=== PATIENT | female | born 1945 | race Caucasian/White ===

== ENCOUNTER 2017-12-10 16:48 | Observation (INO) | payer OTHER, MEDICARE, SELFPAY ==
[2017-12-10] VITALS (11 sets, daily range): BP systolic 155–178; BP diastolic 70–90; PULSE 79–105; RESP 14–20; TEMP 36.6–37; O2SAT 97–99; BMI 25.4; BMI 25.5
[2017-12-10 17:11] LABS: Bedside Glucose 173 mg/dL (70-110)
--- NOTE | 2017-12-10 17:31 | CT_ITS ---
STUDY: CT BRAIN WITHOUT CONTRAST REASON FOR EXAM: Female, 72 years old. Confusion RADIATION DOSAGE (If Supplied By Facility): CTDIvol = ( 44.99 ) mGy, DLP = ( 762.36 ) mGycm TECHNIQUE: Transaxial CT imaging of the brain was performed without administration of intravenous contrast material. Individualized dose optimization techniques were used for this CT. COMPARISON: None. FINDINGS: Normal soft tissue structures. Normal calvarium. Normal size ventricles and extra-axial spaces for the patient's age. There are areas of decreased attenuation within the white matter tracts of the supratentorial brain, consistent with microvascular disease changes. Normal basal ganglia and thalami. Normal brainstem. Normal cerebellum. There is no intracranial hemorrhage. There are no findings of an acute ischemic infarction. There is mild mucosal thickening of the right maxillary sinus. CT/Brain/Head without Contrast IMPRESSION: 1. Chronic involutional changes of the brain. 2. Mild mucosal thickening of the right maxillary sinus. 3. There is no intracranial hemorrhage or evidence of acute infarct. Electronically Signed: Barrera Zamarripa MD at 18:31 EDT , Service support ,
--- NOTE | 2017-12-10 17:31 | EKG12_ITS ---
Test Reason : Blood Pressure : / mmHG Vent. Rate : 097 BPM Atrial Rate : 097 BPM P-R Int : 142 ms QRS Dur : 074 ms QT Int : 334 ms P-R-T Axes : 025 008 012 degrees QTc Int : 424 ms Normal sinus rhythm Normal ECG Confirmed by BRITTA PÉREZ, DEBORA ([id number]), newspaper copy editor KINA JETER ([id number]) on 12/13/2017 9:58:08 AM Referred By: PIO Confirmed By:DEBORA CALLEJAS MD
--- NOTE | 2017-12-10 17:36 | ED.VISSUMM ---
- ER Visit Summary Date of Service: 12/10/17 Chief Complaint: Difficulty speaking History of Present Illness: The patient is a 72 F presenting with difficulty speaking and slurred speech. She states around noon today she started to feel disoriented. She states she was trying to speak and was unable to get the words out. She states she knew what she wanted to say but was unable to say the correct words. She also had slurring of her speech and felt off balance. These symptoms lasted approximately 4 hours. She states she ran out of her diabetes medication yesterday and was unsure if this was related to that. She also had a typhoid shot on in preparation for a trip to [place] in January. She states she was told the side effects to expect included nausea and vomiting. She has had nausea. She denies chest pain or shortness of breath. Denies vision changes. Denies numbness or weakness. Physical Examination: Vitals are stable. Patient is afebrile. Alert no acute distress. HEENT exam is unremarkable. Neck is supple. Lungs are clear and equal bilaterally. Heart is regular rate and rhythm. Abdomen is soft nontender nondistended. Extremities are unremarkable. Skin is warm and dry. No focal neurologic deficit. NIH 0 Remainder of exam is unremarkable. Emergency Department Course and Treatment: EKG is sinus rate of 97 with no acute ischemic changes. CT head shows chronic changes. CBC, chemistries unremarkable other than glucose 177. Troponin is negative. Chest x-ray shows no acute process. Patient's symptoms are now resolved. Due to her expressive aphasia and dysarthria will admit for further evaluation. Will discuss with the hospitalist. Disposition: Admission Impression: TIA This note was generated with [employer] dictation software. It may contain incorrect words, spelling, and punctuation that were not noted in review of the chart prior to signing ED Disposition - Plan for ED Patient: Chief Complaint: Confusion Referrals: Gerardo Michel DO [Primary Care Provider] -
--- NOTE | 2017-12-10 18:07 | RAD_ITS ---
STUDY: X-RAY CHEST REASON FOR EXAM: Female, 72 years old. Confusion TECHNIQUE: Single AP portable view of the chest. COMPARISON: None. FINDINGS: telemetry monitor leads are present. There is a limited inspiration. There is no demonstrated pleural abnormality. Normal size heart. Normal mediastinum and laura. Normal visualized pulmonary arteries. There are calcified plaques of the aortic arch. Normal visualized thoracic spine. Normal visualized ribs, clavicles, and shoulders. There is no demonstrated abnormality of the visualized soft tissue structures of the upper abdomen. RAD/Chest 1 View IMPRESSION: Calcified plaques of the aortic arch. No acute cardiopulmonary disease process is seen. Electronically Signed: Barrera Zamarripa MD at 19:00 EDT , Service support ,
[2017-12-10 18:16] LABS: Absolute Lymphocyte Count 1.23 X10^3/ul (0.83-4.51); Absolute Neutrophil Count 2.9 X10^3/uL (2.0-7.7); Basophil# 0.02 X10^3/uL; Basophil% 0.4 % (0-1); Eosinophil# 0.06 X10^3/uL; Eosinophils% 1.1 % (0-5); Hematocrit 38.5 % (37-47); Hemoglobin 12.7 g/dl (12.0-15.0); Lymphocyte # 1.23 X10^3/ul (4.0); Lymphocyte % 23.5 % (19-41); Mean Corpuscular Hgb 28.9 pg (27.0-32.0); Mean Corpuscular Volume 87.7 fL (81-99); Mean Platelet Vol. 10.6 fl (6.2-12.0); Monocyte# 1.01 X10^3/uL; Monocyte% 19.3 % (0-10); Neutrophil # 2.89 X10^3/uL (2.7-7.7); Neutrophil % 55.3 % (47-70); Platelet Count 230 K/mm3 (150-450); RBC Distribution Width CV 13.3 % (11.6-14.6); RBC Distribution Width SD 42.7 fl (35.1-43.9); Red Blood Count 4.39 M/mm3 (4.2-5.4); White Blood Count 5.2 K/mm3 (4.4-11.0)
[2017-12-10 18:24] LABS: Anion Gap 6 (5-15); BUN 16 mg/dL (7-18); BUN/Creat Ratio 16.5 RATIO (10-20); Calcium,Total 9.8 mg/dL (8.5-10.1); Chloride 104 mmol/L (98-107); Creatinine, Serum 0.97 mg/dL (0.55-1.02); EST Glomerular Filtration Rate 60 mL/min (>60); Est Glom Filt Rate - Afr Amer 73 mL/min (>60); Estimated Creatinine Clearance 45.94 ml/min; Glucose 177 mg/dL (74-106); Potassium 4.1 mmol/L (3.5-5.1); Sodium Level 138 mmol/L (136-145)
[2017-12-10 18:26] LABS: POSITIVE COUNT NO; POSITIVE DIFFERENTIAL NO; POSITIVE MORPHOLOGY NO
[2017-12-10 18:43] LABS: International Normalized Ratio 0.9; Prothrombin Time (Protime)PT. 12.2 SECONDS (11.7-14.9)
[2017-12-10 18:44] LABS: Partial Thromboplast Time 28.3 Seconds (24.1-36.2)
--- NOTE | 2017-12-10 19:56 | HP.PCM_ITS ---
Problem List (1) TIA (transient ischemic attack) Status: Acute (2) HTN (hypertension) Status: Chronic (3) Hypothyroid Status: Chronic (4) Diabetes mellitus Status: Chronic History of Present Illness Date of Admission: 12/10/17 Chief Complaint: unable to speak for four hours The patient is a 72 year old female patient who admits to being non compliant with her diabetic medications presents to the ER after having a four hour period of time being unable to speak coherently. She states she had a vaccine for typhoid two days earlier and had subsequent URI like symptoms and diarrhea which subsided this morning. She ate an early breakfast but noticed that around 2:00 pm this afternoon when a man came to the house to give an estimate on siding she became unable to get the words out of her mouth. She was confused. She denied any headache or any other neurological deficits. CT scan was negative for bleeding and symptoms have completely resolved. She admits to eating a sandwich prior to recovery of her speech and thinking and wonders if she had become hypoglycemic. Nevertheless she will be admitted for observation of TIA with MRI in the am. Past Medical History Past Medical History (Chronic Problems): Chronic Problems HTN (hypertension) (Chronic) Breast cancer (Chronic) Hypothyroid (Chronic) Diabetes mellitus (Chronic) Allergies Gadolinium-MRI Contrast Medium [DYE] Allergy (Verified 12/10/17 16:52) Unknown lisinopril Allergy (Verified 12/10/17 16:52) Unknown phenazopyridine HCl [From Pyridium] Allergy (Verified 12/10/17 16:52) Unknown Sulfa (Sulfonamide Antibiotics) Allergy (Verified 12/10/17 16:52) Unknown Home Medications: Ambulatory Orders Medication Instructions Recorded Aspirin [Aspirin, Baby] 81 mg PO DAILY@0800 08/30/13 Glimepiride [Amaryl] 2 mg PO BID 08/30/13 Hydrochlorothiazide 25 mg PO DAILY 08/30/13 Levothyroxine [Synthroid] 175 mcg PO DAILY 08/30/13 Metformin HCl [Glucophage] 1,000 mg PO BID 08/30/13 Gabapentin [Neurontin] 300 mg PO DAILY 11/20/16 Magnesium 250 mg PO DAILY 11/20/16 Tamoxifen Citrate 20 mg PO DAILY 02/21/17 Surgical History: appendectomy, hysterectomy, tonsillectomy, - - Bilateral mastectomy with bilateral TRAM flap reconstruction. 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 Denies: Focal weakness, Numbness, Tingling Psychiatric: Denies: Anxiety, Depression, Homicidal Ideations, Suicidal Ideations Hematologic/ Lymphatic: Denies: Easy Bruising, Easy Bleeding VTE Information - Inpt Only VTE Present on Admission: No VTE Mechan Device Prophylaxis: None VTE Pharm Prophylaxis ordered?: Yes Patient Problems: Active and Suspected Problems TIA (transient ischemic attack) (Acute) - Physical Exam General: Alert, Oriented x3, Cooperative HEENT: Atraumatic, PERRLA, EOMI, Normocephalic Neck: Supple, No JVD, Negative Carotid Bruits Lungs: Clear to auscultation, Normal air movement Cardiovascular: Regular rate, Normal S1, Normal S2, No murmurs Abdomen: Bowel Sounds Present, Soft, Non Tender Extremities: No edema, Capillary Refill Less than 3 Seconds Skin: No rashes, No breakdown Musculoskeletal: No Tenderness to Palpation of Joints or Extremities Neurological: Cranial nerves II-XII grossly intact Psych/Mental Status: Normal Affect, Appropriate Vital Signs Temp Pulse Resp BP Pulse Ox 98.6 F 92 14 155/75 H 99 12/10/17 16:50 12/10/17 19:16 12/10/17 19:16 12/10/17 19:16 12/10/17 19:16 Oxygen Delivery Method Room Air Weight: 148 lb 9.465 oz Body Mass Index (BMI) 25.4 Finger Stick Blood Glucose 173 Laboratory Tests Past 24 Hrs 12/10/17 12/10/17 12/10/17 17:50 17:50 17:50 WBC 5.2 RBC 4.39 Hgb 12.7 Hct 38.5 MCV 87.7 MCH 28.9 MCHC 33.0 RDW 13.3 RDW Differential 42.7 Plt Count 230 MPV 10.6 Immature Gran % (Auto) 0.400 Neut % (Auto) 55.3 Lymph % (Auto) 23.5 Eddy % (Auto) 19.3 H Eos % (Auto) 1.1 Baso % (Auto) 0.4 Absolute Neuts (auto) 2.9 Absolute Lymphs (auto) 1.23 Total Counted Not Reportable PT 12.2 INR 0.9 APTT 28.3 Sodium 138 Potassium 4.1 Chloride 104 Carbon Dioxide 28.0 Anion Gap 6 BUN 16 Creatinine 0.97 Estim Creat Clear Calc 45.94 Est GFR (MDRD) Af Amer 73 Est GFR (MDRD) Non-Af 60 BUN/Creatinine Ratio 16.5 Glucose 177 H Calcium 9.8 Troponin I < 0.015 POC Glucose 12/10/17 17:04 POC Glucose 173 H Assessment/Plan All Active Problems TIA (transient ischemic attack) (Acute) Postoperative wound abscess (Acute) Non-healing surgical wound (Acute) Chronic Problems HTN (hypertension) (Chronic) Breast cancer (Chronic) Hypothyroid (Chronic) Diabetes mellitus (Chronic) Plan - admit to PCU for observation - neurochecks q 4hrs - aspirin per routine - MRI/MRA head and neck in am - continue routine home medications - LMWH for DVT prophylaxis - suspect underlying cause was actually hypoglycemia and not TIA, compliance with medications was stressed as important to this patient and eating regularly as well. Code Visit OBSV E&M: 76140 Initial observation care L2
--- NOTE | 2017-12-10 20:12 | NURSING ---
Called and spoke with Chintan Mccarty RN in ER - informed that PCU was ready for patient to be transferred
[2017-12-10 22:17] LABS: Thyroid Stim Hormone (TSH) 0.11 uIU/mL (0.358-3.74)
[2017-12-10] MEDS: Metoprolol Tartrate 5 MG/5 ML Vial IV (22:27)
[2017-12-10] MEDS: 0.9% NaCl Peripheral Flush Adult/Peds IV (22:33)
[2017-12-10] MEDS: Oxymetazoline 0.05% 1 SPRAY SPRAY.BTL 2 SPRAY NASAL (23:18)
[2017-12-11] VITALS (10 sets, daily range): BP systolic 125–156; BP diastolic 62–95; PULSE 82–98; RESP 16–18; TEMP 36.3–36.7; O2SAT 93–97; BMI 25.4
[2017-12-11] MEDS: Acetaminophen 325 MG Tablet 650 MG PO (02:27)
[2017-12-11] MEDS: Levothyroxine 175 MCG Tablet PO (05:00)
[2017-12-11 06:45] LABS: Cholesterol 147 mg/dL (200); High Density Lipoprotein 29 mg/dL; Triglycerides 226 mg/dL; Very Low Density Lipoprotein 45 mg/dL (5-40)
[2017-12-11 06:55] LABS: Bedside Glucose 210 mg/dL (70-110)
[2017-12-11] MEDS: Glimepiride 2 MG Tablet PO ×2 (08:01→17:37)
[2017-12-11] MEDS: Aspirin 81 MG TAB.CHEW PO (08:01)
[2017-12-11] MEDS: metFORMIN HCl 1,000 MG Tablet 1000 MG PO ×2 (08:01→17:37)
[2017-12-11] MEDS: hydroCHLOROthiazide 25 MG Tablet PO (09:15)
[2017-12-11] MEDS: Magnesium Oxide 400 MG Tablet PO (09:15)
[2017-12-11] MEDS: Enoxaparin 40 MG/0.4 ML Syringe SC (09:15)
[2017-12-11 09:36] LABS: T4 Free Direct 2.01 ng/dL (0.76-1.46)
--- NOTE | 2017-12-11 10:35 | ECHOCS_ITS ---
Reason For Study: EMBOLI Procedure This was a 2D Doppler, Color Flow transthoracic echocardiogram. The exam was of fair technical quality due to diminished acoustic windows. Exam performed portable in patient room. Left Ventricle Normal LV size. Left ventricular systolic function is hyperdynamic. The estimated ejection fraction is 75 %. There is evidence of diastolic dysfunction. No regional wall motion abnormalities noted. Right Ventricle Normal RV size. Normal systolic function. Atria Normal left atrium. Normal right atrium. No doppler evidence for ASD. Bubble contrast study negative for right to left interatrial shunt. Mitral Valve There is mild mitral annular calcification. The mitral valve chordae are thickened and/or calcified. Trivial mitral valve insufficiency. Tricuspid Valve Normal tricuspid valve. Trivial tricuspid valve insufficiency. Right ventricular systolic pressure estimated to be 34 mmHg. Aortic Valve Trisinus/trileaflet aortic valve. Mild focal aortic valve calcification. Pulmonic Valve The pulmonic valve is not well visualized. Trivial pulmonic valve insufficiency. Great Vessels Normal sized aortic root. Pericardium/Pleural No pericardial effusion. Medication Performed a rapid injection of agitated mix of 9 cc saline and 1cc air to assess for atrial septal defect. MMode/2D Measurements & Calculations LVIDd: 3.9 cm IVSd: 0.96 cm LA dimension: 3.2 cm LVIDs: 2.1 cm LVPWd: 1.00 cm FS: 47.4 % LAV(MOD-bp): 39.4 ml LVAd ap4: 22.7 cm2 SV(MOD-sp4): 34.1 ml LAV(MOD-bp) Indexed: 22.9 ml/m2 EDV(MOD-sp4): 56.5 ml LAV(MOD-sp2): 39.5 ml EDV(sp4-el): 58.8 ml LAV(MOD-sp4): 39.3 ml LVAs ap4: 12.7 cm2 ESV(MOD-sp4): 22.4 ml ESV(sp4-el): 22.8 ml EF(MOD-sp4): 60.3 % EF(sp4-el): 61.3 % SV(sp4-el): 36.1 ml LA A4 area: 15.7 cm2 RA A4 area: 11.5 cm2 Doppler Measurements & Calculations MV E max otis: 76.1 cm/sec Lat Peak E' Otis: 8.3 cm/sec Med Peak E' Otis: 6.3 cm/sec MV A max otis: 139.8 cm/sec E/E' lat: 9.1 E/E' med: 12.1 MV E/A: 0.54 Ao V2 max: 157.8 cm/sec LV V1 max: 135.2 cm/sec PA V2 max: 111.3 cm/sec Ao max P.0 mmHg LV V1 max P.3 mmHg TR max otis: 278.4 cm/sec TR max P.0 mmHg Interpretation Summary Left ventricular systolic function is hyperdynamic. The estimated ejection fraction is 75 %. There is mild mitral annular calcification. The mitral valve chordae are thickened and/or calcified. Trivial mitral valve insufficiency. Trivial tricuspid valve insufficiency. Mild focal aortic valve calcification. Trivial pulmonic valve insufficiency. Right ventricular systolic pressure estimated to be 34 mmHg. There is evidence of diastolic dysfunction. Ordering Physician: Shahab Alejandre Referring Physician: DELMY HARLEY Performed By: Rosa Maria Aguirre RDCS
[2017-12-11 10:38] LABS: Free T3 3.4 pg/mL (2.18-3.98); T4 Total, Thyroxin 17.9 ug/dL (4.8-13.9)
[2017-12-11] MEDS: DiphenhydrAMINE 50 MG/ML Syringe IV (11:01)
[2017-12-11] MEDS: 0.9% NaCl Peripheral Flush Adult/Peds IV (11:02)
--- NOTE | 2017-12-11 11:09 | MRI_ITS ---
STUDY: MRI BRAIN WITHOUT CONTRAST REASON FOR EXAM: Female, 72 years old. Episode yesterday of aphasia and dizziness. History of breast CA, HTN and diabetes TECHNIQUE: Standardized multiplanar fat and water weighted pulse sequences were obtained. COMPARISON: November 20, 2016 MRI, December 10, 2017 CT FINDINGS: Normal size of the ventricles and extra-axial spaces for the patient's age. There are a limited number of small white matter hyperintensities, distributed throughout the deep white matter tracts of the cerebral hemispheres, consistent with mild chronic white matter ischemic changes. Normal bilateral basal ganglia. Normal thalami. There is no extra-axial fluid accumulation. Normal flow voids within the major intracranial circulation suggesting patency by spin echo criteria. There is enlargement of the sella turcica with increased CSF within the sella and flattening of the pituitary gland consistent with an empty sellar syndrome. Normal infundibular stalk, hypothalamus, and optic chiasm. Normal tectal plate and pineal gland. Normal midbrain, eulogio and medulla. Normal cerebellum. Normal basal cisterns. Normal bilateral temporal bones. Normal bilateral internal auditory canals. No demonstrated orbital abnormality, within the constraints of a routine brain study. There is minimal mucosal thickening of the bilateral maxillary sinuses.. Normal calvarium and skull base. Normal visualized soft tissue structures. Normal visualized upper cervical spine. MRI/Brain without Contrast IMPRESSION: Involutional changes of the brain, as described above. There is mild small vessel ischemic white matter disease. Electronically Signed: Lorelei Saldana MD at 13:18 EDT , Service support ,
--- NOTE | 2017-12-11 11:09 | MRI_ITS ---
STUDY: MRA OF THE HEAD WITHOUT CONTRAST REASON FOR EXAM: Female, 72 years old. Episode yesterday of aphasia and dizziness. History of breast carcinoma, hypertension and diabetes. TECHNIQUE: 3-D oxmx-wn-pfbrha (TOF) imaging was performed with MIPs. The study was performed unenhanced. COMPARISON: None. FINDINGS: Normal bilateral petrous carotid arteries. Normal right cavernous carotid artery with a normal supraclinoid bifurcation. Normal left cavernous carotid artery with a normal supraclinoid bifurcation. Normal right A1 segment of the anterior cerebral artery. Normal left A1 segment of the anterior cerebral artery. Normal intact anterior communicating artery (ACOM). Normal bilateral A2 segments of the anterior cerebral arteries. Normal right M1 and M2 segments of the middle cerebral arteries, with a normal M1 bifurcation. Normal left M1 and M2 segments of the middle cerebral arteries, with a normal M1 bifurcation. Normal right posterior communicating artery (PCOM). origin of the left posterior cerebral artery off the left internal carotid artery accounts for the absent left P1 segment. Normal bilateral vertebral arteries. Normal basilar artery with a normal basilar bifurcation. The visualized bilateral superior cerebellar (SCA) arteries are normal. Absent left P1 segment is a developmental variation of normal. Normal right P1, bilateral P2 and visualized P3 segments of the posterior cerebral arteries. There is no demonstrated aneurysm of the [place]. There is no major vessel occlusion or hemodynamically significant stenosis. There is no demonstrated abnormality of the visualized brain. MRI/MRA Head ONLY without Contrast IMPRESSION: Normal MRA of the head Electronically Signed: Jimmy Loyola MD at 13:23 EDT , Service support ,
--- NOTE | 2017-12-11 11:10 | MRI_ITS ---
STUDY: MRA NECK WITH AND WITHOUT CONTRAST REASON FOR EXAM: Female, 72 years old. Aphasia and dizziness TECHNIQUE: 3-D rpfb-pe-nyqjcv (TOF) imaging was performed in an 1.5 T MRI scanner. 7 ml of Gadavist was administered for the contrast enhanced images. COMPARISON: None. FINDINGS: RIGHT CAROTID ARTERIES: Normal right common carotid artery (CCA). Normal right common carotid bulb. Normal origin of the right internal carotid (ICA) artery without a hemodynamically significant stenosis. Normal visualized cervical portion of the right internal carotid artery. Normal origin of the right external carotid artery (ECA). LEFT CAROTID ARTERIES: Normal left common carotid artery (CCA). Normal left common carotid bulb. Normal origin of the left internal carotid (ICA) artery without a hemodynamically significant stenosis. Normal visualized cervical portion of the left internal carotid artery. Normal origin of the left external carotid artery (ECA). VERTEBRAL ARTERIES: Normal antegrade flow within the bilateral vertebral artery without a hemodynamically significant stenosis. MRI/MRA Neck WITH and W/O Contrast IMPRESSION: Normal bilateral cervical carotid and vertebral arteries. Electronically Signed: Sandro Pena MD at 16:28 EDT , Service support ,
--- NOTE | 2017-12-11 13:29 | PCM.CONS.GEN ---
Problem List (1) TIA (transient ischemic attack) Status: Acute Reason for Consult Date of Consultation: 12/11/17 Reason for Consultation: TIA History of Present Illness: The patient is a 72 year old CF with PMH HTN, DM, H/O Breast Cancer s/p B/L mastectomy, hypothyroidism admitted with speech disturbances. Per patient yesterday (12/10/2017) patient was at home, and had sudden onset of speech disturbances, could not get the words out and whatever she was speaking did not make any sense, felt confused, per patient her symptoms lasted for about 4 hrs before improving, did not have any facial droop, focal motor weakness, visual disturbances or sensory loss. She complaints of mild frontal headache but denies any vision loss, jaw claudication or temporal tenderness. Per patient she had typhoid vaccine last week and had subsequent reaction to the same in form of URI symptoms. Per patient she did not take ASA regularly prior to the admission, lives with her , denies any falls, does not use cane or walker to ambulate, does not need any assistance for her ADLs, ABCD2 score on admission was 6. MRI brain reported to be normal, MRA head/neck did not show any hemodynamically significant stenosis or occlusion. .] Past Medical History Past Medical History (Chronic Problems): Chronic Problems HTN (hypertension) (Chronic) Breast cancer (Chronic) Hypothyroid (Chronic) Diabetes mellitus (Chronic) Allergies Gadolinium-MRI Contrast Medium [DYE] Allergy (Verified 12/10/17 16:52) Unknown lisinopril Allergy (Verified 12/10/17 16:52) Unknown phenazopyridine HCl [From Pyridium] Allergy (Verified 12/10/17 16:52) Unknown Sulfa (Sulfonamide Antibiotics) Allergy (Verified 12/10/17 16:52) Unknown Home Medications: Ambulatory Orders Medication Instructions Recorded Aspirin [Aspirin, Baby] 81 mg PO DAILY@0800 08/30/13 Glimepiride [Amaryl] 2 mg PO BID 08/30/13 Levothyroxine [Synthroid] 175 mcg PO DAILY 08/30/13 Metformin HCl [Glucophage] 1,000 mg PO BID 08/30/13 Magnesium 250 mg PO DAILY 11/20/16 Hydrochlorothiazide [Hctz] 25 mg PO DAILY 12/10/17 Surgical History: appendectomy, hysterectomy, tonsillectomy, - - Bilateral mastectomy with bilateral TRAM flap reconstruction. 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 Lives: Spouse/ Significant Other Smoking Status: Never smoker Alcohol: None Drugs: None - *Family History Maternal History Items: No pertinent history Review of Systems Constitutional: Reports: - - complete ROS negative except as documented in HPI Patient Problems: Active and Suspected Problems TIA (transient ischemic attack) (Acute) - Physical Exam General: Alert HEENT: Normocephalic Neck: Supple Lungs: Clear to auscultation Cardiovascular: Normal S1, Normal S2 Abdomen: Bowel Sounds Present Extremities: No cyanosis Skin: No rashes Musculoskeletal: No Tenderness to Palpation of Joints or Extremities Neurological: - - consious, alert, AoAx3, Cn 2-12 grossly intact, power 5/5 all 4 extremities, speech normal at present, no sensory loss, no cerebellar signs, gait deferred, Reflexes + B/L B/S/T/K/A, NIHSS 0 at present, mRS 0 at baseline Psych/Mental Status: Normal Affect Vital Signs Temp Pulse Resp BP Pulse Ox 98.1 F 97 18 150/95 H 97 12/11/17 11:20 12/11/17 11:20 12/11/17 11:20 12/11/17 11:20 12/11/17 11:20 Oxygen Delivery Method Room Air Weight: 67.4 kg Body Mass Index (BMI) 25.4 Laboratory Tests Past 24 Hrs 12/10/17 12/11/17 12/11/17 21:26 06:00 06:00 Troponin I < 0.015 Triglycerides 226 H Cholesterol 147 LDL Cholesterol 73 VLDL Cholesterol 45 H HDL Cholesterol 29 L TSH 0.11 L Free T4 2.01 H Thyroxine (T4) Free T3 pg/dL 12/11/17 06:00 Troponin I Triglycerides Cholesterol LDL Cholesterol VLDL Cholesterol HDL Cholesterol TSH Free T4 Thyroxine (T4) 17.9 H Free T3 pg/dL 3.4 POC Glucose 12/11/17 06:53 POC Glucose 210 H Assessment/Plan All Active Problems TIA (transient ischemic attack) (Acute) Postoperative wound abscess (Acute) Non-healing surgical wound (Acute) The patient is a 72 year old CF with PMH HTN, DM, H/O Breast Cancer s/p B/L mastectomy, hypothyroidism admitted with speech disturbances. Per patient yesterday (12/10/2017) patient was at home, and had sudden onset of speech disturbances, could not get the words out and whatever she was speaking did not make any sense, felt confused, per patient her symptoms lasted for about 4 hrs before improving, did not have any facial droop, focal motor weakness, visual disturbances or sensory loss. She complaints of mild frontal headache but denies any vision loss, jaw claudication or temporal tenderness. Per patient she had typhoid vaccine last week and had subsequent reaction to the same in form of URI symptoms. Denies any witnessed seizures. Per patient she did not take ASA regularly prior to the admission, lives with her , denies any falls, does not use cane or walker to ambulate, does not need any assistance for her ADLs, ABCD2 score on admission was 6. MRI brain reported to be normal, MRA head/neck did not show any hemodynamically significant stenosis or occlusion. Impression Probable TIA Plan -ASA 81 mg PO once daily, start Plavix 75 mg PO once daily, dual AP for 3 weeks, then switch to single AP, bleeding risks discussed in detail -Lipitor 80 mg PO q hs -MRI brain and MRA head/neck reviewed -LDL-73, Await Hba1c -Await TTE -Goal BP < 130/80 mmHg and goal Hba1c < 7% -Stroke risk factors discussed and stroke education provided -PT/OT/ST -GI/DVT prophylaxis -Fall precautions -Further medical management per primary team. -Follow up with Neurology as outpatient in 2-3 weeks -Please call with questions if any -Thank you for allowing us to participate in patient management and care I spent 60 minutes taking history, doing physical examination, reviewing medical records, coordinating care and counseling the patient. Code Visit Inpatient E&M: 61576 Init Hosp L3
--- NOTE | 2017-12-11 13:37 | CASEMGMT ---
Face to Face with patient for initial transition planning/care coordination assessment. BEN WELCH introduced self and role at [facility], pt voices understanding and consents to assessment at this time. Pt is sitting up on side of bed in no distress at this time. Pt is A/O x4 at this time and answers all questions appropriately at this time. Care providers, pharmacy, and demographics verified. See attached link. Pt voices no further concerns/needs at this time. Advised pt to ask for CM if any further questions/concerns/needs arise, voices understanding. PLAN: [place] BEN WELCH
[2017-12-11 14:43] LABS: Hemoglobin A1c 8.3 % (4.2-6.3)
--- NOTE | 2017-12-11 16:26 | DCINST_ITS ---
- Discharge Diagnoses Current Active Problems: Current Active and Chronic Problems TIA (transient ischemic attack) (Acute) You will use the following diet at home:: Calorie/Carbohydrate Controlled ( specify 1200, 1400, etc) - 1800 peyton / day, Cardiac Your food should be the consistency of: Regular Your liquids should be the consistency of: Regular/Thin Discharge Activity: Return to Normal Activity Allergies/Adverse Reactions: Allergies Gadolinium-MRI Contrast Medium [DYE] Allergy (Verified 12/10/17 16:52) Unknown lisinopril Allergy (Verified 12/10/17 16:52) Unknown phenazopyridine HCl [From Pyridium] Allergy (Verified 12/10/17 16:52) Unknown Sulfa (Sulfonamide Antibiotics) Allergy (Verified 12/10/17 16:52) Unknown Medications to take at Discharge Aspirin [Aspirin, Baby] 81 mg PO DAILY@0800 08/30/13 Glimepiride [Amaryl] 2 mg PO BID 08/30/13 Metformin HCl [Glucophage] 1,000 mg PO BID 08/30/13 Magnesium 250 mg PO DAILY 11/20/16 Hydrochlorothiazide [Hctz] 25 mg PO DAILY 12/10/17 Atorvastatin Calcium [Lipitor] 80 mg PO QHS #30 tab 12/11/17 Clopidogrel Bisulfate [Plavix] 75 mg PO DAILY #30 tab 12/11/17 Levothyroxine [Synthroid] 150 mcg PO DAILY@0600 #30 tab 12/11/17 The following prescriptions were given: Atorvastatin Calcium [Lipitor] 80 mg PO QHS #30 tab Clopidogrel Bisulfate [Plavix] 75 mg PO DAILY #30 tab Levothyroxine [Synthroid] 150 mcg PO DAILY@0600 #30 tab Primary Care Physician: Gerardo Michel DO [Primary Care Provider] - Please follow up with your Primary Care Physician in: 1-2 weeks Test Results: Test results from this visit will be discussed in further detail at your follow- up appointment, if applicable. Please Follow Up With: Martina Guillaume MD When: 2-3 weeks Proposed Discharge Date: 12/11/17
--- NOTE | 2017-12-11 16:39 | PCM.DC.SUM ---
<Shahab Alejandre - Last Filed: 12/11/17 16:39> Discharge Date and Diagnosis Date of Admission: 12/10/17 Date of Discharge: 12/11/17 - Primary Discharge Diagnosis Active and Suspected Problems TIA (transient ischemic attack) (Acute) DMt2 uncontrolled HTN hypothyroidism HLD - Secondary Discharge Diagnosis Chronic Problems HTN (hypertension) (Chronic) Breast cancer (Chronic) Hypothyroid (Chronic) Diabetes mellitus (Chronic) Hospital Course and Treatment Imaging Results: Echo: Interpretation Summary Left ventricular systolic function is hyperdynamic. The estimated ejection fraction is 75 %. There is mild mitral annular calcification. The mitral valve chordae are thickened and/or calcified. Trivial mitral valve insufficiency. Trivial tricuspid valve insufficiency. Mild focal aortic valve calcification. Trivial pulmonic valve insufficiency. Right ventricular systolic pressure estimated to be 34 mmHg. There is evidence of diastolic dysfunction. CT/Brain/Head without Contrast IMPRESSION: 1. Chronic involutional changes of the brain. 2. Mild mucosal thickening of the right maxillary sinus. 3. There is no intracranial hemorrhage or evidence of acute infarct. RAD/Chest 1 View IMPRESSION: Calcified plaques of the aortic arch. No acute cardiopulmonary disease process is seen. MRI/Brain without Contrast IMPRESSION: Involutional changes of the brain, as described above. There is mild small vessel ischemic white matter disease. MRI/MRA Head ONLY without Contrast IMPRESSION: Normal MRA of the head MRI/MRA Neck WITH and W/O Contrast IMPRESSION: Normal bilateral cervical carotid and vertebral arteries. Consults: Neuro - Aundrea Operations: None Procedures: 2-D Echocardiogram Summary of Care Provided: Physical exam on day of discharge: General: Resting comfortably NAD Psych: A/Ox3 normal affect HEENT: PEARRLA AT NC Neck: Supple NT CV: RRR no m/t/r/g/h Resp: CTA Abd: [id number] Soft NT no guarding or rigidity Ext: DP2+= no edema Skin: W/D normal turgor Lymph/Heme: No active bleeding or adenopathy Neuro: CN2-12 intact Hospital course: The patient is a 72 year old F with a hx of DMt2, HTN, breast cancer in remission, hypothyroidism who presented to the ER after experiencing an episode of aphasia that lasted for about 4 hours at home that came on and resolved suddenly. She also described some difficulty ambulating with new unsteadiness. She presented to the ER and had a negative CT of the brain. She was admitted to the PCU on tele with concern for TIA, neurology was consulted. She was already taking aspirin, this was continued. She underwent MRI brain, MRA head and neck. No acute process was revealed. Neuro felt that this was a TIA and she was placed on plavix and high dose statin. She was seen by [facility] and had no further symptoms and no home-going needs. She had an echo with no acute findings as above. She had an A1C showing poor control at 8.3. She indicated that she had just increased her amaryl dose and would discuss with her PCP about following it up again and seeing if she needs to start an additional agent. We also assessed her thyroid function. TSH was suppressed, T4 was elevated, so we slightly decreased her synthroid dose, this will also need rechecked for further adjustement. Lipid panel showed elevated trigs, LDL 73 (goal <70), HDL low at 29, tchol 147. She was discharged home in stable condition. Follow up with PCP 1-2 weeks, Neuro 2-3 weeks. This patient was seen by Shahab Alejandre PA-C under the supervision of Doctor Campuzano. [] Discharge Diet: Low fat/ Low Cholesterol, 1800 Calorie Control Diet, 2000 mg Sodium Diet Discharge Activity: Return to Normal Activity Home Medications: Medications to take at Discharge Aspirin [Aspirin, Baby] 81 mg PO DAILY@0800 08/30/13 Glimepiride [Amaryl] 2 mg PO BID 08/30/13 Metformin HCl [Glucophage] 1,000 mg PO BID 08/30/13 Magnesium 250 mg PO DAILY 11/20/16 Hydrochlorothiazide [Hctz] 25 mg PO DAILY 12/10/17 Atorvastatin Calcium [Lipitor] 80 mg PO QHS #30 tab 12/11/17 Clopidogrel Bisulfate [Plavix] 75 mg PO DAILY #30 tab 12/11/17 Levothyroxine [Synthroid] 150 mcg PO DAILY@0600 #30 tab 12/11/17 Following Prescrptions Were Given to Patient: Atorvastatin Calcium [Lipitor] 80 mg PO QHS #30 tab Clopidogrel Bisulfate [Plavix] 75 mg PO DAILY #30 tab Levothyroxine [Synthroid] 150 mcg PO DAILY@0600 #30 tab Primary Care Physician: Gerardo Michel DO [Primary Care Provider] - Please follow up with your Primary Care Physician in: 1-2 weeks Please Follow Up With: Martina Guillaume MD When: 2-3 weeks Disposition: Home Minutes spent on discharge:: 40 Patient Condition:: Stable Medical Necessity - Tobacco Use Smoking Status: Never smoker Meaningful Use Info Meaningful Use Diagnoses (Choose all that apply): None applicable <Zay Campuzano E - Last Filed: 12/12/17 11:58> Discharge Date and Diagnosis - Primary Discharge Diagnosis Active and Suspected Problems TIA (transient ischemic attack) (Acute) - Secondary Discharge Diagnosis Chronic Problems HTN (hypertension) (Chronic) Breast cancer (Chronic) Hypothyroid (Chronic) Diabetes mellitus (Chronic) Hospital Course and Treatment Imaging Results: 12/11/17 10:35 Echo Complete [ECHO] Routine 12/11/17 11:09 Brain without Contrast [MRI] Stat MRA Head ONLY without Contrast [MRI] Stat 12/11/17 11:10 MRA Neck WITH and W/O Contrast [MRI] Stat Summary of Care Provided: Hospitalist note: The patient is a 72 year old F because of an episode of slurred speech/aphasia that lasted for about 4 hours and resolved spontaneously. She was admitted for probable TIA workup. CT scan brain showed no acute infarction or hemorrhage. MRI brain showed no acute infarction. MRA of the head and neck showed no hemodynamically significant vascular disease or stenosis. 2D echocardiogram revealed ejection fraction 75%, trivial MR, trivial TR, RVSP of 34. Her routine blood work was unremarkable. Acute stroke ruled out. She was already on aspirin, Plavix and statins. She does have history of hypothyroidism and her TSH was very low at 0.11. Her free T4 and total T4 were elevated and free T3 was normal. This indicates hyperthyroidism and probably patient is receiving more than what she needs of levothyroxine. There was no obvious symptoms or signs of hyperthyroidism. We decreased her levothyroxine down to 150 mcg daily. Her hemoglobin A1c was 8.3 indicating uncontrolled type 2 diabetes mellitus. She was continued on glimepiride and metformin. Her vital signs remained stable throughout admission. She has no focal deficit on physical examination. Patient discharged home in stable medical condition, discharged on aspirin, Plavix and statin, dose of levothyroxine decreased down to 150 mcg daily, recommended TSH in 2 weeks, follow-up with PCP in 1-2 weeks and follow-up with neurology in 2-3 weeks. - Physical Exam General: Alert, Oriented x3, Cooperative, No apparent distress. HEENT: Atraumatic, PERRLA, EOMI. Neck: Supple, No JVD, Negative Carotid Bruits, Trachea Midline, Thyroid Normal. Lungs: Clear to auscultation, Normal air movement, No rhonchi, No wheeze, No rales. Cardiovascular: Regular rate, Regular Rhythm, Normal S1, Normal S2, PMI Normal. Abdomen: Bowel Sounds Present, Soft, Non Tender, Non-Distended, No Hepato-splenomegaly. Extremities: No clubbing, No cyanosis, No edema Skin: No rashes, No breakdown Neurological: Neuro grossly intact Vital Signs are stable. This note was generated with [employer] dictation software. It may contain incorrect words, spelling, and punctuation that were not noted in checking the note before signing. Disposition: Home Minutes spent on discharge:: 26 Patient Condition:: Stable Meaningful Use Info Meaningful Use Diagnoses (Choose all that apply): None applicable Code Visit OBSV E&M: 72533 Observation care discharge
--- NOTE | 2017-12-11 16:46 | DS.PCM_ITS ---
<Shahab Alejandre - Last Filed: 12/11/17 16:39> Discharge Date and Diagnosis Date of Admission: 12/10/17 Date of Discharge: 12/11/17 - Primary Discharge Diagnosis Active and Suspected Problems TIA (transient ischemic attack) (Acute) DMt2 uncontrolled HTN hypothyroidism HLD - Secondary Discharge Diagnosis Chronic Problems HTN (hypertension) (Chronic) Breast cancer (Chronic) Hypothyroid (Chronic) Diabetes mellitus (Chronic) Hospital Course and Treatment Imaging Results: Echo: Interpretation Summary Left ventricular systolic function is hyperdynamic. The estimated ejection fraction is 75 %. There is mild mitral annular calcification. The mitral valve chordae are thickened and/or calcified. Trivial mitral valve insufficiency. Trivial tricuspid valve insufficiency. Mild focal aortic valve calcification. Trivial pulmonic valve insufficiency. Right ventricular systolic pressure estimated to be 34 mmHg. There is evidence of diastolic dysfunction. CT/Brain/Head without Contrast IMPRESSION: 1. Chronic involutional changes of the brain. 2. Mild mucosal thickening of the right maxillary sinus. 3. There is no intracranial hemorrhage or evidence of acute infarct. RAD/Chest 1 View IMPRESSION: Calcified plaques of the aortic arch. No acute cardiopulmonary disease process is seen. MRI/Brain without Contrast IMPRESSION: Involutional changes of the brain, as described above. There is mild small vessel ischemic white matter disease. MRI/MRA Head ONLY without Contrast IMPRESSION: Normal MRA of the head MRI/MRA Neck WITH and W/O Contrast IMPRESSION: Normal bilateral cervical carotid and vertebral arteries. Consults: Neuro - A[place]rea Operations: None Procedures: 2-D Echocardiogram Summary of Care Provided: Physical exam on day of discharge: General: Resting comfortably NAD Psych: A/Ox3 normal affect HEENT: PEARRLA AT NC Neck: Supple NT CV: RRR no m/t/r/g/h Resp: CTA Abd: [id number] Soft NT no guarding or rigidity Ext: DP2+= no edema Skin: W/D normal turgor Lymph/Heme: No active bleeding or adenopathy Neuro: CN2-12 intact Hospital course: The patient is a 72 year old F with a hx of DMt2, HTN, breast cancer in remission, hypothyroidism who presented to the ER after experiencing an episode of aphasia that lasted for about 4 hours at home that came on and resolved suddenly. She also described some difficulty ambulating with new unsteadiness. She presented to the ER and had a negative CT of the brain. She was admitted to the PCU on tele with concern for TIA, neurology was consulted. She was already taking aspirin, this was continued. She underwent MRI brain, MRA head and neck. No acute process was revealed. Neuro felt that this was a TIA and she was placed on plavix and high dose statin. She was seen by [facility] and had no further symptoms and no home-going needs. She had an echo with no acute findings as above. She had an A1C showing poor control at 8.3. She indicated that she had just increased her amaryl dose and would discuss with her PCP about following it up again and seeing if she needs to start an additional agent. We also assessed her thyroid function. TSH was suppressed, T4 was elevated, so we slightly decreased her synthroid dose, this will also need rechecked for further adjustement. Lipid panel showed elevated trigs, LDL 73 ( goal <70), HDL low at 29, tchol 147. She was discharged home in stable condition. Follow up with PCP 1-2 weeks, Neuro 2-3 weeks. This patient was seen by Shahab Alejandre PA-C under the supervision of Doctor Campuzano. [] Discharge Diet: Low fat/ Low Cholesterol, 1800 Calorie Control Diet, 2000 mg Sodium Diet Discharge Activity: Return to Normal Activity Home Medications: Medications to take at Discharge Aspirin [Aspirin, Baby] 81 mg PO DAILY@0800 08/30/13 Glimepiride [Amaryl] 2 mg PO BID 08/30/13 Metformin HCl [Glucophage] 1,000 mg PO BID 08/30/13 Magnesium 250 mg PO DAILY 11/20/16 Hydrochlorothiazide [Hctz] 25 mg PO DAILY 12/10/17 Atorvastatin Calcium [Lipitor] 80 mg PO QHS #30 tab 12/11/17 Clopidogrel Bisulfate [Plavix] 75 mg PO DAILY #30 tab 12/11/17 Levothyroxine [Synthroid] 150 mcg PO DAILY@0600 #30 tab 12/11/17 Following Prescrptions Were Given to Patient: Atorvastatin Calcium [Lipitor] 80 mg PO QHS #30 tab Clopidogrel Bisulfate [Plavix] 75 mg PO DAILY #30 tab Levothyroxine [Synthroid] 150 mcg PO DAILY@0600 #30 tab Primary Care Physician: Gerardo Michel DO [Primary Care Provider] - Please follow up with your Primary Care Physician in: 1-2 weeks Please Follow Up With: Martina Guillaume MD When: 2-3 weeks Disposition: Home Minutes spent on discharge:: 40 Patient Condition:: Stable Medical Necessity - Tobacco Use Smoking Status: Never smoker Meaningful Use Info Meaningful Use Diagnoses (Choose all that apply): None applicable <Zay Campuzano E - Last Filed: 12/12/17 11:58> Discharge Date and Diagnosis - Primary Discharge Diagnosis Active and Suspected Problems TIA (transient ischemic attack) (Acute) - Secondary Discharge Diagnosis Chronic Problems HTN (hypertension) (Chronic) Breast cancer (Chronic) Hypothyroid (Chronic) Diabetes mellitus (Chronic) Hospital Course and Treatment Imaging Results: 12/11/17 10:35 Echo Complete [ECHO] Routine 12/11/17 11:09 Brain without Contrast [MRI] Stat MRA Head ONLY without Contrast [MRI] Stat 12/11/17 11:10 MRA Neck WITH and W/O Contrast [MRI] Stat Summary of Care Provided: Hospitalist note: The patient is a 72 year old F because of an episode of slurred speech/aphasia that lasted for about 4 hours and resolved spontaneously. She was admitted for probable TIA workup. CT scan brain showed no acute infarction or hemorrhage. MRI brain showed no acute infarction. MRA of the head and neck showed no hemodynamically significant vascular disease or stenosis. 2D echocardiogram revealed ejection fraction 75%, trivial MR, trivial TR, RVSP of 34. Her routine blood work was unremarkable. Acute stroke ruled out. She was already on aspirin, Plavix and statins. She does have history of hypothyroidism and her TSH was very low at 0.11. Her free T4 and total T4 were elevated and free T3 was normal. This indicates hyperthyroidism and probably patient is receiving more than what she needs of levothyroxine. There was no obvious symptoms or signs of hyperthyroidism. We decreased her levothyroxine down to 150 mcg daily. Her hemoglobin A1c was 8.3 indicating uncontrolled type 2 diabetes mellitus. She was continued on glimepiride and metformin. Her vital signs remained stable throughout admission. She has no focal deficit on physical examination. Patient discharged home in stable medical condition, discharged on aspirin, Plavix and statin, dose of levothyroxine decreased down to 150 mcg daily, recommended TSH in 2 weeks, follow-up with PCP in 1-2 weeks and follow-up with neurology in 2-3 weeks. - Physical Exam General: Alert, Oriented x3, Cooperative, No apparent distress. HEENT: Atraumatic, PERRLA, EOMI. Neck: Supple, No JVD, Negative Carotid Bruits, Trachea Midline, Thyroid Normal. Lungs: Clear to auscultation, Normal air movement, No rhonchi, No wheeze, No rales. Cardiovascular: Regular rate, Regular Rhythm, Normal S1, Normal S2, PMI Normal. Abdomen: Bowel Sounds Present, Soft, Non Tender, Non-Distended, No Hepato- splenomegaly. Extremities: No clubbing, No cyanosis, No edema Skin: No rashes, No breakdown Neurological: Neuro grossly intact Vital Signs are stable. This note was generated with [employer] dictation software. It may contain incorrect words, spelling, and punctuation that were not noted in checking the note before signing. Disposition: Home Minutes spent on discharge:: 26 Patient Condition:: Stable Meaningful Use Info Meaningful Use Diagnoses (Choose all that apply): None applicable Code Visit OBSV E&M: 66962 Observation care discharge
== END 2017-12-11 17:57 | disposition home or self-care (01) ==
LOC: ED 18:30 → PCU 20:10
PROVIDERS: Physician Assistant; Psychiatry & Neurology Neurology; Admitting Provider Family Medicine; Emergency Provider Emergency Medicine; Family Provider Student in an Organized Health Care Education/Training Program; PCP Student in an Organized Health Care Education/Training Program; Visit Provider Hospitalist
DX: G45.9 Transient cerebral ischemic attack, unspecified (principal); R47.81 Slurred speech; R47.01 Aphasia; E11.65 Type 2 diabetes mellitus with hyperglycemia; E03.9 Hypothyroidism, unspecified; Z91.14 Patient's other noncompliance with medication regimen; I10 Essential (primary) hypertension; Z79.899 Other long term (current) drug therapy; Z79.82 Long term (current) use of aspirin; Z79.84 Long term (current) use of oral hypoglycemic drugs; E78.5 Hyperlipidemia, unspecified; I08.3 Combined rheumatic disorders of mitral, aortic and tricuspid valves; Z85.3 Personal history of malignant neoplasm of breast
CPT/HCPCS: 36415; 70450; 70544; 70549; 70551; 71045; 80048; 80061; 82962; 83036; 84436; 84439; 84443; 84481; 84484; 85025; 85610; 85730; 93005; 93306; 96372; 96374; 96375; 97161; 97165; 99218; 99283; A9585; A4216; G0378

== ENCOUNTER 2018-10-16 08:53 | Observation (INO) | payer OTHER, MEDICARE, SELFPAY ==
[2018-10-16] VITALS (11 sets, daily range): BP systolic 139–169; BP diastolic 54–84; PULSE 67–85; RESP 15–18; TEMP 36.4–36.8; O2SAT 95–97; BMI 25.5; BMI 24.1; BMI 24.2
--- NOTE | 2018-10-16 09:05 | CT_ITS ---
STUDY: CT BRAIN WITHOUT CONTRAST REASON FOR EXAM: Female, 73 years old. Dizziness. History of breast cancer. RADIATION DOSAGE (If Supplied By Facility): CTDIvol = ( 44.99 ) mGy, DLP = ( 779.24 ) mGycm TECHNIQUE: Transaxial CT imaging of the brain was performed without administration of intravenous contrast material. Individualized dose optimization techniques were used for this CT. COMPARISON: Comparison is made with prior examination dated December 10, 2017. FINDINGS: Normal soft tissue structures. Normal calvarium. Normal size ventricles and extra-axial spaces for the patient's age. Normal white matter tracts of the cerebral hemispheres. Normal basal ganglia and thalami. Normal brainstem. Normal cerebellum. There is no intracranial hemorrhage. There are no findings of an acute ischemic infarction. Normal visualized paranasal sinuses. CT/Brain/Head without Contrast IMPRESSION: Normal unenhanced CT scan of the brain. Electronically Signed: Jim Meneses, at 10:02 EDT , Service support ,
--- NOTE | 2018-10-16 09:05 | EKG12_ITS ---
Test Reason : DIZZINESS Blood Pressure : / mmHG Vent. Rate : 069 BPM Atrial Rate : 069 BPM P-R Int : 158 ms QRS Dur : 080 ms QT Int : 394 ms P-R-T Axes : 017 017 029 degrees QTc Int : 422 ms Normal sinus rhythm Normal ECG Confirmed by BRITTA PÉREZ, DEBORA ([id number]), online content editor KINA JETER ([id number]) on 10/18/2018 6:36:04 AM Referred By: Kevin Daley Confirmed By:DEBORA CALLEJAS MD
[2018-10-16] MEDS: 0.9% Normal Saline 1,000 ML 150 ML IV ×2 (09:12→18:09)
[2018-10-16 09:26] LABS: Absolute Lymphocyte Count 0.91 X10^3/ul (0.83-4.51); Absolute Neutrophil Count 0.9 X10^3/uL (2.0-7.7); Basophil# 0.04 X10^3/uL; Basophil% 1.4 % (0-1); Eosinophils% 3.5 % (0-5); Hematocrit 31.3 % (37-47); Hemoglobin 10.2 g/dl (12.0-15.0); Lymphocyte # 0.91 X10^3/ul (4.0); Mean Corp Hgb Conc 32.6 g/gl (32-36); Mean Corpuscular Hgb 28.8 pg (27.0-32.0); Mean Corpuscular Volume 88.4 fL (81-99); Mean Platelet Vol. 10.1 fl (6.2-12.0); Monocyte# 0.81 X10^3/uL; Monocyte% 28.5 % (0-10); Neutrophil # 0.94 X10^3/uL (2.7-7.7); Neutrophil % 33.2 % (47-70); Platelet Count 194 K/mm3 (150-450); RBC Distribution Width CV 15.8 % (11.6-14.6); RBC Distribution Width SD 48.5 fl (35.1-43.9); Red Blood Count 3.54 M/mm3 (4.2-5.4); White Blood Count 2.8 K/mm3 (4.4-11.0)
[2018-10-16 09:27] LABS: Differential Indicated SCAN CRITERIA MET; POSITIVE COUNT NO; POSITIVE DIFFERENTIAL YES; POSITIVE MORPHOLOGY NO
[2018-10-16] MEDS: diazePAM 2 MG Tablet PO (09:27)
[2018-10-16 09:40] LABS: Anion Gap 8 (5-15); BUN 13 mg/dL (7-18); BUN/Creat Ratio 21.5 RATIO (10-20); Calcium,Total 9.2 mg/dL (8.5-10.1); Chloride 108 mmol/L (98-107); Creatinine, Serum 0.61 mg/dL (0.55-1.02); EST Glomerular Filtration Rate 103 mL/min (>60); Est Glom Filt Rate - Afr Amer 125 mL/min (>60); Estimated Creatinine Clearance 43.91 ml/min; Glucose 150 mg/dL (74-106); Potassium 3.9 mmol/L (3.5-5.1); Sodium Level 143 mmol/L (136-145)
--- NOTE | 2018-10-16 10:29 | ED.VISSUMM ---
- ER Visit Summary Date of Service: 10/16/18 Chief Complaint: [Dizziness] History of Present Illness: The patient is a 73 F [presents the emergency department complaint of dizziness that started suddenly this morning upon awakening. Patient woke up and felt like everything was spinning around and run when she got up to use the restroom. Patient felt very off balance. She denied any nausea or vomiting. Patient does have a history of vertigo and states it did feel like that. Patient also concerned because she is had a history of recent TIA within the last 8 months. Patient currently being treated for Hodgkin's lymphoma. Patient was to have her last chemo treatment today. Patient denies any fever or recent illness. She denies any falls or head injuries. She denies any headache. She denies any chest pain or palpitations.] Physical Examination: [HEENT-PERRLA, EOMI. Cranial nerves II through XII grossly intact. TMs clear. Mucous membranes moist. No adenopathy. Cardiovascular-regular rate and rhythm without murmur or ectopy Lungs-clear to auscultation, chest wall stable without crepitus or subcu emphysema Abdomen-normoactive bowel sounds, soft, nontender, no rebound or rigidity, no peritoneal signs. Neuro kaol-[id number] and heel pabon testing within normal limits, negative Romberg, negative pronator drift, fundi benign. Hallpike maneuver performed did not elicit any nystagmus or reproduction of her symptoms. Extremities-intact ?4, normal range of motion, normal pulses, atraumatic] Test Results: [CT scan of the brain without contrast was normal. EKG obtained showed sinus rhythm with a ventricular rate of 69 bpm. Orthostatic vital signs were negative. CBC with differential showing a 2.8, hemoglobin 10, hematocrit 31, placed 194. Chemistries unremarkable. Troponin is less than 0.015.] Emergency Department Course and Treatment: [Patient was given Valium 2 mg p.o. Patient does not complain of any more vertiginous symptoms. She will be ambulated in the emergency department.] Treatment Plan: [Patient able to ambulate and stable will discharge to home with a prescription for Valium.] Disposition: Discharged home in stable condition. Patient advised to follow-up with primary care physician in 3 to 5 days. Patient to return if persistent dizziness, difficulty with balance or speech, focal weakness, or condition should worsen anyway. [] Impression: [Vertigo-resolved] This note was generated with [employer] dictation software. It may contain incorrect words, spelling, and punctuation that were not noted in review of the chart prior to signing ED Disposition - Plan for ED Patient: Referrals: Gerardo Michel DO [Primary Care Provider] -
--- NOTE | 2018-10-16 10:35 | ED.VISSUMM ---
- ER Visit Summary Date of Service: 10/16/18 Chief Complaint: [Addendum to initial dictation] History of Present Illness: The patient is a 73 F [] Physical Examination: [] Test Results: [] Emergency Department Course and Treatment: [] Treatment Plan: [Patient did not do well with attempted ambulation and she still felt quite unsteady. Patient does not feel safe going home.] Disposition: [Admit] Impression: [Vertigo Disequilibrium with inability to ambulate safely] This note was generated with [employer] dictation software. It may contain incorrect words, spelling, and punctuation that were not noted in review of the chart prior to signing ED Disposition - Plan for ED Patient: Prescriptions: Diazepam [Valium] 2 mg PO TID PRN PRN #10 tab PRN Reason: Vertigo Referrals: Gerardo Michel DO [Primary Care Provider] -
--- NOTE | 2018-10-16 10:46 | NURSING ---
med surg [place] obs vertigo, dissequilibrium wiht difficulty walking
--- NOTE | 2018-10-16 10:49 | PCM.HP.STD ---
Problem List (1) Vertigo Status: Acute (2) Hodgkin lymphoma Status: Chronic (3) Breast cancer Status: Chronic (4) Diabetes mellitus Status: Chronic (5) HTN (hypertension) Status: Chronic (6) Hypothyroid Status: Chronic History of Present Illness Date of Admission: 10/16/18 Chief Complaint: Dizziness The patient is a 73 year old F past medical history cigar for hypertension dyslipidemia, diabetes mellitus type 2 Hodgkin's lymphoma for which she was scheduled to receive her last chemo on the day of admission who woke up with significant dizziness. Patient described her dizziness as both a combination of spinning sensation as well as feeling lightheaded. Patient however denied any nausea. She denied any falls. In view of the persistent nature of her symptoms she presented to the emergency department. CT of the head obtained as part of initial work-up came back unremarkable decision was made to subsequently admit patient for further management since she remains significantly symptomatic was in the ED. Past Medical History Past Medical History (Chronic Problems): Chronic Problems Hodgkin lymphoma (Chronic) HTN (hypertension) (Chronic) Breast cancer (Chronic) Hypothyroid (Chronic) Diabetes mellitus (Chronic) Allergies Gadolinium-MRI Contrast Medium [DYE] Allergy (Verified 10/16/18 08:59) Unknown lisinopril Allergy (Verified 10/16/18 08:59) Unknown phenazopyridine HCl [From Pyridium] Allergy (Verified 10/16/18 08:59) Unknown Sulfa (Sulfonamide Antibiotics) Allergy (Verified 10/16/18 08:59) Unknown Home Medications: Ambulatory Orders Medication Instructions Recorded Aspirin [Aspirin, Baby] 81 mg PO DAILY@0800 08/30/13 Glimepiride [Amaryl] 2 mg PO BID 08/30/13 Metformin HCl [Glucophage] 1,000 mg PO BID 08/30/13 Magnesium 250 mg PO DAILY 11/20/16 Hydrochlorothiazide [Hctz] 25 mg PO DAILY 12/10/17 Atorvastatin Calcium [Lipitor] 80 mg PO QHS #30 tab 12/11/17 Clopidogrel Bisulfate [Plavix] 75 mg PO DAILY #30 tab 12/11/17 Levothyroxine [Synthroid] 150 mcg PO DAILY@0600 #30 tab 12/11/17 Diazepam [Valium] 2 mg PO TID PRN PRN #10 tab 10/16/18 Surgical History: appendectomy, hysterectomy, tonsillectomy, - - Bilateral mastectomy with bilateral TRAM flap reconstruction. 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 Denies: Chest Pain, Orthopnea, Palpitations, Paroxysmal Noc. Dyspnea Respiratory: Denies: Cough, Shortness of breath at rest, Shortness of breath upon exertion, Sputum production Gastrointestinal: Denies: Abdominal Pain, Hematemesis, Hematochezia, Nausea, Melena, Vomiting Genitourinary: Denies: Dysuria, Frequency, Hematuria, Urgency Musculoskeletal: Denies: Joint Pain, Joint Tenderness Skin: Denies: Rash Neurological: Reports: Balance problems. Denies: Focal weakness, Numbness, Tingling Psychiatric: Denies: Homicidal Ideations, Suicidal Ideations Hematologic/ Lymphatic: Denies: Easy Bruising, Easy Bleeding VTE Information - Inpt Only VTE Present on Admission: No VTE Mechan Device Prophylaxis: SCD's VTE Pharm Prophylaxis ordered?: Yes Patient Problems: Active and Suspected Problems Vertigo (Acute) Objective: GENERAL: cooperative HEENT: Atraumatic; moist oral mucosa EYES; Anicteric, Normal Conjunctiva NECK; supple, normal thyroid, no distended JVD. RESPIRATORY: Diminished to auscultation bilaterally, CARDIOVASCULAR: Regular S1 S2, no audible murmurs GI: soft, non-tender, normoactive bowel sounds, : No Renal angle tenderness; EXTREMITIES: No edema, no clubbing, no cyanosis. MUSCULOSKELETAL: No Joint Tenderness; no muscle waisting NEURO: Awake; no lateralizing signs. SKIN: No Rash PSYCH; Normal affect - Physical Exam Vital Signs Temp Pulse Resp BP Pulse Ox 97.5 F L 67 17 146/74 H 95 10/16/18 08:53 10/16/18 09:54 10/16/18 08:53 10/16/18 09:54 10/16/18 08:53 Oxygen Delivery Method Room Air Weight: 67.6 kg Body Mass Index (BMI) 25.5 Finger Stick Blood Glucose 173 Laboratory Tests Past 24 Hrs 06/05/19 06/05/19 09:11 09:11 WBC 2.8 L RBC 3.54 L Hgb 10.2 L Hct 31.3 L MCV 88.4 MCH 28.8 MCHC 32.6 RDW 15.8 H RDW Differential 48.5 H Plt Count 194 MPV 10.1 Immature Gran % (Auto) 1.400 H Neut % (Auto) 33.2 L Lymph % (Auto) 32.0 [place] % (Auto) 28.5 H Eos % (Auto) 3.5 Baso % (Auto) 1.4 H Absolute Neuts (auto) 0.9 L Absolute Lymphs (auto) 0.91 Total Counted Not Reportable Sodium 143 Potassium 3.9 Chloride 108 H Carbon Dioxide 27.0 Anion Gap 8 BUN 13 Creatinine 0.61 Estim Creat Clear Calc 43.91 Est GFR (MDRD) Af Amer 125 Est GFR (MDRD) Non-Af 103 BUN/Creatinine Ratio 21.5 H Glucose 150 H Calcium 9.2 Troponin I < 0.015 Assessment/Plan All Active Problems TIA (transient ischemic attack) (Resolved) Vertigo (Acute) Postoperative wound abscess (Acute) Non-healing surgical wound (Acute) Patient is a 73-year-old lady with significant past medical history including diabetes mellitus type 2 hypertension, Hodgkin's lymphoma currently undergoing chemo who presented with acute onset of vertigo 1. Acute vertigo: Patient has been admitted to a monitored bed for subsequent evaluation. As part of her work-up patient was placed on neurochecks every 4 hours ordered MRI of the brain to rule out posterior circulation CVA. Also ordered CT Angio of the head and neck as well as 2D echo. Requested for PT OT eval 2. Hodgkin's lymphoma currently undergoing chemo at [facility]. Patient was scheduled to receive the last chemo on the day of her admission which had to be postponed in view of above 3. History of breast cancer currently in remission 4. Diabetes mellitus type 2 held oral agents placed on Accu-Cheks AC and at bedtime with sliding scale coverage 5. Hypothyroidism-patient is on levothyroxine home dose continued 6. Dyslipidemia-patient is on statin therapy, continued at home dose 7. DVT prophylaxis SC Lovenox Code Visit OBSV E&M: 53404 Initial observation care L3
--- NOTE | 2018-10-16 11:10 | CASEMGMT ---
RN CM Assessment Introduced role of RN CM to patient.? Patient is alert, oriented and able?to participate in RN CM Assessment. ?Care providers, pharmacy, and demographics verified. Presentation: Dizziness started this morning. H/o Vertigo and recent TIA in last 8 months. Currently Tx for Hodgkins Lymphoma, last Chemo today. 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 [facility] has a good support system with friends. PCP: Gerardo Michel Specialists: Onc- Dr Emir Fan in [place], [place]. Cardio- Dr Oquendo with [facility] Pharmacy: [facility]. Per Google Search this angelita pulls up in ([place]). Insurance: MMO, MCR A&B Rx Benefit:?Yes LNOK: Dtr Bridgett Premer and Sandro Chino LW/HPOA: Patient states has completed both, thought both on file at [facility] as she completed here, aware this CM does not see in system but agrees to have SW follow up as she has recently got and will need to complete another one, States thinks her designated HPOA is her Dtr Bridgett Premer. Living Arrangements:? Lives with her in a 2 story home, resides on upper level of home, no steps to enter home. ADL?s: Independent with ambulation and ADL's Transportation: Patient drives, EMS brought her to hospital this episode. States either a friend or her will transport on DC, unsure if will have off work. Denies any transportation issues or concerns. DME: CPAP HHC: Past with [facility] SNF: None Goal: Home and does not think will have any needs, denies questions or concerns at this time, aware CM/SW remain available for any emerging needs. DC PLAN: Home with no anticipated needs identified at this time. HILARIA Ryan
--- NOTE | 2018-10-16 11:34 | MRI_ITS ---
STUDY: MRI BRAIN WITHOUT CONTRAST REASON FOR EXAM: Female, 73 years old. Vertigo, Hodgkin's disease TECHNIQUE: Standardized multiplanar fat and water weighted pulse sequences were obtained. COMPARISON: 12/11/2017 FINDINGS: There is mild cerebral atrophy with widening of the extra-axial spaces and ventricular dilatation. There are a limited number of small white matter hyperintensities, distributed throughout the deep white matter tracts of the cerebral hemispheres, consistent with mild chronic white matter ischemic changes. There is no evidence for recent intracranial ischemia or other cause of cytotoxic edema on diffusion weighted imaging (DWI). Normal T2* images of the brain without demonstrated susceptibility artifact. There is no demonstrated hemosiderin stain. Normal bilateral basal ganglia. Normal thalami. There is no extra-axial fluid accumulation. Normal flow voids within the major intracranial circulation suggesting patency by spin echo criteria. Normal sella turcica, pituitary gland, infundibular stalk, optic chiasm and hypothalamus. Normal tectal plate and pineal gland. Normal midbrain, eulogio and medulla. Normal cerebellum. Normal basal cisterns. Normal bilateral temporal bones. Normal bilateral internal auditory canals. No demonstrated orbital abnormality, within the constraints of a routine brain study. Normal visualized paranasal sinuses. Normal calvarium and skull base. Normal visualized soft tissue structures. Normal visualized upper cervical spine. MRI/Brain without Contrast IMPRESSION: Involutional changes of the brain, as described above. Electronically Signed: Tony Guzman MD at 14:48 EDT Tel , Service support ,
--- NOTE | 2018-10-16 11:34 | CT_ITS ---
STUDY: CTA OF THE BRAIN REASON FOR EXAM: Female, 73 years old. TIA/stroke. RADIATION DOSAGE (If Supplied By Facility): CTDIvol = ( 19.19 ) mGy, DLP = ( 666.36 ) mGycm TECHNIQUE: CT angiography was performed with a multi-detector CT scanner. Data acquisition was obtained from the skull base through the vertex following intravenous administration of 100 IV Isovue 300. MIP images were reconstructed from the axial data set. Post-processing of the angiographic images was performed, with multiplanar reformation and 3D reconstruction. Individualized dose optimization techniques were used for this CT. COMPARISON: None. FINDINGS: Normal bilateral petrous carotid arteries. There is calcified plaque formation of the right cavernous carotid artery, without a cross-sectional luminal stenosis. There is calcified plaque formation of the left cavernous carotid artery, without a cross-sectional luminal stenosis. Normal right A1 segments of the anterior cerebral artery. Normal left A1 segments of the anterior cerebral artery. Normal intact anterior communicating artery (ACOM). Normal bilateral A2 segments of the anterior cerebral arteries. Normal right M1 and M2 segments of the middle cerebral arteries, with a normal M1 bifurcation. Normal left M1 and M2 segments of the middle cerebral arteries, with a normal M1 bifurcation. Normal right posterior communicating artery (PCOM). There is a persistent origin of the left posterior cerebral artery with absence of the posterior communicating artery (PCOM). Normal bilateral vertebral arteries. Normal basilar artery with a normal basilar bifurcation. The visualized bilateral superior cerebellar (SCA) arteries are normal. Normal bilateral P1, P2 and visualized P3 segments of the posterior cerebral arteries. There is no demonstrated aneurysm of the [place]. There is no demonstrated abnormality of the visualized brain. IMPRESSION: Normal [place] without a demonstrated aneurysm or hemodynamically significant stenosis. Electronically Signed: Jim Meneses, at 14:00 EDT , Service support , STUDY: CTA NECK WITH CONTRAST REASON FOR EXAM: Female, 73 years old. TIA/stroke. RADIATION DOSAGE (If Supplied By Facility): CTDIvol = ( 19.19 ) mGy, DLP = ( 666.36 ) mGycm TECHNIQUE: CT angiography with multi-detector data acquisition was performed from the aortic arch to the skull base following intravenous administration of 100 IV Isovue 300. MIP images were reconstructed from the axial data set. Post-processing of the angiographic images was performed, with multiplanar reformation and 3D reconstruction. Individualized dose optimization techniques were used for this CT. COMPARISON: None. FINDINGS: Inhomogeneous appearance of the thyroid gland. AORTIC ARCH: There is atherosclerotic calcific plaque formation of the aortic arch and great vessels arising from the aortic arch, without a hemodynamically significant stenosis. There is a normal origin of the brachiocephalic, left common carotid, and left subclavian arteries. RIGHT CAROTID ARTERIES: Normal right common carotid artery (CCA). Normal right common carotid bulb. There is moderate atherosclerotic plaque formation of the origin of the right internal carotid artery with an estimated stenosis of 50-69% stenosis. Normal visualized cervical portion of the right internal carotid artery. Normal origin of the right external carotid artery (ECA). LEFT CAROTID ARTERIES: Normal left common carotid artery (CCA). Normal left common carotid bulb. Normal origin of the left internal carotid (ICA) artery without a hemodynamically significant stenosis. Normal visualized cervical portion of the left internal carotid artery. Normal origin of the left external carotid artery (ECA). VERTEBRAL ARTERIES: Normal bilateral vertebral arteries. CT/CTA Head W/WO Contrast IMPRESSION: Atherosclerotic plaque at the origin of the right internal carotid artery causing between 50 and 69% stenosis. Electronically Signed: Jim Meneses, at 14:06 EDT , Service support ,
--- NOTE | 2018-10-16 11:34 | CT_ITS ---
STUDY: CTA OF THE BRAIN REASON FOR EXAM: Female, 73 years old. TIA/stroke. RADIATION DOSAGE (If Supplied By Facility): CTDIvol = ( 19.19 ) mGy, DLP = ( 666.36 ) mGycm TECHNIQUE: CT angiography was performed with a multi-detector CT scanner. Data acquisition was obtained from the skull base through the vertex following intravenous administration of 100 IV Isovue 300. MIP images were reconstructed from the axial data set. Post-processing of the angiographic images was performed, with multiplanar reformation and 3D reconstruction. Individualized dose optimization techniques were used for this CT. COMPARISON: None. FINDINGS: Normal bilateral petrous carotid arteries. There is calcified plaque formation of the right cavernous carotid artery, without a cross-sectional luminal stenosis. There is calcified plaque formation of the left cavernous carotid artery, without a cross-sectional luminal stenosis. Normal right A1 segments of the anterior cerebral artery. Normal left A1 segments of the anterior cerebral artery. Normal intact anterior communicating artery (ACOM). Normal bilateral A2 segments of the anterior cerebral arteries. Normal right M1 and M2 segments of the middle cerebral arteries, with a normal M1 bifurcation. Normal left M1 and M2 segments of the middle cerebral arteries, with a normal M1 bifurcation. Normal right posterior communicating artery (PCOM). There is a persistent origin of the left posterior cerebral artery with absence of the posterior communicating artery (PCOM). Normal bilateral vertebral arteries. Normal basilar artery with a normal basilar bifurcation. The visualized bilateral superior cerebellar (SCA) arteries are normal. Normal bilateral P1, P2 and visualized P3 segments of the posterior cerebral arteries. There is no demonstrated aneurysm of the [place]. There is no demonstrated abnormality of the visualized brain. IMPRESSION: Normal [place] without a demonstrated aneurysm or hemodynamically significant stenosis. Electronically Signed: Jim Meneses, at 14:00 EDT , Service support , STUDY: CTA NECK WITH CONTRAST REASON FOR EXAM: Female, 73 years old. TIA/stroke. RADIATION DOSAGE (If Supplied By Facility): CTDIvol = ( 19.19 ) mGy, DLP = ( 666.36 ) mGycm TECHNIQUE: CT angiography with multi-detector data acquisition was performed from the aortic arch to the skull base following intravenous administration of 100 IV Isovue 300. MIP images were reconstructed from the axial data set. Post-processing of the angiographic images was performed, with multiplanar reformation and 3D reconstruction. Individualized dose optimization techniques were used for this CT. COMPARISON: None. FINDINGS: Inhomogeneous appearance of the thyroid gland. AORTIC ARCH: There is atherosclerotic calcific plaque formation of the aortic arch and great vessels arising from the aortic arch, without a hemodynamically significant stenosis. There is a normal origin of the brachiocephalic, left common carotid, and left subclavian arteries. RIGHT CAROTID ARTERIES: Normal right common carotid artery (CCA). Normal right common carotid bulb. There is moderate atherosclerotic plaque formation of the origin of the right internal carotid artery with an estimated stenosis of 50-69% stenosis. Normal visualized cervical portion of the right internal carotid artery. Normal origin of the right external carotid artery (ECA). LEFT CAROTID ARTERIES: Normal left common carotid artery (CCA). Normal left common carotid bulb. Normal origin of the left internal carotid (ICA) artery without a hemodynamically significant stenosis. Normal visualized cervical portion of the left internal carotid artery. Normal origin of the left external carotid artery (ECA). VERTEBRAL ARTERIES: Normal bilateral vertebral arteries. CT/CTA Neck W/WO Contrast IMPRESSION: Atherosclerotic plaque at the origin of the right internal carotid artery causing between 50 and 69% stenosis. Electronically Signed: Jim Meneses, at 14:06 EDT , Service support ,
[2018-10-16 12:11] LABS: Bedside Glucose 72 mg/dL (70-110)
--- NOTE | 2018-10-16 12:47 | CON.PCM_ITS ---
Problem List (1) Dizziness Status: Acute Reason for Consult Date of Consultation: 10/16/18 Reason for Consultation: Dizziness History of Present Illness: The patient is a 73 year old F with PMH HTN, HLD, DM, H/O TIA Hodgkin's lymphoma on chemotherapy admitted with dizziness. Per patient she woke up this morning 10/16/2018 with acute onset dizziness, felt that the room was spinning, but denied any nausea or vomiting, had difficulty in walking because of the dizziness per patient. She denies any visual disturbances headaches, speech disturbances or sensory loss. Patient she is on aspirin at baseline. Patient she has a history of vertigo but has never seen ENT in the past. She lives with her , denies any falls, does not use any cane or walker to ambulate and does drive. CT head done on admission was unremarkable. Past Medical History Past Medical History (Chronic Problems): Chronic Problems Hodgkin lymphoma (Chronic) HTN (hypertension) (Chronic) Breast cancer (Chronic) Hypothyroid (Chronic) Diabetes mellitus (Chronic) Allergies lisinopril Allergy (Verified 10/16/18 08:59) Unknown phenazopyridine HCl [From Pyridium] Allergy (Verified 10/16/18 08:59) Unknown Sulfa (Sulfonamide Antibiotics) Allergy (Verified 10/16/18 08:59) Unknown Home Medications: Ambulatory Orders Medication Instructions Recorded Aspirin [Aspirin, Baby] 81 mg PO DAILY@0800 08/30/13 Glimepiride [Amaryl] 2 mg PO BID 08/30/13 Metformin HCl [Glucophage] 1,000 mg PO BID 08/30/13 Magnesium 250 mg PO DAILY 11/20/16 Atorvastatin Calcium [Lipitor] 80 mg PO QHS #30 tab 12/11/17 Levothyroxine [Synthroid] 150 mcg PO DAILY@0600 #30 tab 12/11/17 Diazepam [Valium] 2 mg PO TID PRN PRN #10 tab 10/16/18 Empagliflozin [Jardiance] 25 mg PO DAILY 10/16/18 Metoprolol Succinate 25 mg PO BID 10/16/18 Surgical History: appendectomy, hysterectomy, tonsillectomy, - - Bilateral maste ctomy with bilateral TRAM flap reconstruction. 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 Lives: Spouse/ Significant Other Smoking Status: Never smoker Alcohol: Occasional Drugs: None - *Family History Maternal History Items: No pertinent history Paternal History Items: Heart Disease Sibling History Items: Heart Disease Review of Systems Constitutional: Reports: - - Complete ROS negative except as documented in HPI Patient Problems: Active and Suspected Problems Vertigo (Acute) Dizziness (Acute) - Physical Exam General: Alert HEENT: Normocephalic Neck: Supple Lungs: Normal air movement Cardiovascular: Normal S1, Normal S2 Abdomen: Bowel Sounds Present Extremities: No cyanosis Psych/Mental Status: Normal Affect Vital Signs Temp Pulse Resp BP Pulse Ox 97.6 F L 67 16 166/84 H 97 10/16/18 12:00 10/16/18 12:00 10/16/18 12:00 10/16/18 12:00 10/16/18 12:00 Oxygen Delivery Method Room Air Weight: 63.9 kg Body Mass Index (BMI) 24.1 Finger Stick Blood Glucose 173 Laboratory Tests Past 24 Hrs 10/16/18 10/16/18 10/16/18 09:11 09:11 11:55 WBC 2.8 L RBC 3.54 L Hgb 10.2 L Hct 31.3 L MCV 88.4 MCH 28.8 MCHC 32.6 RDW 15.8 H RDW Differential 48.5 H Plt Count 194 MPV 10.1 Immature Gran % (Auto) 1.400 H Neut % (Auto) 33.2 L Lymph % (Auto) 32.0 [place] % (Auto) 28.5 H Eos % (Auto) 3.5 Baso % (Auto) 1.4 H Absolute Neuts (auto) 0.9 L Absolute Lymphs (auto) 0.91 Total Counted Not Reportable Sodium 143 Potassium 3.9 Chloride 108 H Carbon Dioxide 27.0 Anion Gap 8 BUN 13 Creatinine 0.61 Estim Creat Clear Calc 43.91 Est GFR (MDRD) Af Amer 125 Est GFR (MDRD) Non-Af 103 BUN/Creatinine Ratio 21.5 H Glucose 150 H Calcium 9.2 Troponin I < 0.015 < 0.015 POC Glucose 10/16/18 11:56 POC Glucose 72 Assessment/Plan All Active Problems TIA (transient ischemic attack) (Resolved) Vertigo (Acute) Dizziness (Acute) Postoperative wound abscess (Acute) Non-healing surgical wound (Acute) The patient is a 73 year old F with PMH HTN, HLD, DM, H/O TIA Hodgkin's lymphoma on chemotherapy admitted with dizziness. Per patient she woke up this morning 10/16/2018 with acute onset dizziness, felt that the room was spinning, but denied any nausea or vomiting, had difficulty in walking because of the dizziness per patient. She denies any visual disturbances headaches, speech disturbances or sensory loss. Patient she is on aspirin at baseline. Patient she has a history of vertigo but has never seen ENT in the past. She lives with her , denies any falls, does not use any cane or walker to ambulate and does drive. CT head done on admission was unremarkable Impression Dizziness?likely peripheral etiology but rule out stroke Plan ?MRI brain and CT angiogram head/neck awaited ?On aspirin and Lipitor ?Vestibular therapy ?ENT consult ?Further management of Hodgkin's lymphoma per oncology ?Further medical management per hospitalist team ?Fall precaution ?GI/DVT prophylaxis ?PT/OT ?Please call with questions if any ?Follow-up with neurology as outpatient in 6 weeks ?Thank you for allowing us to participate in patient's care and management Code Visit Inpatient E&M: [id number] Init Hosp L3
--- NOTE | 2018-10-16 13:02 | NURSING ---
patient took BP meds approximately one hour ago per her report
[2018-10-16] MEDS: 0.9% NaCl VAD Flush 10 ML IV ×2 (15:17→22:41)
[2018-10-16] MEDS: 0.9% NaCl Peripheral Flush Adult/Peds IV ×2 (15:17→17:59)
[2018-10-16 15:25] LABS: Bedside Glucose 89 mg/dL (70-110)
--- NOTE | 2018-10-16 16:04 | NURSING ---
Dr. Daley aware of elevated BP
[2018-10-16] MEDS: Metoprolol(XL)Succ 25 MG Tablet PO (21:18)
[2018-10-16] MEDS: Atorvastatin Calcium 80 MG Tablet PO (21:18)
[2018-10-16 21:40] LABS: Bedside Glucose 123 mg/dL (70-110)
--- NOTE | 2018-10-16 22:00 | DCINST_ITS ---
- Discharge Diagnoses Current Active Problems: Current Active and Chronic Problems 1. Acute vertigo, Resolved with unremarkable MRI brain 2. Hodgkin's lymphoma with current ongoing chemotherapy 3. History of breast cancer, Remission 4. Diabetes mellitus type II 5. Hypothyroidism 6. Hypertension 7. Hyperlipidemia You will use the following diet at home:: Calorie/Carbohydrate Controlled (specify 1200, 1400, etc) - 1800 calorie, Cardiac Your food should be the consistency of: Regular Your liquids should be the consistency of: Regular/Thin Discharge Activity: - - Encourage moderate activity, avoidance of aggravating activities until complete resolution of vertigo and no need for Valium regimen. May resume sexual activity in: No Restrictions Weight Bearing Status: Weight bearing as tolerated Call your doctor if you observe: Fever of 101 or Higher, Inability to urinate, Inability to have a bowel movement, Shortness of breath, Dizziness, Fainting spells, Chest pain, Uncontrolled pain, - - Recurrent or worsened vertiginous symptoms. Instructions: ED BPV Vertigo, ED Vertigo Unspecified, Managing Dizziness (Vertigo) with Medications Allergies/Adverse Reactions: Allergies lisinopril Allergy (Verified 10/16/18 08:59) Unknown phenazopyridine HCl [From Pyridium] Allergy (Verified 10/16/18 08:59) Unknown Sulfa (Sulfonamide Antibiotics) Allergy (Verified 10/16/18 08:59) Unknown Medications to take at Discharge Aspirin [Aspirin, Baby] 81 mg PO DAILY@0800 08/30/13 Glimepiride [Amaryl] 2 mg PO BID 08/30/13 Metformin HCl [Glucophage] 1,000 mg PO BID 08/30/13 Magnesium 250 mg PO DAILY 11/20/16 Atorvastatin Calcium [Lipitor] 80 mg PO QHS #30 tab 12/11/17 Levothyroxine [Synthroid] 150 mcg PO DAILY@0600 #30 tab 12/11/17 Diazepam [Valium] 2 mg PO TID PRN PRN #10 tab 10/16/18 Empagliflozin [Jardiance] 25 mg PO DAILY 10/16/18 Metoprolol Succinate 25 mg PO BID 10/16/18 The following prescriptions were given: Diazepam [Valium] 2 mg PO TID PRN PRN #10 tab PRN Reason: Vertigo Primary Care Physician: Gerardo Michel DO [Primary Care Provider] - Please follow up with your Primary Care Physician in: Follow-up with your PCP within 3-5 days. Test Results: Test results from this visit will be discussed in further detail at your follow- up appointment, if applicable. Proposed Discharge Date: 10/16/18
--- NOTE | 2018-11-01 09:20 | PCM.DC.SUM ---
Discharge Date and Diagnosis Date of Admission: 10/16/18 Date of Discharge: 10/16/18 - Primary Discharge Diagnosis Dizziness - Secondary Discharge Diagnosis Chronic Problems Hodgkin lymphoma (Chronic) HTN (hypertension) (Chronic) Breast cancer (Chronic) Hypothyroid (Chronic) Diabetes mellitus (Chronic) Hospital Course and Treatment Imaging Results: Clinical Impression(s) from Imaging Studies Brain CT 10/16/18 09:05 IMPRESSION: Normal unenhanced CT scan of the brain. Electronically Signed: Jim Meneses, at 10:02 EDT , Service support , Brain MRI 10/16/18 11:34 IMPRESSION: Involutional changes of the brain, as described above. Electronically Signed: Tony Guzman MD at 14:48 EDT Tel , Service support , Head CTA 10/16/18 11:34 IMPRESSION: Atherosclerotic plaque at the origin of the right internal carotid artery causing between 50 and 69% stenosis. Electronically Signed: Jim Meneses, at 14:06 EDT , Service support , Neck CTA 10/16/18 11:34 IMPRESSION: Atherosclerotic plaque at the origin of the right internal carotid artery causing between 50 and 69% stenosis. Electronically Signed: Jim Meneses, at 14:06 EDT , Service support , Operations: None Summary of Care Provided: Patient is a 73-year-old lady with significant past medical history including diabetes mellitus type 2 hypertension, Hodgkin's lymphoma currently undergoing chemo who presented with acute onset of vertigo 1. Acute vertigo: Patient has been admitted to a monitored bed for subsequent evaluation. As part of her work-up patient was placed on neurochecks every 4 hours ordered MRI of the brain to rule out posterior circulation CVA. Also ordered CT Angio of the head and neck as well as 2D echo. Requested for PT OT eval. MRI failed to demonstrate acute cva. Patient requested to be discharged on the same day of her adamission 2. Hodgkin's lymphoma currently undergoing chemo at [facility]. Patient was scheduled to receive the last chemo on the day of her admission which had to be postponed in view of above 3. History of breast cancer currently in remission 4. Diabetes mellitus type 2 held oral agents placed on Accu-Cheks AC and at bedtime with sliding scale coverage 5. Hypothyroidism-patient is on levothyroxine home dose continued 6. Dyslipidemia-patient is on statin therapy, continued at home dose 7. DVT prophylaxis SC Lovenox - Physical Exam General: Alert HEENT: Atraumatic Neurological: Cranial nerves II-XII grossly intact Vital Signs Temp Pulse Resp BP Pulse Ox 98.1 F 81 16 144/54 H 96 10/16/18 21:15 10/16/18 21:18 10/16/18 21:15 10/16/18 21:18 10/16/18 21:15 Oxygen Delivery Method Room Air Weight: 63.9 kg Body Mass Index (BMI) 24.1 Finger Stick Blood Glucose 173 Discharge Diet: No Restrictions Discharge Activity: - - Encourage moderate activity, avoidance of aggravating activities until complete resolution of vertigo and no need for Valium regimen. May resume sexual activity in: No Restrictions Weight Bearing Status: Weight bearing as tolerated Call your doctor if you observe: Fever of 101 or Higher, Inability to urinate, Inability to have a bowel movement, Shortness of breath, Dizziness, Fainting spells, Chest pain, Uncontrolled pain, - - Recurrent or worsened vertiginous symptoms. Home Medications: Medications to take at Discharge Aspirin [Aspirin, Baby] 81 mg PO DAILY@0800 08/30/13 Glimepiride [Amaryl] 2 mg PO BID 08/30/13 Metformin HCl [Glucophage] 1,000 mg PO BID 08/30/13 Magnesium 250 mg PO DAILY 11/20/16 Atorvastatin Calcium [Lipitor] 80 mg PO QHS #30 tab 12/11/17 Levothyroxine [Synthroid] 150 mcg PO DAILY@0600 #30 tab 12/11/17 Diazepam [Valium] 2 mg PO TID PRN PRN #10 tab 10/16/18 Empagliflozin [Jardiance] 25 mg PO DAILY 10/16/18 Metoprolol Succinate 25 mg PO BID 10/16/18 Following Prescrptions Were Given to Patient: Diazepam [Valium] 2 mg PO TID PRN PRN #10 tab PRN Reason: Vertigo Prescription Printed Primary Care Physician: Gerardo Michel DO [Primary Care Provider] - Please follow up with your Primary Care Physician in: Follow-up with your PCP within 3-5 days. Patient Instructions: Managing Dizziness (Vertigo) with Medications, Benign Positional Vertigo, VERTIGO, Unspecified Minutes spent on discharge:: 50 Patient Condition:: Stable Medical Necessity - Tobacco Use Smoking Status: Never smoker Meaningful Use Info Meaningful Use Diagnoses (Choose all that apply): None applicable Code Visit OBSV E&M: 61740 Observ/hosp same date L3
== END 2018-10-16 22:48 | disposition home or self-care (01) ==
LOC: ED 09:17 → PCU 11:18
PROVIDERS: Admitting Provider Internal Medicine; Emergency Provider Emergency Medicine; Family Provider Student in an Organized Health Care Education/Training Program; PCP Student in an Organized Health Care Education/Training Program; Referring Provider Internal Medicine; Visit Provider Internal Medicine
DX: R42 Dizziness and giddiness (principal); C81.90 Hodgkin lymphoma, unspecified, unspecified site; I10 Essential (primary) hypertension; E11.9 Type 2 diabetes mellitus without complications; E03.9 Hypothyroidism, unspecified; E78.5 Hyperlipidemia, unspecified; Z79.899 Other long term (current) drug therapy; Z79.84 Long term (current) use of oral hypoglycemic drugs; Z79.82 Long term (current) use of aspirin; Z86.73 Personal history of transient ischemic attack (TIA), and cerebral infarction without residual deficits; Z85.3 Personal history of malignant neoplasm of breast
CPT/HCPCS: 70450; 70496; 70498; 70551; 80048; 82962; 84484; 85025; 93005; 96361; 96374; 97162; 99218; 99251; 99285; J7030; A4216; G0378; G0463

== ENCOUNTER → 2019-11-17 15:51 | Outpatient (CLI) | payer OTHER, MEDICARE, SELFPAY ==
[2018-10-16 19:50] VITALS: BMI 24.1
[2019-11-18 07:21] LABS: SARS-COV-2 TOTAL ABS Nonreactive (Nonreactive)
== END ==
PROVIDERS: PCP Student in an Organized Health Care Education/Training Program; Referring Provider Nurse Practitioner Adult Health; Visit Provider Nurse Practitioner Adult Health
DX: Z11.59 Encounter for screening for other viral diseases (principal)
CPT/HCPCS: 86769; G2023

== ENCOUNTER 2019-11-26 11:04 | Emergency (ER) | payer OTHER, MEDICARE, SELFPAY ==
[2018-10-16 19:50] VITALS: BMI 24.1
[2019-11-26 11:05] VITALS: BP 162/75; PULSE 81; RESP 16; TEMP 36.9; O2SAT 97; BMI 25.2
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
[2019-11-26 13:21] VITALS: BP 151/109; PULSE 78; RESP 16; O2SAT 98
== END 2019-11-26 13:22 | disposition home or self-care (01) ==
LOC: ED 12:39
PROVIDERS: Emergency Provider Emergency Medicine; PCP Student in an Organized Health Care Education/Training Program
DX: S06.0X9A Concussion with loss of consciousness of unspecified duration, initial encounter (principal); V43.52XA Car driver injured in collision with other type car in traffic accident, initial encounter; Y93.9 Activity, unspecified; Y92.9 Unspecified place or not applicable; Y99.9 Unspecified external cause status; E11.9 Type 2 diabetes mellitus without complications; I10 Essential (primary) hypertension; Z85.3 Personal history of malignant neoplasm of breast; Z79.82 Long term (current) use of aspirin; Z79.899 Other long term (current) drug therapy
CPT/HCPCS: 70450; 99284

== ENCOUNTER 2020-11-29 23:26 | Emergency (ER) | payer OTHER, MEDICARE, SELFPAY ==
[2020-11-29 23:26] VITALS: PULSE 85; RESP 18; TEMP 36.6; O2SAT 96; BMI 25.7
--- NOTE | 2020-11-29 23:38 | EKG12_ITS ---
Test Reason : CP Blood Pressure : / mmHG Vent. Rate : 078 BPM Atrial Rate : 078 BPM P-R Int : 164 ms QRS Dur : 082 ms QT Int : 358 ms P-R-T Axes : 045 030 029 degrees QTc Int : 408 ms Normal sinus rhythm Nonspecific ST abnormality Abnormal ECG Confirmed by BRITTA PÉREZ, DEBORA ([id number]), digital editor OSWALDO STONE ([id number]) on 12/01/2020 12:40:22 PM Referred By: CHRISTINE Confirmed By:DEBORA CALLEJAS MD
--- NOTE | 2020-11-29 23:40 | RAD_ITS ---
STUDY: X-RAY CHEST REASON FOR EXAM: Female, 75 years old. Chest pain TECHNIQUE: Single AP portable view of the chest. COMPARISON: None. FINDINGS: The lungs are clear and expanded. There is no demonstrated pleural abnormality. Normal size heart. Normal mediastinum and laura. Normal visualized pulmonary arteries. There is atherosclerotic calcification of the aortic arch with tortuosity. Normal visualized thoracic spine. Normal visualized ribs, clavicles, and shoulders. Postoperative changes projected over the bilateral lower chest. RAD/Chest 1 View (Portable) IMPRESSION: Underexpansion of the lungs. No visualized focal infiltrate. Electronically Signed: Lisseth Wilson MD at 0:37 EDT Tel , Service support ,
[2020-11-29 23:44] LABS: Absolute Lymphocyte Count 1.22 X10^3/uL (0.83-4.51); Basophil# 0.06 X10^3/uL; Basophil% 1.1 % (0-1); Eosinophil# 0.22 X10^3/uL; Eosinophils% 4.2 % (0-5); Hematocrit 36.2 % (37-47); Hemoglobin 12.2 g/dL (12.0-15.0); Lymphocyte # 1.22 X10^3/ul (0.83-4.51); Lymphocyte % 23.2 % (19-41); Mean Corp Hgb Conc 33.7 g/dL (32-36); Mean Corpuscular Hgb 30.3 pg (27.0-32.0); Mean Platelet Vol. 10.7 fl (6.2-12.0); Monocyte# 0.73 X10^3/uL; Monocyte% 13.9 % (0-10); NRBC Flagged by Analyzer 0 % (0-5); Neutrophil # 2.98 X10^3/uL (2.7-7.7); Neutrophil % 56.8 % (47-70); Platelet Count 188 K/mm3 (150-450); RBC Distribution Width CV 12.8 % (11.6-14.6); RBC Distribution Width SD 42.1 fl (35.1-43.9); Red Blood Count 4.02 M/mm3 (4.2-5.4); White Blood Count 5.3 K/mm3 (4.4-11.0)
[2020-11-29 23:57] LABS: Anion Gap 5 (5-15); BUN 15 mg/dL (7-18); BUN/Creat Ratio 24.5 RATIO (10-20); Calcium,Total 9.4 mg/dL (8.5-10.1); Chloride 106 mmol/L (98-107); Creatinine, Serum 0.61 mg/dL (0.55-1.02); EST Glomerular Filtration Rate 101 mL/min (>60); Est Glom Filt Rate - Afr Amer 123 mL/min (>60); Estimated Creatinine Clearance 42.62 ml/min; Glucose 130 mg/dL (74-106); Potassium 4.2 mmol/L (3.5-5.1); Sodium Level 138 mmol/L (136-145)
[2020-11-30 00:03] LABS: D-Dimer Quantitative (DVT/PE) 0.61 FEU/ug/m (0.27-0.49)
--- NOTE | 2020-11-30 00:16 | EDS_ITS ---
HPI History of Present Illness Chief Complaint: Chest Pain Informant: patient Onset/Context/Timing Onset: Today Timing: Intermittent and Lasts (Seconds at a time) Quality: Positive for Sharp Location: Left Parasternal Current Severity: Gone Maximum Severity: Moderate Worsened By: Nothing Relieved By: Nothing Narrative Narrative: Patient presents secondary to chest pain. Patient states throughout the day she has had at least 4 separate episodes where she will get a sudden sharp pain in the left parasternal area. She states it stabs quickly and then resolves within seconds. Occasionally she will have back to back episodes, and then nothing for hours. She denies shortness of breath. She does not become diaphoretic. It is not related to palpation, arm movement, or deep breathing. She denies any recent injury. [facility] Medical History Heart murmur Hyperlipemia Insomnia Home Medications aspirin 81 mg PO DAILY@0800 08/30/13 [History Last Taken Unknown] glimepiride 4 mg PO BID 08/30/13 [History Last Taken 10/16/18] metformin [Glucophage] 1,000 mg PO BID 08/30/13 [History Last Taken 10/16/18] metoprolol succinate 25 mg PO BID 10/16/18 [History Last Taken Unknown] atorvastatin 40 mg PO QHS 11/29/20 [History Last Taken Unknown] empagliflozin [Jardiance] 25 mg PO DAILY 11/29/20 [History Last Taken Unknown] levothyroxine 175 mcg PO DAILY@0600 11/29/20 [History Last Taken Unknown] Allergy/AdvReac Type Severity Reaction Status Date / Time lisinopril Allergy Unknown Verified 11/29/20 23:31 phenazopyridine HCl Allergy Unknown Verified 11/29/20 23:31 [From Pyridium] Sulfa (Sulfonamide Allergy Unknown Verified 11/29/20 23:31 Antibiotics) Surgical History History of lumpectomy of left breast Social History Smoking Status: Never smoker ROS ROS ED Constitutional Constitutional ED: Denies chills or fever(s) Eyes Eyes: Denies change in vision ENT ENT ED: Denies sore throat Cardiovascular Cardiovascular: Reports chest pain Respiratory/Chest Respiratory/Chest: Denies cough or dyspnea Gastrointestinal Gastrointestinal: Denies abdominal pain, diarrhea, nausea or vomiting Genitourinary Genitourinary ED: Denies dysuria Musculoskeletal Musculoskeletal: Denies back pain Integumentary Denies rash Neurologic Neurologic: Denies headache(s) or weakness Psychiatric Psychiatric: Denies anxiety or depression Endocrine Endocrinology: Denies polydipsia or polyuria Allergic/Immunologic Allergic/Immunologic ED: Denies urticaria EXAM Physical Exam Const Vital Signs: 11/29/20 23:26 11/29/20 23:29 11/29/20 23:38 Temperature 97.8 F Temperature Source Oral Pulse Rate 85 Respiratory Rate 18 Respiratory Effort Normal Respiratory Pattern Normal Blood Pressure Blood Pressure Mean Pulse Ox 96 Oxygen Delivery Method Room Air Room Air 11/30/20 01:44 11/30/20 02:25 Temperature Temperature Source Pulse Rate 76 74 Respiratory Rate 16 20 H Respiratory Effort Respiratory Pattern Blood Pressure 184/86 H 174/96 H Blood Pressure Mean 118 122 Pulse Ox 98 Oxygen Delivery Method Room Air Positive well nourished and well developed General Appearance ED: well developed HEENT Reports normocephalic and head/scalp atraumatic Eyes PERRL and EOMs intact bilaterally Neck supple Chest Wall inspection of chest normal and palpation of chest normal Chest Narrative: No reproducible chest wall tenderness. Resp normal respiratory effort and clear to auscultation bilaterally Cardio regular rate and regular rhythm GI normal to inspection, nondistended, normoactive bowel sounds Palpation: soft Extremity normal to inspection Neuro oriented x3 and no sensory deficits noted Sensorium / Orientation: alert Motor Exam: strength 5/5 throughout Psych mental status grossly normal Skin no rashes or lesions noted Heart Score History: Slightly/Non-Suspicious ECG: Normal Age: >/= 65 years Risk Factors: 1 or 2 Risk Factors Troponin: </= Normal Limit Score: 3 MDM MDM MDM Narrative Medical decision making narrative: Patient had been given aspirin as well as Brilinta with EMS. Of note the initial EMS EKG read by the machine reports ST elevation AL. In light of this EMS staff went ahead and gave her Brilinta before contacting us. On our review of the EKG there is no evidence of ST elevation or reciprocal changes. A repeat EKG that they sent shows no evidence of ST elevation. On arrival to the emergency room EKG is obtained. Chest x-ray and labs are obtained. Lab Data Attestation: I reviewed the patient's lab results. Labs: Laboratory Results - last 24 hr 11/29/20 11/29/20 11/29/20 23:35 23:35 23:40 WBC 5.3 RBC 4.02 L Hgb 12.2 Hct 36.2 L MCV 90.0 MCH 30.3 MCHC 33.7 RDW Std Deviation 42.1 RDW Coeff of Hitesh 12.8 Plt Count 188 MPV 10.7 Immature Gran % (Auto) 0.800 Neut % (Auto) 56.8 Lymph % (Auto) 23.2 Hudspeth % (Auto) 13.9 H Eos % (Auto) 4.2 Baso % (Auto) 1.1 H Absolute Neuts (auto) 3.0 Absolute Lymphs (auto) 1.22 Nucleated RBC % 0 D-Dimer Quant (PE/DVT) 0.61 H* Sodium 138 Potassium 4.2 Chloride 106 Carbon Dioxide 27.0 Anion Gap 5 BUN 15 Creatinine 0.61 Estim Creat Clear Calc 42.62 Est GFR (MDRD) Af Amer 123 Est GFR (MDRD) Non-Af 101 BUN/Creatinine Ratio 24.5 H Glucose 130 H Calcium 9.4 Troponin I High Sens 8.0 11/30/20 01:35 WBC RBC Hgb Hct MCV MCH MCHC RDW Std Deviation RDW Coeff of Hitesh Plt Count MPV Immature Gran % (Auto) Neut % (Auto) Lymph % (Auto) Hudspeth % (Auto) Eos % (Auto) Baso % (Auto) Absolute Neuts (auto) Absolute Lymphs (auto) Nucleated RBC % D-Dimer Quant (PE/DVT) Sodium Potassium Chloride Carbon Dioxide Anion Gap BUN Creatinine Estim Creat Clear Calc Est GFR (MDRD) Af Amer Est GFR (MDRD) Non-Af BUN/Creatinine Ratio Glucose Calcium Troponin I High Sens 10.6 Radiography Chest X-Ray - ED: 1 View, Read by ED Physician and Chronic Changes Diagnostic Testing: Radiology Impression Chest X-Ray 11/29/20 23:40 IMPRESSION: Underexpansion of the lungs. No visualized focal infiltrate. Electronically Signed: Lisseth Wilson MD at 0:37 EDT Tel , Service support , EKG Initial EKG: Attestation: I personally reviewed and interpreted this EKG as follows: Interpretation: Sinus Rhythm (Sinus at [address] change.) Follow-up EKG: Attestation: I personally reviewed and interpreted this EKG as follows: Interpretation: Sinus Rhythm (Normal sinus rhythm at 75 bpm with no acute ST change.) Treatment and Re-Evaluation Comments:: On repeat evaluation patient is resting comfortably. She reports having 1 or 2 episodes of sharp brief chest pain while here. I reviewed the project builder with no obvious evidence of arrhythmias. Initial labs are reviewed and unremarkable. Her D-dimer is normal when age-adjusted. 2-hour troponin and EKG obtained with a delta of 2. Test results are discussed with the patient she still feels quite uncomfortable going home not having a definite answer for why she is continuing to have intermittent sharp chest pain. 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 I will speak with the transfer line. Discharge Plan Triage Chief Complaint: Chest Pain ED Provider: Leonila Dickens Dx/Rx/DC Orders Clinical Impression: Atypical chest pain Prescriptions: No Action glimepiride 2 MG tablet 4 mg PO BID RF: 0 metformin [Glucophage] 1,000 MG tablet 1,000 mg PO BID RF: 0 aspirin 81 MG tablet,chewable 81 mg PO DAILY@0800 RF: 0 metoprolol succinate 25 MG tablet extended release 24 hr 25 mg PO BID RF: 0 Jardiance 25 mg tablet 25 mg PO DAILY RF: 0 atorvastatin 80 MG tablet 40 mg PO QHS RF: 0 levothyroxine 150 MCG tablet 175 mcg PO DAILY@0600 RF: 0 Primary Care Provider: Gerardo Michel Referrals: Gerardo Michel DO [Primary Care Provider] - Disposition Disposition: Acute Care Hospital Discharge Location: [facility]
[2020-11-30] MEDS: 0.9% Normal Saline 1,000 ML 150 ML IV (00:40)
--- NOTE | 2020-11-30 01:35 | EKG12_ITS ---
Test Reason : REPEAT Blood Pressure : / mmHG Vent. Rate : 075 BPM Atrial Rate : 075 BPM P-R Int : 160 ms QRS Dur : 084 ms QT Int : 374 ms P-R-T Axes : 045 017 025 degrees QTc Int : 417 ms Normal sinus rhythm Normal ECG Confirmed by BRITTA PÉREZ, DEBORA ([id number]), metropolitan editor OSWALDO STONE ([id number]) on 12/01/2020 12:40:04 PM Referred By: CHRISTINE Confirmed By:DEBORA CALLEJAS MD
[2020-11-30 01:44] VITALS: BP 184/86; PULSE 76; RESP 16; O2SAT 98
[2020-11-30 02:25] VITALS: BP 174/96; PULSE 74; RESP 20
[2020-11-30 02:45] LABS: Troponin-I HS 10.6 pg/mL (3.0-53.7)
[2020-11-30] MEDS: Metoprolol(XL)Succ 25 MG Tablet PO (03:09)
[2020-11-30] MEDS: metFORMIN HCl 1,000 MG Tablet 1000 MG PO (03:09)
[2020-11-30] MEDS: Glimepiride 4 MG Tablet PO (03:09)
[2020-11-30] MEDS: Atorvastatin Calcium 40 MG Tablet PO (03:09)
[2020-11-30 04:49] VITALS: BP 157/78; PULSE 67; RESP 18; O2SAT 98
== END 2020-11-30 04:50 | disposition short-term general hospital (02) ==
PROVIDERS: Emergency Provider Emergency Medicine; PCP Student in an Organized Health Care Education/Training Program
DX: R07.89 Other chest pain (principal); Z20.822 Contact with and (suspected) exposure to COVID-19; E78.5 Hyperlipidemia, unspecified; G47.00 Insomnia, unspecified; Z79.82 Long term (current) use of aspirin; Z79.84 Long term (current) use of oral hypoglycemic drugs; Z79.899 Other long term (current) drug therapy
CPT/HCPCS: 36415; 71045; 80048; 84484; 85025; 85379; 87426; 93005; 96360; 96361; 99285; A4216

== ENCOUNTER 2022-11-05 11:07 | Emergency (ER) | payer BC, MEDICARE, SELFPAY ==
[2022-11-05 11:08] VITALS: BP 73/64; PULSE 78; RESP 15; TEMP 36.7; O2SAT 96; BMI 23.6
[2022-11-05 11:26] VITALS: BP 131/61; PULSE 80; RESP 14; O2SAT 97
--- NOTE | 2022-11-05 11:31 | EKG12_ITS ---
Test Reason : CHEST-OTHER Blood Pressure : / mmHG Vent. Rate : 071 BPM Atrial Rate : 071 BPM P-R Int : 154 ms QRS Dur : 066 ms QT Int : 382 ms P-R-T Axes : 025 008 015 degrees QTc Int : 415 ms Normal sinus rhythm Normal ECG Confirmed by ALLISON PÉREZ, ROSALINA ([id number]), tape editor OSWALDO STONE ([id number]) on 11/07/2022 9:08:18 AM Referred By: Confirmed By:ROSALINA COOPER MD
--- NOTE | 2022-11-05 11:31 | CT_ITS ---
HISTORY: altered mental status. TECHNIQUE: Multiple axial images were obtained of the head without intravenous contrast. A radiation dose optimization technique was used for this scan. 237 images. COMPARISON: 11/26/2019. FINDINGS: BRAIN PARENCHYMA: Multiple foci and zones of low attenuation in the bilateral cerebral white matter compatible with chronic small vessel ischemic gliosis. No acute intra-axial hemorrhage identified. CSF SPACES: Generalized volume loss. No midline shift or other significant mass effect. No acute extra-axial hemorrhage seen. OTHER: Intact calvarium. No significant air fluid levels in the paranasal sinuses or mastoid air cells. Unremarkable orbits. CT/Brain/Head without Contrast IMPRESSION: No acute intracranial process identified. Chronic involutional and white matter changes. Electronically Signed: Salima Castillo MD at 12:53 EDT ,
[2022-11-05 11:34] VITALS: BP 132/64; PULSE 75; RESP 21; O2SAT 95
--- NOTE | 2022-11-05 11:34 | RAD_ITS ---
HISTORY: confusion. TECHNIQUE: XR Chest 2 Views. COMPARISON: 11/29/2020. FINDINGS: CARDIOMEDIASTINAL BORDERS: Cardiac silhouette within normal limits in size. Mediastinal contour unchanged with calcification of the aortic knob, mild right hilar enlargement, and right hilar surgical clips. LUNGS: Radiographically clear. Surgical clips in the anterior chest. PLEURA: No pleural effusion or pneumothorax seen. OSSEOUS STRUCTURES: Degenerative change. RAD/Chest PA and Lateral IMPRESSION: No acute cardiopulmonary process identified. Right hilar postoperative change with chronic lymphadenopathy or scarring. Electronically Signed: Salima Castillo MD at 12:52 EDT ,
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
[2022-11-05 11:39] LABS: Bedside Glucose 333 mg/dL (74-106)
[2022-11-05] MEDS: 0.9% Normal Saline 1,000 ML 999 ML IV (11:41)
[2022-11-05 11:48] LABS: Bacteria 0 SEEN /hpf (None Seen); Mucous, Urine 0 SEEN /hpf (<or=2+); Red Blood Cells-Urine 0 SEEN /hpf (0-5); Squamous Epithelial Cells - UA 0 SEEN /hpf (5-10)
[2022-11-05 11:50] LABS: Absolute Lymphocyte Count 0.88 X10^3/uL (0.83-4.51); Absolute Neutrophil Count 4.8 X10^3/uL (2.0-7.7); Basophil# 0.06 X10^3/uL; Basophil% 0.9 % (0-1); Eosinophil# 0.18 X10^3/uL; Eosinophils% 2.7 % (0-5); Hematocrit 37.5 % (37-47); Hemoglobin 12.9 g/dL (12.0-15.0); Lymphocyte # 0.88 X10^3/ul (0.83-4.51); Lymphocyte % 13.4 % (19-41); Mean Corp Hgb Conc 34.4 g/dL (32-36); Mean Corpuscular Hgb 31.1 pg (27.0-32.0); Mean Corpuscular Volume 90.4 fL (81-99); Mean Platelet Vol. 11.5 fl (6.2-12.0); Monocyte# 0.61 X10^3/uL; Monocyte% 9.3 % (0-10); NRBC Flagged by Analyzer 0 % (0-5); Neutrophil % 72.8 % (47-70); Platelet Count 185 K/mm3 (150-450); RBC Distribution Width CV 13.1 % (11.6-14.6); RBC Distribution Width SD 42.5 fl (35.1-43.9); Red Blood Count 4.15 M/mm3 (4.2-5.4); White Blood Count 6.6 K/mm3 (4.4-11.0)
[2022-11-05 12:01] LABS: Color, Urine Yellow (Yellow); Glucose, Dipstick 1000 mg/dl (Normal); Ketone-Dipstick Negative (Negative); Leukocyte Esterase-Dipstick 100 /ul (Negative); Nitrite-Dipstick Negative (Negative); Occult Blood-Urine Negative /ul (Negative); Protein-Dipstick 15 mg/dl (Negative); Urine Bilirubin Dipstick Negative (Negative); Urine Clarity Clear (Clear); Urine Urobilinogen Normal (Normal)
[2022-11-05 12:08] LABS: ALB/GLOB Ratio 0.9 RATIO (0.9-2.4); AST(SGOT) 15 U/L (15-37); Alanine Aminotransfer ALT/SGPT 24 U/L (13-56); Albumin, Serum 3.4 g/dL (3.2-5.0); Alkaline Phosphatase 98 U/L (45-117); Anion Gap 9 (5-15); BUN 15 mg/dL (7-18); BUN/Creat Ratio 16.9 RATIO (10-20); Calcium,Total 9.6 mg/dL (8.5-10.1); Chloride 99 mmol/L (98-107); Creatinine, Serum 0.89 mg/dL (0.55-1.02); EST Glomerular Filtration Rate 66 mL/min (>60); Est Glom Filt Rate - Afr Amer 79 mL/min (>60); Estimated Creatinine Clearance 48.39 ml/min; Globulin 3.6 g/dL (2.2-4.2); Glucose 341 mg/dL (74-106); Potassium 4.4 mmol/L (3.5-5.1); Sodium Level 134 mmol/L (136-145); Troponin-I HS 5 pg/mL (3.0-54.0)
[2022-11-05 12:22] LABS: White Blood Cells 5-10 SEEN /hpf (0-5)
[2022-11-05 13:08] VITALS: BP 158/75; PULSE 68; RESP 15; RESP 17; O2SAT 94
== END 2022-11-05 13:16 | disposition home or self-care (01) ==
PROVIDERS: Physician Assistant; Emergency Provider Emergency Medicine; PCP Student in an Organized Health Care Education/Training Program; Visit Provider Emergency Medicine
DX: R41.3 Other amnesia (principal); E11.9 Type 2 diabetes mellitus without complications; I10 Essential (primary) hypertension; E78.5 Hyperlipidemia, unspecified; G47.33 Obstructive sleep apnea (adult) (pediatric); Z79.82 Long term (current) use of aspirin; Z79.84 Long term (current) use of oral hypoglycemic drugs; Z79.899 Other long term (current) drug therapy; Z85.72 Personal history of non-Hodgkin lymphomas
CPT/HCPCS: 70450; 71046; 80053; 81001; 82962; 84484; 85025; 87086; 87088; 93005; 96360; 99285; J7030; A4216

== ENCOUNTER 2023-05-10 15:22 | Emergency (ER) | payer BC, MEDICARE, SELFPAY ==
[2023-05-10 15:23] VITALS: BP 162/92; PULSE 92; RESP 18; TEMP 36.4; O2SAT 99; BMI 23.8
[2023-05-10 15:46] LABS: Bedside Glucose 475 mg/dL (74-106)
[2023-05-10 16:55] VITALS: BP 162/86; PULSE 84; RESP 21
[2023-05-10 17:02] VITALS: O2SAT 95
[2023-05-10 17:07] VITALS: BP 152/76; PULSE 81; RESP 17; O2SAT 93
--- OUTSIDE RECORDS SUMMARY | 2023-05-10 17:08 | XMS RPT_ITS | CCD ---
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 07-18-22 Reason Comments Medication Problem Reason Comments Medication Question Reason Comments Med Management Reason Comments Radiology CT Specialty Diagnoses / Procedures Referred By Avani feliz Referred To Contact CT IMAGING Diagnoses 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 Reason Comments Future Appointment Reason Comments Dental Problem Patient having all o f her teeth pulled and wanting medical OK Reason Comments Medication question Reason Comments diabetes Type II Reason Comments Patient Update Reason Comments F/U 3 Month Follow Up Reason Comments Opened In Error Reason Comments Dental Clearance Reason Comments Type 2 Diabetes hypothyroidism Reason Comments diabetes type 2 Using One Touch, wou ld like to discuss CGM Thyroid Problem Reason Comments Medication Problem Prescription Info re quest for insulin glargine Care Teams (unrecognized sec tion and content) Community Engagement Specialist Relationship Specialty Start Date End Date Gerardo Michel, [address] [place], [place] [id number] PCP - General Family Practice 06/15/15 Janes Larson (Rn) (Hist), [place] [id number] [place] [address] Specialty Online Marketing Analyst Hematology/Oncology 05/20/18 [facility]anoBarn[facility] [address] [facility] [place] [address] Pharmacist Pharmacy 09/19/19 [place] [id number] [place] [address] Physician Hematology/Oncology 08/04/20 Community Engagement Specialist Relationship Specialty Start Date End Date Gerardo Michel DO [address] [facility] [place] [address] PCP - General Family Practice 06/15/15 Janes LarsonRn) ([place]), [place] [address] [place] [address] Specialty Online Marketing Analyst Hematology/Oncology 05/20/18 [facility] [address] [facility] [place] [address] Pharmacist Pharmacy 09/19/19 [place] [address] [place] [address] Physician Hematology/Oncology 08/04/20 Community Engagement Specialist Relationship Specialty Start Date End Date Gerardo Michel DO [address] [facility] [place] [address] PCP - General Family Practice 06/15/15 Janes Larson) (Hist), [place] [address] [place] [address] Specialty Online Marketing Analyst Hematology/Oncology 05/20/18 [facility] [address] [facility] [place] [address] Pharmacist Pharmacy 09/19/19 [place] [address] [place] [address] Physician Hematology/Oncology 08/04/20 Community Engagement Specialist Relationship Specialty Start Date End Date Gerardo Michel DO [address] [place] [address] PCP - General Family Practice 06/15/15 Janes Larson (Rn) ([place]), [place] [address] [place] [address] Specialty Online Marketing Analyst Hematology/Oncology 05/20/18 [facility], [facility] [address] [facility] [address] Pharmacist Pharmacy 09/19/19 [place] [address] [place] [address] Physician Hematology/Oncology 08/04/20 Community Engagement Specialist Relationship Specialty Start Date End Date Gerardo Michel DO [address] [place] [address] PCP - General Family Practice 06/15/15 Janes Larson) ([place] [address] [place] [address] Specialty Online Marketing Analyst Hematology/Oncology 05/20/18 [facility]avillaBarn[facility] [address] [place] [address] Pharmacist Pharmacy 09/19/19 [place] [address] [place] [address] Physician Hematology/Oncology 08/04/20 Community Engagement Specialist Relationship Specialty Start Date End Date Gerardo Michel, DO [address] [place] [address] PCP - General Family Practice 06/15/15 Janes Larson (Radha) ([place]), [place] [address] [place] [address] Specialty Online Marketing Analyst Hematology/Oncology 05/20/18 Herman Maravilla, [facility] [address] [facility] [address] Pharmacist Pharmacy 09/19/19 Karl[place]Alexys [place] [id number] [place] [address] Physician Hematology/Oncology 08/04/20 Community Engagement Specialist Relationship Specialty Start Date End Date Gerardo Michel, DO [address] [place] [address] PCP - General Family Practice 06/15/15 Janes Larson) (Hist), RN [id number] [place] [address] Specialty Online Marketing Analyst Hematology/Oncology 05/20/18 Herman [facility] [address] [place] [address] Pharmacist Pharmacy 09/19/19 [facility] [address] [place] [address] Physician Hematology/Oncology 08/04/20 Community Engagement Specialist Relationship Specialty Start Date End Date Gerardo Michel, DO [address] [facility] [place] [address] PCP - General Family Practice 06/15/15 Janes Larson) (Hist), RN [address] [place] [address]40 Specialty Online Marketing Analyst Hematology/Oncology 05/20/18 [facility] [address] [place] [address] Pharmacist Pharmacy 09/19/19 KarlosAlexys MD [id number] [place] [address] Physician Hematology/Oncology 08/04/20 Community Engagement Specialist Relationship Specialty Start Date End Date Gerardo Michel, DO [address] [facility] [place] [address] PCP - General Family Practice 06/15/15 Janes Larson) (Hist), [place] [address] [place] [address] Specialty Online Marketing Analyst Hematology/Oncology 05/20/18 [facility] [address] [facility] [place] [address] Pharmacist Pharmacy 09/19/19 [place] [address] [place] [address] Physician Hematology/Oncology 08/04/20 Community Engagement Specialist Relationship Specialty Start Date End Date Gerardo Michel, DO [address] [facility] [place] [address] PCP - General Family Practice 06/15/15 Janes Larson (Rn) (Hist), RN [address] [place] [address] Specialty Online Marketing Analyst Hematology/Oncology 05/20/18 [facility] [address] [place] [address] Pharmacist Pharmacy 09/19/19 [place] [address] [place] [address] Physician Hematology/Oncology 08/04/20 Community Engagement Specialist Relationship Specialty Start Date End Date Gerardo Michel DO [address] [place] [address] PCP - General Family Practice 06/15/15 Janes Larson (Rn) (Hist), RN [id number] [place] [address] Specialty Online Marketing Analyst Hematology/Oncology 05/20/18 [facility] [address] [place] [address] Pharmacist Pharmacy 09/19/19 [place] [address] [place] [address] Physician Hematology/Oncology 08/04/20 Community Engagement Specialist Relationship Specialty Start Date End Date Michel, Gerardo L, DO [address] [facility] [place] [address] PCP - General Family Practice 06/15/15 Janes Larson (Rn) (Hist), [place] [address] [place] [address] Specialty Online Marketing Analyst Hematology/Oncology 05/20/18 [facility] [address] [facility] [place] [address] Pharmacist Pharmacy 09/19/19 [place] [address] [place] [address] Physician Hematology/Oncology 08/04/20 Community Engagement Specialist Relationship Specialty Start Date End Date Gerardo Michel DO [address] [facility] [place] [address] PCP - General Family Practice 06/15/15 Janes LarsonRn) (Hist), [place] [address] [place] [address] Specialty Online Marketing Analyst Hematology/Oncology 05/20/18 Herman [facility] [address] [facility] [place] [address] Pharmacist Pharmacy 09/19/19 [place] [address] [place] [address] Physician Hematology/Oncology 08/04/20 Community Engagement Specialist Relationship Specialty Start Date End Date Gerardo Michel DO [address] [facility] [place] [address] PCP - General Family Medicine 06/15/15 Janes Larson (Rn) (Hist), [place] [address] [place] [address] Specialty Online Marketing Analyst Hematology/Oncology 05/20/18 [facility] [address] [facility] [place] [address] Pharmacist Pharmacy 09/19/19 [place] [address] [place] [address] Physician Hematology/Oncology 08/04/20 Community Engagement Specialist Relationship Specialty Start Date End Date Gerardo Michel, DO [address] [facility] [place] [address] PCP - General Family Medicine 06/15/15 Janes Larson (Rn) (Hist), RN [id number] [place] [address] Specialty Online Marketing Analyst Hematology/Oncology 05/20/18 [facility] [address] [place] [address] Pharmacist Pharmacy 09/19/19 [place] [address] [place] [address] Physician Hematology/Oncology 08/04/20 Community Engagement Specialist Relationship Specialty Start Date End Date Gerardo Michel, DO [address] [place] [address] PCP - General Family Medicine 06/15/15 Janes Larson) (Hist), RN [id number] [place] [address] Specialty Online Marketing Analyst Hematology/Oncology 05/20/18 [facility] [address] [facility] [place] [address] Pharmacist Pharmacy 09/19/19 [place] [address] [place] [address] Physician Hematology/Oncology 08/04/20 Community Engagement Specialist Relationship Specialty Start Date End Date Gerardo Michel DO [address] [facility] [place] [address] PCP - General Family Medicine 06/15/15 Janes Larson (Rn) (Hist), [place] [address] [place] [address] Specialty Online Marketing Analyst Hematology/Oncology 05/20/18 [facility] [address] [facility] [place] [address] Pharmacist Pharmacy 09/19/19 [place] [address] [place] [address] Physician Hematology/Oncology 08/04/20 Community Engagement Specialist Relationship Specialty Start Date End Date Gerardo Michel, DO [address] [facility] [place] [address] PCP - General Family Medicine 06/15/15 Janes LarsonRn) (Hist), [place] [address] [place] [address] Specialty Online Marketing Analyst Hematology/Oncology 05/20/18 [facility] [address] [facility] [place] [address] Pharmacist Pharmacy 09/19/19 [place] [address] [place] [address] Physician Hematology/Oncology 08/04/20 Community Engagement Specialist Relationship Specialty Start Date End Date Gerardo Michel, DO [address] [facility] [place] [address] PCP - General Family Medicine 06/15/15 Janes Larson (Rn) (Hist), [place] [address] [place] [address] Specialty Online Marketing Analyst Hematology/Oncology 05/20/18 [facility] [address] [facility] [place] [address] Pharmacist Pharmacy 09/19/19 [place] [address] [place] [address] Physician Hematology/Oncology 08/04/20 Community Engagement Specialist Relationship Specialty Start Date End Date Gerardo Michel, DO [address] [facility] [place] [address] PCP - General Family Medicine 06/15/15 Janes Larson (Rn) (Hist), [place] [address] [place] [address] Specialty Online Marketing Analyst Hematology/Oncology 05/20/18 [facility] [address] [facility] [place] [address] Pharmacist Pharmacy 09/19/19 [place] [address] [place] [address] Physician Hematology/Oncology 08/04/20 Community Engagement Specialist Relationship Specialty Start Date End Date Gerardo Michel DO [address] [place] [address] PCP - General Family Medicine 06/15/15 Janes Larson (Rn) (Hist), [place] [address] [place] [address] Specialty Online Marketing Analyst Hematology/Oncology 05/20/18 [facility] [address] [place] [address] Pharmacist Pharmacy 09/19/19 [place] [address] [place] [address] Physician Hematology/Oncology 08/04/20 Community Engagement Specialist Relationship Specialty Start Date End Date Gerardo Michel DO [address] [facility] [place] [address] PCP - General Family Medicine 06/15/15 Janes Larson (Rn) (Hist), [place] [address] [place] [address] Specialty Online Marketing Analyst Hematology/Oncology 05/20/18 [facility] [address] [facility] [place] [address] Pharmacist Pharmacy 09/19/19 [place] [address] [place] [address] Physician Hematology/Oncology 08/04/20 Community Engagement Specialist Relationship Specialty Start Date End Date Gerardo Michel, DO [address] [facility] [place] [address] PCP - General Family Medicine 06/15/15 Janes Larson (Rn) (Hist), [place] [address] [place] [address] Specialty Online Marketing Analyst Hematology/Oncology 05/20/18 [facility] [address] [facility] [place] [address] Pharmacist Pharmacy 09/19/19 [place] [address] [place] [address] Physician Hematology/Oncology 08/04/20 Community Engagement Specialist Relationship Specialty Start Date End Date Gerardo Michel DO [address] [facility] [place] [address] PCP - General Family Medicine 06/15/15 Janes Larosn (Rn) (Hist), [place] [address] [place] [address] Specialty Online Marketing Analyst Hematology/Oncology 05/20/18 [facility] [address] [facility] [place] [address] Pharmacist Pharmacy 09/19/19 [place] [address] [place] [address] Physician Hematology/Oncology 08/04/20 Community Engagement Specialist Relationship Specialty Start Date End Date Gerardo Michel DO [address] [facility] [place] [address] PCP - General Family Medicine 06/15/15 Janes Larson (Rn) (Hist), [place] [address] [place] [address] Specialty Online Marketing Analyst Hematology/Oncology 05/20/18 [facility] [address] [facility] [place] [address] Pharmacist Pharmacy 09/19/19 [place] [address] [place] [address] Physician Hematology/Oncology 08/04/20 Community Engagement Specialist Relationship Specialty Start Date End Date Gerardo Michel DO [address] [place] [address] PCP - General Family Medicine 06/15/15 Janes Larson (Rn) (Hist), [place] [address] [place] [address] Specialty Online Marketing Analyst Hematology/Oncology 05/20/18 [facility] [address] [facility] [place] [address] Pharmacist Pharmacy 09/19/19 [place] [address] [place] [address] Physician Hematology/Oncology 08/04/20 Community Engagement Specialist Relationship Specialty Start Date End Date Gerardo Michel DO [address] [place] [address] PCP - General Family Medicine 06/15/15 Janes Larson (Rn) (Hist), [place] [address] [place] [address] Specialty Online Marketing Analyst Hematology/Oncology 05/20/18 [facility] [address] [facility] [place] [address] Pharmacist Pharmacy 09/19/19 [place] [address] [place] [address] Physician Hematology/Oncology 08/04/20 Community Engagement Specialist Relationship Specialty Start Date End Date Gerardo Michel DO [address] [facility] [place] [address] PCP - General Family Medicine 06/15/15 Janes Larson (Rn) (Hist), [place] [address] [place] [address] Specialty Online Marketing Analyst Hematology/Oncology 05/20/18 [facility] [address] [facility] [place] [address] Pharmacist Pharmacy 09/19/19 [place] [address] [place] [address] Physician Hematology/Oncology 08/04/20 Community Engagement Specialist Relationship Specialty Start Date End Date Gerardo Michel DO [address] [place] [address] PCP - General Family Medicine 06/15/15 Janes Larson (Rn) (Hist), [place] [address] [place] [address] Specialty Online Marketing Analyst Hematology/Oncology 05/20/18 [facility] [address] [place] [address] Pharmacist Pharmacy 09/19/19 [place] [address] [place] [address] Physician Hematology/Oncology 08/04/20 Community Engagement Specialist Relationship Specialty Start Date End Date Gerardo Michel DO [address] [place] [address] PCP - General Family Medicine 06/15/15 Janes Larson (Rn) (Hist), [place] [address] [place] [address] Specialty Online Marketing Analyst Hematology/Oncology 05/20/18 [facility] [address] [facility] [place] [address] Pharmacist Pharmacy 09/19/19 [place] [address] [place] [address] Physician Hematology/Oncology 08/04/20 Community Engagement Specialist Relationship Specialty Start Date End Date Gerardo Michel DO [address] [facility] [place] [address] PCP - General Family Medicine 06/15/15 Janes Larson (Rn) (Hist), RN [id number] [place] [address] Specialty Online Marketing Analyst Hematology/Oncology 05/20/18 Herman [facility] [address] [facility] [place] [address] Pharmacist Pharmacy 09/19/19 [place] [address] [place] [address] Physician Hematology/Oncology 08/04/20 Community Engagement Specialist Relationship Specialty Start Date End Date Gerardo Michel DO [address] [facility] [place] [address] PCP - General Family Medicine 06/15/15 Janes Larson (Rn) (Hist), RN [id number] [place] [address] Specialty Online Marketing Analyst Hematology/Oncology 05/20/18 [facility] [address] [facility] [place] [address] Pharmacist Pharmacy 09/19/19 [place] [address] [place] [address] Physician Hematology/Oncology 08/04/20 Community Engagement Specialist Relationship Specialty Start Date End Date Gerardo Michel DO [address] [facility] [place] [address] PCP - General Family Medicine 06/15/15 Janes LarsonRn) (Hist), RN [id number] [place] [address]706 Specialty Online Marketing Analyst Hematology/Oncology 05/20/18 [facility] [address] [facility] [place] [address] Pharmacist Pharmacy 09/19/19 [facility] [address] [place] [address] Physician Hematology/Oncology 08/04/20 Community Engagement Specialist Relationship Specialty Start Date End Date Gerardo Michel DO [address] [place] [address] PCP - General Family Medicine 06/15/15 Janes Larson) (Hist), RN [address] [place] [address] Specialty Online Marketing Analyst Hematology/Oncology 05/20/18 [facility] [address] [place] [address] Pharmacist Pharmacy 09/19/19 [facility] [address] [place] [address] Physician Hematology/Oncology 08/04/20 Community Engagement Specialist Relationship Specialty Start Date End Date Gerardo Michel DO [address] [place] [address] PCP - General Family Medicine 06/15/15 Janes LarsonRn) (Hist), RN [id number] [place] [address] Specialty Online Marketing Analyst Hematology/Oncology 05/20/18 [facility], [facility] [address] [place] [address] Pharmacist Pharmacy 09/19/19 [place] [address] [place] [address] Physician Hematology/Oncology 08/04/20 Community Engagement Specialist Relationship Specialty Start Date End Date Gerardo Michel DO [address] [facility] [place] [address] PCP - General Family Medicine 06/15/15 Janes Larson (Rn) (Hist), [place] [address] [place] [address] Specialty Online Marketing Analyst Hematology/Oncology 05/20/18 [facility] [address] [facility] [place] [address] Pharmacist Pharmacy 09/19/19 [place] [address] [place] [address] Physician Hematology/Oncology 08/04/20 Community Engagement Specialist Relationship Specialty Start Date End Date Gerardo Michel DO [address] [place] [address] PCP - General Family Medicine 06/15/15 Janes LarsonRn) (Hist), [place] [address] [place] [address] Specialty Online Marketing Analyst Hematology/Oncology 05/20/18 [facility] [address] [facility] [place] [address] Pharmacist Pharmacy 09/19/19 [place] [address] [place] [address] Physician Hematology/Oncology 08/04/20 Community Engagement Specialist Relationship Specialty Start Date End Date Gerardo Michel DO [address] [facility] [address] PCP - General Family Medicine 06/15/15 Janes LarsonRn) (Hist), [place] [address] [place] [address] Specialty Online Marketing Analyst Hematology/Oncology 05/20/18 Herman Maravilla, [facility] [address] [facility] [address] Pharmacist Pharmacy 09/19/19 Alexys Fan MD [address] [place] [address] Physician Hematology/Oncology 08/04/20 Community Engagement Specialist Relationship Specialty Start Date End Date Gerardo Michel DO [address] [place] [address] PCP - General Family Medicine 06/15/15 Janes Larson) (Hist), [place] [address] [place] [address] Specialty Online Marketing Analyst Hematology/Oncology 05/20/18 [facility] [address] [place] [address] Pharmacist Pharmacy 09/19/19 Alexys Fan MD [address] [place] [address] Physician Hematology/Oncology 08/04/20 Community Engagement Specialist Relationship Specialty Start Date End Date Gerardo Michel DO [address] [place] [address] PCP - General Family Medicine 06/15/15 Janes LarsonRn) (Hist), [place] [address] [place] [address] Specialty Online Marketing Analyst Hematology/Oncology 05/20/18 Herman Maravilla, [facility] [address] [facility] [place] [address] Pharmacist Pharmacy 09/19/19 [place] [address] [place] [address] Physician Hematology/Oncology 08/04/20 Community Engagement Specialist Relationship Specialty Start Date End Date Gerardo Michel DO [address] [place] [address] PCP - General Family Medicine 06/15/15 Janes Larson (Rn) (Hist), [place] [address] [place] [address] Specialty Online Marketing Analyst Hematology/Oncology 05/20/18 [facility] [address] [place] [address] Pharmacist Pharmacy 09/19/19 [place] [address] [place] [address] Physician Hematology/Oncology 08/04/20 Community Engagement Specialist Relationship Specialty Start Date End Date Gerardo Michel DO [address] [place] [address] PCP - General Family Medicine 06/15/15 Janes LarsonRn) (Hist), [place] [address] [place] [address] Specialty Online Marketing Analyst Hematology/Oncology 05/20/18 Herman Maravilla, [facility] [address] [place] [address] Pharmacist Pharmacy 09/19/19 [place] [address] [place] [address] Physician Hematology/Oncology 08/04/20 Community Engagement Specialist Relationship Specialty Start Date End Date Gerardo Michel DO [address] [place] [address] PCP - General Family Medicine 06/15/15 Janes Larson (Rn) (Hist), [place] [address] [place] [address] Specialty Online Marketing Analyst Hematology/Oncology 05/20/18 [facility] [address] [place] [address] Pharmacist Pharmacy 09/19/19 [place] [address] [place] [address] Physician Hematology/Oncology 08/04/20 Community Engagement Specialist Relationship Specialty Start Date End Date Gerardo Michel DO [address] [place] [address] PCP - General Family Medicine 06/15/15 Janes LarsonRn) (Hist), [place] [address] [place] [address] Specialty Online Marketing Analyst Hematology/Oncology 05/20/18 [facility] [address] [place] [address] Pharmacist Pharmacy 09/19/19 [place] [address] [place] [address] Physician Hematology/Oncology 08/04/20 Community Engagement Specialist Relationship Specialty Start Date End Date Gerardo Michel DO [address] [place] [address] PCP - General Family Medicine 06/15/15 Janes LarsonRn) (Hist), [place] [address] [place] [address] Specialty Online Marketing Analyst Hematology/Oncology 05/20/18 [facility] [address] [place] [address] Pharmacist Pharmacy 09/19/19 Alexys Fan MD [address] [place] [address] Physician Hematology/Oncology 08/04/20 Community Engagement Specialist Relationship Specialty Start Date End Date Gerardo Michel DO [address] [place] [address] PCP - General Family Medicine 06/15/15 Janes LarsonRn) (Hist), RN [address] [place] [address] Specialty Online Marketing Analyst Hematology/Oncology 05/20/18 [facility]ano[facility] [address] [place] [address] Pharmacist Pharmacy 09/19/19 Alexys Fan MD [address] [place] [address] Physician Hematology/Oncology 08/04/20 Community Engagement Specialist Relationship Specialty Start Date End Date Gerardo Michel DO [address] [place] [address] PCP - General Family Medicine 06/15/15 Janes LarsonRn) (Hist), RN [address] [place] [address] Specialty Online Marketing Analyst Hematology/Oncology 05/20/18 [facility]Barn[facility] [address] [place] [address] Pharmacist Pharmacy 09/19/19 Alexys Fan MD [address] [place] [address]79 Physician Hematology/Oncology 08/04/20 FOR RECORDS PERTAINING TO PATIENTS WHO ARE OR HAVE BEEN ENROLLED IN A CHEMICAL DEPENDENCY/SUBSTANCEABUSE PROGRAM, SOME INFORMATION MAY BE OMITTED. This clinical summary was aggregated from multiple sources. Caution should be exercised in using it in the provision of clinical care. This summary normalizes information from multiple sources, and as a consequence, information in this document may materially change the coding, format and clinical context of patient data. In addition, data may be omitted in some cases. CLINICAL DECISIONS SHOULD BE BASED ON THE PRIMARY CLINICAL RECORDS. [facility] [employer] [facility]. provides no warranty or guarantee of the accuracy or completeness of information in this document.
--- NOTE | 2023-05-10 17:29 | CT_ITS ---
STUDY: CT BRAIN WITHOUT CONTRAST REASON FOR EXAM: Female, 77 years old. confusion RADIATION DOSAGE (If Supplied By Facility): CTDIvol = ( ) mGy, DLP = ( ) mGycm TECHNIQUE: Transaxial CT imaging of the brain was performed without administration of intravenous contrast material. Individualized dose optimization techniques were used for this CT. COMPARISON: 11/05/2022. FINDINGS: Normal soft tissue structures. Normal calvarium. There is mild cerebral atrophy with widening of the extra-axial spaces and ventricular dilatation. There are areas of decreased attenuation within the white matter tracts of the supratentorial brain, consistent with microvascular disease changes. There is no intracranial hemorrhage. There are no findings of an acute ischemic infarction. Normal visualized paranasal sinuses. CT/Brain/Head without Contrast IMPRESSION: No acute findings. Microvascular ischemic changes. Atrophy. Electronically Signed: Rachelle Fowler MD at 18:59 EST Reading Location ID and State: [id number] / Tel , Service support ,
--- NOTE | 2023-05-10 17:31 | EX.ED.DYSGE1 ---
HPI History of Present Illness Chief Complaint: Hyperglycemia Informant: patient and spouse/S.O. Narrative Narrative: Patient and states 2-3 months of difficult to control blood sugars frequently in the 400s. Today more confused, but she has been confused for weeks to some degree. Throughout this time for at least the last months she has had polydipsia and polyuria, oftentimes incontinent of urine because of having so much volume and frequency. Just noticed some dysuria last couple days. No fevers or chills. No cough or shortness of breath. No abdominal pain, nausea, vomiting, diarrhea, blood in her stool. She states she has been going through medication changes. Has been tries to clarify a lot of with the patient states because she is talking in tangents about her thyroid medication being altered the past couple months. They called endocrine as an outpatient and were deferred here to the ER given all of this. [facility] Medical History (Updated 05/10/23 @ 19:[address] Austin Flynn MD) Breast cancer Diabetes mellitus Heart murmur Hodgkin lymphoma HTN (hypertension) Hyperlipemia Hypothyroid Insomnia TIA (transient ischemic attack) Vertigo Home Medications aspirin 81 mg chewable tablet 81 mg PO DAILY@0800 heart health 08/30/13 [History Last Taken 05/09/23] metformin 1,000 mg tablet (Glucophage) 1,000 mg PO BID blood sugar 08/30/13 [History Last Taken 10/16/18] metoprolol succinate 25 mg tablet,extended release 24 hr 25 mg PO DAILY blood pressure 10/16/18 [History Last Taken Unknown] atorvastatin 80 mg tablet 40 mg PO QHS 11/29/20 [History Last Taken 05/09/23] empagliflozin 25 mg tablet (Jardiance) 25 mg PO DAILY 11/29/20 [History Last Taken Unknown] levothyroxine 150 mcg tablet 150 mcg PO DAILY@0600 11/29/20 [History Last Taken 05/10/23] Allergy/AdvReac Type Severity Reaction Status Date / Time lisinopril Allergy Unknown Verified 05/10/23 15:22 phenazopyridine HCl Allergy Unknown Verified 05/10/23 15:22 [From Pyridium] Sulfa (Sulfonamide Allergy Unknown Verified 05/10/23 15:22 Antibiotics) Surgical History History of lumpectomy of left breast Social History Smoking Status: Never smoker ROS ROS ED Constitutional Constitutional ED: Denies chills or fever(s) Eyes Eyes: Denies change in vision or diplopia ENT ENT ED: Denies rhinorrhea or sore throat Cardiovascular Cardiovascular: Denies chest pain or palpitations Respiratory/Chest Respiratory/Chest: Denies cough or dyspnea Gastrointestinal Gastrointestinal: Denies abdominal pain, diarrhea, nausea or vomiting Genitourinary Genitourinary ED: Reports dysuria and urinary frequency; Denies hematuria Musculoskeletal Musculoskeletal: Reports back pain and other Details: Low back pain is chronic and not new, chronic back problems ; Denies neck pain Integumentary Denies abscess or rash Neurologic Neurologic: Reports as per HPI and confusion; Denies headache(s), paresthesias or weakness Psychiatric Psychiatric: Denies anxiety or suicidal thoughts Endocrine Endocrinology: Reports polydipsia and polyuria EXAM Physical Exam Const Vital Signs: 05/10/23 15:23 05/10/23 16:49 05/10/23 16:55 Temperature 97.5 F L Temperature Source Temporal Pulse Rate 92 84 Respiratory Rate 18 21 H Respiratory Pattern Normal Blood Pressure 162/92 H 162/86 H Blood Pressure Mean 115 111 Pulse Ox 99 Oxygen Delivery Method Room Air 05/10/23 17:02 05/10/23 17:07 05/10/23 19:10 Temperature Temperature Source Pulse Rate 81 80 Respiratory Rate 17 14 Respiratory Pattern Blood Pressure 152/76 H 189/87 H Blood Pressure Mean 101 121 Pulse Ox 95 93 95 Oxygen Delivery Method Room Air Room Air Room Air Positive well nourished and well developed General Appearance ED: well developed and NAD HEENT Reports moist mucous membranes normocephalic and atraumatic Eyes PERRL and EOMs intact bilaterally Neck full ROM and supple Resp normal respiratory effort and clear to auscultation bilaterally Cardio regular rate, regular rhythm and no murmurs GI non-tender and non-distended Auscultation: normoactive bowel sounds Palpation: soft Back/Spine no CVA tenderness General Back: other FROM Extremity normal to inspection General Extremety ED: Negative for edema, pulses abnormal or tenderness General Extremity: Negative for edema or pulses abnormal Neuro CN's II-XII intact bilaterally and no sensory deficits noted Neuro Narrative: Oriented, but conversation is somewhat confused. No dysarthria or aphasia. Sensorium / Orientation: awake and alert Motor Exam: strength 5/5 throughout Psych Psych Narrative: Tangential. Follows commands. Skin no rashes or lesions noted and no wounds MDM MDM MDM Narrative Medical decision making narrative: CT of the head was obtained given her confusion, to ensure that there is no cerebral edema or intracranial hemorrhage, I reviewed images and report which I agree with, negative for any acute. Chest x-ray also negative for any acute, 2 views of my interpretation and radiologist's as well which I agree with. Labs unremarkable except for hyperglycemia at 402 on the chemistry panel, it was 475 and we checked her initially. She was given insulin, and monitored for several hours while it came down as well as IV fluids. On the last check it was 222 she is feeling better. Urinalysis shows no signs of infection just glycosuria. She was a little prerenal but we took care of that with IV fluids. At this time I see no reason for her to be admitted I think she can safely be discharged home she is to follow-up with endocrine/PCP for medication management. Lab Data Attestation: I reviewed the patient's lab results. Labs: Laboratory Results - last 24 hr 05/10/23 05/10/23 05/10/23 15:28 17:44 17:49 WBC 5.4 RBC 3.85 L Hgb 11.7 L Hct 34.8 L MCV 90.4 MCH 30.4 MCHC 33.6 RDW Std Deviation 41.8 RDW Coeff of Hitesh 12.6 Plt Count 172 MPV 11.4 Immature Gran % (Auto) 0.700 Neut % (Auto) 67.3 Lymph % (Auto) 16.8 L Dickenson % (Auto) 12.7 H Eos % (Auto) 1.8 Baso % (Auto) 0.7 Absolute Neuts (auto) 3.6 Absolute Lymphs (auto) 0.91 Nucleated RBC % 0 Sodium 133 L Potassium 4.1 Chloride 99 Carbon Dioxide 27.0 Anion Gap 7 BUN 15 Creatinine 0.78 Estim Creat Clear Calc 43.07 Est GFR (MDRD) Af Amer 93 Est GFR (MDRD) Non-Af 77 BUN/Creatinine Ratio 19.3 Glucose 402 H Calcium 9.7 Urine Color Urine Clarity Urine pH Ur Specific [place] Urine Protein Urine Glucose (UA) Urine Ketones Urine Occult Blood Urine Nitrite Urine Bilirubin Urine Urobilinogen Ur Leukocyte Esterase Urine RBC Urine WBC Ur Squamous Epith Cells Urine Bacteria Urine Mucus POC Glucose 475 H* 394 H 05/10/23 05/10/23 05/10/23 18:20 18:37 19:26 WBC RBC Hgb Hct MCV MCH MCHC RDW Std Deviation RDW Coeff of Hitesh Plt Count MPV Immature Gran % (Auto) Neut % (Auto) Lymph % (Auto) Dickenson % (Auto) Eos % (Auto) Baso % (Auto) Absolute Neuts (auto) Absolute Lymphs (auto) Nucleated RBC % Sodium Potassium Chloride Carbon Dioxide Anion Gap BUN Creatinine Estim Creat Clear Calc Est GFR (MDRD) Af Amer Est GFR (MDRD) Non-Af BUN/Creatinine Ratio Glucose Calcium Urine Color Yellow Urine Clarity Clear Urine pH 6.0 Ur Specific [place] 1.015 Urine Protein Negative Urine Glucose (UA) 1000 H Urine Ketones 15 H Urine Occult Blood Negative Urine Nitrite Negative Urine Bilirubin Negative Urine Urobilinogen Normal Ur Leukocyte Esterase Negative Urine RBC 0 SEEN Urine WBC 0-5 SEEN Ur Squamous Epith Cells 0-5 SEEN Urine Bacteria 0 SEEN Urine Mucus 0 SEEN POC Glucose 344 H 222 H Radiography Diagnostic Testing: Clinical Impression(s) from Imaging Studies Brain CT 05/10/23 17:29 IMPRESSION: No acute findings. Microvascular ischemic changes. Atrophy. Electronically Signed: Rachelle Fowler MD at 18:59 EST Reading Location ID and State: Mukul Smith MD Tel , Service support , Chest X-Ray 05/10/23 18:05 IMPRESSION: No radiographic evidence of acute cardiopulmonary disease. Electronically Signed: Rachelle Fowler MD at 18:46 EST Reading Location ID and State: Mukul Smith MD Tel , Service support , Discharge Plan Triage Chief Complaint: Hyperglycemia ED Provider: Austin Flynn Dx/Rx/DC Orders Clinical Impression: Uncontrolled type 2 diabetes mellitus with hyperglycemia, Disorientation Instructions: ED Diabetic Hyperglycemia Prescriptions: No Action metformin [Glucophage] 1,000 MG tablet 1,000 mg PO BID Patient Comments: Diabetes aspirin 81 MG tablet,chewable 81 mg PO DAILY@0800 Patient Comments: Heart Health metoprolol succinate 25 MG tablet extended release 24 hr 25 mg PO DAILY Jardiance 25 mg tablet 25 mg PO DAILY Patient Comments: TAKE 1 TABLET BY MOUTH EVERY DAY WITH LUNCH atorvastatin 80 MG tablet 40 mg PO QHS levothyroxine 150 MCG tablet 150 mcg PO DAILY@0600 Primary Care Provider: Gerardo Michel Referrals: Gerardo Michel, [Primary Care Provider] - As soon as possible (and/or Dr. Clarke) Disposition Disposition: Home, Self Care
[2023-05-10] MEDS: 0.9% Normal Saline (1000mL) 1,000 ML 1000 ML IV (17:49)
--- NOTE | 2023-05-10 17:53 | ED.RN ---
PER DR. CERDA CHANGE THE HUMALOG KWIKPEN DOSE TO 20 UNITS D/T NEW BGL.
[2023-05-10 17:55] LABS: Absolute Lymphocyte Count 0.91 X10^3/uL (0.83-4.51); Absolute Neutrophil Count 3.6 X10^3/uL (2.0-7.7); Basophil# 0.04 X10^3/uL; Basophil% 0.7 % (0-1); Eosinophils% 1.8 % (0-5); Hematocrit 34.8 % (37-47); Hemoglobin 11.7 g/dL (12.0-15.0); Lymphocyte # 0.91 X10^3/ul (0.83-4.51); Lymphocyte % 16.8 % (19-41); Mean Corp Hgb Conc 33.6 g/dL (32-36); Mean Corpuscular Hgb 30.4 pg (27.0-32.0); Mean Corpuscular Volume 90.4 fL (81-99); Mean Platelet Vol. 11.4 fl (6.2-12.0); Monocyte# 0.69 X10^3/uL; Monocyte% 12.7 % (0-10); NRBC Flagged by Analyzer 0 % (0-5); Neutrophil # 3.64 X10^3/uL (2.7-7.7); Neutrophil % 67.3 % (47-70); Platelet Count 172 K/mm3 (150-450); RBC Distribution Width CV 12.6 % (11.6-14.6); RBC Distribution Width SD 41.8 fl (35.1-43.9); Red Blood Count 3.85 M/mm3 (4.2-5.4); White Blood Count 5.4 K/mm3 (4.4-11.0)
[2023-05-10] MEDS: Insulin Lispro 100 UNIT/ML INSULN.PEN 20 UNIT SC (17:57)
[2023-05-10 18:02] LABS: Bedside Glucose 394 mg/dL (74-106)
--- NOTE | 2023-05-10 18:05 | RAD_ITS ---
INDICATION: altered mental status EXAMINATION/TECHNIQUE: X-RAY - XR Chest 2 Views COMPARISON: 11/05/2022. FINDINGS: LINES/DEVICES: None. LUNGS: No consolidation, edema or effusion. No pneumothorax. MEDIASTINUM AND CARDIOVASCULAR STRUCTURES: Cardiac silhouette not enlarged. Central airways and mediastinal contour are unremarkable. BONES AND SOFT TISSUES: Unremarkable. RAD/Chest PA and Lateral IMPRESSION: No radiographic evidence of acute cardiopulmonary disease. Electronically Signed: Rachelle Fowler MD at 18:46 EST Reading Location ID and State: [id number] / Tel , Service support ,
[2023-05-10 18:08] LABS: Anion Gap 7 (5-15); BUN 15 mg/dL (7-18); BUN/Creat Ratio 19.3 RATIO (10-20); Calcium,Total 9.7 mg/dL (8.5-10.1); Chloride 99 mmol/L (98-107); Creatinine, Serum 0.78 mg/dL (0.55-1.02); EST Glomerular Filtration Rate 77 mL/min (>60); Est Glom Filt Rate - Afr Amer 93 mL/min (>60); Estimated Creatinine Clearance 43.07 ml/min; Glucose 402 mg/dL (74-106); Potassium 4.1 mmol/L (3.5-5.1); Sodium Level 133 mmol/L (136-145)
[2023-05-10 18:27] LABS: Bacteria 0 SEEN /hpf (None Seen); Mucous, Urine 0 SEEN /hpf (<or=2+); Red Blood Cells-Urine 0 SEEN /hpf (0-5)
[2023-05-10 18:30] LABS: Color, Urine Yellow (Yellow); Glucose, Dipstick 1000 mg/dl (Normal); Ketone-Dipstick 15 mg/dl (Negative); Leukocyte Esterase-Dipstick Negative /ul (Negative); Nitrite-Dipstick Negative (Negative); Occult Blood-Urine Negative /ul (Negative); Protein-Dipstick Negative (Negative); Specific Gravity, Urine 1.015 (1.002-1.030); Urine Bilirubin Dipstick Negative (Negative); Urine Clarity Clear (Clear); Urine Urobilinogen Normal (Normal)
[2023-05-10 18:36] LABS: Squamous Epithelial Cells - UA 0-5 SEEN /hpf (5-10); White Blood Cells 0-5 SEEN /hpf (0-5)
[2023-05-10 18:55] LABS: Bedside Glucose 344 mg/dL (74-106)
[2023-05-10 19:10] VITALS: BP 189/87; PULSE 80; RESP 14; O2SAT 95
[2023-05-10 19:45] LABS: Bedside Glucose 222 mg/dL (74-106)
== END 2023-05-10 20:24 | disposition home or self-care (01) ==
PROVIDERS: Emergency Provider Emergency Medicine; PCP Student in an Organized Health Care Education/Training Program; Visit Provider Emergency Medicine
DX: E11.65 Type 2 diabetes mellitus with hyperglycemia (principal); R41.0 Disorientation, unspecified; I10 Essential (primary) hypertension; E03.9 Hypothyroidism, unspecified; E78.5 Hyperlipidemia, unspecified; Z79.82 Long term (current) use of aspirin; Z79.84 Long term (current) use of oral hypoglycemic drugs; Z79.899 Other long term (current) drug therapy; Z86.73 Personal history of transient ischemic attack (TIA), and cerebral infarction without residual deficits
CPT/HCPCS: 70450; 71046; 80048; 81001; 82962; 85025; 96360; 96361; 99282; J7030

== ENCOUNTER 2023-05-19 11:57 | Emergency (ER) | payer BC, MEDICARE, SELFPAY ==
[2023-05-19 11:58] VITALS: BP 123/73; PULSE 91; RESP 16; TEMP 35.9; O2SAT 98; BMI 23.3
[2023-05-19 12:09] VITALS: BP 138/64; PULSE 78; RESP 18; O2SAT 96
--- OUTSIDE RECORDS SUMMARY | 2023-05-19 12:25 | XMS RPT_ITS | CCD ---
Author Name Unknown Address [id number] [place] [address] Organization [facility] Care Team Providers Care Associate Professor Of Economics Name Role Phone ZACHARIAH MURRAY Attending Unavailable ZACHARIAH MURRAY Primary Care Unavailable ZACHARIAH MURRAY Admitting Unavailable GERARDO MICHEL Primary Care Unavailable GERARDO MICHEL Referring Unavailable ZACHARIAH DURAN Attending Unavailable Gerardo Michel DO Primary Care Provider Janes Larson RN (Rn) (Hist) Unavailable [facility], [place] Unavailable Karlos , Baker N Unavailable Gerardo Michel DO Primary Care Provider Janes Larson RN (Rn) (Hist) Unavailable [facility], [place] Unavailable Mita PÉREZ, Baker N Unavailable Gerardo Michel DO Primary Care Provider [facility], [place] Unavailable Gerardo Michel DO Primary Care Provider Janes Larson RN (Rn) (Hist) Unavailable [facility], [place] Unavailable Mita PÉREZ, Alexys N Unavailable Janes Larson RN (Rn) (Hist) Unavailable GERARDO MICHEL Primary Care Unavailable GELY COSBY Attending Unayvonne villalta Renita [facility], [place] Unavailable MICHEL, GERARDO L Primary Care [...] Drug Allergy 03-23-20 21 Other: See Comments [facility] (20 sources) Lisinopril; Translations: [LISINOPRIL] Drug Allergy 01-21-20 09 Itching [facility] (20 sources) Phenazopyridine; Translations: [PHENAZOPYRIDINE HCL] Drug Allergy 02-25-20 05 GI Upset [facility] (20 sources) rosuvastatin; Translations: [ROSUVASTATIN CALCIUM] Drug Allergy 07-25-19 18 Anaphylaxis, Other: See Comments [facility] (20 sources) SITagliptin; Translations: [SITAGLIPTIN] Drug Allergy 05-01-20 16 GI Upset [facility] (20 sources) Sulfamethoxazole / Trimethoprim; Translations: [SULFAMETHOXAZOLE-T RIMETHOPRIM] Drug Allergy 02-25-20 05 Hives [facility] (20 sources) zolpidem; Translations: [ZOLPIDEM TARTRATE] Drug Allergy 07-29-19 17 Intolerance [facility] (1 source) Phenazopyridine; Translations: [PHENAZOPYRIDINE] Drug Allergy 11-06-19 [facility] (1 source) Sulfonamides (Antibiotic); Translations: [SULFA (SULFONAMIDE ANTIBIOTICS)] Propensity to adverse reactions to drug (disorder) 11-06-19 [facility] Medications Current Medications Medication Drug Class(es) [...] (1 source) Patient encounter status; Translations: [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] Episodic Other gastrointestinal disorders [...] 162.6 cm Tatyana Mills MD Work Phone: [facility] 04-16-2023 08:44-0500 Body temperature 98.49 [degF] Tatyana Mills MD Work Phone: [facility] 04-16-2023 08:44-0500 Body weight 66.22 kg Tatyana Mills MD Work Phone: [facility] 04-16-2023 08:44-0500 Diastolic blood pressure 76 mm[Hg] Tatyana Mills MD Work Phone: [facility] 04-16-2023 08:44-0500 Heart rate 83 /min Tatyana Mills MD Work Phone: [facility] 04-16-2023 08:44-0500 SaO2% (BldA) [Mass fraction] 97 % Tatyana Mills MD Work Phone: [facility] 04-16-2023 08:44-0500 Systolic blood pressure 124 mm[Hg] Tatyana Mills MD Work Phone: [facility] 03-21-2023 11:47-0500 Body weight 66.77 kg Shelby Cioce DATA LIBRARIAN.FORM GRADER OPERATOR Work Phone: [facility] 03-21-2023 11:47-0500 Diastolic blood pressure 98 mm[Hg] Shelby Cioce DATA LIBRARIAN.FORM GRADER OPERATOR Work Phone: [facility] 03-21-2023 11:47-0500 Heart rate 78 /min Shelby Cioce DATA LIBRARIAN.FORM GRADER OPERATOR Work Phone: [facility] 03-21-2023 11:47-0500 Respiratory rate 17 /min Shelby Cioce DATA LIBRARIAN.FORM GRADER OPERATOR Work Phone: [facility] 03-21-2023 11:47-0500 SaO2% (BldA) [Mass fraction] 99 % Shelby Cioce DATA LIBRARIAN.FORM GRADER OPERATOR Work Phone: [facility] 03-21-2023 11:47-0500 Systolic blood pressure 164 mm[Hg] Shelby Womack FORM GRADER OPERATOR Work Phone: [facility] 02-21-2023 10:52-0400 Body temperature 97.7 [degF] Alexys Fan MD Work Phone: [facility] 02-21-2023 10:52-0400 Body weight 64.46 kg Alexys Fan MD Work Phone: [facility] 02-21-2023 10:52-0400 Diastolic blood pressure 60 mm[Hg] Alexys Fan MD Work Phone: [facility] 02-21-2023 10:52-0400 Heart rate 95 /min Alexys Fan MD Work Phone: [facility] 02-21-2023 10:52-0400 Respiratory rate 18 /min Alexys Fan MD Work Phone: [facility] 02-21-2023 10:52-0400 SaO2% (BldA) [Mass fraction] 96 % Alexys Fan MD Work Phone: [facility] 02-21-2023 10:52-0400 Systolic blood pressure 143 mm[Hg] Alexys Fan MD Work Phone: [facility] 01-10-2023 09:48-0400 Body temperature 97.59 [degF] Gerardo Michel DO Work Phone: [facility] 01-10-2023 09:48-0400 Body weight 64.41 kg Gerardo Michel DO Work Phone: [facility] 01-10-2023 09:48-0400 Diastolic blood pressure 60 mm[Hg] Gerardo Michel DO Work Phone: [facility] 01-10-2023 09:48-0400 Heart rate 64 /min Gerardo Michel DO Work Phone: [facility] 01-10-2023 09:48-0400 Respiratory rate 16 /min Gerardo Michel DO Work Phone: [facility] 01-10-2023 09:48-0400 Systolic blood pressure 120 mm[Hg] Gerardo Michel DO Work Phone: [facility] 12-13-2022 07:19-0400 Body height 162.6 cm Shelby Cioce DATA LIBRARIAN.FORM GRADER OPERATOR Work Phone: [facility] 12-13-2022 07:19-0400 Body weight 65.77 kg Shelby Cioce DATA LIBRARIAN.FORM GRADER OPERATOR Work Phone: [facility] 12-13-2022 07:19-0400 Diastolic blood pressure 84 mm[Hg] Shelby Cioce DATA LIBRARIAN.FORM GRADER OPERATOR Work Phone: [facility] 12-13-2022 07:19-0400 Heart rate 68 /min Shelby Cioce DATA LIBRARIAN.FORM GRADER OPERATOR Work Phone: [facility] 12-13-2022 07:19-0400 Respiratory rate 14 /min Shelby Cioce DATA LIBRARIAN.FORM GRADER OPERATOR Work Phone: [facility] 12-13-2022 07:19-0400 Systolic blood pressure 122 mm[Hg] Shelby Cioce DATA LIBRARIAN.FORM GRADER OPERATOR Work Phone: [facility] 11-16-2022 09:39-0400 Diastolic blood pressure 76 mm[Hg] Ravi Salcido MD Work Phone: [facility] 11-16-2022 09:39-0400 Heart rate 85 /min Ravi Salcido MD Work Phone: [facility] 11-16-2022 09:39-0400 Respiratory rate 16 /min Ravi Salcido MD Work Phone: [facility] 11-16-2022 09:39-0400 SaO2% (BldA) [Mass fraction] 96 % Ravi Salcido MD Work Phone: [facility] 11-16-2022 09:39-0400 Systolic blood pressure 134 mm[Hg] Ravi Salcido MD Work Phone: [facility] 11-09-2022 10:13-0400 Body weight 65.95 kg Ravi Salcido MD Work Phone: [facility] 11-09-2022 10:13-0400 Diastolic blood pressure 70 mm[Hg] Ravi Salcido MD Work Phone: [facility] 11-09-2022 10:13-0400 Heart rate 99 /min Ravi Salcido MD Work Phone: [facility] 11-09-2022 10:13-0400 Respiratory rate 16 /min Ravi Salcido MD Work Phone: [facility] 11-09-2022 10:130400 SaO2% (BldA) [Mass fraction] 98 % Ravi Salcido MD Work Phone: [facility] 11-09-2022 10:130400 Systolic blood pressure 126 mm[Hg] Ravi Salcido MD Work Phone: [facility] 10-10-2022 14:44-0400 Body temperature 97.81 [degF] Gerardo Michel DO Work Phone: [facility] 10-10-2022 14:44-0400 Body weight 63.5 kg Gerardo Michel DO Work Phone: [facility] 10-10-2022 14:44-0400 Diastolic blood pressure 70 mm[Hg] Gerardo Michel DO Work Phone: [facility] 10-10-2022 14:44-0400 Heart rate 84 /min Gerardo Michel DO Work Phone: [facility] 10-10-2022 14:44-0400 Respiratory rate 16 /min Gerardo Michel DO Work Phone: [facility] 10-10-2022 14:44-0400 Systolic blood pressure 130 mm[Hg] Gerardo Michel DO Work Phone: [facility] 08-16-2022 11:19-0400 Body temperature 97.81 [degF] Alexys Fan MD Work Phone: [facility] 08-16-2022 11:19-0400 Body weight 64.05 kg Alexys Fan MD Work Phone: [facility] 08-16-2022 11:19-0400 Diastolic blood pressure 82 mm[Hg] Alexys Fan MD Work Phone: [facility] 08-16-2022 11:19-0400 Heart rate 86 /min Alexys Fan MD Work Phone: [facility] 08-16-2022 11:19-0400 Respiratory rate 18 /min Alexys Fan MD Work Phone: [facility] 08-16-2022 11:19-0400 SaO2% (BldA) [Mass fraction] 99 % Alexys Fan MD Work Phone: [facility] 08-16-2022 11:19-0400 Systolic blood pressure 161 mm[Hg] Alexys Fan MD Work Phone: [facility] 06-29-2022 11:41-0500 Body weight 67.13 kg Zohreh Stahl DATA LIBRARIAN.FORM GRADER OPERATOR Work Phone: [facility] 06-29-2022 11:41-0500 Diastolic blood pressure 60 mm[Hg] Zohreh Stahl DATA LIBRARIAN.FORM GRADER OPERATOR Work Phone: [facility] 06-29-2022 11:41-0500 Heart rate 80 /min Zohreh Stahl DATA LIBRARIAN.FORM GRADER OPERATOR Work Phone: [facility] 06-29-2022 11:41-0500 Respiratory rate 14 /min Zohreh Stahl DATA LIBRARIAN.FORM GRADER OPERATOR Work Phone: [facility] 06-29-2022 11:41-0500 Systolic blood pressure 130 mm[Hg] Zohreh Stahl DATA LIBRARIAN.FORM GRADER OPERATOR Work Phone: [facility] 06-15-2022 10:03-0500 Body weight 67.13 kg Zohreh Stahl DATA LIBRARIAN.FORM GRADER OPERATOR Work Phone: [facility] 06-15-2022 10:03-0500 Diastolic blood pressure 62 mm[Hg] Zohreh Stahl DATA LIBRARIAN.FORM GRADER OPERATOR Work Phone: [facility] 06-15-2022 10:03-0500 Heart rate 88 /min Zohreh Stahl DATA LIBRARIAN.FORM GRADER OPERATOR Work Phone: [facility] 06-15-2022 10:03-0500 Respiratory rate 14 /min Zohreh Stahl DATA LIBRARIAN.FORM GRADER OPERATOR Work Phone: [facility] 06-15-2022 10:03-0500 Systolic blood pressure 120 mm[Hg] Zohreh Stahl DATA LIBRARIAN.FORM GRADER OPERATOR Work Phone: [facility] 04-25-2022 10:03-0500 Body temperature 97.81 [degF] [facility] LIBRARIAN.FORM GRADER OPERATOR Work Phone: [facility] 04-25-2022 10:03-0500 Body weight 69.13 kg Sandro Faria DATA LIBRARIAN.FORM GRADER OPERATOR Work Phone: [facility] 04-25-2022 10:03-0500 Diastolic blood pressure 76 mm[Hg] Sandro Pendniabury DATA LIBRARIAN.FORM GRADER OPERATOR Work Phone: [facility] 04-25-2022 10:03-0500 Heart rate 85 /min Sandro Faria DATA LIBRARIAN.FORM GRADER OPERATOR Work Phone: [facility] 04-25-2022 10:03-0500 Respiratory rate 18 /min Sandro Faria DATA LIBRARIAN.FORM GRADER OPERATOR Work Phone: [facility] 04-25-2022 10:03-0500 SaO2% (BldA) [Mass fraction] 96 % aSndro Faria DATA LIBRARIAN.FORM GRADER OPERATOR Work Phone: [facility] 04-25-2022 10:03-0500 Systolic blood pressure 148 mm[Hg] Sandro Pendchidi DATA LIBRARIAN.FORM GRADER OPERATOR Work Phone: [facility] 04-19-2022 14:17-0500 Body height 165.3 cm Alexys Fan MD Work Phone: [facility] 04-19-2022 14:17-0500 Body temperature 97.5 [degF] Alexys Fan MD Work Phone: [facility] 04-19-2022 14:17-0500 Body weight 68.36 kg Alexys Fan MD Work Phone: [facility] 04-19-2022 14:17-0500 Diastolic blood pressure 65 mm[Hg] Alexys Fan MD Work Phone: [facility] 04-19-2022 14:17-0500 Heart rate 85 /min Alexys Fan MD Work Phone: [facility] 04-19-2022 14:17-0500 Respiratory rate 20 /min Alexys Fan MD Work Phone: [facility] 04-19-2022 14:17-0500 SaO2% (BldA) [Mass fraction] 95 % Alexys Fan MD Work Phone: [facility] 04-19-2022 14:17-0500 Systolic blood pressure 142 mm[Hg] Alexys Fan MD Work Phone: [facility] 03-06-2022 12:03-0400 Body weight 68.13 kg Gerardo Michel DO Work Phone: [facility] 03-06-2022 12:03-0400 Diastolic blood pressure 80 mm[Hg] Gerardo Michel DO Work Phone: [facility] 03-06-2022 12:03-0400 Heart rate 80 /min Gerardo Michel DO Work Phone: [facility] 03-06-2022 12:03-0400 Respiratory rate 16 /min Gerardo Michel DO Work Phone: [facility] 03-06-2022 12:03-0400 Systolic blood pressure 174 mm[Hg] Gerardo Michel DO Work Phone: [facility] 12-14-2021 15:16-0400 Body weight 65.14 kg Zohreh Ruby APRN.CNP Work Phone: [facility] 12-14-2021 15:16-0400 Diastolic blood pressure 62 mm[Hg] Zohreh Zurawick DATA LIBRARIAN.FORM GRADER OPERATOR Work Phone: [facility] 12-14-2021 15:16-0400 Heart rate 64 /min Zohreh Zurawick DATA LIBRARIAN.FORM GRADER OPERATOR Work Phone: [facility] 12-14-2021 15:16-0400 Respiratory rate 14 /min Zohreh Zurawick DATA LIBRARIAN.FORM GRADER OPERATOR Work Phone: [facility] 12-14-2021 15:16-0400 Systolic blood pressure 110 mm[Hg] Zohreh Zurawick DATA LIBRARIAN.FORM GRADER OPERATOR Work Phone: [facility] 12-02-2021 10:56-0400 Body weight 65.41 kg Zohreh Zurawick DATA LIBRARIAN.FORM GRADER OPERATOR Work Phone: [facility] 12-02-2021 10:56-0400 Diastolic blood pressure 60 mm[Hg] Zohreh Zurawick DATA LIBRARIAN.FORM GRADER OPERATOR Work Phone: [facility] 12-02-2021 10:56-0400 Heart rate 64 /min Zohreh Zurawick DATA LIBRARIAN.FORM GRADER OPERATOR Work Phone: [facility] 12-02-2021 10:56-0400 Respiratory rate 14 /min Ozhreh Zurawick DATA LIBRARIAN.FORM GRADER OPERATOR Work Phone: [facility] 12-02-2021 10:56-0400 Systolic blood pressure 100 mm[Hg] Zohreh Zurawick DATA LIBRARIAN.FORM GRADER OPERATOR Work Phone: [facility] 09-28-2021 11:51-0400 Body height 165.1 cm Diana Rosen MD Work Phone: [facility] 09-28-2021 11:51-0400 Body weight 64.41 kg Diana Rosen MD Work Phone: [facility] 09-28-2021 11:51-0400 Diastolic blood pressure 73 mm[Hg] Diana Rosen MD Work Phone: [facility] 09-28-2021 11:51-0400 Heart rate 87 /min Diana Rosen MD Work Phone: [facility] 09-28-2021 11:51-0400 Systolic blood pressure 154 mm[Hg] Diana Rosen MD Work Phone: [facility] 09-22-2021 13:22-0400 Body weight 64.77 kg Tonia Jarek DATA LIBRARIAN.FORM GRADER OPERATOR Work Phone: [facility] 09-22-2021 13:22-0400 Diastolic blood pressure 80 mm[Hg] Tonia Jarek DATA LIBRARIAN.FORM GRADER OPERATOR Work Phone: [facility] 09-22-2021 13:22-0400 Heart rate 84 /min Tonia Jarek DATA LIBRARIAN.FORM GRADER OPERATOR Work Phone: [facility] 09-22-2021 13:22-0400 Respiratory rate 16 /min Tonia Jarek DATA LIBRARIAN.FORM GRADER OPERATOR Work Phone: [facility] 09-22-2021 13:22-0400 Systolic blood pressure 138 mm[Hg] Tonia Jarek DATA LIBRARIAN.FORM GRADER OPERATOR Work Phone: [facility] 09-21-2021 10:58-0400 Body temperature 98.4 [degF] Alexys Fan MD Work Phone: [facility] 09-21-2021 10:58-0400 Body weight 65.77 kg Alexys Fan MD Work Phone: [facility] 09-21-2021 10:58-0400 Diastolic blood pressure 61 mm[Hg] Alexys Fan MD Work Phone: [facility] 09-21-2021 10:58-0400 Heart rate 85 /min Alexys Fan MD Work Phone: [facility] 09-21-2021 10:58-0400 Respiratory rate 18 /min Alexys Fan MD Work Phone: [facility] 09-21-2021 10:58-0400 SaO2% (BldA) [Mass fraction] 98 % Alexys Fan MD Work Phone: [facility] 09-21-2021 10:58-0400 Systolic blood pressure 136 mm[Hg] Alexys Fan MD Work Phone: [facility] Encounters Encounter Date Encounter Type Care Provider Facility Start: 05-02-2023 End: 05-02-2023 ambulatory GERARDO EDUARDOON Facility:[facility] Start: 04-20-2023 Telephone encounter Tatyana Mills MD Work Phone: Endocrinology Procedures Date Procedure Procedure Detail Performing Clinician Start: 10-10-2022 Hemoglobin A1c/Hemoglobin.total in Blood Gerardo Michel DO Work Phone: Start: 08-16-2022 Ct soft tissue neck w/contrast material Alexys Fan MD Work Phone: Start: 08-16-2022 Ct thorax w/contrast material Alexys Fan MD Work Phone: Start: 12-02-2021 Hemoglobin A1c/Hemoglobin.total in Blood Zohreh Tung DATA LIBRARIAN.FORM GRADER OPERATOR Work Phone: Start: 11-24-2021 Adult depression scr eening assessment Zohreh Zurawick DATA LIBRARIAN.FORM GRADER OPERATOR Work Phone: Start: 11-14-2020 Adult depression scr eening assessment Gerardo Michel DO Work Phone: Start: 12-08-2019 Colonoscopy Gerardo Benedict rison DO Work Phone: Plan of Treatment Date Care Activity Detail Author Start: 12-07-2024 Colonoscopy COLONOSCOPY [facility] Start: 12-07-2024 COLORECTAL CANCER SCREENING COLORECTAL CANCER SCREENING [facility] Start: 04-16-2024 BP Controlled (<130/80) BP Controlle d (<130/80) [facility] Start: 02-22-2024 Hepatitis B screening Urine Albumin:Creatinine Ratio [facility] Start: 02-22-2024 Hepatitis B surface antibody level LDL Cholesterol [facility] Start: 01-11-2024 3 comp foot exam completed DIABETIC FOOT EXAM [facility] Start: 01-11-2024 ANNUAL PCP TEAM BUNG DROPPER SHAWN DISEASE VISIT ANNUAL PCP TEAM CHRONIC DISEASE VISIT [facility] Start: 01-11-2024 BP CONTROLLED (<130/80) BP CONTROLLE D (<130/80) [facility] Start: 11-17-2023 ANNUAL PCP TEAM BUNG DROPPER SHAWN DISEASE VISIT ANNUAL PCP TEAM CHRONIC DISEASE VISIT [facility] Start: 11-10-2023 ANNUAL PCP TEAM BUNG DROPPER SHAWN DISEASE VISIT ANNUAL PCP TEAM CHRONIC DISEASE VISIT [facility] Start: 11-10-2023 BP CONTROLLED (<130/80) BP CONTROLLE D (<130/80) [facility] Start: 10-11-2023 ANNUAL PCP TEAM BUNG DROPPER SHAWN DISEASE VISIT ANNUAL PCP TEAM CHRONIC DISEASE VISIT [facility] Start: 09-12-2023 End: 12-12-2023 25-hydroxyvitamin D3 [Mass/volume] in Serum or Plasma VITAMIN D 25 HYDROXY Lab Routine Vitamin D deficiency Expected: 09/12/2023, Expires: 12/12/2023 [facility] Work Phone: Immunizations Immunization Date Immunization Notes Care Provider Chel fermin 03-17-2023 influenza, high dose seasonal, preservative-free Shelby Cioce DATA LIBRARIAN.FORM GRADER OPERATOR Work Phone: [facility] 02-21-2023 COVID-19 vaccine, ag e 12+ yr, bivalent (PFIZER-BIONTECH) Shelby Cioce DATA LIBRARIAN.FORM GRADER OPERATOR Work Phone: [facility] 01-10-2023 pneumococcal (PCV20) vaccine, 20 valent (PREVNAR 20) Gerardo Michel DO Work Phone: [facility] Work Phone: 01-10-2023 pneumococcal Conjuga te, unspecified formulation Gerardo Michel DO Work Phone: [facility] Work Phone: 02-10-2022 COVID-19 booster vaccine, age 12+ yr, bivalent ([employer] Gerardo Michel DO Work Phone: [facility] 01-23-2022 influenza virus vacc ine, unspecified formulation Gerardo Michel DO Work Phone: [facility] 12-02-2021 zoster vaccine, unspecified formulation Zohreh Ruby DATA LIBRARIAN.FORM GRADER OPERATOR Work Phone: [facility] 08-26-2021 zoster vaccine recombinant Mi Nurse Work Phone: [facility] Work Phone: 08-23-2021 COVID-19 vaccine, booster dose (MODERNA) Mi Nurse Work Phone: [facility] 03-11-2021 influenza, high dose seasonal, preservative-free Gerardo Michel DO Work Phone: [facility] Work Phone: 01-10-2021 COVID-19 vaccine, ag e 12+ yr (PFIZER-BIONTECH - PURPLE TOP) Gerardo Michel DO Work Phone: [facility] Work Phone: 07-08-2020 COVID-19 vaccine, ag e 12+ yr (PFIZER-BIONTECH - PURPLE TOP) Gerardo Michel DO Work Phone: [facility] Work Phone: 06-11-2020 COVID-19 vaccine, ag e 12+ yr (PFIZER-BIONTECH - PURPLE TOP) Gerardo Michel DO Work Phone: [facility] Work Phone: 02-14-2020 influenza, high-dose , quadrivalent vaccine (FLUZONE HIGH DOSE QUADRIVALENT) Gerardo Michel DO Work Phone: [facility] 01-28-2019 influenza, high dose seasonal, preservative-free Gerardo Michel DO Work Phone: [facility] Work Phone: 06-24-2018 hepatitis A vaccine, adult dosage Gerardo Michel DO Work Phone: [facility] Work Phone: 01-25-2018 influenza, high dose seasonal, preservative-free Gerardo Michel DO Work Phone: [facility] Work Phone: 01-12-2018 influenza, seasonal, injectable, preservative free Gerardo Michel DO Work Phone: [facility] Work Phone: 12-06-2017 typhoid vaccine, unspecified formulation Gerardo Michel DO Work Phone: [facility] 12-06-2017 typhoid capsular polysaccharide vaccine Gerardo Michel DO Work Phone: [facility] Work Phone: 11-26-2017 hepatitis A vaccine, adult dosage Gerardo Michel DO Work Phone: [facility] Work Phone: 03-09-2017 influenza, high dose seasonal, preservative-free Gerardo Michel DO Work Phone: [facility] Work Phone: 05-01-2016 pneumococcal polysaccharide vaccine, 23 valent Gerardo Michel DO Work Phone: [facility] 03-29-2016 influenza, high dose seasonal, preservative-free Gerardo Michel DO Work Phone: [facility] Work Phone: 11-27-2014 pneumococcal conjuga te vaccine, 13 valent Gerardo Michel DO Work Phone: [facility] 03-16-2014 influenza, high dose seasonal, preservative-free Gerardo Michel DO Work Phone: [facility] 05-17-2012 influenza virus vacc ine, whole virus Gerardo Michel DO Work Phone: [facility] Work Phone: 12-15-2009 pneumococcal polysaccharide vaccine, 23 valent Gerardo Michel DO Work Phone: [facility] Work Phone: 05-25-2009 tetanus toxoid, redu caroline diphtheria toxoid, and acellular pertussis vaccine, adsorbed Gerardo Michel DO Work Phone: [facility] 08-30-2007 hepatitis B immune globulin Gerardo Michel DO Work Phone: [facility] Work Phone: 03-02-2007 hepatitis B immune globulin Gerardo Michel DO Work Phone: [facility] Work Phone: 01-26-2007 hepatitis B immune globulin Gerardo Michel DO Work Phone: [facility] Work Phone: Payers Date Payer Category Payer Unknown MMO MMO [employer] PLUS [id number] 2021-Present [phone] [address] [place] [address] PPO [id number] 2021 Unknown [employer]UE CARD PPO OOS [id number] 2021-Present [phone] [address] [place] [address] PPO [id number] 2021 Unknown [id number] 2013 Unknown [id number] 2011 Unknown 2011 Medicare [id number] 2011 Medicare MEDICARE MEDICAR E A AND B [id number] 2011-Present [phone] [place] [address] Medicare [id number] 2011 Medicare MEDICARE MEDICAR E A AND B [id number] 2011-Present [phone] [place] [address] Medicare [id number] 1946 Unknown [id number] 1945 Unknown [id number] 1946 Unknown [id number] Social History Date Type Detail Facility Start: 11-07-2010 End: 04-25-2022 Tobacco smoking status NHIS Never smoked tobacco [facility] Start: 03-23-2021 End: 04-16-2023 Alcohol intake Current drinker of alcohol (finding) [facility] Start: 07-01-2020 End: 11-24-2021 History SDOH Alcohol Frequency 2 [facility] Start: 07-01-2020 End: 11-24-2021 History SDOH Alcohol Std Drinks 1 [facility] Start: 03-23-2021 History SDOH Alcohol Comment Very little [facility] Start: 07-01-2020 End: 11-24-2021 History SDOH Social Connections Phone 3 [facility] Start: 07-01-2020 Education 21 [facility] Start: 1945 Sex Assigned At Female C [facility] Start: 08-14-2021 End: 03-06-2022 Exposure to SARS-CoV-2 (event) Not sure [facility] Start: 11-24-2021 History SDOH Social Connections Phone 5 [facility] Start: 11-24-2021 History SDOH Physica l Activity DPW 4 [facility] Start: 11-07-2010 End: 04-25-2022 Tobacco use and exposure Smokeless tobacco non-user [facility] Start: 11-24-2021 End: 09-13-2022 History of Social function [place] [facility] Start: 11-24-2021 End: 09-13-2022 Social connection and isolation panel [facility] Do you belong to any clubs or organizations such as orthodox groups, unions, fraternal or athletic groups, or school groups? Yes [facility] Are you now , , , , never or living with a partner? [facility] How often to you hav e a drink containing alcohol? Monthly or less [facility] How many standard dr inks containing alcohol do you have on a typical day? 1 or 2 [facility] How often do you hav e 6 or more drinks on 1 occasion? Never [facility] How hard is it for y ou to pay for the very basics like food, housing, medical care, and heating Not hard at all [facility] Do you feel stress - tense, restless, nervous, or anxious, or unable to sleep at night because your mind is troubled all the time - these days [OSQ] To some extent [facility] (I/We) worried wheth er (my/our) food would run out before (I/we) got money to buy more. Never true [facility] In the past 12 month s, was there a time when you were not able to pay the mortgage or rent on time? No [facility] Start: 07-20-2018 Gender identity Identifies as female gender (finding) [facility] Medical Equipment Procedure Code Equipment Code Equipment Origin al Text Equipment Identifier Dates Start: 06-22-2021 Clinical Notes 07-24-2017 to 05-11-2023 Telephone Encounter - Leonila Izquierdo - 04/20/2023 2:26 PM ESTPatient InstructionsTatyana Mills MD - 04/16/2023 9:04 AM Shelby Boone APRN.CNP - 03/21/2023 11:45 AM EST Note Date & Type Note Facility 05-11-2023 Note [facility] 05-11-2023 Note [facility] 05-02-2023 Note [facility] 04-20-2023 Miscellaneous Notes Received and returned fax request for Insulin glargine prescription verification. Fax confirmation received Leonila Izquierdo MA documented in this encounter [facility] 04-16-2023 Note [facility] 04-16-2023 Instructions Tatyana Mills MD - 04/16/2023 9:26 AM EST Once seen by staff development educator- Start insulin lantus 10 units at bedtime Start using Dexcom G7 Stop glimepiride Follow up virtual visit in 1 month Regular in-person appointment in 3 months documented in this encounter [facility] 04-16-2023 History of Present illness Narrative Endocrinology and Metabolism Thida New Clinic Visit This is a 77 [...] 10% She has been following by Shelby Womack APRN, FORM GRADER OPERATOR, [place] 03/21/2023 -Initially diagnosed- at the age [...] 09/23/2007 Essential hypertension, benign Dr. Willian Davila Hand Compositor [facility]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 11/23/2008 08/07/2018 Nausea 09/23/2007 08/07/2018 Urticaria, unspecified 03/10/2005 9 documented as of this encounter (statuses as of 12/14/2021) [facility] History of Past illness Narrative* Problem Noted Date Resolved Date Dyslipidemia 07/24/2017 12/28/2017 Hypertriglyceridemia 09/30/2015 01/31/2018 Hyperlipidemia 01/13/2014 08/05/2018 Type II or unspecified type diabetes mellitus without mention of complication, not stated as uncontrolled 01/13/2014 Cough 11/23/2008 08/07/2018 Nausea 09/23/2007 08/07/2018 Urticaria, unspecified 03/10/2005 9 documented as of this encounter (statuses as of 12/21/2021) [facility] History of Past illness Narrative* Problem Noted Date Resolved Date Dyslipidemia 07/24/2017 12/28/2017 Hypertriglyceridemia 09/30/2015 01/31/2018 Hyperlipidemia 01/13/2014 08/05/2018 Type II or unspecified type diabetes mellitus without mention of complication, not stated as uncontrolled 01/13/2014 Cough 11/23/2008 08/07/2018 Nausea 09/23/2007 08/07/2018 Urticaria, unspecified 03/10/2005 9 documented as of this encounter (statuses as of 12/31/2021) [facility] History of Past illness Narrative* Problem Noted Date Resolved Date Dyslipidemia 07/24/2017 12/28/2017 Hypertriglyceridemia 09/30/2015 01/31/2018 Hyperlipidemia 01/13/2014 08/05/2018 Type II or unspecified type diabetes mellitus without mention of complication, not stated as uncontrolled 01/13/2014 Cough 11/23/2008 08/07/2018 Nausea 09/23/2007 08/07/2018 Urticaria, unspecified 03/10/2005 9 documented as of this encounter (statuses as of 01/04/2022) [facility] History of Past illness Narrative* Problem Noted Date Resolved Date Dyslipidemia 07/24/2017 12/28/2017 Hypertriglyceridemia 09/30/2015 01/31/2018 Hyperlipidemia 01/13/2014 08/05/2018 Type II or unspecified type diabetes mellitus without mention of complication, not stated as uncontrolled 01/13/2014 Cough 11/23/2008 08/07/2018 Nausea 09/23/2007 08/07/2018 Urticaria, unspecified 03/10/2005 9 documented as of this encounter (statuses as of 01/11/2022) [facility] History of Past illness Narrative* Problem Noted Date Resolved Date Dyslipidemia 07/24/2017 12/28/2017 Hypertriglyceridemia 09/30/2015 01/31/2018 Hyperlipidemia 01/13/2014 08/05/2018 Type II or unspecified type diabetes mellitus without mention of complication, not stated as uncontrolled 01/13/2014 Cough 11/23/2008 08/07/2018 Nausea 09/23/2007 08/07/2018 Urticaria, unspecified 03/10/2005 9 documented as of this encounter (statuses as of 01/26/2022) [facility] History of Past illness Narrative* Problem Noted Date Resolved Date Dyslipidemia 07/24/2017 12/28/2017 Hypertriglyceridemia 09/30/2015 01/31/2018 Hyperlipidemia 01/13/2014 08/05/2018 Type II or unspecified type diabetes mellitus without mention of complication, not stated as uncontrolled 01/13/2014 Cough 11/23/2008 08/07/2018 Nausea 09/23/2007 08/07/2018 Urticaria, unspecified 03/10/2005 9 documented as of this encounter (statuses as of 03/09/2022) [facility] History of Past illness Narrative* Problem Noted Date Resolved Date Dyslipidemia 07/24/2017 12/28/2017 Hypertriglyceridemia 09/30/2015 01/31/2018 Hyperlipidemia 01/13/2014 08/05/2018 Type II or unspecified type diabetes mellitus without mention of complication, not stated as uncontrolled 01/13/2014 Cough 11/23/2008 08/07/2018 Nausea 09/23/2007 08/07/2018 Urticaria, unspecified 03/10/2005 9 documented as of this encounter (statuses as of 04/12/2022) [facility] History of Past illness Narrative* Problem Noted Date Resolved Date Dyslipidemia 07/24/2017 12/28/2017 Hypertriglyceridemia 09/30/2015 01/31/2018 Hyperlipidemia 01/13/2014 08/05/2018 Type II or unspecified type diabetes mellitus without mention of complication, not stated as uncontrolled 01/13/2014 Cough 11/23/2008 08/07/2018 Nausea 09/23/2007 08/07/2018 Urticaria, unspecified 03/10/2005 9 documented as of this encounter (statuses as of 04/19/2022) [facility] History of Past illness Narrative* Problem Noted Date Resolved Date Dyslipidemia 07/24/2017 12/28/2017 Hypertriglyceridemia 09/30/2015 01/31/2018 Hyperlipidemia 01/13/2014 08/05/2018 Type II or unspecified type diabetes mellitus without mention of complication, not stated as uncontrolled 01/13/2014 Cough 11/23/2008 08/07/2018 Nausea 09/23/2007 08/07/2018 Urticaria, unspecified 03/10/2005 9 documented as of this encounter (statuses as of 04/25/2022) [facility] History of Past illness Narrative* Problem Noted Date Resolved Date Dyslipidemia 07/24/2017 12/28/2017 Hypertriglyceridemia 09/30/2015 01/31/2018 Hyperlipidemia 01/13/2014 08/05/2018 Type II or unspecified type diabetes mellitus without mention of complication, not stated as uncontrolled 01/13/2014 Cough 11/23/2008 08/07/2018 Nausea 09/23/2007 08/07/2018 Urticaria, unspecified 03/10/2005 9 documented as of this encounter (statuses as of 05/17/2022) [facility]2018 History of Past illness Narrative* Problem Noted Date Resolved Date Dyslipidemia 07/24/2017 12/28/2017 Hypertriglyceridemia 09/30/2015 01/31/2018 Hyperlipidemia 01/13/2014 08/05/2018 Type II or unspecified type diabetes mellitus without mention of complication, not stated as uncontrolled 01/13/2014 Cough 11/23/2008 08/07/2018 Nausea 09/23/2007 08/07/2018 Urticaria, unspecified 03/10/2005 9 documented as of this encounter (statuses as of 05/19/2022) [facility] History of Past illness Narrative* Problem Noted Date Resolved Date Dyslipidemia 07/24/2017 12/28/2017 Hypertriglyceridemia 09/30/2015 01/31/2018 Hyperlipidemia 01/13/2014 08/05/2018 Type II or unspecified type diabetes mellitus without mention of complication, not stated as uncontrolled 01/13/2014 Cough 11/23/2008 08/07/2018 Nausea 09/23/2007 08/07/2018 Urticaria, unspecified 03/10/2005 9 documented as of this encounter (statuses as of 06/15/2022) [facility]2018 History of Past illness Narrative* Problem Noted Date Resolved Date Dyslipidemia 07/24/2017 12/28/2017 Hypertriglyceridemia 09/30/2015 01/31/2018 Hyperlipidemia 01/13/2014 08/05/2018 Type II or unspecified type diabetes mellitus without mention of complication, not stated as uncontrolled 01/13/2014 Cough 11/23/2008 08/07/2018 Nausea 09/23/2007 08/07/2018 Urticaria, unspecified 03/10/2005 9 documented as of this encounter (statuses as of 06/27/2022) [facility]2018 History of Past illness Narrative* Problem Noted Date Resolved Date Dyslipidemia 07/24/2017 12/28/2017 Hypertriglyceridemia 09/30/2015 01/31/2018 Hyperlipidemia 01/13/2014 08/05/2018 Type II or unspecified type diabetes mellitus without mention of complication, not stated as uncontrolled 01/13/2014 Cough 11/23/2008 08/07/2018 Nausea 09/23/2007 08/07/2018 Urticaria, unspecified 03/10/2005 9 documented as of this encounter (statuses as of 06/29/2022) [facility] History of Past illness Narrative* Problem Noted Date Resolved Date Dyslipidemia 07/24/2017 12/28/2017 Hypertriglyceridemia 09/30/2015 01/31/2018 Hyperlipidemia 01/13/2014 08/05/2018 Type II or unspecified type diabetes mellitus without mention of complication, not stated as uncontrolled 01/13/2014 Cough 11/23/2008 08/07/2018 Nausea 09/23/2007 08/07/2018 Urticaria, unspecified 03/10/2005 9 documented as of this encounter (statuses as of 06/30/2022) [facility] History of Past illness Narrative* Problem Noted Date Resolved Date Dyslipidemia 07/24/2017 12/28/2017 Hypertriglyceridemia 09/30/2015 01/31/2018 Hyperlipidemia 01/13/2014 08/05/2018 Type II or unspecified type diabetes mellitus without mention of complication, not stated as uncontrolled 01/13/2014 Cough 11/23/2008 08/07/2018 Nausea 09/23/2007 08/07/2018 Urticaria, unspecified 03/10/2005 9 documented as of this encounter (statuses as of 07/04/2022) [facility] History of Past illness Narrative* Problem Noted Date Resolved Date Dyslipidemia 07/24/2017 12/28/2017 Hypertriglyceridemia 09/30/2015 01/31/2018 Hyperlipidemia 01/13/2014 08/05/2018 Type II or unspecified type diabetes mellitus without mention of complication, not stated as uncontrolled 01/13/2014 Cough 11/23/2008 08/07/2018 Nausea 09/23/2007 08/07/2018 Urticaria, unspecified 03/10/2005 9 documented as of this encounter (statuses as of 07/07/2022) [facility] History of Past illness Narrative* Problem Noted Date Resolved Date Dyslipidemia 07/24/2017 12/28/2017 Hypertriglyceridemia 09/30/2015 01/31/2018 Hyperlipidemia 01/13/2014 08/05/2018 Type II or unspecified type diabetes mellitus without mention of complication, not stated as uncontrolled 01/13/2014 Cough 11/23/2008 08/07/2018 Nausea 09/23/2007 08/07/2018 Urticaria, unspecified 03/10/2005 9 documented as of this encounter (statuses as of 07/07/2022) [facility] History of Past illness Narrative* Problem Noted Date Resolved Date Dyslipidemia 07/24/2017 12/28/2017 Hypertriglyceridemia 09/30/2015 01/31/2018 Hyperlipidemia 01/13/2014 08/05/2018 Type II or unspecified type diabetes mellitus without mention of complication, not stated as uncontrolled 01/13/2014 Cough 11/23/2008 08/07/2018 Nausea 09/23/2007 08/07/2018 Urticaria, unspecified 03/10/2005 9 documented as of this encounter (statuses as of 07/19/2022) [facility] History of Past illness Narrative* Problem Noted Date Resolved Date Dyslipidemia 07/24/2017 12/28/2017 Hypertriglyceridemia 09/30/2015 01/31/2018 Hyperlipidemia 01/13/2014 08/05/2018 Type II or unspecified type diabetes mellitus without mention of complication, not stated as uncontrolled 01/13/2014 Cough 11/23/2008 08/07/2018 Nausea 09/23/2007 08/07/2018 Urticaria, unspecified 03/10/2005 9 documented as of this encounter (statuses as of 07/21/2022) [facility] History of Past illness Narrative* Problem Noted Date Resolved Date Dyslipidemia 07/24/2017 12/28/2017 Hypertriglyceridemia 09/30/2015 01/31/2018 Hyperlipidemia 01/13/2014 08/05/2018 Type II or unspecified type diabetes mellitus without mention of complication, not stated as uncontrolled 01/13/2014 Cough 11/23/2008 08/07/2018 Nausea 09/23/2007 08/07/2018 Urticaria, unspecified 03/10/2005 9 documented as of this encounter (statuses as of 07/22/2022) [facility] History of Past illness Narrative* Problem Noted Date Resolved Date Dyslipidemia 07/24/2017 12/28/2017 Hypertriglyceridemia 09/30/2015 01/31/2018 Hyperlipidemia 01/13/2014 08/05/2018 Type II or unspecified type diabetes mellitus without mention of complication, not stated as uncontrolled 01/13/2014 Cough 11/23/2008 08/07/2018 Nausea 09/23/2007 08/07/2018 Urticaria, unspecified 03/10/2005 9 documented as of this encounter (statuses as of 08/01/2022) [facility] History of Past illness Narrative* Problem Noted Date Resolved Date Dyslipidemia 07/24/2017 12/28/2017 Hypertriglyceridemia 09/30/2015 01/31/2018 Hyperlipidemia 01/13/2014 08/05/2018 Type II or unspecified type diabetes mellitus without mention of complication, not stated as uncontrolled 01/13/2014 Cough 11/23/2008 08/07/2018 Nausea 09/23/2007 08/07/2018 Urticaria, unspecified 03/10/2005 9 documented as of this encounter (statuses as of 08/10/2022) [facility] History of Past illness Narrative* Problem Noted Date Resolved Date Dyslipidemia 07/24/2017 12/28/2017 Hypertriglyceridemia 09/30/2015 01/31/2018 Hyperlipidemia 01/13/2014 08/05/2018 Type II or unspecified type diabetes mellitus without mention of complication, not stated as uncontrolled 01/13/2014 Cough 11/23/2008 08/07/2018 Nausea 09/23/2007 08/07/2018 Urticaria, unspecified 03/10/2005 9 documented as of this encounter (statuses as of 08/16/2022) [facility] History of Past illness Narrative* Problem Noted Date Resolved Date Dyslipidemia 07/24/2017 12/28/2017 Hypertriglyceridemia 09/30/2015 01/31/2018 Hyperlipidemia 01/13/2014 08/05/2018 Type II or unspecified type diabetes mellitus without mention of complication, not stated as uncontrolled 01/13/2014 Cough 11/23/2008 08/07/2018 Nausea 09/23/2007 08/07/2018 Urticaria, unspecified 03/10/2005 9 documented as of this encounter (statuses as of 08/17/2022) [facility] History of Past illness Narrative* Problem Noted Date Resolved Date Dyslipidemia 07/24/2017 12/28/2017 Hypertriglyceridemia 09/30/2015 01/31/2018 Hyperlipidemia 01/13/2014 08/05/2018 Type II or unspecified type diabetes mellitus without mention of complication, not stated as uncontrolled 01/13/2014 Cough 11/23/2008 08/07/2018 Nausea 09/23/2007 08/07/2018 Urticaria, unspecified 03/10/2005 9 documented as of this encounter (statuses as of 08/25/2022) [facility] History of Past illness Narrative* Problem Noted Date Resolved Date Dyslipidemia 07/24/2017 12/28/2017 Hypertriglyceridemia 09/30/2015 01/31/2018 Hyperlipidemia 01/13/2014 08/05/2018 Type II or unspecified type diabetes mellitus without mention of complication, not stated as uncontrolled 01/13/2014 Cough 11/23/2008 08/07/2018 Nausea 09/23/2007 08/07/2018 Urticaria, unspecified 03/10/2005 9 documented as of this encounter (statuses as of 09/18/2022) [facility] History of Past illness Narrative* Problem Noted Date Resolved Date Dyslipidemia 07/24/2017 12/28/2017 Hypertriglyceridemia 09/30/2015 01/31/2018 Hyperlipidemia 01/13/2014 08/05/2018 Type II or unspecified type diabetes mellitus without mention of complication, not stated as uncontrolled 01/13/2014 Cough 11/23/2008 08/07/2018 Nausea 09/23/2007 08/07/2018 Urticaria, unspecified 03/10/2005 9 documented as of this encounter (statuses as of 10/11/2022) [facility] History of Past illness Narrative* Problem Noted Date Resolved Date Dyslipidemia 07/24/2017 12/28/2017 Hypertriglyceridemia 09/30/2015 01/31/2018 Hyperlipidemia 01/13/2014 08/05/2018 Type II or unspecified type diabetes mellitus without mention of complication, not stated as uncontrolled 01/13/2014 Cough 11/23/2008 08/07/2018 Nausea 09/23/2007 08/07/2018 Urticaria, unspecified 03/10/2005 9 documented as of this encounter (statuses as of 10/12/2022) [facility] History of Past illness Narrative* Problem Noted Date Resolved Date Dyslipidemia 07/24/2017 12/28/2017 Hypertriglyceridemia 09/30/2015 01/31/2018 Hyperlipidemia 01/13/2014 08/05/2018 Type II or unspecified type diabetes mellitus without mention of complication, not stated as uncontrolled 01/13/2014 Cough 11/23/2008 08/07/2018 Nausea 09/23/2007 08/07/2018 Urticaria, unspecified 03/10/2005 9 documented as of this encounter (statuses as of 10/14/2022) [facility] History of Past illness Narrative* Problem Noted Date Resolved Date Dyslipidemia 07/24/2017 12/28/2017 Hypertriglyceridemia 09/30/2015 01/31/2018 Hyperlipidemia 01/13/2014 08/05/2018 Type II or unspecified type diabetes mellitus without mention of complication, not stated as uncontrolled 01/13/2014 Cough 11/23/2008 08/07/2018 Nausea 09/23/2007 08/07/2018 Urticaria, unspecified 03/10/2005 9 documented as of this encounter (statuses as of 10/17/2022) [facility] History of Past illness Narrative* Problem Noted Date Resolved Date Dyslipidemia 07/24/2017 12/28/2017 Hypertriglyceridemia 09/30/2015 01/31/2018 Hyperlipidemia 01/13/2014 08/05/2018 Type II or unspecified type diabetes mellitus without mention of complication, not stated as uncontrolled 01/13/2014 Cough 11/23/2008 08/07/2018 Nausea 09/23/2007 08/07/2018 Urticaria, unspecified 03/10/2005 9 documented as of this encounter (statuses as of 11/09/2022) [facility] History of Past illness Narrative* Problem Noted Date Resolved Date Dyslipidemia 07/24/2017 12/28/2017 Hypertriglyceridemia 09/30/2015 01/31/2018 Hyperlipidemia 01/13/2014 08/05/2018 Type II or unspecified type diabetes mellitus without mention of complication, not stated as uncontrolled 01/13/2014 Cough 11/23/2008 08/07/2018 Nausea 09/23/2007 08/07/2018 Urticaria, unspecified 03/10/2005 9 documented as of this encounter (statuses as of 11/15/2022) [facility]03-13-2018 History of Past illness Narrative* Problem Noted Date Resolved Date Dyslipidemia 07/24/2017 12/28/2017 Hypertriglyceridemia 09/30/2015 01/31/2018 Hyperlipidemia 01/13/2014 08/05/2018 Type II or unspecified type diabetes mellitus without mention of complication, not stated as uncontrolled 01/13/2014 Cough 11/23/2008 08/07/2018 Nausea 09/23/2007 08/07/2018 Urticaria, unspecified 03/10/2005 9 documented as of this encounter (statuses as of 11/16/2022) [facility]03[facility]13-2018 History of Past illness Narrative* Problem Noted Date Diagnosed Date Resolved Date Dyslipidemia 07/24/2017 12/28/2017 Hypertriglyceridemia 09/30/2015 018 Hyperlipidemia 01/13/2014 08/05/2018 Type II or unspecified type diabetes mellitus without mention of complication, not stated as uncontrolled 01/13/2014 11/09/2014 Cough 11/23/2008 08/07/2018 Nausea 09/23/2007 08/07/2018 Urticaria, unspecified 03/10/200508/07 documented as of this encounter (statuses as of 11/30/2022) [facility]2018 History of Past illness Narrative* Problem Noted Date Diagnosed Date Resolved Date Dyslipidemia 07/24/2017 12/28/2017 Hypertriglyceridemia 09/30/2015 018 Hyperlipidemia 01/13/2014 08/05/2018 Type II or unspecified type diabetes mellitus without mention of complication, not stated as uncontrolled 01/13/2014 11/09/2014 Cough 11/23/2008 08/07/2018 Nausea 09/23/2007 08/07/2018 Urticaria, unspecified 03/10/200508/07 documented as of this encounter (statuses as of 12/13/2022) [facility]2018 History of Past illness Narrative* Problem Noted Date Diagnosed Date Resolved Date Dyslipidemia 07/24/2017 12/28/2017 Hypertriglyceridemia 09/30/2015 018 Hyperlipidemia 01/13/2014 08/05/2018 Type II or unspecified type diabetes mellitus without mention of complication, not stated as uncontrolled 01/13/2014 11/09/2014 Cough 11/23/2008 08/07/2018 Nausea 09/23/2007 08/07/2018 Urticaria, unspecified 03/10/200508/07 documented as of this encounter (statuses as of 12/20/2022) [facility]2018 History of Past illness Narrative* Problem Noted Date Diagnosed Date Resolved Date Dyslipidemia 07/24/2017 12/28/2017 Hypertriglyceridemia 09/30/2015 018 Hyperlipidemia 01/13/2014 08/05/2018 Type II or unspecified type diabetes mellitus without mention of complication, not stated as uncontrolled 01/13/2014 11/09/2014 Cough 11/23/2008 08/07/2018 Nausea 09/23/2007 08/07/2018 Urticaria, unspecified 03/10/200508/07 documented as of this encounter (statuses as of 12/20/2022) [facility]2018 History of Past illness Narrative* Problem Noted Date Diagnosed Date Resolved Date Dyslipidemia 07/24/2017 12/28/2017 Hypertriglyceridemia 09/30/2015 018 Hyperlipidemia 01/13/2014 08/05/2018 Type II or unspecified type diabetes mellitus without mention of complication, not stated as uncontrolled 01/13/2014 11/09/2014 Cough 11/23/2008 08/07/2018 Nausea 09/23/2007 08/07/2018 Urticaria, unspecified 03/10/200508/07 documented as of this encounter (statuses as of 12/25/2022) [facility]2018 History of Past illness Narrative* Problem Noted Date Diagnosed Date Resolved Date Dyslipidemia 07/24/2017 12/28/2017 Hypertriglyceridemia 09/30/2015 018 Hyperlipidemia 01/13/2014 08/05/2018 Type II or unspecified type diabetes mellitus without mention of complication, not stated as uncontrolled 01/13/2014 11/09/2014 Cough 11/23/2008 08/07/2018 Nausea 09/23/2007 08/07/2018 Urticaria, unspecified 03/10/200508/07 documented as of this encounter (statuses as of 01/10/2023) [facility]2018 History of Past illness Narrative* Problem Noted Date Diagnosed Date Resolved Date Dyslipidemia 07/24/2017 12/28/2017 Hypertriglyceridemia 09/30/2015 018 Hyperlipidemia 01/13/2014 08/05/2018 Type II or unspecified type diabetes mellitus without mention of complication, not stated as uncontrolled 01/13/2014 11/09/2014 Cough 11/23/2008 08/07/2018 Nausea 09/23/2007 08/07/2018 Urticaria, unspecified 03/10/200508/07 documented as of this encounter (statuses as of 01/13/2023) [facility]2018 History of Past illness Narrative* Problem Noted Date Diagnosed Date Resolved Date Dyslipidemia 07/24/2017 12/28/2017 Hypertriglyceridemia 09/30/2015 018 Hyperlipidemia 01/13/2014 08/05/2018 Type II or unspecified type diabetes mellitus without mention of complication, not stated as uncontrolled 01/13/2014 11/09/2014 Cough 11/23/2008 08/07/2018 Nausea 09/23/2007 08/07/2018 Urticaria, unspecified 03/10/200508/07 documented as of this encounter (statuses as of 01/31/2023) [facility]2018 History of Past illness Narrative* Problem Noted Date Diagnosed Date Resolved Date Dyslipidemia 07/24/2017 12/28/2017 Hypertriglyceridemia 09/30/2015 018 Hyperlipidemia 01/13/2014 08/05/2018 Type II or unspecified type diabetes mellitus without mention of complication, not stated as uncontrolled 01/13/2014 11/09/2014 Cough 11/23/2008 08/07/2018 Nausea 09/23/2007 08/07/2018 Urticaria, unspecified 03/10/200508/07 documented as of this encounter (statuses as of 02/20/2023) [place] [address]-13-2018 History of Past illness Narrative* Problem Noted Date Diagnosed Date Resolved Date Dyslipidemia 07/24/2017 12/28/2017 Hypertriglyceridemia 09/30/2015 018 Hyperlipidemia 01/13/2014 08/05/2018 Type II or unspecified type diabetes mellitus without mention of complication, not stated as uncontrolled 01/13/2014 11/09/2014 Cough 11/23/2008 08/07/2018 Nausea 09/23/2007 08/07/2018 Urticaria, unspecified 03/10/200508/07 documented as of this encounter (statuses as of 02/22/2023) [address]13-2018 History of Past illness Narrative* Problem Noted Date Diagnosed Date Resolved Date Dyslipidemia 07/24/2017 12/28/2017 Hypertriglyceridemia 09/30/2015 018 Hyperlipidemia 01/13/2014 08/05/2018 Type II or unspecified type diabetes mellitus without mention of complication, not stated as uncontrolled 01/13/2014 11/09/2014 Cough 11/23/2008 08/07/2018 Nausea 09/23/2007 08/07/2018 Urticaria, unspecified 03/10/200508/07 documented as of this encounter (statuses as of 02/26/2023) [address]13-2018 History of Past illness Narrative* Problem Noted Date Diagnosed Date Resolved Date Dyslipidemia 07/24/2017 12/28/2017 Hypertriglyceridemia 09/30/2015 018 Hyperlipidemia 01/13/2014 08/05/2018 Type II or unspecified type diabetes mellitus without mention of complication, not stated as uncontrolled 01/13/2014 11/09/2014 Cough 11/23/2008 08/07/2018 Nausea 09/23/2007 08/07/2018 Urticaria, unspecified 03/10/200508/07 documented as of this encounter (statuses as of 03/22/2023) [facility]2018 History of Past illness Narrative* Problem Noted Date Diagnosed Date Resolved Date Dyslipidemia 07/24/2017 12/28/2017 Hypertriglyceridemia 09/30/2015 018 Hyperlipidemia 01/13/2014 08/05/2018 Type II or unspecified type diabetes mellitus without mention of complication, not stated as uncontrolled 01/13/2014 11/09/2014 Cough 11/23/2008 08/07/2018 Nausea 09/23/2007 08/07/2018 Urticaria, unspecified 03/10/200508/07 documented as of this encounter (statuses as of 04/16/2023) [facility]2018 History of Past illness Narrative* Problem Noted Date Diagnosed Date Resolved Date Dyslipidemia 07/24/2017 12/28/2017 Hypertriglyceridemia 09/30/2015 018 Hyperlipidemia 01/13/2014 08/05/2018 Type II or unspecified type diabetes mellitus without mention of complication, not stated as uncontrolled 01/13/2014 11/09/2014 Cough 11/23/2008 08/07/2018 Nausea 09/23/2007 08/07/2018 Urticaria, unspecified 03/10/200508/07 documented as of this encounter (statuses as of 04/19/2023) [facility]2018 History of Past illness Narrative* Problem Noted Date Diagnosed Date Resolved Date Dyslipidemia 07/24/2017 12/28/2017 Hypertriglyceridemia 09/30/2015 018 Hyperlipidemia 01/13/2014 08/05/2018 Type II or unspecified type diabetes mellitus without mention of complication, not stated as uncontrolled 01/13/2014 11/09/2014 Cough 11/23/2008 08/07/2018 Nausea 09/23/2007 08/07/2018 Urticaria, unspecified 03/10/200508/07 documented as of this encounter (statuses as of 04/20/2023) [facility] note* Diagnosis Need for vaccination- Primary Need for prophylactic vaccination and inoculation against unspecified single disease [facility] Diagnosis 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 of the information to criminally investigate or prosecute any alcohol or drug abuse patient.[facility] CenterIn the event this information is protected by the Federal Confidentiality of Alcohol and Drug Abuse Patient Records regulations: The Federal rules restrict any use of the information to criminally investigate or prosecute any alcohol or drug abuse patient.[facility] CenterIn the event this information is protected by the Federal Confidentiality of Alcohol and Drug Abuse Patient Records regulations: The Federal rules restrict any use of the information to criminally investigate or prosecute any alcohol or drug abuse patient.[facility] CenterIn the event this information is protected by the Federal Confidentiality of Alcohol and Drug Abuse Patient Records regulations: The Federal rules restrict any use of the information to criminally investigate or prosecute any alcohol or drug abuse patient.[facility] CenterIn the event this information is protected by the Federal Confidentiality of Alcohol and Drug Abuse Patient Records regulations: The Federal rules restrict any use of the information to criminally investigate or prosecute any alcohol or drug abuse patient.[facility] CenterIn the event this information is protected by the Federal Confidentiality of Alcohol and Drug Abuse Patient Records regulations: The Federal rules restrict any use of the information to criminally investigate or prosecute any alcohol or drug abuse patient.[facility] CenterIn the event this information is protected by the Federal Confidentiality of Alcohol and Drug Abuse Patient Records regulations: The Federal rules restrict any use of the information to criminally investigate or prosecute any alcohol or drug abuse patient.[facility] CenterIn the event this information is protected by the Federal Confidentiality of Alcohol and Drug Abuse Patient Records regulations: The Federal rules restrict any use of the information to criminally investigate or prosecute any alcohol or drug abuse patient.[facility] CenterIn the event this information is protected by the Federal Confidentiality of Alcohol and Drug Abuse Patient Records regulations: The Federal rules restrict any use of the information to criminally investigate or prosecute any alcohol or drug abuse patient.[facility] CenterIn the event this information is protected by the Federal Confidentiality of Alcohol and Drug Abuse Patient Records regulations: The Federal rules restrict any use of the information to criminally investigate or prosecute any alcohol or drug abuse patient.[facility] CenterIn the event this information is protected by the Federal Confidentiality of Alcohol and Drug Abuse Patient Records regulations: The Federal rules restrict any use of the information to criminally investigate or prosecute any alcohol or drug abuse patient.[facility] CenterIn the event this information is protected by the Federal Confidentiality of Alcohol and Drug Abuse Patient Records regulations: The Federal rules restrict any use of the information to criminally investigate or prosecute any alcohol or drug abuse patient.[facility] CenterIn the event this information is protected by the Federal Confidentiality of Alcohol and Drug Abuse Patient Records regulations: The Federal rules restrict any use of the information to criminally investigate or prosecute any alcohol or drug abuse patient.[facility] CenterIn the event this information is protected by the Federal Confidentiality of Alcohol and Drug Abuse Patient Records regulations: The Federal rules restrict any use of the information to criminally investigate or prosecute any alcohol or drug abuse patient.[facility] CenterIn the event this information is protected by the Federal Confidentiality of Alcohol and Drug Abuse Patient Records regulations: The Federal rules restrict any use of the information to criminally investigate or prosecute any alcohol or drug abuse patient.[facility] CenterIn the event this information is protected by the Federal Confidentiality of Alcohol and Drug Abuse Patient Records regulations: The Federal rules restrict any use of the information to criminally investigate or prosecute any alcohol or drug abuse patient.[facility] CenterIn the event this information is protected by the Federal Confidentiality of Alcohol and Drug Abuse Patient Records regulations: The Federal rules restrict any use of the information to criminally investigate or prosecute any alcohol or drug abuse patient.[facility] CenterIn the event this information is protected by the Federal Confidentiality of Alcohol and Drug Abuse Patient Records regulations: The Federal rules restrict any use of the information to criminally investigate or prosecute any alcohol or drug abuse patient.[facility] CenterIn the event this information is protected by the Federal Confidentiality of Alcohol and Drug Abuse Patient Records regulations: The Federal rules restrict any use of the information to criminally investigate or prosecute any alcohol or drug abuse patient.[facility] CenterIn the event this information is protected by the Federal Confidentiality of Alcohol and Drug Abuse Patient Records regulations: The Federal rules restrict any use of the information to criminally investigate or prosecute any alcohol or drug abuse patient.[facility] CenterIn the event this information is protected by the Federal Confidentiality of Alcohol and Drug Abuse Patient Records regulations: The Federal rules restrict any use of the information to criminally investigate or prosecute any alcohol or drug abuse patient.[facility] CenterIn the event this information is protected by the Federal Confidentiality of Alcohol and Drug Abuse Patient Records regulations: The Federal rules restrict any use of the information to criminally investigate or prosecute any alcohol or drug abuse patient.[facility] CenterIn the event this information is protected by the Federal Confidentiality of Alcohol and Drug Abuse Patient Records regulations: The Federal rules restrict any use of the information to criminally investigate or prosecute any alcohol or drug abuse patient.[facility] CenterIn the event this information is protected by the Federal Confidentiality of Alcohol and Drug Abuse Patient Records regulations: The Federal rules restrict any use of the information to criminally investigate or prosecute any alcohol or drug abuse patient.[facility] CenterIn the event this information is protected by the Federal Confidentiality of Alcohol and Drug Abuse Patient Records regulations: The Federal rules restrict any use of the information to criminally investigate or prosecute any alcohol or drug abuse patient.[facility] CenterIn the event this information is protected by the Federal Confidentiality of Alcohol and Drug Abuse Patient Records regulations: The Federal rules restrict any use of the information to criminally investigate or prosecute any alcohol or drug abuse patient.[facility] CenterIn the event this information is protected by the Federal Confidentiality of Alcohol and Drug Abuse Patient Records regulations: The Federal rules restrict any use of the information to criminally investigate or prosecute any alcohol or drug abuse patient.[facility] CenterIn the event this information is protected by the Federal Confidentiality of Alcohol and Drug Abuse Patient Records regulations: The Federal rules restrict any use of the information to criminally investigate or prosecute any alcohol or drug abuse patient.[facility] CenterIn the event this information is protected by the Federal Confidentiality of Alcohol and Drug Abuse Patient Records regulations: The Federal rules restrict any use of the information to criminally investigate or prosecute any alcohol or drug abuse patient.[facility] CenterIn the event this information is protected by the Federal Confidentiality of Alcohol and Drug Abuse Patient Records regulations: The Federal rules restrict any use of the information to criminally investigate or prosecute any alcohol or drug abuse patient.[facility] CenterIn the event this information is protected by the Federal Confidentiality of Alcohol and Drug Abuse Patient Records regulations: The Federal rules restrict any use of the information to criminally investigate or prosecute any alcohol or drug abuse patient.[facility] CenterIn the event this information is protected by the Federal Confidentiality of Alcohol and Drug Abuse Patient Records regulations: The Federal rules restrict any use of the information to criminally investigate or prosecute any alcohol or drug abuse patient.[facility] CenterIn the event this information is protected by the Federal Confidentiality of Alcohol and Drug Abuse Patient Records regulations: The Federal rules restrict any use of the information to criminally investigate or prosecute any alcohol or drug abuse patient.[facility] CenterIn the event this information is protected by the Federal Confidentiality of Alcohol and Drug Abuse Patient Records regulations: The Federal rules restrict any use of the information to criminally investigate or prosecute any alcohol or drug abuse patient.[facility] CenterIn the event this information is protected by the Federal Confidentiality of Alcohol and Drug Abuse Patient Records regulations: The Federal rules restrict any use of the information to criminally investigate or prosecute any alcohol or drug abuse patient.[facility] Reason for Visit (unrecogniz ed [...] Cough Nausea, coughing x2 days. Reason Comments Die Attacher - Other Reason Comments Follow Up Reason [...] TISSUE NECK W/[place] [address] [facility] [place] [address] Ct Imaging Referral ID Status Reason Start Date Expiration Date V isits Requested Visits Authorized [id number] Closed Auto-Generate d Referral 07/26/2022 08/16/2022 1 [...] Care Teams (unrecognized sec tion and content) Associate Professor Of Economics Relationship Specialty Start Date End Date Gerardo Michel, DO [address] [place], [place] [id number] PCP - General Family Practice 06/15/15 Janes Larson (Rn) (Hist), [place] [address] [place] [address] Specialty Die Attacher Hematology/Oncology 05/20/18 [facility] [address] [place] [address] Pharmacist Pharmacy 09/19/19 [place] [address] [place] [address] Physician Hematology/Oncology 08/04/20 Associate Professor Of Economics Relationship Specialty Start Date End Date Gerardo Michel, DO [address] [place] [address] PCP - General Family Practice 06/15/15 Janes LarsonRn) (Hist), [place] [address] [place] [address] Specialty Die Attacher Hematology/Oncology 05/20/18 [facility] [address] [place] [address] Pharmacist Pharmacy 09/19/19 [place] [address] [place] [address] Physician Hematology/Oncology 08/04/20 Associate Professor Of Economics Relationship Specialty Start Date End Date Gerardo Michel DO [address] [place] [address] PCP - General Family Practice 06/15/15 Janes Larson (Rn) (Hist), [place] [address] [place] [address] Specialty Die Attacher Hematology/Oncology 05/20/18 [facility] [address] [place] [address] Pharmacist Pharmacy 09/19/19 [place] [address] [place] [address] Physician Hematology/Oncology 08/04/20 Associate Professor Of Economics Relationship Specialty Start Date End Date Gerardo Michel, DO [address] [place] [address] PCP - General Family Practice 06/15/15 Janes Larson (Rn) (Hist), [place] [address] [place] [address] Specialty Die Attacher Hematology/Oncology 05/20/18 [facility] [address] [place] [address] Pharmacist Pharmacy 09/19/19 [place] [address] [place] [address] Physician Hematology/Oncology 08/04/20 Associate Professor Of Economics Relationship Specialty Start Date End Date Gerardo Michel DO [address] [place] [address] PCP - General Family Practice 06/15/15 Janes Larson (Rn) (Hist), [place] [address] [place] [address] Specialty Die Attacher Hematology/Oncology 05/20/18 [facility] [address] [place] [address] Pharmacist Pharmacy 09/19/19 [place] [address] [place] [address] Physician Hematology/Oncology 08/04/20 Associate Professor Of Economics Relationship Specialty Start Date End Date Gerardo Michel DO [address] [place] [address] PCP - General Family Practice 06/15/15 Janes Larson (Rn) (Hist), [place] [address] [place] [address] Specialty Die Attacher Hematology/Oncology 05/20/18 [facility] [address] [place] [address] Pharmacist Pharmacy 09/19/19 [place] [address] [place] [address] Physician Hematology/Oncology 08/04/20 Associate Professor Of Economics Relationship Specialty Start Date End Date Gerardo Michel, DO [address] [place] [address] PCP - General Family Practice 06/15/15 Janes Larson (Rn) (Hist), [place] [address] [place] [address] Specialty Die Attacher Hematology/Oncology 05/20/18 [facility] [address] [place] [address] Pharmacist Pharmacy 09/19/19 [place] [address] [place] [address] Physician Hematology/Oncology 08/04/20 Associate Professor Of Economics Relationship Specialty Start Date End Date Gerardo Michel DO [address] [place] [address] PCP - General Family Practice 06/15/15 Janes Larson (Rn) (Hist), [place] [address] [place] [address] Specialty Die Attacher Hematology/Oncology 05/20/18 [facility] [address] [place] [address] Pharmacist Pharmacy 09/19/19 [place] [address] [place] [address] Physician Hematology/Oncology 08/04/20 Associate Professor Of Economics Relationship Specialty Start Date End Date Gerardo Michel DO [address] [place] [address] PCP - General Family Practice 06/15/15 Janes Larson (Rn) (Hist), [place] [address] [place] [address] Specialty Die Attacher Hematology/Oncology 05/20/18 [facility] [address] [place] [address] Pharmacist Pharmacy 09/19/19 [place] [address] [place] [address] Physician Hematology/Oncology 08/04/20 Associate Professor Of Economics Relationship Specialty Start Date End Date Gerardo Michel DO [address] [place] [address] PCP - General Family Practice 06/15/15 Janes Larson (Rn) (Hist), [place] [address] [place] [address] Specialty Die Attacher Hematology/Oncology 05/20/18 [facility] [address] [place] [address] Pharmacist Pharmacy 09/19/19 [place] [address] [place] [address] Physician Hematology/Oncology 08/04/20 Associate Professor Of Economics Relationship Specialty Start Date End Date Gerardo Michel DO [address] [place] [address] PCP - General Family Practice 06/15/15 Janes Larson (Rn) (Hist), [place] [address] [place] [address] Specialty Die Attacher Hematology/Oncology 05/20/18 [facility] [address] [place] [address] Pharmacist Pharmacy 09/19/19 [place] [address] [place] [address] Physician Hematology/Oncology 08/04/20 Associate Professor Of Economics Relationship Specialty Start Date End Date Gerardo Michel DO [address] [place] [address] PCP - General Family Practice 06/15/15 Janes Larson (Rn) (Hist), [place] [address] [place] [address] Specialty Die Attacher Hematology/Oncology 05/20/18 [facility] [address] [place] [address] Pharmacist Pharmacy 09/19/19 [place] [address] [place] [address] Physician Hematology/Oncology 08/04/20 Associate Professor Of Economics Relationship Specialty Start Date End Date Gerardo Michel DO [address] [place] [address] PCP - General Family Practice 06/15/15 Janes Larson (Rn) (Hist), [place] [address] [place] [address] Specialty Die Attacher Hematology/Oncology 05/20/18 [facility] [address] [place] [address] Pharmacist Pharmacy 09/19/19 [place] [address] [place] [address] Physician Hematology/Oncology 08/04/20 Associate Professor Of Economics Relationship Specialty Start Date End Date Gerardo Michel DO [address] [place] [address] PCP - General Family Medicine 06/15/15 Janes Larson (Rn) (Hist), [place] [address] [place] [address] Specialty Die Attacher Hematology/Oncology 05/20/18 [facility] [address] [place] [address] Pharmacist Pharmacy 09/19/19 [place] [address] [place] [address] Physician Hematology/Oncology 08/04/20 Associate Professor Of Economics Relationship Specialty Start Date End Date Gerardo Michel DO [address] [place] [address] PCP - General Family Medicine 06/15/15 Janes Larson (Rn) (Hist), RN [id number] [place] [address] Specialty Die Attacher Hematology/Oncology 05/20/18 [facility] [address] [place] [address] Pharmacist Pharmacy 09/19/19 [place] [address] [place] [address] Physician Hematology/Oncology 08/04/20 Associate Professor Of Economics Relationship Specialty Start Date End Date Gerardo Michel DO [address] [place] [address] PCP - General Family Medicine 06/15/15 Janes Larson (Rn) (Hist), RN [id number] [place] [address] Specialty Die Attacher Hematology/Oncology 05/20/18 [facility] [address] [place] [address] Pharmacist Pharmacy 09/19/19 [place] [address] [place] [address] Physician Hematology/Oncology 08/04/20 Associate Professor Of Economics Relationship Specialty Start Date End Date Gerardo Michel DO [address] [place] [address] PCP - General Family Medicine 06/15/15 Janes Larson (Rn) (Hist), RN [address] [place] [address] Specialty Die Attacher Hematology/Oncology 05/20/18 [facility] [address] [place] [address] Pharmacist Pharmacy 09/19/19 Alexys Fan MD [address] [place] [address] Physician Hematology/Oncology 08/04/20 Associate Professor Of Economics Relationship Specialty Start Date End Date Gerardo Michel DO [address] [place] [address] PCP - General Family Medicine 06/15/15 Janes LarsonRn) (Hist), RN [address] [place] [address] Specialty Die Attacher Hematology/Oncology 05/20/18 [facility] [address] [place] [address] Pharmacist Pharmacy 09/19/19 Alexys Fan MD [address] [place] [address] Physician Hematology/Oncology 08/04/20 Associate Professor Of Economics Relationship Specialty Start Date End Date Gerardo Michel DO [address] [place] [address] PCP - General Family Medicine 06/15/15 Janes Larson (Rn) (Hist), RN [address] [place] [address] Specialty Die Attacher Hematology/Oncology 05/20/18 [facility] [address] [place] [address] Pharmacist Pharmacy 09/19/19 Alexys Fan MD [address] [place] [address] Physician Hematology/Oncology 08/04/20 Associate Professor Of Economics Relationship Specialty Start Date End Date Gerardo Michel DO [address] [place] [address] PCP - General Family Medicine 06/15/15 Janes LarsonRn) (Hist), RN [address] [place] [address] Specialty Die Attacher Hematology/Oncology 05/20/18 [facility] [address] [place] [address] Pharmacist Pharmacy 09/19/19 Alexys Fan MD [address] [place] [address] Physician Hematology/Oncology 08/04/20 Associate Professor Of Economics Relationship Specialty Start Date End Date Gerardo Michel DO [address] [place] [address] PCP - General Family Medicine 06/15/15 Janes Larson) (Hist), RN [address] [place] [address] Specialty Die Attacher Hematology/Oncology 05/20/18 [facility] [address] [place] [address] Pharmacist Pharmacy 09/19/19 Alexys Fan MD [address] [place] [address] Physician Hematology/Oncology 08/04/20 Associate Professor Of Economics Relationship Specialty Start Date End Date Gerardo Michel DO [address] [place] [address] PCP - General Family Medicine 06/15/15 Janes Larson) (Hist), RN [address] [place] [address] Specialty Die Attacher Hematology/Oncology 05/20/18 [facility] [address] [place] [address] Pharmacist Pharmacy 09/19/19 [place] [address] [place] [address] Physician Hematology/Oncology 08/04/20 Associate Professor Of Economics Relationship Specialty Start Date End Date Gerardo Michel DO [address] [place] [address] PCP - General Family Medicine 06/15/15 Janes Larson (Rn) (Hist), RN [id number] [place] [address] Specialty Die Attacher Hematology/Oncology 05/20/18 [facility] [address] [place] [address] Pharmacist Pharmacy 09/19/19 [place] [address] [place] [address] Physician Hematology/Oncology 08/04/20 Associate Professor Of Economics Relationship Specialty Start Date End Date Gerardo Michel DO [address] [place] [address] PCP - General Family Medicine 06/15/15 Janes LarsonRn) (Hist), RN [id number] [place] [address] Specialty Die Attacher Hematology/Oncology 05/20/18 [facility] [address] [place] [address] Pharmacist Pharmacy 09/19/19 [place] [address] [place] [address] Physician Hematology/Oncology 08/04/20 Associate Professor Of Economics Relationship Specialty Start Date End Date Gerardo Michel DO [address] [place] [address] PCP - General Family Medicine 06/15/15 Janes Larson (Rn) (Hist), [place] [address] [place] [address] Specialty Die Attacher Hematology/Oncology 05/20/18 [facility], [facility] [address] [place] [address] Pharmacist Pharmacy 09/19/19 [place] [address] [place] [address] Physician Hematology/Oncology 08/04/20 Associate Professor Of Economics Relationship Specialty Start Date End Date Gerardo Michel DO [address] [place] [address] PCP - General Family Medicine 06/15/15 Janes LarsonRn) (Hist), [place] [address] [place] [address] Specialty Die Attacher Hematology/Oncology 05/20/18 [facility] [address] [place] [address] Pharmacist Pharmacy 09/19/19 [place] [address] [place] [address] Physician Hematology/Oncology 08/04/20 Associate Professor Of Economics Relationship Specialty Start Date End Date Gerardo Michel DO [address] [place] [address] PCP - General Family Medicine 06/15/15 Janes Larson (Rn) (Hist), [place] [address] [place] [address] Specialty Die Attacher Hematology/Oncology 05/20/18 [facility], [facility] [address] [place] [address] Pharmacist Pharmacy 09/19/19 [place] [address] [place] [address] Physician Hematology/Oncology 08/04/20 Associate Professor Of Economics Relationship Specialty Start Date End Date Gerardo Michel DO [address] [place] [address] PCP - General Family Medicine 06/15/15 Janes LarsonRn) (Hist), RN [id number] [place] [address] Specialty Die Attacher Hematology/Oncology 05/20/18 [facility] [address] [place] [address] Pharmacist Pharmacy 09/19/19 [facility] MD [address] [place] [address] Physician Hematology/Oncology 08/04/20 Associate Professor Of Economics Relationship Specialty Start Date End Date Gerardo Michel DO [address] [place] [address] PCP - General Family Medicine 06/15/15 Janes Larson) (Hist), RN [address] [place] [address] Specialty Die Attacher Hematology/Oncology 05/20/18 Herman Maravilla, [facility] [address] [place] [address] Pharmacist Pharmacy 09/19/19 [facility] [id number] [place] [address] Physician Hematology/Oncology 08/04/20 Associate Professor Of Economics Relationship Specialty Start Date End Date Gerardo Michel DO [address] [place] [address] PCP - General Family Medicine 06/15/15 Janes LarsonRn) (Hist), RN [address] [place] [address] Specialty Die Attacher Hematology/Oncology 05/20/18 [facility] [address] [place] [address] Pharmacist Pharmacy 09/19/19 [place] [address] [place] [address] Physician Hematology/Oncology 08/04/20 Associate Professor Of Economics Relationship Specialty Start Date End Date Gerardo Michel DO [address] [place] PCP - General Family Medicine 06/15/15 Janes Larson (Rn) (Hist), RN [address] [place] [address] Specialty Die Attacher Hematology/Oncology 05/20/18 [facility] [address] [place] [address] Pharmacist Pharmacy 09/19/19 [place] [address] [place] [address] Physician Hematology/Oncology 08/04/20 Associate Professor Of Economics Relationship Specialty Start Date End Date Gerardo Michel DO [address] [place] [address] PCP - General Family Medicine 06/15/15 Janes LarsonRn) (Hist), RN [id number] [place] [address] Specialty Die Attacher Hematology/Oncology 05/20/18 [facility]ostuartP[facility] [address] [place] [address] Pharmacist Pharmacy 09/19/19 [place] [address] [place] [address] Physician Hematology/Oncology 08/04/20 Associate Professor Of Economics Relationship Specialty Start Date End Date Gerardo Michel DO [address] [place] [address] PCP - General Family Medicine 06/15/15 Janes Larson (Rn) (Hist), [place] [address] [place] [address] Specialty Die Attacher Hematology/Oncology 05/20/18 [facility] [address] [place] [address] Pharmacist Pharmacy 09/19/19 [place] [address] [place] [address] Physician Hematology/Oncology 08/04/20 Associate Professor Of Economics Relationship Specialty Start Date End Date Gerardo Michel DO [address] [place] [address] PCP - General Family Medicine 06/15/15 Janes LarsonRn) (Hist), [place] [address] [place] [address] Specialty Die Attacher Hematology/Oncology 05/20/18 [facility] [address] [place] [address] Pharmacist Pharmacy 09/19/19 [place] [address] [place] [address] Physician Hematology/Oncology 08/04/20 Associate Professor Of Economics Relationship Specialty Start Date End Date Gerardo Michel DO [address] [place] [address] PCP - General Family Medicine 06/15/15 Janes LarsonRn) (Hist), [place] [address] [place] [address] Specialty Die Attacher Hematology/Oncology 05/20/18 [facility] [address] [place] [address] Pharmacist Pharmacy 09/19/19 Alex[place] [id number] [place] [address] Physician Hematology/Oncology 08/04/20 Associate Professor Of Economics Relationship Specialty Start Date End Date Gerardo Michel DO [address] [place] [address] PCP - General Family Medicine 06/15/15 Janes LarsonRn) (Hist), [place] [address] [place] [address] Specialty Die Attacher Hematology/Oncology 05/20/18 [facility] [address] [place] [address] Pharmacist Pharmacy 09/19/19 Alexys Fan MD [address] [place] [address] Physician Hematology/Oncology 08/04/20 Associate Professor Of Economics Relationship Specialty Start Date End Date Gerardo Michel DO [address] [place] [address] PCP - General Family Medicine 06/15/15 Janes LarsonRn) (Hist), [place] [address] [place] [address] Specialty Die Attacher Hematology/Oncology 05/20/18 AnantHerman bejarano, [facility] [address] [place] [address] Pharmacist Pharmacy 09/19/19 [place] [address] [place] [address] Physician Hematology/Oncology 08/04/20 Associate Professor Of Economics Relationship Specialty Start Date End Date Gerardo Michel DO [address] [place] [address] PCP - General Family Medicine 06/15/15 Janes Larson (Rn) (Hist), [place] [address] [place] [address] Specialty Die Attacher Hematology/Oncology 05/20/18 [facility]darci [facility] [address] [place] [address] Pharmacist Pharmacy 09/19/19 Alexys Fan MD [address] [place] [address] Physician Hematology/Oncology 08/04/20 Associate Professor Of Economics Relationship Specialty Start Date End Date Gerardo Michel DO [address] [place] [address] PCP - General Family Medicine 06/15/15 Janes LarsonRn) (Hist), [place] [address] [place] [address] Specialty Die Attacher Hematology/Oncology 05/20/18 [facility]antDelio bejaranostuartP[facility] [address] [place] [address] Pharmacist Pharmacy 09/19/19 Alexys Fan MD [address] [place] [address] Physician Hematology/Oncology 08/04/20 Associate Professor Of Economics Relationship Specialty Start Date End Date Gerardo Michel DO [address] [place] [address] PCP - General Family Medicine 06/15/15 Janes Larson (Rn) (Hist), [place] [address] [place] [address] Specialty Die Attacher Hematology/Oncology 05/20/18 AnantHerman bejarano, [facility] [address] [place] [address] Pharmacist Pharmacy 09/19/19 [place] [address] [place] [address] Physician Hematology/Oncology 08/04/20 Associate Professor Of Economics Relationship Specialty Start Date End Date Gerardo Michel DO [address] [place] [address] PCP - General Family Medicine 06/15/15 Janes Larson (Rn) (Hist), [place] [address] [place] [address] Specialty Die Attacher Hematology/Oncology 05/20/18 [facility] [address] [place] [address] Pharmacist Pharmacy 09/19/19 [place] [address] [place] [address] Physician Hematology/Oncology 08/04/20 Associate Professor Of Economics Relationship Specialty Start Date End Date Gerardo Michel DO [address] [place] [address] PCP - General Family Medicine 06/15/15 Janes LarsonRn) (Hist), [place] [address] [place] [address] Specialty Die Attacher Hematology/Oncology 05/20/18 Herman Maravilla, [facility] [address] [place] [address] Pharmacist Pharmacy 09/19/19 [place] [address] [place] [address] Physician Hematology/Oncology 08/04/20 Associate Professor Of Economics Relationship Specialty Start Date End Date Gerardo Michel DO [address] [place] [address] PCP - General Family Medicine 06/15/15 Janes LarsonRn) (Hist), [place] [address] [place] [address] Specialty Die Attacher Hematology/Oncology 05/20/18 Herman Maravilla, [facility] [address] [place] [address] Pharmacist Pharmacy 09/19/19 Alexys Fan MD [address] [place] [address] Physician Hematology/Oncology 08/04/20 Associate Professor Of Economics Relationship Specialty Start Date End Date Gerardo Michel DO [address] [place] [address] PCP - General Family Medicine 06/15/15 Janes Larson) (Hist), [place] [address] [place] [address] Specialty Die Attacher Hematology/Oncology 05/20/18 Herman Maravilla, [facility] [address] [place] [address] Pharmacist Pharmacy 09/19/19 Alexys Fan MD [address] [place] [address] Physician Hematology/Oncology 08/04/20 Associate Professor Of Economics Relationship Specialty Start Date End Date Gerardo Michel DO [address] [place] [address] PCP - General Family Medicine 06/15/15 Janes Larson) (Hist), [place] [address] [place] [address] Specialty Die Attacher Hematology/Oncology 05/20/18 [facility]Delio bejaranostuartP[facility]ps Health [address] [place] [address] Pharmacist Pharmacy 09/19/19 Alexys Fan MD [address] [place] [address] Physician Hematology/Oncology 08/04/20 Associate Professor Of Economics Relationship Specialty Start Date End Date Gerardo Michel DO [address] [place] [address] PCP - General Family Medicine 06/15/15 Janes Larson (Rn) (Hist), RN [address] [place] [address] Specialty Die Attacher Hematology/Oncology 05/20/18 Herman [facility] [address] [place] [address] Pharmacist Pharmacy 09/19/19 Alexys Fan MD [address] [place] [address] Physician Hematology/Oncology 08/04/20 Associate Professor Of Economics Relationship Specialty Start Date End Date Gerardo Michel DO [address] [place] [address] PCP - General Family Medicine 06/15/15 Janes Larson (Rn) (Hist), [place] [address] [place] [address] Specialty Die Attacher Hematology/Oncology 05/20/18 [facility]Herman bejaranoP[facility] Health [address] [place] [address] Pharmacist Pharmacy 09/19/19 Alexys Fan MD [address] [place] [address] Physician Hematology/Oncology 08/04/20 FOR RECORDS PERTAINING TO [...] BE BASED ON THE PRIMARY CLINICAL RECORDS. [facility] [email or web address] [facility]. provides no warranty or guarantee of the accuracy or completeness of information in this document.
--- NOTE | 2023-05-19 12:29 | CT_ITS ---
STUDY: CT BRAIN WITHOUT CONTRAST REASON FOR EXAM: Female, 77 years old. head injury RADIATION DOSAGE (If Supplied By Facility): CTDIvol = ( 44.99 ) mGy, DLP = ( 779.24 ) mGycm TECHNIQUE: Transaxial CT imaging of the brain was performed without administration of intravenous contrast material. Individualized dose optimization techniques were used for this CT. COMPARISON: 05/10/2023 FINDINGS: Normal soft tissue structures. Normal calvarium. Normal size ventricles and extra-axial spaces for the patient''s age. Normal white matter tracts of the cerebral hemispheres. Normal basal ganglia and thalami. Normal brainstem. Normal cerebellum. There is no intracranial hemorrhage. There are no findings of an acute ischemic infarction. Normal visualized paranasal sinuses. CT/Brain/Head without Contrast IMPRESSION: Normal unenhanced CT scan of the brain. Electronically Signed: Tony Guzman MD at 13:15 EST ,
--- NOTE | 2023-05-19 12:29 | CT_ITS ---
STUDY: CT CERVICAL SPINE WITHOUT CONTRAST REASON FOR EXAM: Female, 77 years old. fall, head injury RADIATION DOSAGE (If Supplied By Facility): CTDIvol = ( 15.64 ) mGy, DLP = ( 328.98 ) mGycm TECHNIQUE: High resolution transaxial imaging was performed without contrast material. Sagittal and coronal images were reconstructed. Individualized dose optimization techniques were used for this CT. COMPARISON: None FINDINGS: Normal craniovertebral junction. There are degenerative changes of the anterior atlantoaxial articulation. Normal odontoid process. There is straightening of the normal cervical lordosis. Normal vertebral bodies and posterior osseous elements. C2-3: Mild right facet hypertrophy produces mild right neural foraminal stenosis. No central spinal stenosis. C3-4: Mild left facet hypertrophy produces mild left neural foraminal stenosis. No central spinal stenosis. C4-5: Mild right facet hypertrophy produces mild right neural foraminal stenosis. No central spinal stenosis. C5-6: Moderate broad disc osteophyte complex asymmetric the right with bilateral uncovertebral hypertrophy produces a moderate spinal stenosis, moderate right neural foraminal stenosis and mild left neural foraminal stenosis. C6-7: Mild broad disc osteophyte complex and bilateral uncovertebral hypertrophy produces mild spinal stenosis and mild bilateral neural foraminal stenosis. C7-T1: Normal endplates. Normal disc height and morphology. Normal central canal and intervertebral neuroforamina. Normal visualized soft tissue structures. CT/Spine Cervical without Contras IMPRESSION: 1. No acute fracture or subluxation. 2. Degenerative disc disease with straightening of the normal lordotic curvature. Electronically Signed: Tony Guzman MD at 13:19 EST ,
--- NOTE | 2023-05-19 12:44 | EDS_ITS ---
HPI <LOPEZ Llanos - Last Filed: 05/19/23 15:09> History of Present Illness Chief Complaint: Head Injury Narrative Narrative: Patient presenting today due to a head injury that occurred late this morning. She reports that she was trying to walk down the steps when she lost her balance and fell backwards and hit her head on the ground and then fell down several steps. She did not lose consciousness. She reports pain to the right side of her head. She reports that she was able to get up and walk after this without difficulty. She denies any neck pain or pain to any of her extremities. She takes a baby aspirin but no other blood thinners. She reports that she has a history of poor balance due to her diabetic neuropathy and has been in physical therapy for this in the past. She reports that she felt a little dizzy after she fell but is no longer feeling this way. [facility] <LOPEZ Llanos - Last Filed: 05/19/23 15:09> [facility] Medical History Breast cancer Diabetes mellitus Heart murmur Hodgkin lymphoma HTN (hypertension) Hyperlipemia Hypothyroid Insomnia TIA (transient ischemic attack) Vertigo Home Medications aspirin 81 mg chewable tablet 81 mg PO DAILY@0800 heart health 08/30/13 [History Last Taken 05/09/23] metformin 1,000 mg tablet (Glucophage) 1,000 mg PO BID blood sugar 08/30/13 [History Last Taken 10/16/18] metoprolol succinate 25 mg tablet,extended release 24 hr 25 mg PO DAILY blood pressure 10/16/18 [History Last Taken Unknown] atorvastatin 80 mg tablet 40 mg PO QHS 11/29/20 [History Last Taken 05/09/23] empagliflozin 25 mg tablet (Jardiance) 25 mg PO DAILY 11/29/20 [History Last Taken Unknown] levothyroxine 150 mcg tablet 150 mcg PO DAILY@0600 11/29/20 [History Last Taken 05/10/23] Allergy/AdvReac Type Severity Reaction Status Date / Time lisinopril Allergy Unknown Verified 05/19/23 11:58 phenazopyridine HCl Allergy Unknown Verified 05/19/23 11:58 [From Pyridium] Sulfa (Sulfonamide Allergy Unknown Verified 05/19/23 11:58 Antibiotics) Surgical History History of lumpectomy of left breast Social History Smoking Status: Never smoker ROS <LOPEZ Llanos - Last Filed: 05/19/23 15:09> ROS ED Constitutional Constitutional ED: Denies chills or fever(s) Eyes Eyes: Denies change in vision Cardiovascular Cardiovascular: Denies chest pain or palpitations Respiratory/Chest Respiratory/Chest: Denies cough or dyspnea Gastrointestinal Gastrointestinal: Denies abdominal pain, nausea or vomiting Musculoskeletal Musculoskeletal: Denies arthralgias, back pain, myalgias or neck pain Integumentary Reports Abrasions Neurologic Neurologic: Reports headache(s); Denies paresthesias or weakness EXAM <LOPEZ Llanos - Last Filed: 05/19/23 15:09> Physical Exam Const Vital Signs: 05/19/23 11:58 05/19/23 12:06 05/19/23 12:09 Temperature 96.7 F L Temperature Source Temporal Pulse Rate 91 78 Respiratory Rate 16 18 Respiratory Effort Normal Blood Pressure 123/73 H 138/64 H Blood Pressure Mean 89 88 Pulse Ox 98 96 Oxygen Delivery Method Room Air Room Air Room Air 05/19/23 13:35 Temperature Temperature Source Pulse Rate 74 Respiratory Rate 16 Respiratory Effort Blood Pressure 157/72 H Blood Pressure Mean 100 Pulse Ox 97 Oxygen Delivery Method Positive well nourished, well developed and no apparent distress General Appearance ED: well developed HEENT Reports normocephalic and head/scalp atraumatic Mouth ED: Yes moist mucous membranes normal Eyes PERRL and EOMs intact bilaterally Neck full ROM and supple Chest Wall inspection of chest normal Resp normal respiratory effort and clear to auscultation bilaterally Cardio regular rate and regular rhythm GI soft to palpation, non-tender, non-distended and no masses Back/Spine normal ROM and normal to inspection Cervical Spine: Negative for cervical spine tenderness Thoracic Spine / Upper Back: Negative for thoracic spinal tenderness Lumbar Spine / Lower Back: Negative for lumbar spinal tenderness Extremity normal to inspection and full ROM Neuro oriented x3, CN's II-XII intact bilaterally, moves all extremities, no focal motor deficits and no sensory deficits noted Sensorium / Orientation: awake and alert Psych mental status grossly normal and thought process normal Skin Skin Narrative: Small abrasion to the right upper arm. <Dr. Vince Ogden DO - Last Filed: 05/19/23 15:34> Physical Exam Const Vital Signs: 05/19/23 11:58 05/19/23 12:06 05/19/23 12:09 Temperature 96.7 F L Temperature Source Temporal Pulse Rate 91 78 Respiratory Rate 16 18 Respiratory Effort Normal Blood Pressure 123/73 H 138/64 H Blood Pressure Mean 89 88 Pulse Ox 98 96 Oxygen Delivery Method Room Air Room Air Room Air 05/19/23 13:35 Temperature Temperature Source Pulse Rate 74 Respiratory Rate 16 Respiratory Effort Blood Pressure 157/72 H Blood Pressure Mean 100 Pulse Ox 97 Oxygen Delivery Method MDM <LOPEZ Llanos - Last Filed: 05/19/23 15:09> MDM MDM Narrative Medical decision making narrative: Patient presenting today due to a fall that occurred this morning. She lost her balance and took a fall down several steps and did hit her head on the way down. She reports that she was able to ambulate after and does not have any pain anywhere else. Head and neck CT will be obtained to rule out intracranial bleed and cervical fracture. CTs are negative for any acute findings. She reports that she will be sleeping on the downstairs floor from now on so that she avoids the stairs. I encouraged her to follow-up with her PCP and she will be discharged home in stable condition. She is comfortable with plan. Radiography Diagnostic Testing: Clinical Impression(s) from Imaging Studies Brain CT 05/19/23 12:29 IMPRESSION: Normal unenhanced CT scan of the brain. Electronically Signed: Tony Guzman MD at 13:15 EST Reading Location ID and State: [id number] / [employer] , Service support , Cervical Spine CT 05/19/23 12:29 IMPRESSION: 1. No acute fracture or subluxation. 2. Degenerative disc disease with straightening of the normal lordotic curvature. Electronically Signed: Tony Guzman MD at 13:19 EST , <Dr. Vince Ogden, DO - Last Filed: 05/19/23 15:34> [facility] Narrative Medical decision making narrative: Patient presenting today due to a fall that occurred this morning. She lost her balance and took a fall down several steps and did hit her head on the way down. She reports that she was able to ambulate after and does not have any pain anywhere else. Head and neck CT will be obtained to rule out intracranial bleed and cervical fracture. CTs are negative for any acute findings. She reports that she will be sleeping on the downstairs floor from now on so that she avoids the stairs. I encouraged her to follow-up with her PCP and she will be discharged home in stable condition. She is comfortable with plan. This patient was seen with a PA/VISUAL MERCHANDISING DIRECTOR Individually assessed they patient including history and physical. I have reviewed everything on the chart that is available and agree with the documentation provided by the PA/VISUAL MERCHANDISING DIRECTOR including discussion about the assessment, treatment plan, discussion, and return precautions. Patient presenting for evaluation of head injury. She has some hematomas on the scalp on the right side but other than that no other symptoms. No focal neurologic deficits. She did state that she had some rib pain on the right but does not feel it severe he does not want an x-ray. This was offered. CT of the brain and cervical spine were negative here today. Patient counseled on findings and I feel she is stable for discharge home. Return precautions were discussed. Radiography Diagnostic Testing: Clinical Impression(s) from Imaging Studies Brain CT 05/19/23 12:29 IMPRESSION: Normal unenhanced CT scan of the brain. Electronically Signed: Tony Guzman MD at 13:15 EST Reading Location ID and State: [id number] / [employer] , Service support , Cervical Spine CT 05/19/23 12:29 IMPRESSION: 1. No acute fracture or subluxation. 2. Degenerative disc disease with straightening of the normal lordotic curvature. Electronically Signed: Tony Guzman MD at 13:19 EST , Discharge Plan Triage Chief Complaint: Head Injury ED Midlevel Provider: Rosario Hough ED Provider: Vince Ogden Dx/Rx/DC Orders Clinical Impression: Head injury, Fall Instructions: ED Head Injury (Adult) Prescriptions: No Action metformin [Glucophage] 1,000 MG tablet 1,000 mg PO BID Patient Comments: Diabetes aspirin 81 MG tablet,chewable 81 mg PO DAILY@0800 Patient Comments: [facility] metoprolol succinate 25 MG tablet extended release 24 hr 25 mg PO DAILY Jardiance 25 mg tablet 25 mg PO DAILY Patient Comments: TAKE 1 TABLET BY MOUTH EVERY DAY WITH LUNCH atorvastatin 80 MG tablet 40 mg PO QHS levothyroxine 150 MCG tablet 150 mcg PO DAILY@0600 Primary Care Provider: Gerardo Michel Referrals: Gerardo Michel DO [Primary Care Provider] - 5-7 Days Activity Restrictions/Additional Instructions: Follow-up with your PCP and return for any worsening of your symptoms. Disposition Disposition: Home, Self Care Discharge Date/Time: 05/19/23 13:45
[2023-05-19 13:35] VITALS: BP 157/72; PULSE 74; RESP 16; O2SAT 97
== END 2023-05-19 13:45 | disposition home or self-care (01) ==
PROVIDERS: Emergency Provider Student in an Organized Health Care Education/Training Program; PCP Student in an Organized Health Care Education/Training Program; Visit Provider Student in an Organized Health Care Education/Training Program
DX: S00.03XA Contusion of scalp, initial encounter (principal); E11.40 Type 2 diabetes mellitus with diabetic neuropathy, unspecified; R07.81 Pleurodynia; W10.9XXA Fall (on) (from) unspecified stairs and steps, initial encounter; Y93.01 Activity, walking, marching and hiking; I10 Essential (primary) hypertension; E78.5 Hyperlipidemia, unspecified; E03.9 Hypothyroidism, unspecified; Z79.82 Long term (current) use of aspirin; Z79.84 Long term (current) use of oral hypoglycemic drugs; Z79.890 Hormone replacement therapy; Z79.899 Other long term (current) drug therapy
CPT/HCPCS: 70450; 72125; 99282

== ENCOUNTER 2023-11-12 15:08 | Emergency (ER) | payer BC, MEDICARE, SELFPAY ==
[2023-11-12 15:09] VITALS: BP 152/80; PULSE 71; RESP 16; TEMP 36.2; O2SAT 98; BMI 25.9
--- NOTE | 2023-11-12 15:22 | EKG12_ITS ---
Test Reason : CP Blood Pressure : / mmHG Vent. Rate : 069 BPM Atrial Rate : 069 BPM P-R Int : 164 ms QRS Dur : 066 ms QT Int : 378 ms P-R-T Axes : 035 015 024 degrees QTc Int : 405 ms Normal sinus rhythm Normal ECG Confirmed by Scottie Mcginnis ([id number]), photograph editor OSWALDO STONE ([id number]) on 11/13/2023 8:34:41 AM Referred By: Confirmed By:Scottie Mcginnis
--- NOTE | 2023-11-12 15:45 | RAD_ITS ---
STUDY: X-RAY CHEST REASON FOR EXAM: Female, 78 years old. chest pain TECHNIQUE: Single AP portable view of the chest. COMPARISON: None. FINDINGS: The lungs are clear and expanded. There is no demonstrated pleural abnormality. Normal size heart. Normal mediastinum and laura. Normal visualized pulmonary arteries. There is atherosclerotic calcification of the aortic arch with tortuosity. Normal visualized thoracic spine. Normal visualized ribs, clavicles, and shoulders. There is no demonstrated abnormality of the visualized soft tissue structures of the upper abdomen. RAD/Chest 1 View (Portable) IMPRESSION: No definite acute or significant abnormality seen. Electronically Signed: Patrick Sims MD at 16:09 EDT ,
--- NOTE | 2023-11-12 15:50 | EDS_ITS ---
HPI History of Present Illness Chief Complaint: Chest Pain Narrative Narrative: Patient presenting with left upper chest wall shoulder pain. Patient states it started about a month ago it has been pretty constant. She states when she walks it tends to get worse and it feels like it radiates into her arm and she gets numbness and tingling. She states it radiates from her left side of her neck and her trapezius down her arm. Also hurts in her shoulder area. Denies any trauma. She states 1 day just started and she felt like she slept on it wrong. She has not had this evaluated yet. She states she does have a stress test upcoming to make sure it is not a cardiac etiology. She denies shortness of breath. She denies diaphoresis. She denies lightheadedness or dizziness. [facility] Medical History Heart murmur Hyperlipemia Insomnia Vertigo Hodgkin lymphoma TIA (transient ischemic attack) HTN (hypertension) Breast cancer Hypothyroid Diabetes mellitus Home Medications ?Medication ?Instructions ?Recorded ?Last Taken ?Type aspirin 81 mg chewable tablet 81 mg PO DAILY@0800 heart health 08/30/13 05/09/23 History metformin 1,000 mg tablet 1,000 mg PO BID blood sugar 08/30/13 10/16/18 History (Glucophage) metoprolol succinate 25 mg 25 mg PO DAILY blood pressure 10/16/18 Unknown History tablet,extended release 24 hr atorvastatin 80 mg tablet 40 mg PO QHS 11/29/20 05/09/23 History empagliflozin 25 mg tablet 25 mg PO DAILY 11/29/20 Unknown History (Jardiance) levothyroxine 150 mcg tablet 150 mcg PO DAILY@0600 11/29/20 05/10/23 History Allergy/AdvReac Type Severity Reaction Status Date / Time lisinopril Allergy Unknown Verified 05/19/23 11:58 phenazopyridine HCl (From Allergy Unknown Verified 05/19/23 11:58 Pyridium) Sulfa (Sulfonamide Allergy Unknown Verified 05/19/23 11:58 Antibiotics) Surgical History History of lumpectomy of left breast Social History Smoking Status: Never smoker ROS ROS ED Constitutional Constitutional ED: Denies chills, fever(s) or sweats Eyes Eyes: Denies blurry vision or change in vision ENT ENT ED: Denies ear pain or sore throat Cardiovascular Cardiovascular: Reports chest pain; Denies palpitations or racing heartbeat Respiratory/Chest Respiratory/Chest: Denies cough, dyspnea or sputum Gastrointestinal Gastrointestinal: Denies abdominal pain, constipation, diarrhea, nausea or vomiting Genitourinary Genitourinary ED: Denies dysuria, hematuria or urinary frequency Musculoskeletal Musculoskeletal: Reports neck pain and other Details: Left shoulder pain ; Denies arthralgias or myalgias Integumentary Denies abscess, Abrasions or rash Neurologic Neurologic: Denies headache(s), paresthesias or weakness Psychiatric Psychiatric: Denies anxiety, depression, suicidal ideation or suicidal thoughts Endocrine Endocrinology: Denies polydipsia or polyuria EXAM Physical Exam Const Vital Signs: 11/12/23 15:09 11/12/23 15:22 11/12/23 16:08 Temperature 97.2 F L Temperature Source Temporal Pulse Rate 71 73 Respiratory Rate 16 20 H Blood Pressure 152/80 H 82/51 L Blood Pressure Mean 104 61 Pulse Ox 98 96 Oxygen Delivery Method Room Air Room Air Room Air Positive well nourished and obese General Appearance ED: NAD; Negative for pallor Nutritional Appearance: obese HEENT Reports moist mucous membranes normocephalic and atraumatic Eyes PERRL and EOMs intact bilaterally Chest Wall inspection of chest normal Resp normal respiratory effort and clear to auscultation bilaterally Auscultation: Negative for rales, rhonchi or wheezes Cardio regular rate and regular rhythm Back/Spine Back/Spine Narrative: There is tenderness to palpation on the left cervical paraspinal musculature into the trapezius. With head turning to the left that reproduces her symptoms of numbness and tingling in the left arm. This is also worse with palpation of the trapezius and movement of the left shoulder. She does have full range of motion of the left shoulder. Neuro oriented x3 and CN's II-XII intact bilaterally Sensorium / Orientation: awake Motor Exam: strength 5/5 throughout Psych mental status grossly normal Mood & Affect: Negative for anxious Skin no rashes or lesions noted General Skin Exam: Negative for jaundice or pallor MDM MDM MDM Narrative Medical decision making narrative: Patient presenting with left upper chest wall pain and trapezius pain. She states it was nontraumatic and has been there for about a month. It has been worsening. She does relate that it worsens with activity. Patient describes her left shoulder and arm as being numb when she starts to walk. She does not get lightheaded or dizzy. Differential includes cervical radiculopathy, degenerative shoulder, ACS, pneumonia, dehydration, electrolyte abnormalities. CBC will be obtained to assess white blood cell count, hemoglobin, platelets. BMP to assess renal function, electrolytes, glucose. High-sensitivity troponin and EKG to assess for ischemia/dysrhythmia. Chest x-ray to rule out pneumonia. I feel most likely this is due to radiculopathy however so I will get a x-ray of the cervical spine and the left shoulder. Patient is amenable to this. CBC shows leukopenia with a white blood cell count of 0.9. Hemoglobin 11.6 and her baseline. Platelets are normal at 199. Renal function electrolytes within normal limits. High-sensitivity troponin is 7. EKG interpreted by myself shows a sinus rhythm without evidence of ischemia or dysrhythmia. Chest x-ray interpreted by myself shows no acute cardiopulmonary process. Radiology interprets and agrees. My interpretation of the cervical spine is negative for acute findings although there is some degenerative changes. Left shoulder is normal, interpretation show no acute fracture or subluxation. Patient has discussed this all at length. All questions were answered. Patient stable for discharge. Impression: 1. Chest pain noncardiac 2. Cervical radiculopathy Lab Data Attestation: I reviewed the patient's lab results. Labs: Laboratory Results - last 24 hr 11/12/23 15:25 WBC 3.9 L RBC 3.80 L Hgb 11.6 L Hct 34.9 L MCV 91.8 MCH 30.5 MCHC 33.2 RDW Std Deviation 44.8 H RDW Coeff of Hitesh 13.3 Plt Count 189 MPV 11.2 Immature Gran % (Auto) 1.000 H Neut % (Auto) 64.9 Lymph % (Auto) 15.9 L [place] % (Auto) 13.6 H Eos % (Auto) 3.6 Baso % (Auto) 1.0 Absolute Neuts (auto) 2.5 Absolute Lymphs (auto) 0.62 L Nucleated RBC % 0 Sodium 140 Potassium 4.3 Chloride 107 Carbon Dioxide 31.0 Anion Gap 2 L BUN 16 Creatinine 0.60 Estim Creat Clear Calc 58.09 Est GFR (MDRD) Af Amer 126 Est GFR (MDRD) Non-Af 104 BUN/Creatinine Ratio 26.9 H Glucose 154 H Calcium 9.4 Troponin I High Sens 7 Radiography Diagnostic Testing: Clinical Impression(s) from Imaging Studies Chest X-Ray 11/12/23 15:45 IMPRESSION: No definite acute or significant abnormality seen. Electronically Signed: Patrick Sims MD at 16:09 EDT , Cervical Spine X-Ray 11/12/23 15:50 IMPRESSION: No acute abnormality. Multilevel degenerative changes. Electronically Signed: Patrick Sims MD at 16:34 EDT , Shoulder X-Ray 11/12/23 16:04 IMPRESSION: Normal x-ray examination of the shoulder. Electronically Signed: Patrick Sims MD at 16:33 EDT , Discharge Plan Triage Chief Complaint: Chest Pain ED Provider: Vince Ogden Dx/Rx/DC Orders Instructions: ED Chest Pain, Noncardiac, ED Radiculopathy, Cervical Prescriptions: No Action metformin [Glucophage] 1,000 MG tablet 1,000 mg PO BID Patient Comments: Diabetes aspirin 81 MG tablet,chewable 81 mg PO DAILY@0800 Patient Comments: [facility] metoprolol succinate 25 MG tablet extended release 24 hr 25 mg PO DAILY Jardiance 25 mg tablet 25 mg PO DAILY Patient Comments: TAKE 1 TABLET BY MOUTH EVERY DAY WITH LUNCH atorvastatin 80 MG tablet 40 mg PO QHS levothyroxine 150 MCG tablet 150 mcg PO DAILY@0600 Primary Care Provider: KAYLA ALCANTAR MD Referrals: KAYLA ALCANTAR MD [Other] Print Language: Yemeni Disposition Disposition: Home, Self Care
--- NOTE | 2023-11-12 15:50 | RAD_ITS ---
STUDY: X-RAY - CERVICAL SPINE REASON FOR EXAM: Female, 78 years old. neck pain TECHNIQUE: 5 view(s) of the cervical spine were obtained. COMPARISON: None FINDINGS: Normal anterior atlantoaxial articulation. Normal odontoid process. There is reversal of the normal cervical lordosis. There is multi-level endplate spondylosis. There is multi-level degenerative disc disease with multilevel disc space narrowing. There is multi-level osseous foraminal stenosis. The soft tissue structures are unremarkable. There is no demonstrated fracture of the cervical spine. RAD/Cerv Spine 4 or 5 Views IMPRESSION: No acute abnormality. Multilevel degenerative changes. Electronically Signed: Patrick Sims MD at 16:34 EDT ,
[2023-11-12 15:54] LABS: Absolute Lymphocyte Count 0.62 X10^3/uL (0.83-4.51); Absolute Neutrophil Count 2.5 X10^3/uL (2.0-7.7); Basophil# 0.04 X10^3/uL; Eosinophil# 0.14 X10^3/uL; Eosinophils% 3.6 % (0-5); Hematocrit 34.9 % (37-47); Hemoglobin 11.6 g/dL (12.0-15.0); Lymphocyte # 0.62 X10^3/ul (0.83-4.51); Lymphocyte % 15.9 % (19-41); Mean Corp Hgb Conc 33.2 g/dL (32-36); Mean Corpuscular Hgb 30.5 pg (27.0-32.0); Mean Corpuscular Volume 91.8 fL (81-99); Mean Platelet Vol. 11.2 fl (6.2-12.0); Monocyte# 0.53 X10^3/uL; Monocyte% 13.6 % (0-10); NRBC Flagged by Analyzer 0 % (0-5); Neutrophil # 2.54 X10^3/uL (2.7-7.7); Neutrophil % 64.9 % (47-70); Platelet Count 189 K/mm3 (150-450); RBC Distribution Width CV 13.3 % (11.6-14.6); RBC Distribution Width SD 44.8 fl (35.1-43.9); White Blood Count 3.9 K/mm3 (4.4-11.0)
[2023-11-12 16:03] LABS: Anion Gap 2 (5-15); BUN 16 mg/dL (7-18); BUN/Creat Ratio 26.9 RATIO (10-20); Calcium,Total 9.4 mg/dL (8.5-10.1); Chloride 107 mmol/L (98-107); EST Glomerular Filtration Rate 104 mL/min (>60); Est Glom Filt Rate - Afr Amer 126 mL/min (>60); Estimated Creatinine Clearance 58.09 ml/min; Glucose 154 mg/dL (74-106); Potassium 4.3 mmol/L (3.5-5.1); Sodium Level 140 mmol/L (136-145); Troponin-I HS 7 pg/mL (3.0-54.0)
--- NOTE | 2023-11-12 16:04 | RAD_ITS ---
STUDY: X-RAY - LEFT SHOULDER REASON FOR EXAM: Female, 78 years old. shoulder pain TECHNIQUE: 2 view(s) of the shoulder. COMPARISON: None. FINDINGS: Normal glenohumeral articulation. Normal acromioclavicular joint. Normal acromion. Normal humeral head and visualized proximal humerus. The soft tissue structures are unremarkable. Normal visualized pulmonary apex. RAD/Shoulder min 2 Views IMPRESSION: Normal x-ray examination of the shoulder. Electronically Signed: Patrick Sims MD at 16:33 EDT ,
[2023-11-12 16:08] VITALS: BP 82/51; PULSE 73; RESP 20; O2SAT 96
[2023-11-12 17:00] VITALS: BP 106/62; PULSE 77; RESP 18; O2SAT 95
[2023-11-12 17:03] VITALS: BP 106/62; PULSE 77; RESP 18; TEMP 36.3; O2SAT 95
== END 2023-11-12 17:05 | disposition home or self-care (01) ==
PROVIDERS: Emergency Provider Student in an Organized Health Care Education/Training Program; Visit Provider Student in an Organized Health Care Education/Training Program
DX: R07.89 Other chest pain (principal); E11.9 Type 2 diabetes mellitus without complications; M54.12 Radiculopathy, cervical region; I10 Essential (primary) hypertension; E78.5 Hyperlipidemia, unspecified; E03.9 Hypothyroidism, unspecified; M25.512 Pain in left shoulder; D72.819 Decreased white blood cell count, unspecified; Z79.82 Long term (current) use of aspirin; Z79.84 Long term (current) use of oral hypoglycemic drugs; Z79.890 Hormone replacement therapy; Z79.899 Other long term (current) drug therapy; Z85.3 Personal history of malignant neoplasm of breast
CPT/HCPCS: 71045; 72050; 73030; 80048; 84484; 85025; 93005; 99284

== ENCOUNTER 2023-11-22 15:31 | Emergency (ER) | payer BC, MEDICARE, SELFPAY ==
[2023-11-22 15:39] VITALS: BP 170/147; PULSE 79; RESP 16; TEMP 36.8; O2SAT 96
--- NOTE | 2023-11-22 16:15 | RAD_ITS ---
STUDY: X-RAY - UNILATERAL RIBS ( RIGHT ) WITH CHEST REASON FOR EXAM: Female, 78 years old. pain TECHNIQUE - RIBS: 3 view(s) of the ribs. TECHNIQUE - CHEST: Single PA view of the chest. COMPARISON: 11/12/2023 FINDINGS - RIBS: Normal visualized ribs without a demonstrated fracture. FINDINGS - CHEST: The lungs are clear and expanded. There is no demonstrated pleural abnormality. Normal size heart. Normal mediastinum and laura. Normal visualized pulmonary arteries. Normal visualized aortic arch and descending thoracic aorta. Normal visualized thoracic spine. Normal visualized ribs, clavicles, and shoulders. There is no demonstrated abnormality of the visualized soft tissue structures of the upper abdomen. RAD/Ribs Uni Min 3V w/PA Chest IMPRESSION: RIBS: Normal x-ray examination of the ribs. CHEST: Normal x-ray examination of the chest. Electronically Signed: Tony Guzman MD at 16:41 EDT ,
[2023-11-22 17:00] VITALS: PULSE 73; RESP 16; O2SAT 97; BMI 25.0
--- NOTE | 2023-11-22 17:24 | EX.ED.DYSGE1 ---
HPI <LOPEZ Arzate - Last Filed: 11/22/23 18:23> History of Present Illness Chief Complaint: Fall Narrative Narrative: 78-year-old female states she has poor balance and fell out of bed this morning and struck her right rib cage on a plastic crate on the ground. No head injury or loss of consciousness. She continued to have rib pain and called her primary care doctor who recommended she come in for evaluation. She is not on blood thinners. She has pain with movement but no difficulty breathing or ambulating. PFSH <LOPEZ Arzate - Last Filed: 11/22/23 18:23> PFSH Medical History Heart murmur Hyperlipemia Insomnia Vertigo Hodgkin lymphoma TIA (transient ischemic attack) HTN (hypertension) Breast cancer Hypothyroid Diabetes mellitus Home Medications ?Medication ?Instructions ?Recorded ?Last Taken ?Type aspirin 81 mg chewable tablet 81 mg PO DAILY@0800 heart health 08/30/13 05/09/23 History metformin 1,000 mg tablet 1,000 mg PO BID blood sugar 08/30/13 10/16/18 History (Glucophage) metoprolol succinate 25 mg 25 mg PO DAILY blood pressure 10/16/18 Unknown History tablet,extended release 24 hr atorvastatin 80 mg tablet 40 mg PO QHS 11/29/20 05/09/23 History empagliflozin 25 mg tablet 25 mg PO DAILY 11/29/20 Unknown History (Jardiance) levothyroxine 150 mcg tablet 150 mcg PO DAILY@0600 11/29/20 05/10/23 History Allergy/AdvReac Type Severity Reaction Status Date / Time lisinopril Allergy Unknown Verified 11/22/23 15:39 phenazopyridine HCl (From Allergy Unknown Verified 11/22/23 15:39 Pyridium) Sulfa (Sulfonamide Allergy Unknown Verified 11/22/23 15:39 Antibiotics) Surgical History History of lumpectomy of left breast Social History Smoking Status: Never smoker ROS <LOPEZ Arzate - Last Filed: 11/22/23 18:23> ROS ED ROS Narrative CVS: Negative for chest pain. Respiratory: Negative for shortness of breath. GI: Negative for abdominal pain, nausea, vomiting. EXAM <LOPEZ Arzate - Last Filed: 11/22/23 18:23> Physical Exam Narrative Exam Narrative: CONST: Patient sitting in no acute distress. EYES: Normal inspection. NECK: Normal inspection. RESP: No respiratory distress, CTAB. Tender over right posterior lower ribs with small amount of ecchymosis, no deformity or crepitus. CVS: Regular rate and rhythm, no murmur, no gallop. ABD: Soft and nontender, no guarding or rebound, nondistended. Back: Normal inspection, no midline tenderness. SKIN: Color normal, no rash, warm, dry, intact. EXTREMITIES: Normal appearance, full range of motion upper and lower extremities without bony tenderness, 2+ radial and DP pulses. NEURO: Alert and answering questions appropriately. PSYCH: Normal affect. Const Vital Signs: 11/22/23 15:39 11/22/23 17:00 11/22/23 17:01 Temperature 98.2 F Temperature Source Temporal Pulse Rate 79 73 Respiratory Rate 16 16 Respiratory Effort Normal Non-Labored Respiratory Depth Normal Respiratory Pattern Normal Blood Pressure 170/147 H Blood Pressure Mean 154 Pulse Ox 96 97 Oxygen Delivery Method Room Air Room Air Room Air 11/22/23 18:25 Temperature 98.2 F Temperature Source Pulse Rate 77 Respiratory Rate 16 Respiratory Effort Respiratory Depth Respiratory Pattern Blood Pressure 178/77 H Blood Pressure Mean 110 Pulse Ox 93 Oxygen Delivery Method <Dr. Kevin Hugo DO - Last Filed: 11/22/23 19:59> Physical Exam Const Vital Signs: 11/22/23 15:39 11/22/23 17:00 11/22/23 17:01 Temperature 98.2 F Temperature Source Temporal Pulse Rate 79 73 Respiratory Rate 16 16 Respiratory Effort Normal Non-Labored Respiratory Depth Normal Respiratory Pattern Normal Blood Pressure 170/147 H Blood Pressure Mean 154 Pulse Ox 96 97 Oxygen Delivery Method Room Air Room Air Room Air 11/22/23 18:25 Temperature 98.2 F Temperature Source Pulse Rate 77 Respiratory Rate 16 Respiratory Effort Respiratory Depth Respiratory Pattern Blood Pressure 178/77 H Blood Pressure Mean 110 Pulse Ox 93 Oxygen Delivery Method MDM <LOPEZ Arzate - Last Filed: 11/22/23 18:23> MDM MDM Narrative Medical decision making narrative: Differential: Rib contusion, fracture, pneumothorax Patient had a mechanical fall injuring her right posterior rib cage this morning. No head injury or LOC. She is ambulatory and awake and alert in no distress. She has normal heart and lung sounds. She is tender over the right posterior rib cage with no deformity or crepitus. There is no spinal tenderness. No abdominal tenderness. She is moving all extremities and neurovascularly intact. Right rib series shows no evidence of rib fracture or pneumothorax. She was given a Lidoderm patch and states she is comfortable taking Tylenol at home. She was discharged in stable condition. Radiography Diagnostic Testing: Clinical Impression(s) from Imaging Studies Ribs w/Chest X-Ray 11/22/23 16:15 IMPRESSION: RIBS: Normal x-ray examination of the ribs. CHEST: Normal x-ray examination of the chest. Electronically Signed: Tony Guzman MD at 16:41 EDT , ED attending interpretation right rib series shows no evidence of displaced rib fracture or pneumothorax. <Dr. Kevin Hugo, DO - Last Filed: 11/22/23 19:59> [facility] Narrative Medical decision making narrative: Differential: Rib contusion, fracture, pneumothorax Patient had a mechanical fall injuring her right posterior rib cage this morning. No head injury or LOC. She is ambulatory and awake and alert in no distress. She has normal heart and lung sounds. She is tender over the right posterior rib cage with no deformity or crepitus. There is no spinal tenderness. No abdominal tenderness. She is moving all extremities and neurovascularly intact. Right rib series shows no evidence of rib fracture or pneumothorax. She was given a Lidoderm patch and states she is comfortable taking Tylenol at home. She was discharged in stable condition. Patient was seen and examined with physician communications assistant Laura All components of the history and physical confirmed and agreed. History of present illness and physical exam: Patient is a 78-year-old female with past medical history of hyperlipidemia, vertigo, TIA, hypertension, hypothyroidism, diabetes who presented to the emergency department with a chief complaint of right rib pain. Patient states that she fell out of her bed this morning and states that she did not hit her head lose consciousness remembers the entire event. She is complaining of right-sided rib pain called her primary care doctor and they recommended come here for evaluation management. Patient denies any blood thinning medications. Patient denies any pain anywhere else. Physical exam General: Patient resting in bed resting comfortably does not appear to be any acute distress Head: Atraumatic, normocephalic EENT: Pupils equal round react light bilaterally, extraocular muscle intact bilateral no conjunctival injection noted Neck: Soft, supple, trachea midline, no midline tenderness palpation of the cervical spine Cardiovascular: Regular rate and rhythm no murmurs gallops rubs noted Respiratory: Clear to auscultation bilaterally no rales rhonchi or wheeze noted Abdomen: Soft, nondistended, no tenderness to palpation Musculoskeletal: No tenderness palpation midline of the thoracolumbar spine, does have tenderness palpation over the right rib region Extremities: +5/5 strength in bilateral lower extremities, no pedal edema on exam, radial pulses +2/4 in the bilateral extremities Neurological: Patient likely has new issues at [facility] year is 2023. Sensation grossly intact bilaterally throughout her body. Skin: Warm, dry, intact Plan: Patient x-ray reviewed here in the emergency department did not show any acute rib fractures on the right side. Patient would like to go home at this point time she is requesting pain medication for which she will be given Lidoderm patches for. She will be given incentive spirometry and she was encouraged to use this to prevent development of pneumonia. She was encouraged to follow-up with her primary care physician outpatient setting. She is encouraged to also use Tylenol/ibuprofen for pain control. She is cleared return for worsening symptoms or concerns Final impression: -Fall -Right rib pain Disposition: Patient will be home in stable condition Supervising attending attestation: Kevin Hugo D.O. Radiography Diagnostic Testing: Clinical Impression(s) from Imaging Studies Ribs w/Chest X-Ray 11/22/23 16:15 IMPRESSION: RIBS: Normal x-ray examination of the ribs. CHEST: Normal x-ray examination of the chest. Electronically Signed: Tony Guzman MD at 16:41 EDT , Discharge Plan Triage Chief Complaint: Fall ED Midlevel Provider: Laura Barton ED Provider: Kevin Hugo Dx/Rx/DC Orders Clinical Impression: Fall, Contusion of rib on right side Instructions: ED Bruise, Rib Prescriptions: No Action metformin [Glucophage] 1,000 MG tablet 1,000 mg PO BID Patient Comments: Diabetes aspirin 81 MG tablet,chewable 81 mg PO DAILY@0800 Patient Comments: [facility] Health metoprolol succinate 25 MG tablet extended release 24 hr 25 mg PO DAILY Jardiance 25 mg tablet 25 mg PO DAILY Patient Comments: TAKE 1 TABLET BY MOUTH EVERY DAY WITH LUNCH atorvastatin 80 MG tablet 40 mg PO QHS levothyroxine 150 MCG tablet 150 mcg PO DAILY@0600 Primary Care Provider: KAYLA ALCANTAR MD Referrals: KAYLA ALCANTAR MD [Other] Activity Restrictions/Additional Instructions: Use ice, Tylenol, and [id number] lidocaine patches as needed. Print Language: Mohawk Disposition Disposition: Home, Self Care Discharge Date/Time: 11/22/23 18:27
[2023-11-22] MEDS: Lidocaine 5% Patch 1 PATCH TOPICAL (18:22)
[2023-11-22 18:25] VITALS: BP 178/77; PULSE 77; RESP 16; TEMP 36.8; O2SAT 93
--- NOTE | 2023-11-22 20:15 | CPS ---
[1800] RN instructed and educated pt. with I.S. at bedside before discharge.
== END 2023-11-22 18:27 | disposition home or self-care (01) ==
LOC: ED 17:41
PROVIDERS: Emergency Provider Emergency Medicine; Visit Provider Emergency Medicine
DX: S20.211A Contusion of right front wall of thorax, initial encounter (principal); E11.9 Type 2 diabetes mellitus without complications; W06.XXXA Fall from bed, initial encounter; I10 Essential (primary) hypertension; E78.5 Hyperlipidemia, unspecified; E03.9 Hypothyroidism, unspecified; Z79.82 Long term (current) use of aspirin; Z79.84 Long term (current) use of oral hypoglycemic drugs; Z79.890 Hormone replacement therapy; Z79.899 Other long term (current) drug therapy; Z86.73 Personal history of transient ischemic attack (TIA), and cerebral infarction without residual deficits
CPT/HCPCS: 71101; 99283

== ENCOUNTER 2024-05-09 13:08 | Emergency (ER) | payer BC, MEDICARE, SELFPAY ==
[2024-05-09 13:08] VITALS: BP 106/54; PULSE 72; RESP 18; TEMP 37; O2SAT 97
--- NOTE | 2024-05-09 14:29 | CT_ITS ---
STUDY: CT PELVIS WITHOUT CONTRAST REASON FOR EXAM: Female, 78 years old. trauma RADIATION DOSAGE (If Supplied By Facility): CTDIvol = ( 9.46 ) mGy, DLP = ( 253.81 ) mGycm TECHNIQUE: Transaxial imaging of the pelvis was performed without oral contrast, and without intravenous administration of contrast material. Individualized dose optimization techniques were used for this CT. COMPARISON: None. FINDINGS: Normal urinary bladder. Normal visualized small intestine. Normal visualized colon. There is no pelvic fluid. There is no pelvic mass lesion or lymphadenopathy. Normal visualized pelvic arteries. Normal abdominal wall. Normal osseous structures. CT/Pelvis without IV Contrast IMPRESSION: Normal unenhanced CT of the pelvis. Electronically Signed: Tony Guzman MD at 16:04 EST ,
--- NOTE | 2024-05-09 14:29 | CT_ITS ---
STUDY: CT BRAIN WITHOUT CONTRAST REASON FOR EXAM: Female, 78 years old. trauma RADIATION DOSAGE (If Supplied By Facility): CTDIvol = ( 47.06 ) mGy, DLP = ( 890.33 ) mGycm TECHNIQUE: Transaxial CT imaging of the brain was performed without administration of intravenous contrast material. Individualized dose optimization techniques were used for this CT. COMPARISON: 05/19/2023 FINDINGS: Normal soft tissue structures. Normal calvarium. There is mild cerebral atrophy with widening of the extra-axial spaces and ventricular dilatation. There are areas of decreased attenuation within the white matter tracts of the supratentorial brain, consistent with microvascular disease changes. Normal basal ganglia and thalami. Normal brainstem. Normal cerebellum. There is no intracranial hemorrhage. There are no findings of an acute ischemic infarction. Normal visualized paranasal sinuses. CT/Brain/Head without Contrast IMPRESSION: Chronic involutional changes of the brain. Electronically Signed: Tony Guzman MD at 16:01 EST ,
--- NOTE | 2024-05-09 14:29 | CT_ITS ---
STUDY: CT LUMBAR SPINE WITHOUT CONTRAST REASON FOR EXAM: Female, 78 years old. trauma RADIATION DOSAGE (If Supplied By Facility): CTDIvol = ( 12.03 ) mGy, DLP = ( 340.64 ) mGycm TECHNIQUE: The patient was scanned in a multi detector CT scanner. High resolution transaxial imaging was performed. Images were obtained from T12 to S1. Sagittal and coronal images were reconstructed. Individualized dose optimization techniques were used for this CT. COMPARISON: None FINDINGS: Normal lumbar lordosis. There is no substantial scoliosis. Acute mild compression fracture of the L3 vertebral body with concavity the superior endplate and no retropulsion into the spinal canal. L1-2: Normal endplates. Normal disc height and morphology. Normal bilateral facet joints. Normal central canal and bilateral lateral recesses. Normal bilateral intervertebral neural foramina. L2-3: Normal endplates. Normal disc height and morphology. Normal bilateral facet joints. Normal central canal and bilateral lateral recesses. Normal bilateral intervertebral neural foramina. L3-4: Mild bilateral facet hypertrophy partially calcified ligament flavum hypertrophy. Mild bilobed disc protrusion produces mild spinal stenosis and mild bilateral neural foraminal stenosis. L4-5: Mild bilateral facet hypertrophy and partially calcified ligament flavum hypertrophy. Mild bilobed disc protrusion with a right foraminal protrusion produces mild spinal stenosis and moderate right neural foraminal stenosis. L5-S1: Mild bilateral facet hypertrophy. Mild broad disc protrusion produces mild central stenosis and mild bilateral neural foraminal stenosis. Normal visualized paraspinous soft tissue structures. CT/Spine Lumbar without Contrast IMPRESSION: Acute mild compression fracture of L3 without retropulsion into the spinal canal. Degenerative disc disease as described above. Electronically Signed: Tony Guzman MD at 16:08 EST ,
--- NOTE | 2024-05-09 14:46 | EDS_ITS ---
HPI History of Present Illness Chief Complaint: Back Informant: patient and spouse/S.O. Narrative Narrative: 78-year-old female presenting to the emergency room with low back pain. Patient states that about 10 days ago she fell striking her head on the ground. Since that time she has also had some pain in her low back. Today she states she had a very hard time getting out of bed because of pain in the low back. She is currently being evaluated for recurrence of breast cancer versus lymphoma. She is not anticoagulated. She notes that she has had several recent urinary tract infections due to inability to empty bladder. She does not self cath. The patient states that she has been using a walker and has had several falls recently while learning to use the walker. She has been taking Ultram for pain. [facility] Medical History Heart murmur Hyperlipemia Insomnia Vertigo Hodgkin lymphoma TIA (transient ischemic attack) HTN (hypertension) Breast cancer Hypothyroid Diabetes mellitus Home Medications ?Medication ?Instructions ?Recorded ?Last Taken ?Type aspirin 81 mg chewable tablet 81 mg PO DAILY@0800 heart health 08/30/13 05/09/23 History metformin 1,000 mg tablet 1,000 mg PO BID blood sugar 08/30/13 10/16/18 History (Glucophage) metoprolol succinate 25 mg 25 mg PO DAILY blood pressure 10/16/18 Unknown History tablet,extended release 24 hr atorvastatin 80 mg tablet 40 mg PO QHS 11/29/20 05/09/23 History empagliflozin 25 mg tablet 25 mg PO DAILY 11/29/20 Unknown History (Jardiance) levothyroxine 150 mcg tablet 150 mcg PO DAILY@0600 11/29/20 05/10/23 History oxycodone-acetaminophen 5 mg-325 1 tab PO Q6H PRN PRN Pain 3 days 05/09/24 Unknown Rx mg tablet #12 TABLETS Allergy/AdvReac Type Severity Reaction Status Date / Time lisinopril Allergy Unknown Verified 05/09/24 13:10 phenazopyridine HCl (From Allergy Unknown Verified 05/09/24 13:10 Pyridium) Sulfa (Sulfonamide Allergy Unknown Verified 05/09/24 13:10 Antibiotics) Surgical History History of lumpectomy of left breast Social History Smoking Status: Never smoker ROS ROS ED Constitutional Constitutional ED: Denies chills or weight loss Eyes Eyes: Denies change in vision or diplopia ENT ENT ED: Denies ear pain, rhinorrhea or sore throat Cardiovascular Cardiovascular: Denies chest pain, orthopnea, palpitations or racing heartbeat Respiratory/Chest Respiratory/Chest: Denies cough, dyspnea or orthopnea Gastrointestinal Gastrointestinal: Denies abdominal pain, diarrhea, nausea or vomiting Genitourinary Genitourinary ED: Reports other Details: UTI ; Denies dysuria, hematuria or urinary frequency Musculoskeletal Musculoskeletal: Reports back pain; Denies arthralgias or myalgias Integumentary Denies abscess or rash Neurologic Neurologic: Denies headache(s) or weakness Psychiatric Psychiatric: Denies anxiety, depression, suicidal ideation or suicidal thoughts Endocrine Endocrinology: Denies polydipsia, polyphagia or polyuria Allergic/Immunologic Allergic/Immunologic ED: Denies mouth swelling, tongue swelling or urticaria EXAM Physical Exam Const Vital Signs: 05/09/24 13:08 05/09/24 15:08 Temperature 98.6 F Temperature Source Oral Pulse Rate 72 78 Respiratory Rate 18 16 Blood Pressure 106/54 L 134/78 H Blood Pressure Mean 71 96 Pulse Ox 97 98 Oxygen Delivery Method Room Air Room Air Positive well nourished and well developed General Appearance ED: well developed HEENT Reports normocephalic and moist mucous membranes HEENT Narrative: Right lateral periorbital contusion yellowish-green no definitive ocular trauma. Eyes PERRL and EOMs intact bilaterally Neck no lymphadenopathy, supple and no JVD Resp normal respiratory effort and clear to auscultation bilaterally Cardio regular rate, regular rhythm and no murmurs GI normal to inspection, nondistended, normoactive bowel sounds and non-tender Palpation: soft Back/Spine no CVA tenderness and normal ROM Back/Spine Narrative: Patient has tenderness to palpation in the lumbar paraspinal musculature. She feels that it is worse also with movement. Extremity Extremity Narrative: Contusion abrasions right knee and thigh General Extremety ED: Negative for edema General Extremity: Negative for edema Neuro oriented x3 and CN's II-XII intact bilaterally Sensorium / Orientation: alert Motor Exam: strength 5/5 throughout Deep Tendon Reflexes: Rt Patellar (L4): 2+, Lt Patellar (L4): 2+, Rt Ankle (S1): 2+ and Lt Ankle (S1): 2+ Deep Tendon Reflexes Back: Rt Patellar (L4): 2+, Lt Patellar (L4): 2+, Rt Ankle (S1): 2+ and Lt Ankle (S1): 2+ Psych mental status grossly normal Mood & Affect: Negative for depressed or tearful Skin no rashes or lesions noted and no wounds MDM MDM MDM Narrative Medical decision making narrative: Differential diagnosis includes but not limited to intracranial hemorrhage skull fracture vertebral fracture pelvic fracture lumbar myofascial strain CT of the brain does not demonstrate any intracranial hemorrhage or obvious fracture. CT of the lumbar spine demonstrates an L3 compression fracture. CT o f the pelvis does not demonstrate an obvious fracture. I spoke with the patient and her regarding all the above findings. Would recommend follow-up with a compression fracture. I we will write for some oxycodone for pain. If they are using this I would not use the tramadol and they understand this. They understand potential problems with changing pain medicine including sedation confusion constipation. Return if worsening or concerns History & Record Review Discussion w/independent historian: Patient and Significant other Radiography Diagnostic Testing: Clinical Impression(s) from Imaging Studies Brain CT 05/09/24 14:29 IMPRESSION: Chronic involutional changes of the brain. Electronically Signed: Tony Guzman MD at 16:01 EST , Lumbar Spine CT 05/09/24 14:29 IMPRESSION: Acute mild compression fracture of L3 without retropulsion into the spinal canal. Degenerative disc disease as described above. Electronically Signed: Tony Guzman MD at 16:08 EST , Pelvis CT 05/09/24 14:29 IMPRESSION: Normal unenhanced CT of the pelvis. Electronically Signed: Tony Guzman MD at 16:04 EST , Discharge Plan Triage Chief Complaint: Back ED Provider: Axel Jaramillo Dx/Rx/DC Orders Clinical Impression: Fall, Closed compression fracture of L3 vertebra, Acute low back pain, Contusion of face Instructions: ED Fracture, Vertebral Compression Prescriptions: New oxycodone-acetaminophen 5-325 mg tablet 1 tab PO Q6H PRN PRN (Reason: Pain) 3 Days Qty: 12 0RF No Action metformin [Glucophage] 1,000 MG tablet 1,000 mg PO BID Patient Comments: Diabetes aspirin 81 MG tablet,chewable 81 mg PO DAILY@0800 Patient Comments: Heart Health metoprolol succinate 25 MG tablet extended release 24 hr 25 mg PO DAILY Jardiance 25 mg tablet 25 mg PO DAILY Patient Comments: TAKE 1 TABLET BY MOUTH EVERY DAY WITH LUNCH atorvastatin 80 MG tablet 40 mg PO QHS levothyroxine 150 MCG tablet 150 mcg PO DAILY@0600 Primary Care Provider: Christopher Luis Referrals: Shawn Mcgovern MD [Med Staff - Active Staff] - As soon as possible (for the compression fracture) NOT,DEFINED [Non-Staff] - Activity Restrictions/Additional Instructions: If you using the oxycodone/acetaminophen for pain do not also use the tramadol. These medicines can be additive and cause unwanted sedation/complications Print Language: Icelandic Disposition Disposition: Home, Self Care
[2024-05-09 15:08] VITALS: BP 134/78; PULSE 78; RESP 16; O2SAT 98
== END 2024-05-09 16:37 | disposition home or self-care (01) ==
PROVIDERS: Emergency Provider Emergency Medicine; PCP Family Medicine; Visit Provider Emergency Medicine
DX: M48.56XA Collapsed vertebra, not elsewhere classified, lumbar region, initial encounter for fracture (principal); E11.9 Type 2 diabetes mellitus without complications; W01.198A Fall on same level from slipping, tripping and stumbling with subsequent striking against other object, initial encounter; S00.83XA Contusion of other part of head, initial encounter; I10 Essential (primary) hypertension; E78.5 Hyperlipidemia, unspecified; E03.9 Hypothyroidism, unspecified; Z79.82 Long term (current) use of aspirin; Z79.84 Long term (current) use of oral hypoglycemic drugs; Z79.890 Hormone replacement therapy; Z79.899 Other long term (current) drug therapy
CPT/HCPCS: 70450; 72131; 72192; 99282

== ENCOUNTER 2024-06-09 00:36 | Emergency (ER) | payer BC, MEDICARE, SELFPAY ==
[2024-06-09 00:37] VITALS: BP 122/97; PULSE 93; RESP 18; TEMP 36.9; O2SAT 98; BMI 23.8
[2024-06-09 00:46] VITALS: O2SAT 98
--- NOTE | 2024-06-09 00:58 | EDS_ITS ---
HPI History of Present Illness Chief Complaint: Shortness of Breath Informant: patient Onset/Context/Timing Onset: Today Context: sudden Timing: Continuous Quality: Positive for Orthopnea Worsened by: Nothing Relieved by: Oxygen Associated Symptoms Negative for cough, rhinorrhea, post nasal drip, ear pain, fever, sore throat, chills, clear sputum, white sputum, yellow sputum or green sputum Chest Pain: Positive for None Narrative Narrative: Patient presents with shortness of breath that began tonight. Patient states it began rather suddenly tonight. Patient states she has a history of bone cancer and non-Hodgkin's lymphoma. Patient states she had recent right rib fractures. Patient states she has been having increasing pain in her right ribs. Patient denies any cough. Patient denies any fevers or chills. Patient states that EMS applied oxygen which helped her breathing. Patient states she feels better at the present time. Patient states she was having some dizziness earlier with the shortness of breath. PE Risk Factors: Positive for Cancer; Negative for OCP + Smoking + > 35, Prior DVT or PE, Recent immobilization, Recent surgery or Recent travel [facility] Medical History (Updated 06/09/24 @ 04:[address] Omar Montalvo, DO) Heart murmur Hyperlipemia Insomnia Vertigo Hodgkin lymphoma TIA (transient ischemic attack) HTN (hypertension) Breast cancer Hypothyroid Diabetes mellitus Home Medications ?Medication ?Instructions ?Recorded ?Last Taken ?Type aspirin 81 mg chewable tablet 81 mg PO DAILY@0800 heart health 08/30/13 05/09/23 History metformin 1,000 mg tablet 1,000 mg PO BID blood sugar 08/30/13 10/16/18 History (Glucophage) metoprolol succinate 25 mg 25 mg PO DAILY blood pressure 10/16/18 Unknown History tablet,extended release 24 hr atorvastatin 80 mg tablet 40 mg PO QHS 11/29/20 05/09/23 History levothyroxine 150 mcg tablet 150 mcg PO DAILY@0600 11/29/20 05/10/23 History allopurinol 300 mg tablet 300 mg PO DAILY 06/09/24 Unknown History amlodipine 5 mg tablet 5 mg PO DAILY 06/09/24 Unknown History bethanechol chloride 50 mg tablet 50 mg PO BID 06/09/24 Unknown History docusate sodium 100 mg capsule 100 mg PO BID 06/09/24 Unknown History meloxicam 15 mg tablet 15 mg PO DAILY 06/09/24 Unknown History oxycodone 5 mg tablet 5 mg PO Q6H PRN PRN pain 06/09/24 Unknown History pantoprazole 40 mg tablet,delayed 40 mg PO DAILY 06/09/24 Unknown History release paroxetine HCl 20 mg tablet 30 mg PO DAILY 06/09/24 Unknown History prednisone 20 mg tablet 20 mg PO DAILY 06/09/24 Unknown History tramadol 50 mg tablet 50 mg PO Q6H PRN PRN severe pain 06/09/24 Unknown History trazodone 50 mg tablet 50 - 100 mg PO QHS PRN PRN insomnia 06/09/24 Unknown History Allergy/AdvReac Type Severity Reaction Status Date / Time lisinopril Allergy Unknown Verified 05/09/24 13:10 phenazopyridine HCl (From Allergy Unknown Verified 05/09/24 13:10 Pyridium) Sulfa (Sulfonamide Allergy Unknown Verified 05/09/24 13:10 Antibiotics) Surgical History (Updated 06/09/24 @ 01:[address] Omar Montalvo DO) Hx of bilateral mastectomy History of lumpectomy of left breast Social History Smoking Status: Never smoker ROS ROS ED Constitutional Constitutional ED: Denies chills or fever(s) Eyes Eyes: Reports blurry vision; Denies diplopia ENT ENT ED: Denies rhinorrhea or sore throat Cardiovascular Cardiovascular: Denies chest pain or palpitations Respiratory/Chest Respiratory/Chest: Reports dyspnea; Denies cough Gastrointestinal Gastrointestinal: Denies nausea or vomiting Genitourinary Genitourinary ED: Denies dysuria or hematuria Musculoskeletal Musculoskeletal: Reports back pain; Denies neck pain Integumentary Denies abscess or rash Neurologic Neurologic: Denies headache(s) or weakness Allergic/Immunologic Allergic/Immunologic ED: Denies mouth swelling or urticaria EXAM Physical Exam Const Vital Signs: 06/09/24 00:37 06/09/24 00:46 06/09/24 01:07 Temperature 98.5 F Temperature Source Oral Pulse Rate 93 Respiratory Rate 18 Respiratory Effort Short of Breath Respiratory Pattern Normal Blood Pressure 122/97 H Blood Pressure Mean 105 Pulse Ox 98 Oxygen Delivery Method Room Air Room Air Room Air 06/09/24 01:08 06/09/24 03:00 Temperature Temperature Source Pulse Rate 80 Respiratory Rate 21 H Respiratory Effort Respiratory Pattern Blood Pressure 130/60 H Blood Pressure Mean 83 Pulse Ox 94 94 Oxygen Delivery Method Room Air Positive well nourished and well developed General Appearance ED: well developed and NAD HEENT Reports moist mucous membranes atraumatic Neck supple and no JVD Resp normal respiratory effort and clear to auscultation bilaterally Cardio regular rate and regular rhythm GI non-tender and non-distended Palpation: soft Neuro oriented x3, CN's II-XII intact bilaterally and no sensory deficits noted [place] Coma Scale: document GCS findings Spontaneous Obeys Commands Oriented 15 Sensorium / Orientation: alert Speech: speech normal Motor Exam: strength 5/5 throughout Psych mental status grossly normal MDM MDM MDM Narrative Medical decision making narrative: Differential diagnosis includes cardiac dysrhythmia, cardiac ischemia, pulmonary embolism, pneumonia, pneumothorax, electrolyte abnormality, pleural effusion, and anxiety. EKG will be obtained to assess for cardiac dysrhythmia and cardiac ischemia. CTA of the chest will be obtained to assess for pulmonary embolism and aortic dissection. CBC will be obtained to assess for leukocytosis and anemia. Basic metabolic profile will be obtained to assess for electrolyte abnormality and renal function. High-sensitivity troponin will be obtained to assess for cardiac ischemia. 2-hour repeat high-sensitivity troponin will be obtained to assess for ongoing cardiac ischemia. Lab Data Attestation: I reviewed the patient's lab results. Lab results narrative: CBC was reviewed. There is a mild anemia with a hemoglobin of 9.8 and hematocrit 29.4. Basic metabolic profile was reviewed. Glucose was 276. The remainder is within normal limits. High-sensitivity troponin was reviewed and was normal at 10. 2-hour repeat high-sensitivity troponin was reviewed and was normal at 8. Labs: Laboratory Results - last 24 hr 06/09/24 06/09/24 01:02 03:02 WBC 8.3 RBC 3.28 L Hgb 9.8 L Hct 29.4 L MCV 89.6 MCH 29.9 MCHC 33.3 RDW Std Deviation 51.9 H RDW Coeff of Hitesh 15.9 H Plt Count 121 L MPV 11.7 Neut % (Auto) Not Reportable Absolute Neuts (auto) 5.2 Absolute Lymphs (auto) 1.50 Total Counted 100 Neutrophils % (Manual) 62 Band Neutrophils % 2 Lymphocytes % (Manual) 19 Monocytes % (Manual) 10 Eosinophils % (Manual) 3 Basophils % (Manual) 1 Metamyelocytes % 3 H Diff Path Review May foll Reactive Lymphocytes 2+ Platelet Estimate SLT DEC Polychromasia RARE Anisocytosis 1+ Microcytosis RARE Macrocytosis 1+ Stomatocytes RARE Sodium 137 Potassium 4.2 Chloride 102 Carbon Dioxide 27.0 Anion Gap 8 BUN 18 Creatinine 0.65 Estim Creat Clear Calc 50.85 Est GFR (MDRD) Af Amer 113 Est GFR (MDRD) Non-Af 93 BUN/Creatinine Ratio 27.6 H Glucose 276 H Calcium 9.6 Troponin I High Sens 10 8 Radiography CTA PE Study: No Evidence of PE and No Evidence of Dissection Diagnostic Testing: Clinical Impression(s) from Imaging Studies Chest CTA 06/09/24 01:03 IMPRESSION: 1. No evidence of pulmonary emboli. 2. T12 vertebral body versus fracture likely acute or subacute, clearly present on prior CT lumbar spine 05/09/2024. Mild retropulsion. MRI may be helpful for further evaluation if clinically indicated. 3. Multiple right rib fractures appear likely subacute/healing or chronic/healed. 4. Mottled appearance of the sternum with sclerotic and lytic lesions, cannot exclude metastatic disease. 5. Patchy groundglass opacity in the left upper lobe possibly inflammatory or viral pneumonitis. 6. Prominent right axillary lymph nodes. Electronically Signed: Charu Cortes MD at 3:43 EST , CTA of the chest was obtained. There is no evidence of pulmonary embolism. There is no aortic dissection. There is a T12 vertebral body compression fracture that could be acute or subacute. There is mottled appearance of the sternum. There is patchy groundglass opacity in the left upper lobe possibly inflammatory or viral pneumonitis. There is no consolidation noted. This was interpreted by the radiologist and was also independently reviewed by myself. EKG Initial EKG: Attestation: I personally reviewed and interpreted this EKG as follows: Interpretation: Sinus Rhythm (89) and No Acute Injury Pattern Comments: EKG was obtained. On my independent interpretation, it showed a normal sinus rhythm with a rate of 89. LA interval, QRS interval, and QTc intervals were all normal. [place] was normal. There are no acute ST or T wave changes. Prior EKG tracings: available for review Prior: Unchanged (11/12/2023) Treatment and Re-Evaluation :: Patient was given aspirin here. Patient was advised of her findings. Patient was feeling better on reevaluation. Patient has a HEART score of 3. Patient was advised that this is low risk for acute cardiac event. Patient was instructed to follow-up with her primary care physician in 5 to 7 days. Patient was instructed return if worse in any way. Patient understood and was agreeable with the plan. All questions were answered. Discharge Plan Triage Chief Complaint: Shortness of Breath ED Provider: Omar Montalvo Dx/Rx/DC Orders Clinical Impression: Dyspnea, Diabetes mellitus Instructions: ED Dyspnea Prescriptions: No Action metformin [Glucophage] 1,000 MG tablet 1,000 mg PO BID Patient Comments: Diabetes aspirin 81 MG tablet,chewable 81 mg PO DAILY@0800 Patient Comments: [facility] metoprolol succinate 25 MG tablet extended release 24 hr 25 mg PO DAILY atorvastatin 80 MG tablet 40 mg PO QHS levothyroxine 150 MCG tablet 150 mcg PO DAILY@0600 trazodone 50 mg tablet 50 - 100 mg PO QHS PRN PRN (Reason: insomnia) meloxicam 15 mg tablet 15 mg PO DAILY prednisone 20 mg tablet 20 mg PO DAILY amlodipine 5 mg tablet 5 mg PO DAILY tramadol 50 mg tablet 50 mg PO Q6H PRN PRN (Reason: severe pain) paroxetine HCl 20 mg tablet 30 mg PO DAILY Patient Comments: [NO ORIGINAL SIG] pantoprazole 40 mg tablet,delayed release (DR/EC) 40 mg PO DAILY docusate sodium 100 mg capsule 100 mg PO BID allopurinol 300 mg tablet 300 mg PO DAILY bethanechol chloride 50 mg tablet 50 mg PO BID oxycodone 5 mg tablet 5 mg PO Q6H PRN PRN (Reason: pain) Primary Care Provider: Christopher Luis Referrals: Christopher Luis MD [Primary Care Provider] - 5-7 Days Print Language: Jordanian Disposition Disposition: Home, Self Care
--- NOTE | 2024-06-09 01:03 | EKG12_ITS ---
Test Reason : SOB Blood Pressure : */* mmHG Vent. Rate : 89 BPM Atrial Rate : 89 BPM P-R Int : 128 ms QRS Dur : 76 ms QT Int : 350 ms P-R-T Axes : 1 19 32 degrees QTcB Int : 425 ms Normal sinus rhythm Normal ECG Confirmed by BELKYS PÉREZ, KAEL ([id number]), copy editor OSWALDO STONE ([id number]) on 06/11/2024 6:16:49 AM Referred By: JEAN-PIERRE Confirmed By: KAEL RIZVI MD
--- NOTE | 2024-06-09 01:03 | CT_ITS ---
STUDY: CTA CHEST REASON FOR EXAM: Female, 78 years old. Dyspnea Non- Hodgkin''s lymphoma, dizziness and dyspnea tonight when trying to sleep, rib fx from fall a few weeks ago, lumpectomy left breast and bilateral mastectomy RADIATION DOSAGE (If Supplied By Facility): CTDIvol = ( 9.22 ) mGy, DLP = ( 231.92 ) mGycm TECHNIQUE: The examination was performed with the intravenous administration of IV 100mL Isovue-370. Post-processing of the angiographic images was performed, with multiplanar reformation and 3D reconstruction. The protocol utilizes one or more of the following dose reduction techniques: automated exposure control, adjustment of mA and/or kV according to patient size,and/or use of iterative reconstruction technique. COMPARISON: Prior study dated: CT lumbar spine 05/09/2024 FINDINGS: LUNGS: Hazy opacities throughout the lungs nonspecific. More focal groundglass opacity in the left upper lobe. No consolidation. PLEURA: No pleural effusion. No pneumothorax. PULMONARY VESSELS: No pulmonary emboli identified. MEDIASTINUM: A few prominent lymph nodes in the mediastinum. HEART: Not enlarged. Coronary artery calcifications are noted. AORTA/GREAT VESSELS: Thoracic aorta is normal caliber. No aneurysm or dissection. UPPER ABDOMEN: No acute findings. BONES/SOFT TISSUES: T12 vertebral body fracture appears acute or subacute, with approximately 40% vertebral body height loss, 4 mm retropulsion of the posterior vertebral body margin into the spinal canal. This was not clearly present on the prior CT lumbar spine although T12 level was not completely included on that study. Mottled appearance of the sternum, patchy sclerotic and lytic regions. Multiple right rib fractures appear healing (second and fourth ribs) or old healed fractures. No definite acute fracture demonstrated. Prominent right axillary lymph nodes. OTHER: None. CT/CTA Chest W/WO Contrast IMPRESSION: 1. No evidence of pulmonary emboli. 2. T12 vertebral body versus fracture likely acute or subacute, clearly present on prior CT lumbar spine 05/09/2024. Mild retropulsion. MRI may be helpful for further evaluation if clinically indicated. 3. Multiple right rib fractures appear likely subacute/healing or chronic/healed. 4. Mottled appearance of the sternum with sclerotic and lytic lesions, cannot exclude metastatic disease. 5. Patchy groundglass opacity in the left upper lobe possibly inflammatory or viral pneumonitis. 6. Prominent right axillary lymph nodes. Electronically Signed: Charu Cortes MD at 3:43 EST ,
[2024-06-09] MEDS: Aspirin 81 MG TAB.CHEW 324 MG PO (01:05)
[2024-06-09 01:08] VITALS: O2SAT 94
[2024-06-09 01:18] LABS: Hematocrit 29.4 % (37-47); Hemoglobin 9.8 g/dL (12.0-15.0); Mean Corp Hgb Conc 33.3 g/dL (32-36); Mean Corpuscular Hgb 29.9 pg (27.0-32.0); Mean Corpuscular Volume 89.6 fL (81-99); Mean Platelet Vol. 11.7 fl (6.2-12.0); POSITIVE COUNT YES; POSITIVE MORPHOLOGY YES; Platelet Count 121 K/mm3 (150-450); RBC Distribution Width CV 15.9 % (11.6-14.6); RBC Distribution Width SD 51.9 fl (35.1-43.9); Red Blood Count 3.28 M/mm3 (4.2-5.4); White Blood Count 8.3 K/mm3 (4.4-11.0)
[2024-06-09 01:34] LABS: Anion Gap 8 (5-15); BUN 18 mg/dL (7-18); BUN/Creat Ratio 27.6 RATIO (10-20); Calcium,Total 9.6 mg/dL (8.5-10.1); Chloride 102 mmol/L (98-107); Creatinine, Serum 0.65 mg/dL (0.55-1.02); EST Glomerular Filtration Rate 93 mL/min (>60); Est Glom Filt Rate - Afr Amer 113 mL/min (>60); Estimated Creatinine Clearance 50.85 ml/min; Glucose 276 mg/dL (74-106); Potassium 4.2 mmol/L (3.5-5.1); Sodium Level 137 mmol/L (136-145); Troponin-I HS (w/2H Reflex) 10 pg/mL (3.0-54.0)
[2024-06-09 01:50] LABS: Differential Indicated MANUAL DIFF
[2024-06-09 02:30] LABS: Basophil 1 % (0-1); Eosinophil 3 % (0-5); Lymphocyte 19 % (19-41); Metamyelocyte 3 % (0-1); Monocyte 10 % (0-10); Neutrophil-Band 2 % (0-5); Neutrophil-Segmented 62 % (47-70); Total Cells Counted 100 (MANUAL DIFF)
[2024-06-09 02:31] LABS: Absolute Neutrophil Count 5.2 X10^3/uL (2.0-7.7)
[2024-06-09 02:32] LABS: Reactive Lymphocyte 2+
[2024-06-09 02:34] LABS: Platelet Estimate SLT DEC (ADEQ)
[2024-06-09 02:35] LABS: Anisocytosis 1+; Microcytosis RARE; Polychromasia RARE; Stomatocyte RARE
[2024-06-09 02:36] LABS: Macrocytosis 1+
[2024-06-09 02:53] VITALS: O2SAT 95
[2024-06-09 03:00] VITALS: BP 130/60; PULSE 80; RESP 21; O2SAT 94
[2024-06-09 03:13] LABS: Reflex Troponin-HS? (from REC) Y
[2024-06-09 03:34] LABS: Troponin-I HS 8 pg/mL (3.0-54.0)
[2024-06-09 04:33] VITALS: BP 130/60; PULSE 80; RESP 21; TEMP 36.6; O2SAT 94
[2024-06-09 16:17] LABS: Pathologist Review Reviewed
== END 2024-06-09 04:34 | disposition home or self-care (01) ==
PROVIDERS: Emergency Provider Emergency Medicine; PCP Family Medicine; Visit Provider Emergency Medicine
DX: R06.00 Dyspnea, unspecified (principal); E11.9 Type 2 diabetes mellitus without complications; I10 Essential (primary) hypertension; Z11.52 Encounter for screening for COVID-19; E78.5 Hyperlipidemia, unspecified; E03.9 Hypothyroidism, unspecified; Z79.82 Long term (current) use of aspirin; Z79.84 Long term (current) use of oral hypoglycemic drugs
CPT/HCPCS: 71275; 80048; 84484; 85025; 93005; 99285; Q9967; A4216

== ENCOUNTER 2024-06-16 20:03 | Emergency (ER) | payer BC, MEDICARE, SELFPAY ==
[2024-06-16 20:04] VITALS: BP 148/74; PULSE 99; RESP 19; TEMP 36.6; O2SAT 97; BMI 22.9
--- NOTE | 2024-06-16 20:19 | EKG12_ITS ---
Test Reason : DYSRHYTHMIA Blood Pressure : */* mmHG Vent. Rate : 96 BPM Atrial Rate : 96 BPM P-R Int : 140 ms QRS Dur : 72 ms QT Int : 336 ms P-R-T Axes : 7 10 16 degrees QTcB Int : 424 ms Sinus rhythm with Premature supraventricular complexes Otherwise normal ECG Confirmed by ALLISON PÉREZ, ROSALINA ([id number]), city editor SOWALDO STONE ([id number]) on 06/17/2024 8:53:44 AM Referred By: Confirmed By: ROSALINA COOPER MD
--- NOTE | 2024-06-16 20:30 | CT_ITS ---
PROCEDURE: SPINE CERVICAL WITHOUT CONTRAS REASON FOR EXAM: Fall. TECHNIQUE: Cervical spine CT without contrast. COMPARISON: None. FINDINGS: No evidence of acute fracture or dislocation. Vertebral body heights are maintained. Discogenic degenerative changes most pronounced at C5-6 and C6-7. CT/Spine Cervical without Contras IMPRESSION: No acute osseous abnormalities. Spondylosis. One or more dose reduction techniques were used (e.g., Automated exposure contr ol, adjustment of the mA and/or kV according to patient size, use of iterative reconstruction technique). Reading Location: [id number]
--- NOTE | 2024-06-16 20:30 | CT_ITS ---
PROCEDURE: BRAIN/HEAD WITHOUT CONTRAST REASON FOR EXAM: Neck pain; laceration to forehead. TECHNIQUE: CT of the head without contrast was performed. COMPARISON: None. FINDINGS: Mild global parenchymal atrophy. Moderate chronic microvascular ischemia. No evidence of acute hemorrhage or infarction. No extra-axial blood or fluid collections. The paranasal sinuses are clear. The mastoid air cells are well aerated. The calvarial vault and skull base are intact. Soft tissue swelling/hematoma overlying the left forehead. CT/Brain/Head without Contrast IMPRESSION: No acute intracranial abnormality. Soft tissue swelling/hematoma overlying the left forehead. One or more dose reduction techniques were used (e.g., Automated exposure contr ol, adjustment of the mA and/or kV according to patient size, use of iterative reconstruction technique). Reading Location: [id number]
--- NOTE | 2024-06-16 20:30 | CT_ITS ---
PROCEDURE: SINUS/FACIAL BONE REASON FOR EXAM: Fall. TECHNIQUE: CT of the paranasal sinuses without contrast. COMPARISON: None. FINDINGS: Frontal: Frontal sinuses and frontoethmoidal recesses appear clear. Ethmoid: Ethmoid air cells appear clear. Sphenoid: Sphenoid sinuses and sphenoethmoidal recesses appear clear. Maxillary: Maxillary sinuses appear clear. The ostiomeatal units appear widely patent. Turbinates: Unremarkable. Nasal Septum: Midline. No large nasal septal spur. Mastoids/Middle Ears: Clear at visualized levels. Soft tissue swelling/hematoma overlying the left forehead. Visualized intracranial structures are unremarkable. CT/Sinus/Facial Bone IMPRESSION: No evidence of acute fracture. One or more dose reduction techniques were used (e.g., Automated exposure contr ol, adjustment of the mA and/or kV according to patient size, use of iterative reconstruction technique). Reading Location: [id number]
[2024-06-16 22:03] VITALS: PULSE 98; RESP 18; O2SAT 96
--- NOTE | 2024-06-16 22:03 | EX.ED.DYSGE1 ---
HPI History of Present Illness Chief Complaint: Fall Narrative Narrative: Patient is a 79-year-old female past medical history of TIA, hypertension, hypothyroidism, diabetes who presents to the emergency department chief complaint of fall and hit her head on the floor. She states that she did not pass out she members entire event. Patient denies any blood thinner medications. States that she was walking with her walker and states that her walker became caught on something causing her to fall. She states that she did not have any chest pain shortness of breath lightness dizziness prior to the fall states that she simply lost her balance secondary to a walker becoming caught causing her to fall. Patient states that her tetanus shot is up-to-date. [facility] Medical History Heart murmur Hyperlipemia Insomnia Vertigo Hodgkin lymphoma TIA (transient ischemic attack) HTN (hypertension) Breast cancer Hypothyroid Diabetes mellitus Home Medications ?Medication ?Instructions ?Recorded ?Last Taken ?Type aspirin 81 mg chewable tablet 81 mg PO DAILY@0800 heart health 08/30/13 05/09/23 History metformin 1,000 mg tablet 1,000 mg PO BID blood sugar 08/30/13 10/16/18 History (Glucophage) metoprolol succinate 25 mg 25 mg PO DAILY blood pressure 10/16/18 Unknown History tablet,extended release 24 hr atorvastatin 80 mg tablet 40 mg PO QHS 11/29/20 05/09/23 History levothyroxine 150 mcg tablet 150 mcg PO DAILY@0600 11/29/20 05/10/23 History allopurinol 300 mg tablet 300 mg PO DAILY 06/09/24 Unknown History amlodipine 5 mg tablet 5 mg PO DAILY 06/09/24 Unknown History bethanechol chloride 50 mg tablet 50 mg PO BID 06/09/24 Unknown History docusate sodium 100 mg capsule 100 mg PO BID 06/09/24 Unknown History meloxicam 15 mg tablet 15 mg PO DAILY 06/09/24 Unknown History oxycodone 5 mg tablet 5 mg PO Q6H PRN PRN pain 06/09/24 Unknown History pantoprazole 40 mg tablet,delayed 40 mg PO DAILY 06/09/24 Unknown History release paroxetine HCl 20 mg tablet 30 mg PO DAILY 06/09/24 Unknown History prednisone 20 mg tablet 20 mg PO DAILY 06/09/24 Unknown History tramadol 50 mg tablet 50 mg PO Q6H PRN PRN severe pain 06/09/24 Unknown History trazodone 50 mg tablet 50 - 100 mg PO QHS PRN PRN insomnia 06/09/24 Unknown History Allergy/AdvReac Type Severity Reaction Status Date / Time lisinopril Allergy Unknown Verified 06/16/24 20:08 phenazopyridine HCl (From Allergy Unknown Verified 06/16/24 20:08 Pyridium) Sulfa (Sulfonamide Allergy Unknown Verified 06/16/24 20:08 Antibiotics) Surgical History Hx of bilateral mastectomy History of lumpectomy of left breast Social History Smoking Status: Never smoker ROS ROS ED ROS Narrative Constitutional: Complains of headache denies any lightness, dizziness, fevers, chills Eyes: Denies change in vision double vision blurry vision Cardiovascular: Denies chest pain or palpitations Respiratory: Denies coughing wheezing shortness of breath Abdomen: Denies abdominal pain nausea vomit diarrhea : Denies any urinary symptoms Neurological: Denies numbness, weakness, tingling Musculoskeletal: Complains of neck pain Skin: Complains of cut to forehead EXAM Physical Exam Narrative Exam Narrative: General: Patient was lying in bed rest comfortably did not appear to be in acute distress Head: Patient has a small superficial abrasion noted to her left forehead no active bleeding noted, normocephalic Eyes: PERRL bilaterally, EOMI bilaterally, no conjunctival injection noted, no nasal septal hematomas noted bilaterally Neck: Soft, supple, trachea midline Cardiovascular: Regular rate and rhythm no murmurs gallops rubs noted Respiratory: Clear to auscultation bilaterally no rales rhonchi or wheezes noted Abdomen: Soft, nondistended, tender to palpation Musculoskeletal: No tenderness palpation midline of thoracic lumbar spine no step-offs or deformities noted all other bony prominences palpated joints taken to full range of motion no pain elicited Extremities: +5/5 strength noted in the bilateral upper and lower extremities, radial pulses +2/4 in the bilateral extremities Neurological: Patient follow commands knew that she was at [facility] year is 2024 Skin: Warm, dry, intact, CT head Const Vital Signs: 06/16/24 20:04 Temperature 97.9 F Temperature Source Oral Pulse Rate 99 Respiratory Rate 19 H Blood Pressure 148/74 H Blood Pressure Mean 98 Pulse Ox 97 Oxygen Delivery Method Room Air MDM MDM MDM Narrative Medical decision making narrative: Patient is a 79-year-old female who presented to the emergency department after a mechanical fall. On the differential diagnose includes but not limited to cervical spine fracture, intracranial hemorrhage, nasal fracture. Once workup is obtained reviewed she will be reevaluated. Patient's CT head and brain without contrast showed no acute intracranial abnormality soft tissue swelling/hematoma overlying the left forehead. Patient CT cervical spine reviewed and showed no acute osseous abnormalities. Patient CT face was reviewed showed no acute fractures. Discussed results with the patient she ambulated well. Patient had Steri-Strips placed to her superficial abrasion. She was advised to follow-up with primary care physician and return if worsening symptoms or any concerns. She is agreeable this plan as well as significant other at bedside all question concerns answered she is discharged home in stable condition. Radiography Diagnostic Testing: Clinical Impression(s) from Imaging Studies Brain CT 06/16/24 20:30 IMPRESSION: No acute intracranial abnormality. Soft tissue swelling/hematoma overlying the left forehead. One or more dose reduction techniques were used (e.g., Automated exposure control, adjustment of the mA and/or kV according to patient size, use of iterative reconstruction technique). Reading Location: [facility] Cervical Spine CT 06/16/24 20:30 IMPRESSION: No acute osseous abnormalities. Spondylosis. One or more dose reduction techniques were used (e.g., Automated exposure control, adjustment of the mA and/or kV according to patient size, use of iterative reconstruction technique). Reading Location: [facility] Facial/Sinus 06/16/24 20:30 IMPRESSION: No evidence of acute fracture. One or more dose reduction techniques were used (e.g., Automated exposure control, adjustment of the mA and/or kV according to patient size, use of iterative reconstruction technique). Reading Location: [id number] Discharge Plan Triage Chief Complaint: Fall ED Provider: Kevin Hugo Dx/Rx/DC Orders Clinical Impression: Fall, Abrasion of forehead Prescriptions: No Action metformin [Glucophage] 1,000 MG tablet 1,000 mg PO BID Patient Comments: Diabetes aspirin 81 MG tablet,chewable 81 mg PO DAILY@0800 Patient Comments: [facility] metoprolol succinate 25 MG tablet extended release 24 hr 25 mg PO DAILY atorvastatin 80 MG tablet 40 mg PO QHS levothyroxine 150 MCG tablet 150 mcg PO DAILY@0600 trazodone 50 mg tablet 50 - 100 mg PO QHS PRN PRN (Reason: insomnia) meloxicam 15 mg tablet 15 mg PO DAILY prednisone 20 mg tablet 20 mg PO DAILY amlodipine 5 mg tablet 5 mg PO DAILY tramadol 50 mg tablet 50 mg PO Q6H PRN PRN (Reason: severe pain) paroxetine HCl 20 mg tablet 30 mg PO DAILY Patient Comments: [NO ORIGINAL SIG] pantoprazole 40 mg tablet,delayed release (DR/EC) 40 mg PO DAILY docusate sodium 100 mg capsule 100 mg PO BID allopurinol 300 mg tablet 300 mg PO DAILY bethanechol chloride 50 mg tablet 50 mg PO BID oxycodone 5 mg tablet 5 mg PO Q6H PRN PRN (Reason: pain) Primary Care Provider: Christopher Luis Referrals: Christopher Luis MD [Primary Care Provider] - Activity Restrictions/Additional Instructions: Let the Steri-Strips fall off on their own. You can shower. Follow-up with your primary care physician outpatient setting. Rotate Tylenol and ibuprofen [id number] for pain control you will be sore over the next several days secondary to the fall. Return with worsening symptoms or any other concerns. Print Language: Belgian Disposition Disposition: Home, Self Care
[2024-06-16] MEDS: Acetaminophen 500 MG Tablet 1000 MG PO (22:31)
== END 2024-06-16 22:33 | disposition home or self-care (01) ==
PROVIDERS: Emergency Provider Emergency Medicine; PCP Family Medicine; Visit Provider Emergency Medicine
DX: S00.81XA Abrasion of other part of head, initial encounter (principal); E11.9 Type 2 diabetes mellitus without complications; W01.10XA Fall on same level from slipping, tripping and stumbling with subsequent striking against unspecified object, initial encounter; I10 Essential (primary) hypertension; E78.5 Hyperlipidemia, unspecified; E03.9 Hypothyroidism, unspecified; Z79.82 Long term (current) use of aspirin; Z79.84 Long term (current) use of oral hypoglycemic drugs; Z79.890 Hormone replacement therapy; Z79.899 Other long term (current) drug therapy; Z86.73 Personal history of transient ischemic attack (TIA), and cerebral infarction without residual deficits
CPT/HCPCS: 70450; 70486; 72125; 93005; 99284

== ENCOUNTER 2024-08-19 09:29 | Emergency (ER) | payer MEDICARE, OTHER, SELFPAY ==
[2024-08-19] VITALS (9 sets, daily range): BP systolic 100–176; BP diastolic 53–72; PULSE 64–88; RESP 15–18; TEMP 36.4–37; O2SAT 84–99; BMI 24.9
--- NOTE | 2024-08-19 09:45 | EKG12_ITS ---
Test Reason : GENERAL Blood Pressure : */* mmHG Vent. Rate : 70 BPM Atrial Rate : 70 BPM P-R Int : 166 ms QRS Dur : 72 ms QT Int : 412 ms P-R-T Axes : 46 14 15 degrees QTcB Int : 444 ms Normal sinus rhythm Normal ECG Confirmed by ALLISON PÉREZ, ROSALINA ([id number]), editor greeting card OSWALDO STONE ([id number]) on 08/21/2024 8:29:21 AM Referred By: Confirmed By: ROSALINA COOPER MD
--- NOTE | 2024-08-19 09:46 | EDS_ITS ---
HPI History of Present Illness Chief Complaint: Hypotension Detail of Chief Complaint: Urinary retention and hypotension Informant: patient and spouse/S.O. Narrative Narrative: Patient brought to the emergency department via EMS from urologist's office whom she was seen this morning. Patient states that she woke up this morning and could not urinate. She last urinated yesterday and went to bed feeling fine. While in the urologist office they checked her vital signs and her blood pressure was 74/42 so EMS was called to bring her to the emergency department. Patient has had prior with urinary retention in the past. Patient also c urrently being treated for Hodgkin's lymphoma and last chemo was about 2 weeks ago. Patient apparently had a visit to [facility] about 2 weeks ago for an upper respiratory virus and then at that time also required 2 units of packed red cells. Patient denies recent illness. She denies recent fever. Patient had a bladder scan apparently at urologist office and had about 750 cc of urine in the bladder. [facility] Medical History Heart murmur Hyperlipemia Insomnia Vertigo Hodgkin lymphoma TIA (transient ischemic attack) HTN (hypertension) Breast cancer Hypothyroid Diabetes mellitus Home Medications ?Medication ?Instructions ?Recorded ?Last Taken ?Type aspirin 81 mg chewable tablet 81 mg PO DAILY@0800 hear t health 08/30/13 05/09/23 History metformin 1,000 mg tablet 1,000 mg PO BID blood sugar 08/30/13 10/16/18 History (Glucophage) metoprolol succinate 25 mg 25 mg PO DAILY blood pressu re 10/16/18 Unknown History tablet,extended release 24 hr atorvastatin 80 mg tablet 40 mg PO QHS 11/29/20 History levothyroxine 150 mcg tablet 150 mcg PO DAILY@0600 05/10/23 History allopurinol 300 mg tablet 300 mg PO DAILY 06/09/24 Unk nown History amlodipine 5 mg tablet 5 mg PO DAILY 06/09/24 Unkno wn History bethanechol chloride 50 mg tablet 50 mg PO BID 5 Unknown History docusate sodium 100 mg capsule 100 mg PO BID 06/09/24 Unknown History meloxicam 15 mg tablet 15 mg PO DAILY 06/09/24 Unkn own History oxycodone 5 mg tablet 5 mg PO Q6H PRN PRN pain Unknown History pantoprazole 40 mg tablet,delayed 40 mg PO DAILY 06/09 Unknown History release paroxetine HCl 20 mg tablet 30 mg PO DAILY 06/09/24 Un known History prednisone 20 mg tablet 20 mg PO DAILY 06/09/24 Unkn own History tramadol 50 mg tablet 50 mg PO Q6H PRN PRN severe pain 06/09/24 Unknown History trazodone 50 mg tablet 50 - 100 mg PO QHS PRN PRN i nsomnia 06/09/24 Unknown History Allergy/AdvReac Type Severity Reaction Status Date / Time lisinopril Allergy Unknown Verified 08/19/24 09:31 phenazopyridine HCl (From Allergy Unknown Verified 08/19/24 09:31 Pyridium) Sulfa (Sulfonamide Allergy Unknown Verified 08/19/24 09:31 Antibiotics) Surgical History Hx of bilateral mastectomy History of lumpectomy of left breast Social History Smoking Status: Never smoker ROS ROS ED Review of Systems ROS Unobtainable: other Constitutional Constitutional ED: Reports lethargy; Denies chills, fever(s), sweats or weight loss Eyes Eyes: Denies blurry vision, change in vision or diplopia ENT ENT ED: Denies rhinorrhea or sore throat Cardiovascular Cardiovascular: Denies chest pain, orthopnea or racing heartbeat Respiratory/Chest Respiratory/Chest: Denies cough, dyspnea, dyspnea on exertion, orthopnea or sputum Gastrointestinal Gastrointestinal: Reports nausea; Denies abdominal pain, diarrhea or vomiting Genitourinary Genitourinary ED: Reports other Details: Urinary retention ; Denies dysuria, hematuria or urinary frequency Musculoskeletal Musculoskeletal: Denies arthralgias, back pain, myalgias or neck pain Integumentary Denies abscess, Abrasions or rash Neurologic Neurologic: Reports weakness; Denies headache(s) Psychiatric Psychiatric: Denies anxiety, depression or suicidal thoughts Endocrine Endocrinology: Denies polydipsia, polyphagia or polyuria Hematologic/Lymphatic Hematologic/Lymphatic: Denies easy bleeding, easy bruising or lymphadenopathy Allergic/Immunologic Allergic/Immunologic ED: Denies mouth swelling, tongue swelling or urticaria EXAM Physical Exam Const Vital Signs: 08/19/24 09:31 08/19/24
--- NOTE | 2024-08-19 09:46 | EX.ED.DYSGE1 ---
HPI History of Present Illness Chief Complaint: Hypotension Detail of Chief Complaint: Urinary retention and hypotension Informant: patient and spouse/S.O. Narrative Narrative: Patient brought to the emergency department via EMS from urologist's office whom she was seen this morning. Patient states that she woke up this morning and could not urinate. She last urinated yesterday and went to bed feeling fine. While in the urologist office they checked her vital signs and her blood pressure was 74/42 so EMS was called to bring her to the emergency department. Patient has had prior with urinary retention in the past. Patient also currently being treated for Hodgkin's lymphoma and last chemo was about 2 weeks ago. Patient apparently had a visit to [facility] about 2 weeks ago for an upper respiratory virus and then at that time also required 2 units of packed red cells. Patient denies recent illness. She denies recent fever. Patient had a bladder scan apparently at urologist office and had about 750 cc of urine in the bladder. [facility] Medical History Heart murmur Hyperlipemia Insomnia Vertigo Hodgkin lymphoma TIA (transient ischemic attack) HTN (hypertension) Breast cancer Hypothyroid Diabetes mellitus Home Medications ?Medication ?Instructions ?Recorded ?Last Taken ?Type aspirin 81 mg chewable tablet 81 mg PO DAILY@0800 heart health 08/30/13 05/09/23 History metformin 1,000 mg tablet 1,000 mg PO BID blood sugar 08/30/13 10/16/18 History (Glucophage) metoprolol succinate 25 mg 25 mg PO DAILY blood pressure 10/16/18 Unknown History tablet,extended release 24 hr atorvastatin 80 mg tablet 40 mg PO QHS 11/29/20 05/09/23 History levothyroxine 150 mcg tablet 150 mcg PO DAILY@0600 11/29/20 05/10/23 History allopurinol 300 mg tablet 300 mg PO DAILY 06/09/24 Unknown History amlodipine 5 mg tablet 5 mg PO DAILY 06/09/24 Unknown History bethanechol chloride 50 mg tablet 50 mg PO BID 06/09/24 Unknown History docusate sodium 100 mg capsule 100 mg PO BID 06/09/24 Unknown History meloxicam 15 mg tablet 15 mg PO DAILY 06/09/24 Unknown History oxycodone 5 mg tablet 5 mg PO Q6H PRN PRN pain 06/09/24 Unknown History pantoprazole 40 mg tablet,delayed 40 mg PO DAILY 06/09/24 Unknown History release paroxetine HCl 20 mg tablet 30 mg PO DAILY 06/09/24 Unknown History prednisone 20 mg tablet 20 mg PO DAILY 06/09/24 Unknown History tramadol 50 mg tablet 50 mg PO Q6H PRN PRN severe pain 06/09/24 Unknown History trazodone 50 mg tablet 50 - 100 mg PO QHS PRN PRN insomnia 06/09/24 Unknown History Allergy/AdvReac Type Severity Reaction Status Date / Time lisinopril Allergy Unknown Verified 08/19/24 09:31 phenazopyridine HCl (From Allergy Unknown Verified 08/19/24 09:31 Pyridium) Sulfa (Sulfonamide Allergy Unknown Verified 08/19/24 09:31 Antibiotics) Surgical History Hx of bilateral mastectomy History of lumpectomy of left breast Social History Smoking Status: Never smoker ROS ROS ED Review of Systems ROS Unobtainable: other Constitutional Constitutional ED: Reports lethargy; Denies chills, fever(s), sweats or weight loss Eyes Eyes: Denies blurry vision, change in vision or diplopia ENT ENT ED: Denies rhinorrhea or sore throat Cardiovascular Cardiovascular: Denies chest pain, orthopnea or racing heartbeat Respiratory/Chest Respiratory/Chest: Denies cough, dyspnea, dyspnea on exertion, orthopnea or sputum Gastrointestinal Gastrointestinal: Reports nausea; Denies abdominal pain, diarrhea or vomiting Genitourinary Genitourinary ED: Reports other Details: Urinary retention ; Denies dysuria, hematuria or urinary frequency Musculoskeletal Musculoskeletal: Denies arthralgias, back pain, myalgias or neck pain Integumentary Denies abscess, Abrasions or rash Neurologic Neurologic: Reports weakness; Denies headache(s) Psychiatric Psychiatric: Denies anxiety, depression or suicidal thoughts Endocrine Endocrinology: Denies polydipsia, polyphagia or polyuria Hematologic/Lymphatic Hematologic/Lymphatic: Denies easy bleeding, easy bruising or lymphadenopathy Allergic/Immunologic Allergic/Immunologic ED: Denies mouth swelling, tongue swelling or urticaria EXAM Physical Exam Const Vital Signs: 08/19/24 09:31 08/19/24 09:36 08/19/24 09:36 Temperature 97.8 F 97.8 F Temperature Source Oral Oral Pulse Rate 71 72 Pulse Rate [Lying] Pulse Rate [Sitting (for 1 minute prior to obtaining)] Pulse Rate [Standing (for 1 minute prior to obtaining)] Respiratory Rate 18 18 Respiratory Effort Normal Respiratory Pattern Normal Blood Pressure 100/53 L 100/53 L Blood Pressure [Lying] Blood Pressure [Sitting (for 1 minute prior to obtaining)] Blood Pressure [Standing (for 1 minute prior to obtaining)] Blood Pressure Mean 68 68 Blood Pressure Mean [Lying] Blood Pressure Mean [Sitting (for 1 minute prior to obtaining)] Blood Pressure Mean [Standing (for 1 minute prior to obtaining)] Pulse Ox 94 92 Oxygen Delivery Method Room Air Room Air Oxygen Flow Rate (L/min) 08/19/24 10:36 08/19/24 11:00 08/19/24 12:00 Temperature 98.6 F 97.6 F L 97.7 F L Temperature Source Oral Oral Oral Pulse Rate 72 64 73 Pulse Rate [Lying] Pulse Rate [Sitting (for 1 minute prior to obtaining)] Pulse Rate [Standing (for 1 minute prior to obtaining)] Respiratory Rate 18 18 15 Respiratory Effort Respiratory Pattern Blood Pressure 113/56 L 113/53 L 152/70 H Blood Pressure [Lying] Blood Pressure [Sitting (for 1 minute prior to obtaining)] Blood Pressure [Standing (for 1 minute prior to obtaining)] Blood Pressure Mean 75 73 97 Blood Pressure Mean [Lying] Blood Pressure Mean [Sitting (for 1 minute prior to obtaining)] Blood Pressure Mean [Standing (for 1 minute prior to obtaining)] Pulse Ox 94 98 84 Oxygen Delivery Method Room Air Room Air Room Air Oxygen Flow Rate (L/min) 08/19/24 12:09 08/19/24 12:17 08/19/24 13:17 Temperature Temperature Source Pulse Rate 88 Pulse Rate [Lying] 73 Pulse Rate [Sitting (for 1 minute prior to obtaining)] 74 Pulse Rate [Standing (for 1 minute prior to obtaining)] 71 Respiratory Rate Respiratory Effort Respiratory Pattern Blood Pressure 164/68 H Blood Pressure [Lying] 148/65 H Blood Pressure [Sitting (for 1 minute prior to obtaining)] 160/72 H Blood Pressure [Standing (for 1 minute prior to obtaining)] 149/67 H Blood Pressure Mean 100 Blood Pressure Mean [Lying] 92 Blood Pressure Mean [Sitting (for 1 minute prior to obtaining)] 101 Blood Pressure Mean [Standing (for 1 minute prior to obtaining)] 94 Pulse Ox 93 99 Oxygen Delivery Method Nasal Cannula Room Air Oxygen Flow Rate (L/min) 2 Positive well nourished and well developed General Appearance ED: well developed and NAD HEENT Reports TM's clear and dry mucous membranes; Denies moist mucous membranes normocephalic and atraumatic; Negative for trauma or tenderness Tympanic Membrane ED: Yes TM's clear Mouth ED: Yes dry mucous membranes Mouth: dry mucous membranes Eyes PERRL and EOMs intact bilaterally General Eye ED: Negative for pale conjunctiva or scleral icterus Neck no lymphadenopathy, supple and no JVD General: Negative for tenderness Chest Wall inspection of chest normal and palpation of chest normal Chest: Negative for tenderness Resp normal respiratory effort and clear to auscultation bilaterally Effort and Inspection: Negative for respiratory distress or pain with movement Auscultation: Negative for rhonchi, wheezes or diminished lung sounds Cardio regular rate, regular rhythm, S1 normal heart sound, S2 normal heart sound and no murmurs Peripheral Pulses: pulses 2+ throughout GI normal to inspection, nondistended, normoactive bowel sounds, soft to palpation, non-distended and no masses GI Narrative: Mild suprapubic tenderness on palpation. There is no rebound, rigidity, or peritoneal signs Back/Spine no CVA tenderness and no thoracic nor lumbar tenderness Extremity normal to inspection General Extremety ED: Negative for edema General Extremity: Negative for edema Neuro oriented x3, CN's II-XII intact bilaterally, no sensory deficits noted and gait normal Sensorium / Orientation: awake, alert, oriented to person, oriented to place and oriented to time Motor Exam: strength 5/5 throughout and strength abnormal Psych mental status grossly normal Skin no rashes or lesions noted and no wounds MDM MDM MDM Narrative Medical decision making narrative: Patient presents from urologist office due to low blood pressure and inability to void. She tells me she really has not been sick and does not feel bad. She tells me she has had bladder problems all her life and she has had urinary retention in the past. She is currently undergoing chemotherapy and last chemo was about 2 weeks ago for treatment of Hodgkin's lymphoma. IV line established. CBC with differential obtained showed a white count of 3.9 with hemoglobin 10.4 platelet count of 107,000 with absolute neutrophil count of 2.6. Chemistries unremarkable. Lactate was elevated at 4.3 however I do not feel she septic. Urinalysis was negative for infection. She did have almost 800 cc of urine in her bladder on bladder scan therefore she had a Ashby catheter placed and immediately obtained more than 800 cc of urine in the bag. At this point she will be discharged to home with a leg bag. She did receive a liter normal saline fluid bolus here. She has not had any hypotensive blood pressures other than the initial 1 which was 100/53. The remaining blood pressures became actually hypertensive with systolics in the 130s then 140s and 150s and 160s Lab Data Attestation: I reviewed the patient's lab results. Labs: Laboratory Results - last 24 hr 08/19/24 08/19/24 10:46 10:48 WBC 3.9 L RBC 3.31 L Hgb 10.4 L Hct 32.6 L MCV 98.5 MCH 31.4 MCHC 31.9 L RDW Std Deviation 60.7 H RDW Coeff of Hitesh 17.0 H Plt Count 107 L MPV 11.6 Immature Gran % (Auto) 4.800 H Neut % (Auto) 66.9 Lymph % (Auto) 14.3 L [place] % (Auto) 11.7 H Eos % (Auto) 1.8 Baso % (Auto) 0.5 Absolute Neuts (auto) 2.6 Absolute Lymphs (auto) 0.56 L Nucleated RBC % 0 Sodium 136 Potassium 4.8 Chloride 102 Carbon Dioxide 19.1 L Anion Gap 15 BUN 15 Creatinine 0.84 Estim Creat Clear Calc 51.67 Est GFR (MDRD) Non-Af 71 BUN/Creatinine Ratio 18.1 Glucose 186 H Lactic Acid 4.3 H* Calcium 9.8 Urine Color Yellow Urine Clarity Clear Urine pH 6.0 Ur Specific [place] 1.020 Urine Protein 15 H Urine Glucose (UA) Normal Urine Ketones Negative Urine Occult Blood Negative Urine Nitrite Negative Urine Bilirubin Negative Urine Urobilinogen Normal Ur Leukocyte Esterase Negative Urine RBC 0-5 SEEN Urine WBC 0-5 SEEN Ur Squamous Epith Cells 0 SEEN Urine Bacteria 0 SEEN Hyaline Casts 5-10 SEEN Urine Mucus 0 SEEN EKG Initial EKG: Attestation: I personally reviewed and interpreted this EKG as follows: Comments: Sinus rhythm with rate of 70 bpm with no acute ST segment changes Discharge Plan Triage Chief Complaint: Hypotension Other Complaint: Complaint ED Provider: Antolin Mcnulty Dx/Rx/DC Orders Clinical Impression: Acute urinary retention Instructions: ED Urinary Retention, Female Prescriptions: No Action metformin [Glucophage] 1,000 MG tablet 1,000 mg PO BID Patient Comments: Diabetes aspirin 81 MG tablet,chewable 81 mg PO DAILY@0800 Patient Comments: Heart Health metoprolol succinate 25 MG tablet extended release 24 hr 25 mg PO DAILY atorvastatin 80 MG tablet 40 mg PO QHS levothyroxine 150 MCG tablet 150 mcg PO DAILY@0600 trazodone 50 mg tablet 50 - 100 mg PO QHS PRN PRN (Reason: insomnia) meloxicam 15 mg tablet 15 mg PO DAILY prednisone 20 mg tablet 20 mg PO DAILY amlodipine 5 mg tablet 5 mg PO DAILY tramadol 50 mg tablet 50 mg PO Q6H PRN PRN (Reason: severe pain) paroxetine HCl 20 mg tablet 30 mg PO DAILY Patient Comments: [NO ORIGINAL SIG] pantoprazole 40 mg tablet,delayed release (DR/EC) 40 mg PO DAILY docusate sodium 100 mg capsule 100 mg PO BID allopurinol 300 mg tablet 300 mg PO DAILY bethanechol chloride 50 mg tablet 50 mg PO BID oxycodone 5 mg tablet 5 mg PO Q6H PRN PRN (Reason: pain) Primary Care Provider: Christopher Luis Referrals: Christopher Luis MD [Primary Care Provider] - Activity Restrictions/Additional Instructions: Follow-up with your urologist in 5 to 7 days to have the Ashby catheter removed Print Language: Tamazight Disposition Disposition: Home, Self Care
[2024-08-19] MEDS: 0.9% Normal Saline (1000mL) 1,000 ML 1000 ML IV (11:06)
[2024-08-19 11:26] LABS: Absolute Lymphocyte Count 0.56 X10^3/uL (0.83-4.51); Absolute Neutrophil Count 2.6 X10^3/uL (2.0-7.7); Basophil# 0.02 X10^3/uL; Basophil% 0.5 % (0-1); Eosinophil# 0.07 X10^3/uL; Eosinophils% 1.8 % (0-5); Hematocrit 32.6 % (37-47); Hemoglobin 10.4 g/dL (12.0-15.0); Lymphocyte # 0.56 X10^3/ul (0.83-4.51); Lymphocyte % 14.3 % (19-41); Mean Corp Hgb Conc 31.9 g/dL (32-36); Mean Corpuscular Hgb 31.4 pg (27.0-32.0); Mean Corpuscular Volume 98.5 fL (81-99); Mean Platelet Vol. 11.6 fl (6.2-12.0); Monocyte# 0.46 X10^3/uL; Monocyte% 11.7 % (0-10); NRBC Flagged by Analyzer 0 % (0-5); Neutrophil # 2.62 X10^3/uL (2.7-7.7); Neutrophil % 66.9 % (47-70); POSITIVE DIFFERENTIAL YES; Platelet Count 107 K/mm3 (150-450); RBC Distribution Width SD 60.7 fl (35.1-43.9); Red Blood Count 3.31 M/mm3 (4.2-5.4); White Blood Count 3.9 K/mm3 (4.4-11.0)
[2024-08-19 11:46] LABS: Bacteria 0 SEEN /hpf (None Seen); Mucous, Urine 0 SEEN /hpf (<or=2+); Squamous Epithelial Cells - UA 0 SEEN /hpf (5-10)
[2024-08-19 11:57] LABS: Anion Gap 15 (5-15); BUN 15 mg/dL (4-19); BUN/Creat Ratio 18.1 RATIO (10-20); Calcium,Total 9.8 mg/dL (7.6-11.0); Carbon Dioxide 19.1 mmol/L (21.0-32.0); Chloride 102 mmol/L (98-108); Creatinine, Serum 0.84 mg/dL (0.70-1.20); EST Glomerular Filtration Rate 71 (>60); Estimated Creatinine Clearance 51.67 ml/min (50-250); Glucose 186 mg/dL (70-99); Potassium 4.8 mmol/L (3.3-5.1); Sodium Level 136 mmol/L (133-145)
[2024-08-19 12:06] LABS: Lactic Acid 4.3 mmol/L (0.0-2.0)
[2024-08-19 12:58] LABS: Color, Urine Yellow (Yellow); Glucose, Dipstick Normal (Normal); Ketone-Dipstick Negative (Negative); Leukocyte Esterase-Dipstick Negative /ul (Negative); Nitrite-Dipstick Negative (Negative); Occult Blood-Urine Negative /ul (Negative); Protein-Dipstick 15 mg/dl (Negative); Urine Bilirubin Dipstick Negative (Negative); Urine Clarity Clear (Clear); Urine Urobilinogen Normal (Normal)
[2024-08-19 13:11] LABS: Red Blood Cells-Urine 0-5 SEEN /hpf (0-5); White Blood Cells 0-5 SEEN /hpf (0-5)
[2024-08-19 13:12] LABS: Hyaline Cast 5-10 SEEN /lpf (0-5)
[2024-08-19 15:33] LABS: Reflex Lactate? Y
== END 2024-08-19 15:00 | disposition home or self-care (01) ==
PROVIDERS: Emergency Provider Emergency Medicine; PCP Family Medicine; Visit Provider Emergency Medicine
DX: R33.9 Retention of urine, unspecified (principal); C81.90 Hodgkin lymphoma, unspecified, unspecified site; E11.9 Type 2 diabetes mellitus without complications; I95.9 Hypotension, unspecified; R74.8 Abnormal levels of other serum enzymes; I10 Essential (primary) hypertension; E78.5 Hyperlipidemia, unspecified; E03.9 Hypothyroidism, unspecified; Z79.84 Long term (current) use of oral hypoglycemic drugs; Z79.82 Long term (current) use of aspirin; Z79.890 Hormone replacement therapy; Z79.899 Other long term (current) drug therapy; Z86.73 Personal history of transient ischemic attack (TIA), and cerebral infarction without residual deficits
CPT/HCPCS: 36415; 36591; 51702; 80048; 81001; 83605; 85025; 87040; 93005; 96360; 99285; A4216

== ENCOUNTER 2024-10-16 18:07 | Observation (INO) | payer MEDICARE, OTHER, SELFPAY ==
[2024-10-16] VITALS (11 sets, daily range): BP systolic 107–149; BP diastolic 59–96; PULSE 86–100; RESP 14–18; TEMP 36.6; O2SAT 95–100; BMI 22.6; BMI 21.8
--- NOTE | 2024-10-16 18:10 | ED.RN ---
Dr. Betts in triage to Eval patient at this time
--- NOTE | 2024-10-16 18:11 | ED.RN ---
Dr. Betts eval patient at this time no concern for stroke team at this time. Will work patient up at this time
--- NOTE | 2024-10-16 18:14 | EKG12_ITS ---
Test Reason : DYSRHYTHMIA Blood Pressure : */* mmHG Vent. Rate : 87 BPM Atrial Rate : 87 BPM P-R Int : 172 ms QRS Dur : 74 ms QT Int : 352 ms P-R-T Axes : 45 23 34 degrees QTcB Int : 423 ms Normal sinus rhythm Normal ECG Confirmed by BELKYS PÉREZ, KAEL ([id number]), editor greeting card OSWALDO STONE ([id number]) on 10/20/2024 6:29:35 AM Referred By: Confirmed By: KAEL RIZVI MD
--- NOTE | 2024-10-16 18:14 | CT_ITS ---
PROCEDURE: STROKE BRAIN/HEAD WITHOUT CONT 10/16/2024 REASON FOR EXAM: NEURO DEFICIT, ACUTE, STROKE SUSPECTED TECHNIQUE: Head CT without intravenous contrast. Coronal and Sagittal reconstruction series were provided. One or more dose reduction techniques were used (e.g., Automated exposure control, adjustment of the mA and/or kV according to patient size, use of iterative reconstruction technique. RADIATION DOSE SUMMARY: CTDlvol: 45.0 mGy DLP: 796 mGycm COMPARISON: CT head on 06/16/2024 FINDINGS: Brain: No acute intracranial hemorrhage, mass effect, or midline shift. Extensive low density in the deep cerebral white matter most likely represents advanced chronic small vessel ischemic disease. Holman- white differentiation is otherwise maintained. CSF Spaces: Moderate generalized cerebral atrophy Sinuses/Mastoids: Predominantly clear at visualized levels Bones: No displaced calvarial fracture. Atherosclerotic calcification of the intracranial vasculature. CT/STROKE Brain/Head without Cont IMPRESSION: Senescent changes, without acute intracranial abnormality. Consider MRI if the re is persistent concern for acute ischemia. Impression in this case discussed by phone with Dr. Sebastián Betts on 10/16/2024 a t 7:25pm. Reading Location: [id number]
--- NOTE | 2024-10-16 18:15 | CT_ITS ---
PROCEDURE: STROKE CTA HEAD AND NECK W/CON 10/16/2024 REASON FOR EXAM: NEURO DEFICIT, ACUTE, STROKE SUSPECTED TECHNIQUE: CTA imaging of the head and neck from the aortic arch to the skull vertex with out contrast and with intravenous contrast. Multiplanar and multisequence images were obtained. One or more dose reduction techniques were used (e.g., Automated exposure control, adjustment of the mA and/or kV according to patient size, use of iterative reconstruction technique). COMPARISON: None FINDINGS: Aortic Arch: No significant stenosis. Brachiocephalic and Subclavians: No significant stenosis. RIGHT Carotid: Right CCA: No significant stenosis. Right ICA: Nondiagnostic due to motion artifact proximally. Mid to distal aspects of the right common carotid artery are without significant stenosis. Right ECA: No significant stenosis. LEFT Carotid: Left CCA: No significant stenosis. Left ICA: No significant stenosis within the limits of motion artifact. Left ECA: No significant stenosis. Vertebrals: RIGHT Vertebral: Severely diminutive with proximal segmental occlusion. LEFT Vertebral: Dominant. No significant stenosis. No suspicious neck mass or adenopathy. No acute osseous abnormality. Moderate degenerative changes from C5 through C7. Lung apices are clear. No large vessel high-grade stenosis or occlusion involving the [id number]. No sizable aneurysm. CT/STROKE CTA Head AND Neck W/Con IMPRESSION: 1. Nondiagnostic evaluation of the proximal right ICA due to motion artifact. Otherwise, no significant carotid artery stenosis as visualized. 2. 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 Dominant left vertebral artery without significant stenosis. 3. No large vessel occlusion, high-grade stenosis or aneurysm of the [place]. Reading [facility]
--- NOTE | 2024-10-16 18:17 | ED.VIS.STROK ---
HPI History of Present Illness Chief Complaint: Neuro S/Sx Informant: patient and spouse/S.O. Onset/Context/Timing Onset: Today and Hours Context: Gradual Onset Timing: Intermittent Current Severity: Mild Maximum Severity: Mild Associated Symptoms Associated Symptoms: Negative for Headache, Nausea, Vomiting or Chest Pain Narrative Narrative: 79-year-old female history of non-Hodgkin's lymphoma currently off chemotherapy. Prior TIAs x 3 on only baby aspirin. She also has a history of diabetes. Today had decreased balance. Denies any falls or headache. said she seemed off balance and he helped her. She denies recent illness. Denies vomiting or diarrhea. She has a chronic indwelling Ashby catheter. Denies any fever or chills. Prior similar symptoms: Yes Recent Illness/Hospitalization: No PFSH [facility], [facility]ER [facility] Medical History (Updated 10/16/24 @ 22:[address] Sebastián Betts MD) Non-Hodgkin lymphoma Heart murmur Hyperlipemia Insomnia Vertigo Hodgkin lymphoma TIA (transient ischemic attack) HTN (hypertension) Breast cancer Hypothyroid Diabetes mellitus Home Medications ?Medication ?Instructions ?Recorded ?Last Taken ?Type aspirin 81 mg chewable tablet 81 mg PO DAILY@0800 heart health 08/30/13 05/09/23 History metformin 1,000 mg tablet 1,000 mg PO BID blood sugar 08/30/13 10/16/18 History (Glucophage) metoprolol succinate 25 mg 25 mg PO DAILY blood pressure 10/16/18 Unknown History tablet,extended release 24 hr atorvastatin 80 mg tablet 40 mg PO QHS 11/29/20 05/09/23 History levothyroxine 150 mcg tablet 150 mcg PO DAILY@0600 11/29/20 05/10/23 History allopurinol 300 mg tablet 300 mg PO DAILY 06/09/24 Unknown History amlodipine 5 mg tablet 5 mg PO DAILY 06/09/24 Unknown History bethanechol chloride 50 mg tablet 50 mg PO BID 06/09/24 Unknown History docusate sodium 100 mg capsule 100 mg PO BID 06/09/24 Unknown History meloxicam 15 mg tablet 15 mg PO DAILY 06/09/24 Unknown History oxycodone 5 mg tablet 5 mg PO Q6H PRN PRN pain 06/09/24 Unknown History pantoprazole 40 mg tablet,delayed 40 mg PO DAILY 06/09/24 Unknown History release paroxetine HCl 20 mg tablet 30 mg PO DAILY 06/09/24 Unknown History prednisone 20 mg tablet 20 mg PO DAILY 06/09/24 Unknown History tramadol 50 mg tablet 50 mg PO Q6H PRN PRN severe pain 06/09/24 Unknown History trazodone 50 mg tablet 50 - 100 mg PO QHS PRN PRN insomnia 06/09/24 Unknown History Allergy/AdvReac Type Severity Reaction Status Date / Time lisinopril Allergy Unknown Verified 10/16/24 18:08 phenazopyridine HCl (From Allergy Unknown Verified 10/16/24 18:08 Pyridium) Sulfa (Sulfonamide Allergy Unknown Verified 10/16/24 18:08 Antibiotics) Surgical History Hx of bilateral mastectomy History of lumpectomy of left breast Social History Smoking Status: Never smoker ROS ROS ED ROS Narrative Denies recent illness. Constitutional Constitutional ED: Denies chills or fever(s) Eyes Eyes: Denies blurry vision ENT ENT ED: Denies ear pain Cardiovascular Cardiovascular: Denies chest pain Respiratory/Chest Respiratory/Chest: Denies cough or dyspnea Gastrointestinal Gastrointestinal: Denies abdominal pain, diarrhea, nausea or vomiting Genitourinary Genitourinary ED: Denies dysuria or hematuria Musculoskeletal Musculoskeletal: Denies arthralgias or back pain Integumentary Denies abscess or Abrasions Neurologic Neurologic: Denies headache(s) Psychiatric Psychiatric: Denies anxiety Endocrine Endocrinology: Denies polydipsia Hematologic/Lymphatic Hematologic/Lymphatic: Denies easy bleeding, easy bruising or lymphadenopathy Allergic/Immunologic Allergic/Immunologic ED: Denies mouth swelling or urticaria EXAM Physical Exam Narrative Exam Narrative: Well-appearing 79-year-old female. Vital signs are stable afebrile. Pulse ox 100% on room air no hypoxia.. In triage room 1. present. H EENT exam pupils round react light. Motions are intact. Normal speech. No facial droop. No trauma. Neck nontender. Lungs clear to auscultation bilaterally. Heart regular rhythm rate about 94 for 6 systolic ejection murmur. Chest wall and ribs nontender. Abdomen soft nontender. Moving all 4 extremities. Normal consumer banker strength. Normal dorsi plantarflexion. No edema. Back nontender. Neurologically she is awake alert. Answering questions following commands. No focal motor deficits. She has normal consumer banker strength bilaterally. Normal dorsi plantarflexion. She has no drift of either arm or leg. NIH score currently is 0. Const Vital Signs: 10/16/24 18:08 10/16/24 18:14 10/16/24 18:23 Temperature 97.8 F 97.8 F Temperature Source Temporal Oral Pulse Rate 87 87 Pulse Rate [Lying] Pulse Rate [Sitting (for 1 minute prior to obtaining)] Pulse Rate [Standing (for 1 minute prior to obtaining)] Respiratory Rate 18 18 Blood Pressure 107/64 107/64 Blood Pressure [Lying] Blood Pressure [Sitting (for 1 minute prior to obtaining)] Blood Pressure [Standing (for 1 minute prior to obtaining)] Blood Pressure Mean 78 78 Blood Pressure Mean [Lying] Blood Pressure Mean [Sitting (for 1 minute prior to obtaining)] Blood Pressure Mean [Standing (for 1 minute prior to obtaining)] Pulse Ox 100 100 Oxygen Delivery Method Room Air Room Air Room Air 10/16/24 18:44 10/16/24 19:14 10/16/24 19:30 Temperature Temperature Source Pulse Rate 86 97 92 Pulse Rate [Lying] Pulse Rate [Sitting (for 1 minute prior to obtaining)] Pulse Rate [Standing (for 1 minute prior to obtaining)] Respiratory Rate 14 14 16 Blood Pressure 125/70 H 140/59 H 139/72 H Blood Pressure [Lying] Blood Pressure [Sitting (for 1 minute prior to obtaining)] Blood Pressure [Standing (for 1 minute prior to obtaining)] Blood Pressure Mean 88 86 94 Blood Pressure Mean [Lying] Blood Pressure Mean [Sitting (for 1 minute prior to obtaining)] Blood Pressure Mean [Standing (for 1 minute prior to obtaining)] Pulse Ox 98 97 Oxygen Delivery Method Room Air Room Air 10/16/24 19:59 10/16/24 20:00 10/16/24 21:00 Temperature Temperature Source Pulse Rate 87 89 Pulse Rate [Lying] 92 Pulse Rate [Sitting (for 1 minute prior to obtaining)] 100 Pulse Rate [Standing (for 1 minute prior to obtaining)] 97 Respiratory Rate 16 18 Blood Pressure 115/64 138/96 H Blood Pressure [Lying] 139/72 H Blood Pressure [Sitting (for 1 minute prior to obtaining)] 148/80 H Blood Pressure [Standing (for 1 minute prior to obtaining)] 115/64 Blood Pressure Mean 81 110 Blood Pressure Mean [Lying] 94 Blood Pressure Mean [Sitting (for 1 minute prior to obtaining)] 102 Blood Pressure Mean [Standing (for 1 minute prior to obtaining)] 81 Pulse Ox 95 98 Oxygen Delivery Method Room Air 10/16/24 22:00 10/16/24 22:27 10/16/24 22:27 Temperature 97.8 F 97.8 F Temperature Source Oral Pulse Rate 87 87 87 Pulse Rate [Lying] Pulse Rate [Sitting (for 1 minute prior to obtaining)] Pulse Rate [Standing (for 1 minute prior to obtaining)] Respiratory Rate 16 16 Blood Pressure 148/86 H 148/86 H 148/86 H Blood Pressure [Lying] Blood Pressure [Sitting (for 1 minute prior to obtaining)] Blood Pressure [Standing (for 1 minute prior to obtaining)] Blood Pressure Mean 106 106 106 Blood Pressure Mean [Lying] Blood Pressure Mean [Sitting (for 1 minute prior to obtaining)] Blood Pressure Mean [Standing (for 1 minute prior to obtaining)] Pulse Ox 96 96 96 Oxygen Delivery Method Room Air Room Air Positive well nourished and well developed; Negative for obese, cachectic, contractures or unkempt General Appearance ED: well developed and NAD; Negative for unkempt, cachectic or contractures Nutritional Appearance: Negative for cachectic or obese HEENT Reports moist mucous membranes atraumatic Eyes PERRL and EOMs intact bilaterally General Eye ED: Negative for pale conjunctiva or scleral icterus Neck no lymphadenopathy, supple and no JVD General: Negative for tenderness Thyroid: Negative for other Chest Wall inspection of chest normal and palpation of chest normal Resp normal respiratory effort Effort and Inspection: Negative for retractions Auscultation: Negative for rales, rhonchi, wheezes or diminished lung sounds Cardio Negative for no murmurs Cardio Narrative: 4 / 6 systolic ejection murmur. Rate: regular rate Rhythm: regular rhythm GI normal to inspection, nondistended, normoactive bowel sounds, soft to palpation, non-tender, non-distended and no masses Inspection: Negative for abdominal distention Auscultation: normoactive bowel sounds Palpation: Negative for tender or guarding Back/Spine no CVA tenderness General Back: Negative for CVA tenderness Cervical Spine: Negative for cervical spine tenderness Thoracic Spine / Upper Back: Negative for thoracic spinal tenderness Lumbar Spine / Lower Back: Negative for lumbar spinal tenderness Extremity normal to inspection General Extremety ED: Negative for deformity, edema or tenderness General Extremity: Negative for deformity or edema Neuro oriented x3 and CN's II-XII intact bilaterally Sensorium / Orientation: alert, oriented to person, oriented to place and oriented to time; Negative for orientation impaired, confused, lethargic or stuporous Speech: speech normal Motor Exam: strength 5/5 throughout Psych mental status grossly normal Appearance: Negative for unkempt Skin no wounds General Skin Exam: Negative for jaundice Lesions: no lesions Rashes: no rashes MDM MDM MDM Narrative Medical decision making narrative: 79-year-old female off balance at home. Exam is benign in triage. Will do a stroke workup but she really did not qualify for stroke team. Currently her NIH is 0. She is not a thrombolytic candidate currently. Repeat exam patient is doing well at 10:20 PM. Went over test results with her and her . We do not have a specific diagnosis. She may or may not have had a TIA. Urine looks like it may be infected but she has a chronic indwelling Ashby catheter. This could also be colonization. She has recently been on antibiotics through her [facility] physicians. I spoke to her and her and the hospitalist she will be admitted overnight for evaluation for possible TIA. Ashby catheter be changed. Urine cultures pending. History & Record Review Discussion w/independent historian: Patient and Family () Additional record(s) reviewed:: Prior inpatient record, Prior outpatient record, Prior ED visit and Prior labs Lab Data Attestation: I reviewed the patient's lab results. Lab results narrative: PT/INR of 12 and 1 Electrolytes show sodium 136. Gap 10. Normal BUN and creatinine. Glucose 109. Initial troponin 43. 2-hour troponin is only 45. UA is positive nitrates. Greater than 100 white cells 2+ bacteria be treated as UTI. Urine culture will be sent. Labs: Laboratory Results - last 24 hr 10/16/24 10/16/24 10/16/24 18:40 19:20 19:40 WBC 7.0 RBC 2.77 L Hgb 9.0 L Hct 27.3 L MCV 98.6 MCH 32.5 H MCHC 33.0 RDW Std Deviation 58.4 H RDW Coeff of Hitesh 16.3 H Plt Count 111 L MPV 10.6 Neut % (Auto) Not Reportable Absolute Neuts (auto) 4.4 Absolute Lymphs (auto) 1.47 Total Counted 100 Neutrophils % (Manual) 63 Band Neutrophils % 2 Lymphocytes % (Manual) 21 Monocytes % (Manual) 7 Eosinophils % (Manual) 1 Metamyelocytes % 6 H Diff Path Review May foll Platelet Estimate ADEQUATE Anisocytosis 1+ PT 12.8 INR 1.0 APTT 27.4 Sodium 136 Potassium 4.3 Chloride 102 Carbon Dioxide 24.4 Anion Gap 10 BUN 10 Creatinine 0.72 Estim Creat Clear Calc 54.26 Est GFR (MDRD) Non-Af 86 BUN/Creatinine Ratio 13.6 Glucose 109 H Calcium 9.0 Troponin T High Sens 43 H Troponin T Hi Sens 2 Hr Urine Color Straw Urine Clarity Sl. Cloudy Urine pH 6.5 Ur Specific [place] 1.010 Urine Protein 30 H Urine Glucose (UA) Normal Urine Ketones Negative Urine Occult Blood 25 H Urine Nitrite Positive H Urine Bilirubin Negative Urine Urobilinogen Normal Ur Leukocyte Esterase 500 H Urine RBC 0 SEEN Urine WBC >100 SEEN Ur Squamous Epith Cells 0 SEEN Urine Bacteria 2+ Urine Mucus 0 SEEN POC Glucose 180 H 10/16/24 20:50 WBC RBC Hgb Hct MCV MCH MCHC RDW Std Deviation RDW Coeff of Hitesh Plt Count MPV Neut % (Auto) Absolute Neuts (auto) Absolute Lymphs (auto) Total Counted Neutrophils % (Manual) Band Neutrophils % Lymphocytes % (Manual) Monocytes % (Manual) Eosinophils % (Manual) Metamyelocytes % Diff Path Review Platelet Estimate Anisocytosis PT INR APTT Sodium Potassium Chloride Carbon Dioxide Anion Gap BUN Creatinine Estim Creat Clear Calc Est GFR (MDRD) Non-Af BUN/Creatinine Ratio Glucose Calcium Troponin T High Sens Troponin T Hi Sens 2 Hr 45 H Urine Color Urine Clarity Urine pH Ur Specific [place] Urine Protein Urine Glucose (UA) Urine Ketones Urine Occult Blood Urine Nitrite Urine Bilirubin Urine Urobilinogen Ur Leukocyte Esterase Urine RBC Urine WBC Ur Squamous Epith Cells Urine Bacteria Urine Mucus POC Glucose Radiography Chest X-Ray - ED: 1 View Diagnostic Testing: Clinical Impression(s) from Imaging Studies Brain CT 10/16/24 18:14 IMPRESSION: Senescent changes, without acute intracranial abnormality. Consider MRI if there is persistent concern for acute ischemia. Impression in this case discussed by phone with Dr. Sebastián Betts on 10/16/2024 at 7:25pm. Reading Location: [facility] Head/Neck CTA 10/16/24 18:15 IMPRESSION: 1. Nondiagnostic evaluation of the proximal right ICA due to motion artifact. Otherwise, no significant carotid artery stenosis as visualized. 2. 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 Dominant left vertebral artery without significant stenosis. 3. No large vessel occlusion, high-grade stenosis or aneurysm of the [id number]. Reading Location: [facility] Chest X-Ray 10/16/24 19:05 IMPRESSION: No focal consolidation. Mild blunting of the left costophrenic angle could be the result of atelectasis/scarring or a trace pleural effusion. Reading Location: [facility] Chest x-ray, portable, single view, interpreted by myself radiologist shows no acute abnormality. Normal cardiac silhouette. Normal lung shepherd. No acute abnormality. Chronic changes. CT brain shows no acute abnormality. Chronic changes. Read by the radiologist. Rhythm Strip Rhythm Strip: Sinus Rhythm Rate: 87 Ectopy: None EKG Initial EKG: Attestation: I personally reviewed and interpreted this EKG as follows: Interpretation: Sinus Rhythm and No Acute Injury Pattern Comments: Normal sinus rhythm rate 87 no acute signs of [place] or ischemia. Discharge Plan Triage Chief Complaint: Neuro S/Sx ED Provider: Sebastián Betts Dx/Rx/DC Orders Clinical Impression: Weakness, History of recurrent TIAs, Chronic anemia, Acute UTI, History of lymphoma Prescriptions: No Action metformin [Glucophage] 1,000 MG tablet 1,000 mg PO BID Patient Comments: Diabetes aspirin 81 MG tablet,chewable 81 mg PO DAILY@0800 Patient Comments: Heart Health metoprolol succinate 25 MG tablet extended release 24 hr 25 mg PO DAILY atorvastatin 80 MG tablet 40 mg PO QHS levothyroxine 150 MCG tablet 150 mcg PO DAILY@0600 trazodone 50 mg tablet 50 - 100 mg PO QHS PRN PRN (Reason: insomnia) meloxicam 15 mg tablet 15 mg PO DAILY prednisone 20 mg tablet 20 mg PO DAILY amlodipine 5 mg tablet 5 mg PO DAILY tramadol 50 mg tablet 50 mg PO Q6H PRN PRN (Reason: severe pain) paroxetine HCl 20 mg tablet 30 mg PO DAILY Patient Comments: [NO ORIGINAL SIG] pantoprazole 40 mg tablet,delayed release (DR/EC) 40 mg PO DAILY docusate sodium 100 mg capsule 100 mg PO BID allopurinol 300 mg tablet 300 mg PO DAILY bethanechol chloride 50 mg tablet 50 mg PO BID oxycodone 5 mg tablet 5 mg PO Q6H PRN PRN (Reason: pain) Primary Care Provider: Christopher Luis Referrals: Christopher Luis MD [Primary Care Provider] - Print Language: Icelandic Disposition Disposition: [facility] NIHSS Stroke Questions Stroke Team Activated: No Reviewed Inclusion/Exclusion criteria: Yes Was Patient considered for Endovascular Intervention?: Yes IV Thrombolytic Administered: No No contraindications from thrombolytic administration: No
--- NOTE | 2024-10-16 19:05 | RAD_ITS ---
PROCEDURE: CHEST 1 VIEW (PORTABLE) 10/16/2024 REASON FOR EXAM: WEAKNESS TECHNIQUE: Frontal view of the chest. COMPARISON: Chest radiograph dated 11/22/2023 FINDINGS: Hardware: Right chest port with tip terminating at the superior cavoatrial junction. Heart: Cardiac and mediastinal contours are stable. Aortic atherosclerosis. Lungs: No focal consolidation. There is mild blunting of the left costophrenic angle. Bones: Degenerative changes are identified within the thoracic spine. Surgical clips project over the left upper abdomen. RAD/Chest 1 View (Portable) IMPRESSION: No focal consolidation. Mild blunting of the left costophrenic angle could be the result of atelectasis/scarring or a trace pleural effusion. Reading Location: [facility]
[2024-10-16 19:07] LABS: Hematocrit 27.3 % (37-47); Mean Corpuscular Hgb 32.5 pg (27.0-32.0); Mean Corpuscular Volume 98.6 fL (81-99); Mean Platelet Vol. 10.6 fl (6.2-12.0); POSITIVE COUNT YES; POSITIVE MORPHOLOGY YES; Platelet Count 111 K/mm3 (150-450); RBC Distribution Width CV 16.3 % (11.6-14.6); RBC Distribution Width SD 58.4 fl (35.1-43.9); Red Blood Count 2.77 M/mm3 (4.2-5.4)
[2024-10-16 19:23] LABS: Anion Gap 10 (5-15); BUN 10 mg/dL (4-19); BUN/Creat Ratio 13.6 RATIO (10-20); Carbon Dioxide 24.4 mmol/L (21.0-32.0); Chloride 102 mmol/L (98-108); Creatinine, Serum 0.72 mg/dL (0.70-1.20); EST Glomerular Filtration Rate 86 (>60); Estimated Creatinine Clearance 54.26 ml/min (50-250); Glucose 109 mg/dL (70-99); Potassium 4.3 mmol/L (3.3-5.1); Sodium Level 136 mmol/L (133-145); Troponin T High Sensitivity 43 ng/L (<=14)
[2024-10-16 19:39] LABS: Bedside Glucose 180 mg/dL (74-106)
[2024-10-16 19:42] LABS: Partial Thromboplast Time 27.4 Seconds (24.1-36.2); Prothrombin Time (Protime)PT. 12.8 SECONDS (11.7-14.9)
[2024-10-16 19:50] LABS: Mucous, Urine 0 SEEN /hpf (<or=2+); Red Blood Cells-Urine 0 SEEN /hpf (0-5); Squamous Epithelial Cells - UA 0 SEEN /hpf (5-10)
--- NOTE | 2024-10-16 20:12 | ED.RN ---
Per Dr Alpesh Rendon to stop [facility]
[2024-10-16 20:32] LABS: Color, Urine Straw (Yellow); Glucose, Dipstick Normal (Normal); Ketone-Dipstick Negative (Negative); Leukocyte Esterase-Dipstick 500 /ul (Negative); Nitrite-Dipstick Positive (Negative); Occult Blood-Urine 25 /ul (Negative); Protein-Dipstick 30 mg/dl (Negative); Urine Bilirubin Dipstick Negative (Negative); Urine Clarity Sl. Cloudy (Clear); Urine Urobilinogen Normal (Normal); Urine pH 6.5 (5.0 - 8.0)
[2024-10-16 21:32] LABS: Bacteria 2+ /hpf (None Seen); White Blood Cells >100 SEEN /hpf (0-5)
[2024-10-16 21:38] LABS: Differential Indicated MANUAL DIFF
[2024-10-16 21:45] LABS: Eosinophil 1 % (0-5); Lymphocyte 21 % (19-41); Metamyelocyte 6 % (0-1); Monocyte 7 % (0-10); Neutrophil-Band 2 % (0-5); Neutrophil-Segmented 63 % (47-70); Total Cells Counted 100 (MANUAL DIFF)
[2024-10-16 21:47] LABS: Absolute Neutrophil Count 4.4 X10^3/uL (2.0-7.7)
[2024-10-16 21:48] LABS: Absolute Lymphocyte Count 1.47 X10^3/uL (0.83-4.51)
[2024-10-16 21:49] LABS: Platelet Estimate ADEQUATE (ADEQ)
[2024-10-16 21:52] LABS: Anisocytosis 1+
[2024-10-16 22:15] LABS: Troponin T High Sens 2 HR 45 ng/L (<=14)
--- NOTE | 2024-10-16 22:19 | PCM.HP.STD ---
HPI - General General Date of Admission: 10/16/24 Date of Service: 10/16/24 Chief Complaint: Off balance HPI Narrative The patient is a 79 y/o F w/ PMHx: Non-Hodgkin's lymphoma previously on chemotherapy currently considered in remission, Hx of breast cancer unclear type status post bilateral mastectomy currently considered remission, Anxiety and Depression, GERD, Gout, Hypothyroidism, Diabetes mellitus type II, Chronic pain syndrome, HTN, HLD, Hx TIA who presents to the [facility] ED on 10/16/24 with history of general malaise, being off balance starting on day of presentation lasting several hours noted to be waxing and waning require 's help as she nearly fell over but did not hurt herself and there is any trauma with no recent specific reported illness nor any recent fevers, chills, nausea, emesis, abdominal pain but given this presentation and history of previous TIA prompted ED evaluation. Patient had her Ashby catheter changed approximately 2 to 3 weeks previously she notes and does follow with urology. She denies any resistance pattern history as far as antibiotic therapy. She does report an allergy to Bactrim. Patient does report that the cloudy appearing urine/sediment is new and she has not had that previously. Workup in the ED included T97.8, heart 87, BP 107/64, respiratory rate 18, 100% on room air, orthostatics with notable blood pressure and heart rate change with position, most recent repeat vitals T97.8, heart rate 87, BP 140/86, respiratory rate 16, 96% on room air, CBC with WBC 7.0, hemoglobin 9.0, MCV 98.6, platelet 111 without marked shift, unremarkable coags, BMP not marked appearing aside glucose 109, troponin initial 43 with delta repeat 45, urinalysis cloudy with notable sediment which is new per patient report and started over the last 2 weeks with last Ashby catheter changed approximately 3 weeks prior, specific roughly 1.010, protein 30, occult blood 25, nitrite positive, leukocyte Estrace 500 with greater than 100 urine WBCs with 2+ urine bacteria, urine culture pending per ED, CT of the brain with senescent changes with no acute intracranial findings, CTA head and neck with nondiagnostic evaluation of proximal right ICA secondary to motion artifact, no significant carotid artery stenosis visualized, severely diminutive with right vertebral artery with proximal segmental occlusion, dominant left vertebral artery without significant stenosis with no large vessel occlusion or high-grade stenosis or aneurysm of the [place], chest x-ray with no acute cardiopulmonary findings with mild blunting of left costophrenic angle possibly atelectasis versus scarring or trace pleural effusion, EKG with sinus rhythm with no acute evidence of ischemia. [facility] Medical History Non-Hodgkin lymphoma Heart murmur Hyperlipemia Insomnia Vertigo Hodgkin lymphoma TIA (transient ischemic attack) HTN (hypertension) Breast cancer Hypothyroid Diabetes mellitus Home Medications ?Medication ?Instructions ?Recorded ?Last Taken ?Type aspirin 81 mg chewable tablet 81 mg PO DAILY@0800 heart health 08/30/13 10/16/24 History metoprolol succinate 25 mg 25 mg PO DAILY blood pressure 10/16/18 10/16/24 History tablet,extended release 24 hr levothyroxine 150 mcg tablet 150 mcg PO DAILY@0600 11/29/20 10/15/24 History allopurinol 300 mg tablet 300 mg PO DAILY 06/09/24 10/16/24 History amlodipine 5 mg tablet 5 mg PO DAILY 06/09/24 10/16/24 History docusate sodium 100 mg capsule 100 mg PO BID 06/09/24 10/16/24 History oxycodone 5 mg tablet 5 mg PO Q6H PRN PRN pain 06/09/24 10/16/24 History pantoprazole 40 mg tablet,delayed 40 mg PO DAILY 06/09/24 10/16/24 History release paroxetine HCl 20 mg tablet 40 mg PO DAILY 06/09/24 10/16/24 History trazodone 50 mg tablet 50 - 100 mg PO QHS PRN PRN insomnia 06/09/24 10/15/24 History Lactobacillus acidophilus 10 mg PO DAILY 10/16/24 Unknown History (Acidophilus capsule) acyclovir 400 mg tablet 400 mg PO BID 10/16/24 10/16/24 History gabapentin 100 mg capsule 100 mg PO DAILY 10/16/24 10/15/24 History insulin glargine 100 unit/mL (3 18 unit subcut QHS 10/16/24 10/15/24 History mL) subcutaneous pen (Lantus Solostar U-100 Insulin) insulin lispro 100 unit/mL 8 unit subcut TID 10/16/24 10/16/24 History subcutaneous pen (Admelog SoloStar U-100 Insulin lispro) oxycodone 10 mg tablet 10 mg PO Q6H PRN PRN pain 10/16/24 10/16/24 History semaglutide 150 mg subcut .weekly 10/16/24 10/12/24 History Allergy/AdvReac Type Severity Reaction Status Date / Time lisinopril Allergy Unknown Verified 10/16/24 18:08 phenazopyridine HCl (From Allergy Unknown Verified 10/16/24 18:08 Pyridium) Sulfa (Sulfonamide Allergy Unknown Verified 10/16/24 18:08 Antibiotics) Family History (Updated 10/16/24 @ 23:[address] Batool Tapia MD) Mother Metastatic cancer Father Heart disease Required AICD but uncertain reason. Surgical History Hx of bilateral mastectomy History of lumpectomy of left breast Social History (Updated 10/16/24 @ 23:[address] Batool Tapia MD) household members: spouse Smoking Status: Never smoker alcohol intake: current alcohol intake frequency: holidays/special occasions only substance use type: does not use ROS ROS Narrative Admission Review of Systems: CONSTITUTIONAL: No weight loss, fever, chills, +weakness or fatigue. HEENT: Eyes: No visual loss, blurred vision, double vision or yellow sclerae. Ears, Nose, Throat: No hearing loss, sneezing, congestion, runny nose or sore throat. SKIN: No rash or itching, lesions, wounds except + occasional stage ecchymoses, abrasion. CARDIOVASCULAR: No chest pain, chest pressure or chest discomfort, palpitations, edema, orthopnea, syncopal events. RESPIRATORY: No shortness of breath, cough or sputum, wheezing, hemoptysis. GASTROINTESTINAL: No anorexia, nausea, vomiting or diarrhea, abdominal pain, melena, BRBPR. GENITOURINARY: + Chronic indwelling Ashby catheter secondary to neurogenic bladder with retention, noted significant cloudy appearing urine with sediment which is new for patient. NEUROLOGICAL: + Significant onset imbalance, resolved. No headache, dizziness, syncope, paralysis, ataxia, numbness or tingling in the extremities, focal weakness, change in bowel or bladder control, seizure. MUSCULOSKELETAL: + muscle, back pain, joint pain or stiffness. HEMATOLOGIC: + Chronic anemia, easy bleeding/bruising. LYMPHATICS: No enlarged nodes. No history of splenectomy. PSYCHIATRIC: + History of anxiety and depression. ENDOCRINOLOGIC: No reports of sweating, cold or heat intolerance. No polyuria or polydipsia. ALLERGIES: No history of asthma, hives, eczema or rhinitis. Vital Signs Vital Signs Vital Signs: 10/16/24 18:08 10/16/24 18:14 10/16/24 18:23 Temperature 97.8 F 97.8 F Temperature Source Temporal Oral Pulse Rate 87 87 Pulse Rate [Lying] Pulse Rate [Sitting (for 1 minute prior to obtaining)] Pulse Rate [Standing (for 1 minute prior to obtaining)] Respiratory Rate 18 18 Blood Pressure 107/64 107/64 Blood Pressure [Lying] Blood Pressure [Sitting (for 1 minute prior to obtaining)] Blood Pressure [Standing (for 1 minute prior to obtaining)] Blood Pressure Mean 78 78 Blood Pressure Mean [Lying] Blood Pressure Mean [Sitting (for 1 minute prior to obtaining)] Blood Pressure Mean [Standing (for 1 minute prior to obtaining)] Pulse Ox 100 100 Oxygen Delivery Method Room Air Room Air Room Air 10/16/24 18:44 10/16/24 19:14 10/16/24 19:30 Temperature Temperature Source Pulse Rate 86 97 92 Pulse Rate [Lying] Pulse Rate [Sitting (for 1 minute prior to obtaining)] Pulse Rate [Standing (for 1 minute prior to obtaining)] Respiratory Rate 14 14 16 Blood Pressure 125/70 H 140/59 H 139/72 H Blood Pressure [Lying] Blood Pressure [Sitting (for 1 minute prior to obtaining)] Blood Pressure [Standing (for 1 minute prior to obtaining)] Blood Pressure Mean 88 86 94 Blood Pressure Mean [Lying] Blood Pressure Mean [Sitting (for 1 minute prior to obtaining)] Blood Pressure Mean [Standing (for 1 minute prior to obtaining)] Pulse Ox 98 97 Oxygen Delivery Method Room Air Room Air 10/16/24 19:59 10/16/24 20:00 10/16/24 21:00 Temperature Temperature Source Pulse Rate 87 89 Pulse Rate [Lying] 92 Pulse Rate [Sitting (for 1 minute prior to obtaining)] 100 Pulse Rate [Standing (for 1 minute prior to obtaining)] 97 Respiratory Rate 16 18 Blood Pressure 115/64 138/96 H Blood Pressure [Lying] 139/72 H Blood Pressure [Sitting (for 1 minute prior to obtaining)] 148/80 H Blood Pressure [Standing (for 1 minute prior to obtaining)] 115/64 Blood Pressure Mean 81 110 Blood Pressure Mean [Lying] 94 Blood Pressure Mean [Sitting (for 1 minute prior to obtaining)] 102 Blood Pressure Mean [Standing (for 1 minute prior to obtaining)] 81 Pulse Ox 95 98 Oxygen Delivery Method Room Air Weight Weight: 140 lb 6.951 oz Body Mass Index (BMI) 22.6 Physical Exam Narrative Physical Examination: General: Awake, alert, oriented x 3 and cooperative, seated upright in the ED bed in no apparent distress, remains at neurological baseline with no recurrent episodes of imbalance since ED arrival. Skin: Normal color, normal turgor, no icterus, no cyanosis except occasional stage ecchymoses, abrasion. HEENT: AT/NC, EOMI, PERRLA, mildly dry MM, no carotid bruits or JVD noted. Lungs: Mildly diminished, greater bases, proper effort, no rales, ronchi or wheezing. Heart: Regular rate and rhythm; no gallop, rub audible. Abdomen: Soft, NTTP, ND, normal BS, no appreciated HSM. : Ashby catheter in place with cloudy appearing urine, notable sediment with patient reporting this is not normal for her. Extremities: No cyanosis, clubbing, or edema. Neurological: Patient awake, alert, oriented as noted, cognitive function intact; pupils equally reactive to light and accommodation, cranial nerves grossly normal, moving all 4 extremities, strength moderately globally decreased but no focal deficits, finger-nose and [id number] appropriate, equivocal Babinski, sensation intact. Psychiatric: Affect appears mildly fatigued otherwise normal, no acute evidence of depressive or anxiety feelings but does have underlying history. Results Lab / Micro Data 10/16/24 18:40 10/16/24 18:40 Labs: Laboratory Results - last 24 hr 10/16/24 18:40: WBC 7.0, RBC 2.77 L, Hgb 9.0 L, Hct 27.3 L, MCV 98.6, MCH 32.5 H, MCHC 33.0, RDW Std Deviation 58.4 H, RDW Coeff of Hitesh 16.3 H, Plt Count 111 L, MPV 10.6, Neut % (Auto) Not Reportable, Absolute Neuts (auto) 4.4, Absolute Lymphs (auto) 1.47, Total Counted 100, Neutrophils % (Manual) 63, Band Neutrophils % 2, Lymphocytes % (Manual) 21, Monocytes % (Manual) 7, Eosinophils % (Manual) 1, Metamyelocytes % 6 H, Diff Path Review May foll, Platelet Estimate ADEQUATE, Anisocytosis 1+, PT 12.8, INR 1.0, APTT 27.4, Sodium 136, Potassium 4.3, Chloride 102, Carbon Dioxide 24.4, Anion Gap 10, BUN 10, Creatinine 0.72, Estim Creat Clear Calc 54.26, Est GFR (MDRD) Non-Af 86, BUN/Creatinine Ratio 13.6, Glucose 109 H, Calcium 9.0, Troponin T High Sens 43 H 10/16/24 19:20: POC Glucose 180 H 10/16/24 19:40: Urine Color Straw, Urine Clarity Sl. Cloudy, Urine pH 6.5, Ur Specific [place] 1.010, Urine Protein 30 H, Urine Glucose (UA) Normal, Urine Ketones Negative, Urine Occult Blood 25 H, Urine Nitrite Positive H, Urine Bilirubin Negative, Urine Urobilinogen Normal, Ur Leukocyte Esterase 500 H, Urine RBC 0 SEEN, Urine WBC >100 SEEN, Ur Squamous Epith Cells 0 SEEN, Urine Bacteria 2+, Urine Mucus 0 SEEN 10/16/24 20:50: Troponin T Hi Sens 2 Hr 45 H Rhythm Strip Rhythm Strip: Sinus Rhythm Rate: 87 Ectopy: None Imaging Radiology Impression Brain CT 10/16/24 18:14 IMPRESSION: Senescent changes, without acute intracranial abnormality. Consider MRI if there is persistent concern for acute ischemia. Impression in this case discussed by phone with Dr. Sebastián Betts on 10/16/2024 at 7:25pm. Reading Location: [id number] Head/Neck CTA 10/16/24 18:15 IMPRESSION: 1. Nondiagnostic evaluation of the proximal right ICA due to motion artifact. Otherwise, no significant carotid artery stenosis as visualized. 2. 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 Dominant left vertebral artery without significant stenosis. 3. No large vessel occlusion, high-grade stenosis or aneurysm of the [id number]. Reading Location: [facility] Chest X-Ray 10/16/24 19:05 IMPRESSION: No focal consolidation. Mild blunting of the left costophrenic angle could be the result of atelectasis/scarring or a trace pleural effusion. Reading Location: [facility] Assessment & Plan Assessment/Plan (1) Acute UTI: (2) TIA (transient ischemic attack): PLAN: Plan The patient is a 79 y/o F w/ PMHx: Non-Hodgkin's lymphoma previously on chemotherapy currently considered in remission, Hx of breast cancer unclear type status post bilateral mastectomy currently considered remission, Anxiety and Depression, GERD, Gout, Hypothyroidism, Diabetes mellitus type II, Chronic pain syndrome, HTN, HLD, Hx TIA who presents to the [facility] ED on 10/16/24 with history of general malaise, being off balance starting on day of presentation lasting several hours noted to be waxing and waning require 's help as she nearly fell over but did not hurt herself and there is any trauma with no recent specific reported illness nor any recent fevers, chills, nausea, emesis, abdominal pain but given this presentation and history of previous TIA prompted ED evaluation. #1. Debility, imbalance, possibly multifactorial etiology including Acute Complicated Urinary Tract Infection secondary to chronic indwelling Ashby catheter secondary to neurogenic bladder with chronic retention in addition to concern for possible TIA with noted severely diminutive with right vertebral artery with proximal segmental occlusion with history of previous TIA: Will admit to PCU, will obtain MRI Brain, ECHO, PT/OT/Speech/Nutrition evaluation per protocol. Will allow permissive HTN, maintain on asa, statin w/ AM FLP, fall precautions. Mag, TSH, FLP, HgbA1c requested. Maintain on fall and aspiration precautions. Will request neurology consultation. Ashby catheter changed in the ED per discussion with ED physician, UA upon ED evaluation remarkable, pending UCx, will maintain on judicious IV fluids, monitor I/Os, will continue IV Rocephin as from discussion with patient no significant resistance pattern reported w/ transition as able pending sensitivities and speciation. #2. Indeterminate cardiac enzyme of unclear significance: EKG in ED sinus rhythm with no acute evidence of ischemia, CXR w/ no acute cardiopulmonary finding, initial trop 43 with repeat delta 45. Will maintain on a monitored bed to assure no acute myocardial infarction with serial cardiac enzymes and EKGs. Magnesium level requested. FLP in AM. Will continue aspirin therapy. Echocardiogram requested given #1 is noted. #3. Non-Hodgkin's lymphoma: Previously on chemotherapy recently transitioned off and per discussion with patient and family considered currently in remission, encourage continued outpatient follow-up with her oncologist as previously arranged. #4. Hypertension: Will temporally maintain permissive hypertension given #1 evaluation, resume once appropriate, as needed agents per stroke protocol. #5. Hyperlipidemia: Continue home statin regimen. AM FLP. #6. History of breast cancer: Unclear specific breast cancer type, status post lumpectomy left breast as well as eventual bilateral mastectomy, unclear other interventions, reportedly in remission, encourage continued outpatient follow-up as previously arranged. #7. Chronic pain syndrome: Will continue patient home chronic oxycodone regimen as well as bowel regimen. #8. Diabetes mellitus type II: Hold oral home regimen, continue home insulin regimen, ADA diet, accu checks w/ ISS. #9. Anxiety and depression: Will continue patient home paroxetine regimen. #10. Hypothyroidism: Will continue patient on levothyroxine regimen, TSH requested #11. Gout: Will continue patient home allopurinol regimen. #12. GERD: Will continue patient on PPI. #13. DVT prophylaxis: Lovenox. #14. CODE status: Patient HCPOA and living will are not in place but she notes her who is present would be her medical decision-maker if necessary. Discussed CODE status at length including difference between FULL code, DNR-CCA and DNR-CC status. Following discussions about the differences in these status, requested Full Code status although she notes prior she was DNR-CCA but changed this when she improved from her CA. Advanced Care Planning Face to Face Time: 16 minutes. Charges/Coding Visit Charges Inpatient E&M: 35611 Init Hosp L3 Procedures Hospitalists Procedures: 87758 Advncd Care Plan 30 Min
--- NOTE | 2024-10-16 23:25 | ECHOD_ITS ---
Reason For Study Reason For Study: TIA/CVA Procedure This was a 2D Doppler, Color Flow transthoracic echocardiogram. Exam performed portable in patient room. Left Ventricle Normal LV size. The estimated ejection fraction is 70 %. Unable to assess diastolic dysfunction. No regional wall motion abnormalities noted. Right Ventricle Normal RV size. Normal systolic function. Atria The left atrium is mildly enlarged. Normal right atrium. No doppler evidence for ASD. Mitral Valve There is moderate to severe mitral annular calcification. Mild mitral valve stenosis. No mitral valve insufficiency. Tricuspid Valve There is no tricuspid stenosis. Trivial tricuspid valve insufficiency. Pulmonary artery systolic pressure is 35 mmHg. Aortic Valve Trisinus/trileaflet aortic valve. Mild aortic stenosis. No aortic valve insufficiency. Pulmonic Valve There is no pulmonic valvular stenosis. Trivial pulmonic valve insufficiency. Great Vessels Normal sized aortic root. Pericardium/Pleural No pericardial effusion. MMode/2D Measurements & Calculations LVIDd: 3.6 cm IVSd: 1.5 cm LVOT diam: 2.0 cm LVIDs: 2.5 cm LVPWd: 0.96 cm LVOT area: 3.1 cm2 FS: 30.7 % Ao root diam: 2.8 cm LAV(MOD-bp): 58.3 ml LVAd ap4: 18.8 cm2 LAV(MOD-bp) Indexed: 34.4 ml/m2 LVLd ap4: 7.2 cm LAV(MOD-sp2): 55.7 ml EDV(MOD-sp4): 39.9 ml LAV(MOD-sp4): 59.9 ml EDV(sp4-el): 41.5 ml LVAs ap4: 11.8 cm2 LVLs ap4: 6.5 cm ESV(MOD-sp4): 18.7 ml ESV(sp4-el): 18.2 ml EF(MOD-sp4): 53.2 % EF(sp4-el): 56.2 % SV(MOD-sp4): 21.2 ml SV(sp4-el): 23.3 ml LA A4 area: 21.1 cm2 SI(MOD-sp4): 12.5 ml/m2 LA dimension(2D): 3.1 cm RA A4 area: 13.0 cm2 Time Measurements MV dec time: 0.18 sec Doppler Measurements & Calculations MV E max otis: 124.8 cm/sec Lat Peak E' Otis: 8.6 cm/sec Med Peak E' Otis: 4.5 cm/sec MV A max otis: 174.6 cm/sec E/E' lat: 14.5 E/E' med: 27.6 MV E/A: 0.71 MV V2 max: 173.0 cm/sec Ao V2 max: 214.7 cm/sec MV max P.0 mmHg MV dec slope: 733.8 cm/sec2 Ao max P.6 mmHg MV V2 mean: 115.0 cm/sec Ao V2 mean: 154.5 cm/sec MV mean P.9 mmHg Ao mean P.8 mmHg MV V2 VTI: 41.5 cm Ao V2 VTI: 43.6 cm AV (velocity ratio): 0.81 MVA(VTI): 2.6 cm2 BERNARDINO(I,D): 2.5 cm2 BERNARDINO(V,D): 2.3 cm2 LV V1 max: 159.5 cm/sec SV(LVOT): 109.3 ml PA V2 max: 82.5 cm/sec LV V1 max P.2 mmHg PA V2 mean: 57.6 cm/sec LV V1 mean P.5 mmHg LV V1 mean: 121.2 cm/sec LV V1 VTI: 35.5 cm TR max otis: 275.0 cm/sec TR max P.3 mmHg ECHO/Echo Complete Interpretation Summary The estimated ejection fraction is 70 %. Unable to assess diastolic dysfunction. The left atrium is mildly enlarged. Mild mitral valve stenosis. Mild aortic stenosis. Ordering Physician: Batool Tapia Referring Physician: PRITI GHOSH Performed By: Joceline Robison RCS
[2024-10-16 23:50] LABS: Magnesium 1.5 mg/dL (1.5-2.2)
[2024-10-17] VITALS (7 sets, daily range): BP systolic 128–145; BP diastolic 68–80; PULSE 88–94; RESP 18; TEMP 36.5–37; O2SAT 94–96; BMI 21.8
[2024-10-17] MEDS: oxyCODONE 5 MG Tablet PO (00:40)
[2024-10-17] MEDS: Acyclovir 200 MG Capsule 400 MG PO ×2 (00:40→10:14)
[2024-10-17] MEDS: Docusate Sodium 100 MG Capsule PO ×2 (00:40→10:25)
[2024-10-17] MEDS: MELATONIN 3 MG TABLET PO (00:40)
[2024-10-17] MEDS: 0.9% Normal Saline (1000mL) 1,000 ML 100 ML IV (00:41)
[2024-10-17 01:38] LABS: Bedside Glucose 187 mg/dL (74-106)
[2024-10-17] MEDS: Levothyroxine 150 MCG Tablet PO (05:43)
[2024-10-17 05:57] LABS: Hemoglobin 8.9 g/dL (12.0-15.0); Mean Corpuscular Volume 97.1 fL (81-99); Mean Platelet Vol. 10.8 fl (6.2-12.0); POSITIVE COUNT YES; POSITIVE DIFFERENTIAL YES; POSITIVE MORPHOLOGY YES; Platelet Count 107 K/mm3 (150-450); RBC Distribution Width CV 15.9 % (11.6-14.6); RBC Distribution Width SD 55.8 fl (35.1-43.9); Red Blood Count 2.78 M/mm3 (4.2-5.4); White Blood Count 5.2 K/mm3 (4.4-11.0)
[2024-10-17 06:07] LABS: Differential Indicated MANUAL DIFF
[2024-10-17 06:49] LABS: ALB/GLOB Ratio 1.7 RATIO (0.9-2.4); AST(SGOT) 18 U/L (<=31); Alanine Aminotransfer ALT/SGPT 10 U/L (<=34); Albumin, Serum 3.3 g/dL (3.4-4.8); Alkaline Phosphatase 82 U/L (35-104); Anion Gap 8 (5-15); BUN 8 mg/dL (4-19); BUN/Creat Ratio 13.8 RATIO (10-20); Calcium,Total 9.3 mg/dL (7.6-11.0); Carbon Dioxide 25.9 mmol/L (21.0-32.0); Chloride 106 mmol/L (98-108); Creatinine, Serum 0.56 mg/dL (0.70-1.20); EST Glomerular Filtration Rate 93 (>60); Estimated Creatinine Clearance 54.26 ml/min (50-250); Globulin 1.9 g/dL (2.2-4.2); Glucose 140 mg/dL (70-99); Potassium 4.1 mmol/L (3.3-5.1); Protein, Total 5.2 g/dL (5.9-8.4); Sodium Level 139 mmol/L (133-145); Thyroid Stim Hormone (TSH) 0.296 uIU/mL (0.300-4.200)
[2024-10-17 06:52] LABS: Hemoglobin A1c 6.9 % (<=5.6)
[2024-10-17 07:13] LABS: Lymphocyte 6 % (19-41); Metamyelocyte 9 % (0-1); Monocyte 2 % (0-10); Myelocyte 3 % (0-0); Neutrophil-Band 11 % (0-5); Neutrophil-Segmented 69 % (47-70); Total Cells Counted 100 (MANUAL DIFF)
[2024-10-17 07:14] LABS: Platelet Estimate SLT DEC (ADEQ); Red Cell Morphology NORM C+C NORMAL (NORM C&C)
[2024-10-17 07:15] LABS: Absolute Lymphocyte Count 0.31 X10^3/uL (0.83-4.51); Absolute Neutrophil Count 4.2 X10^3/uL (2.0-7.7)
[2024-10-17 07:23] LABS: Cholesterol 144 mg/dL (<=200); High Density Lipoprotein 26 mg/dL; Low Density Lipoprotein Calc. 83 mg/dL; Triglycerides 173 mg/dL; Very Low Density Lipoprotein 35 mg/dL (5-40)
--- NOTE | 2024-10-17 08:03 | NEURO.CONS ---
Assessment and Plan: Neuro Assessment/Plan LANCE JUAREZ is a 79 F with a past medical history of Non-Hodgkin's lymphoma previously on chemotherapy currently considered in remission, Hx of breast cancer unclear type status post bilateral mastectomy currently considered remission, Anxiety and Depression, GERD, Gout, Hypothyroidism, Diabetes mellitus type II, Chronic pain syndrome, HTN, HLD, Hx TIA, being evaluated by Teleneurology for acute difficulty walking and difficulty speaking. Patient is returned to baseline and on history, had no clear focal symptoms. 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 Found on imaging to have stroke however on my evaluation of the MRI there is no stroke present in the eulogio - specifically no DWI restriction or FLAIR changes consistent with acute stroke. Reviewed with stroke providers and no evidence of stroke per them as well. At this time, given lack of imaging evidence, lack of focal symptoms and spontaneous improvement, unlikely that patient had stroke. More likely she had nonspecific symptoms in setitng of UTI. Plan: No further workup. On evaluation of the MRI Brain this is not a stroke Improvement after treatment of UTI I personally attended this patient and spent a total time of 45 minutes evaluating this patient including clinical assessment, review of chart, medical history imaging, and determining appropriate treatment and workup. HPI Consult Data Date of Consult: 10/19/24 HPI Narrative HPI Narrative: The patient is a 79 y/o F w/ PMHx: Non-Hodgkin's lymphoma previously on chemotherapy currently considered in remission, Hx of breast cancer unclear type status post bilateral mastectomy currently considered remission, Anxiety and Depression, GERD, Gout, Hypothyroidism, Diabetes mellitus type II, Chronic pain syndrome, HTN, HLD, Hx TIA who presents to the [facility] ED on 10/16/24 with history of general malaise, being off balance starting on day of presentation lasting several hours noted to be waxing and waning require 's help as she nearly fell over but did not hurt herself and there is any trauma with no recent specific reported illness nor any recent fevers, chills, nausea, emesis, abdominal pain but given this presentation and history of previous TIA prompted ED evaluation. Patient had her Ashby catheter changed approximately 2 to 3 weeks previously she notes and does follow with urology. She denies any resistance pattern history as far as antibiotic therapy. Neurologic History: Feels back to normal Had history of TIAs - symptoms short lived and cannot remember what happened with these. Voice, walking, vision back to normal Patient denies any numbness or weakness unilaterally with these symptoms. Neurologic Exam: -? General: Laying comfortably in bed; in no acute distress. -? HENT: Normal oropharynx and mucosa. Normal external appearance of ears and nose. Exophthalmos. -? Neck: Supple, no pain or tenderness -? CV:? No peripheral edema. -? Pulmonary:? Normal respiratory effort. -? Ext: No cyanosis, edema, or deformity -? Skin: No rash. Normal palpation of skin.? -? Musculoskeletal: full range of motion; no joint tenderness. Normal digits and nails by inspection. No clubbing. -? NEURO: -? Mental Status: The patient was alert and oriented to time, place, and person. Normal recent/remote memory, concentration, and general fund of knowledge. -? Language: speech is clear.? Naming, repetition, fluency, and comprehension intact. -? Cranial Nerves: PERRL 3 mm/brisk. EOMI, visual shepherd full, no facial asymmetry, facial sensation intact, hearing intact, tongue midline, no evidence of atrophy or fibrillations. -? Motor: normal bulk, tone, and strength throughout. No pronator drift or satelliting. Upper and lower extremities equal bilaterally. -? 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 Tone: is normal and bulk is normal -? Sensation- Intact to light touch bilaterally -? Coordination: No dysmetria on [id number], finger follow finger or [id number]. -? Gait- deferred [facility] Medical History Non-Hodgkin lymphoma Heart murmur Hyperlipemia Insomnia Vertigo Hodgkin lymphoma TIA (transient ischemic attack) HTN (hypertension) Breast cancer Hypothyroid Diabetes mellitus Home Medications ?Medication ?Instructions ?Recorded ?Last Taken ?Type aspirin 81 mg chewable tablet 81 mg PO DAILY@0800 heart health 08/30/13 10/16/24 08:24 History metoprolol succinate 25 mg 25 mg PO DAILY blood pressure 10/16/18 10/15/24 20:24 History tablet,extended release 24 hr levothyroxine 150 mcg tablet 150 mcg PO DAILY@0600 thyroid 11/29/20 10/15/24 History allopurinol 300 mg tablet 300 mg PO DAILY gout 06/09/24 10/16/24 08:24 History amlodipine 5 mg tablet 5 mg PO DAILY blood pressure 06/09/24 10/16/24 08:24 History docusate sodium 100 mg capsule 100 mg PO BID stool softner 06/09/24 10/16/24 08:24 History oxycodone 5 mg tablet 5 mg PO Q6H PRN PRN pain 06/09/24 10/16/24 History pantoprazole 40 mg tablet,delayed 40 mg PO DAILY 06/09/24 10/16/24 History release paroxetine HCl 20 mg tablet 40 mg PO DAILY mental health 06/09/24 10/16/24 History trazodone 50 mg tablet 50 - 100 mg PO QHS PRN PRN insomnia 06/09/24 10/15/24 History Lactobacillus acidophilus 10 mg PO DAILY supplement 10/16/24 10/16/24 08:24 History (Acidophilus capsule) acyclovir 400 mg tablet 400 mg PO BID virus 10/16/24 10/16/24 08:24 History gabapentin 100 mg capsule 100 mg PO DAILY nerve pain 10/16/24 10/15/24 History insulin glargine 100 unit/mL (3 18 unit subcut QHS diabetes 10/16/24 10/15/24 History mL) subcutaneous pen (Lantus Solostar U-100 Insulin) insulin lispro 100 unit/mL 8 unit subcut TID diabetes 10/16/24 10/16/24 History subcutaneous pen (Admelog SoloStar U-100 Insulin lispro) oxycodone 10 mg tablet 10 mg PO Q6H PRN PRN pain 10/16/24 10/16/24 History semaglutide 150 mg subcut .weekly diabetes 10/16/24 10/12/24 History cefdinir 300 mg capsule 300 mg PO BID #10 caps 10/17/24 Unknown Rx Allergy/AdvReac Type Severity Reaction Status Date / Time lisinopril Allergy Unknown Verified 10/16/24 18:08 phenazopyridine HCl (From Allergy Unknown Verified 10/16/24 18:08 Pyridium) Sulfa (Sulfonamide Allergy Unknown Verified 10/16/24 18:08 Antibiotics) Family History (Updated 10/16/24 @ 23:[address] Batool Tapia MD) Mother Metastatic cancer Father Heart disease Required AICD but uncertain reason. Surgical History Hx of bilateral mastectomy History of lumpectomy of left breast Social History (Updated 10/16/24 @ 23:[address] Batool Tapia MD) household members: spouse Smoking Status: Never smoker alcohol intake: current alcohol intake frequency: holidays/special occasions only substance use type: does not use Vital Signs Vital Signs Vital Signs: 10/16/24 18:08 10/16/24 18:14 10/16/24 18:23 Temperature 97.8 F 97.8 F Temperature Source Temporal Oral Pulse Rate 87 87 Pulse Rate [Lying] Pulse Rate [Sitting (for 1 minute prior to obtaining)] Pulse Rate [Standing (for 1 minute prior to obtaining)] Respiratory Rate 18 18 Respiratory Effort Respiratory Depth Respiratory Pattern Blood Pressure 107/64 107/64 Blood Pressure [Lying] Blood Pressure [Sitting (for 1 minute prior to obtaining)] Blood Pressure [Standing (for 1 minute prior to obtaining)] Blood Pressure Mean 78 78 Blood Pressure Mean [Lying] Blood Pressure Mean [Sitting (for 1 minute prior to obtaining)] Blood Pressure Mean [Standing (for 1 minute prior to obtaining)] Pulse Ox 100 100 Oxygen Delivery Method Room Air Room Air Room Air Oxygen Flow Rate (L/min) 10/16/24 18:44 10/16/24 19:14 10/16/24 19:30 Temperature Temperature Source Pulse Rate 86 97 92 Pulse Rate [Lying] Pulse Rate [Sitting (for 1 minute prior to obtaining)] Pulse Rate [Standing (for 1 minute prior to obtaining)] Respiratory Rate 14 14 16 Respiratory Effort Respiratory Depth Respiratory Pattern Blood Pressure 125/70 H 140/59 H 139/72 H Blood Pressure [Lying] Blood Pressure [Sitting (for 1 minute prior to obtaining)] Blood Pressure [Standing (for 1 minute prior to obtaining)] Blood Pressure Mean 88 86 94 Blood Pressure Mean [Lying] Blood Pressure Mean [Sitting (for 1 minute prior to obtaining)] Blood Pressure Mean [Standing (for 1 minute prior to obtaining)] Pulse Ox 98 97 Oxygen Delivery Method Room Air Room Air Oxygen Flow Rate (L/min) 10/16/24 19:59 10/16/24 20:00 10/16/24 21:00 Temperature Temperature Source Pulse Rate 87 89 Pulse Rate [Lying] 92 Pulse Rate [Sitting (for 1 minute prior to obtaining)] 100 Pulse Rate [Standing (for 1 minute prior to obtaining)] 97 Respiratory Rate 16 18 Respiratory Effort Respiratory Depth Respiratory Pattern Blood Pressure 115/64 138/96 H Blood Pressure [Lying] 139/72 H Blood Pressure [Sitting (for 1 minute prior to obtaining)] 148/80 H Blood Pressure [Standing (for 1 minute prior to obtaining)] 115/64 Blood Pressure Mean 81 110 Blood Pressure Mean [Lying] 94 Blood Pressure Mean [Sitting (for 1 minute prior to obtaining)] 102 Blood Pressure Mean [Standing (for 1 minute prior to obtaining)] 81 Pulse Ox 95 98 Oxygen Delivery Method Room Air Oxygen Flow Rate (L/min) 10/16/24 22:00 10/16/24 22:27 10/16/24 22:27 Temperature 97.8 F 97.8 F Temperature Source Oral Pulse Rate 87 87 87 Pulse Rate [Lying] Pulse Rate [Sitting (for 1 minute prior to obtaining)] Pulse Rate [Standing (for 1 minute prior to obtaining)] Respiratory Rate 16 16 Respiratory Effort Respiratory Depth Respiratory Pattern Blood Pressure 148/86 H 148/86 H 148/86 H Blood Pressure [Lying] Blood Pressure [Sitting (for 1 minute prior to obtaining)] Blood Pressure [Standing (for 1 minute prior to obtaining)] Blood Pressure Mean 106 106 106 Blood Pressure Mean [Lying] Blood Pressure Mean [Sitting (for 1 minute prior to obtaining)] Blood Pressure Mean [Standing (for 1 minute prior to obtaining)] Pulse Ox 96 96 96 Oxygen Delivery Method Room Air Room Air Oxygen Flow Rate (L/min) 10/16/24 23:00 10/17/24 00:00 10/17/24 00:30 Temperature 98.6 F Temperature Source Temporal Pulse Rate 90 Pulse Rate [Lying] Pulse Rate [Sitting (for 1 minute prior to obtaining)] Pulse Rate [Standing (for 1 minute prior to obtaining)] Respiratory Rate 18 Respiratory Effort Normal Non-Labored Respiratory Depth Normal Respiratory Pattern Normal Blood Pressure 149/96 H 128/80 H Blood Pressure [Lying] Blood Pressure [Sitting (for 1 minute prior to obtaining)] Blood Pressure [Standing (for 1 minute prior to obtaining)] Blood Pressure Mean 113 96 Blood Pressure Mean [Lying] Blood Pressure Mean [Sitting (for 1 minute prior to obtaining)] Blood Pressure Mean [Standing (for 1 minute prior to obtaining)] Pulse Ox 96 Oxygen Delivery Method Room Air Room Air Oxygen Flow Rate (L/min) 10/17/24 00:50 10/17/24 05:15 10/17/24 05:15 Temperature 98.1 F Temperature Source Temporal Pulse Rate 94 Pulse Rate [Lying] Pulse Rate [Sitting (for 1 minute prior to obtaining)] Pulse Rate [Standing (for 1 minute prior to obtaining)] Respiratory Rate 18 Respiratory Effort Respiratory Depth Respiratory Pattern Blood Pressure 139/70 H Blood Pressure [Lying] Blood Pressure [Sitting (for 1 minute prior to obtaining)] Blood Pressure [Standing (for 1 minute prior to obtaining)] Blood Pressure Mean 93 Blood Pressure Mean [Lying] Blood Pressure Mean [Sitting (for 1 minute prior to obtaining)] Blood Pressure Mean [Standing (for 1 minute prior to obtaining)] Pulse Ox 96 94 Oxygen Delivery Method Room Air Nasal Cannula Nasal Cannula Oxygen Flow Rate (L/min) 2 2 Weight Weight: 61.3 kg Body Mass Index (BMI) 21.8 EEG Results Procedure Details EEG Procedure Details: LANCE JUAREZ is a 79 year old F with a past medical history of , who presents for evaluation of Electroencephalogram on DATE at TIME Lab / Micro Data 10/17/24 05:45 10/17/24 05:45 Labs: Laboratory Results - last 24 hr 10/16/24 18:40: WBC 7.0, RBC 2.77 L, Hgb 9.0 L, Hct 27.3 L, MCV 98.6, MCH 32.5 H, MCHC 33.0, RDW Std Deviation 58.4 H, RDW Coeff of Hitesh 16.3 H, Plt Count 111 L, MPV 10.6, Neut % (Auto) Not Reportable, Absolute Neuts (auto) 4.4, Absolute Lymphs (auto) 1.47, Total Counted 100, Neutrophils % (Manual) 63, Band Neutrophils % 2, Lymphocytes % (Manual) 21, Monocytes % (Manual) 7, Eosinophils % (Manual) 1, Metamyelocytes % 6 H, Diff Path Review September, Platelet Estimate ADEQUATE, Anisocytosis 1+, PT 12.8, INR 1.0, APTT 27.4, Sodium 136, Potassium 4.3, Chloride 102, Carbon Dioxide 24.4, Anion Gap 10, BUN 10, Creatinine 0.72, Estim Creat Clear Calc 54.26, Est GFR (MDRD) Non-Af 86, BUN/Creatinine Ratio 13.6, Glucose 109 H, Calcium 9.0, Troponin T High Sens 43 H 10/16/24 19:20: POC Glucose 180 H 10/16/24 19:40: Urine Color Straw, Urine Clarity Sl. Cloudy, Urine pH 6.5, Ur Specific Girard 1.010, Urine Protein 30 H, Urine Glucose (UA) Normal, Urine Ketones Negative, Urine Occult Blood 25 H, Urine Nitrite Positive H, Urine Bilirubin Negative, Urine Urobilinogen Normal, Ur Leukocyte Esterase 500 H, Urine RBC 0 SEEN, Urine WBC >100 SEEN, Ur Squamous Epith Cells 0 SEEN, Urine Bacteria 2+, Urine Mucus 0 SEEN 10/16/24 20:50: Magnesium 1.5, Troponin T Hi Sens 2 Hr 45 H 10/17/24 00:49: POC Glucose 187 H 10/17/24 05:45: WBC 5.2, RBC 2.78 L, Hgb 8.9 L, Hct 27.0 L, MCV 97.1, MCH 32.0, MCHC 33.0, RDW Std Deviation 55.8 H, RDW Coeff of Hitesh 15.9 H, Plt Count 107 L, MPV 10.8, Neut % (Auto) Not Reportable, Absolute Neuts (auto) 4.2, Absolute Lymphs (auto) 0.31 L, Total Counted 100, Neutrophils % (Manual) 69, Band Neutrophils % 11 H, Lymphocytes % (Manual) 6 L, Monocytes % (Manual) 2, Metamyelocytes % 9 H, Myelocytes % 3 H, Diff Path Review May foll, Platelet Estimate SLT DEC, RBC Morphology NORM C+C, Sodium 139, Potassium 4.1, Chloride 106, Carbon Dioxide 25.9, Anion Gap 8, BUN 8, Creatinine 0.56 L, Estim Creat Clear Calc 54.26, Est GFR (MDRD) Non-Af 93, BUN/Creatinine Ratio 13.8, Glucose 140 H, Hemoglobin A1c 6.9 H, Calcium 9.3, Total Bilirubin 0.20, AST 18, ALT 10, Alkaline Phosphatase 82, Total Protein 5.2 L, Albumin 3.3 L, Globulin 1.9 L, Albumin/Globulin Ratio 1.7, Triglycerides 173, Cholesterol 144, LDL Cholesterol, Calc 83, VLDL Cholesterol 35, HDL Cholesterol 26 L, Cholesterol/HDL Ratio 5.50, TSH 0.296 L Rhythm Strip Rhythm Strip: Sinus Rhythm Rate: 87 Ectopy: None Imaging Radiology Impression Brain CT 10/16/24 18:14 IMPRESSION: Senescent changes, without acute intracranial abnormality. Consider MRI if there is persistent concern for acute ischemia. Impression in this case discussed by phone with Dr. Sebastián Betts on 10/16/2024 at 7:25pm. Reading Location: [facility] Head/Neck CTA 10/16/24 18:15 IMPRESSION: 1. Nondiagnostic evaluation of the proximal right ICA due to motion artifact. Otherwise, no significant carotid artery stenosis as visualized. 2. 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 Dominant left vertebral artery without significant stenosis. 3. No large vessel occlusion, high-grade stenosis or aneurysm of the [id number]. Reading Location: [facility] Chest X-Ray 10/16/24 19:05 IMPRESSION: No focal consolidation. Mild blunting of the left costophrenic angle could be the result of atelectasis/scarring or a trace pleural effusion. Reading Location: [id number] Active Medications Active Medications Active Medications: Current Medications Generic Name Dose Route Start Last Admin Trade Name Freq PRN Reason Stop Dose Admin Acetaminophen 650 mg 10/16/24 23:25 Acetaminophen 325 Mg Tablet PO Q4H PRN PRN Fever, pain 1-02/20 Acyclovir 400 mg 10/17/24 10:00 10/17/24 00:40 Acyclovir 200 Mg Capsule PO 400 mg BID JOSE ALEJANDRO Administration Al Hydroxide/Mg Hydroxide 30 ml 10/16/24 23:25 Mag Hydrox/Al Hydrox/Simeth 30 Ml Udc PO Q6H PRN PRN Gastric Burning Albuterol Sulfate 2.5 mg 10/16/24 23:25 Albuterol 2.5 Mg/3 Ml Vial.Neb. INHALATION Q2H PRN PRN Dyspnea, wheezing Allopurinol 300 mg 10/17/24 08:00 Allopurinol 300 Mg Tablet PO DAILYCM [facility] Aspirin 81 mg 10/17/24 08:00 Aspirin 81 Mg Tab.Chew PO DAILY@0800 [facility] Docusate Sodium 100 mg 10/17/24 10:00 10/17/24 00:40 Docusate Sodium 100 Mg Capsule PO 100 mg BID JOSE ALEJANDRO Administration Enoxaparin Sodium 40 mg 10/17/24 10:00 Enoxaparin 40 Mg/0.4 Ml Syringe SC DAILY JOSE ALEJANDRO Gabapentin 100 mg 10/17/24 10:00 Gabapentin 100 Mg Capsule PO DAILY JOSE ALEJANDRO Glucagon 1 mg 10/16/24 23:25 Glucagon 1 Mg/Ml Syringe IM X1 PRN HYPOGLYCEMIA Protocol Guaifenesin 20 ml 10/16/24 23:25 Guaifenesin 10 Ml Udc (200mg/10ml) PO Q4H PRN PRN COUGH Hydralazine HCl 5 mg 10/16/24 23:25 Hydralazine 20 Mg/Ml Vial IV 10/17/24 23:25 Q30M PRN maintain BP parameters with HR <60 Sodium Chloride 1,000 mls @ 100 mls/hr 10/16/24 23:25 10/17/24 00:41 IV 10/17/24 09:24 100 mls/hr .Q10H JOSE ALEJANDRO Administration Dextrose 250 mls @ 0 mls/hr 10/16/24 23:25 Dextrose 10%-Water IV .Q0M PRN HYPOGLYCEMIA Protocol As Directed Sodium Chloride 250 mls @ 15 mls/hr 10/17/24 00:11 IV .[id number] PRN Saline Flush Sodium Chloride 250 mls @ 15 mls/hr 10/17/24 00:11 IV .[id number] PRN Additional IVPB Infusion Insulin Glargine 18 unit 10/17/24 22:00 Insulin Glargine-Yfgn 100 Unit/Ml Pen SC QHS [facility] Insulin Human Lispro 0 unit 10/17/24 07:00 Insulin Lispro 100 Unit/Ml Insuln.Pen SC ACHS [facility] Protocol Insulin Human Lispro 8 unit 10/17/24 07:00 Insulin Lispro 100 Unit/Ml Insuln.Pen SC TIDAC [facility] Labetalol HCl 10 - 20 mg 10/16/24 23:25 Labetalol 20 Mg/4 Ml Vial IV 10/17/24 23:25 Q10M PRN PRN maintain BP parameters with HR >/=60 Levothyroxine Sodium 150 mcg 10/17/24 06:00 10/17/24 05:43 Levothyroxine 150 Mcg Tablet PO 150 mcg DAILY@0600 [facility] Administration Melatonin 3 mg 10/16/24 23:25 10/17/24 00:40 Melatonin 3 Mg Tablet PO 3 mg QHS PRN PRN Administration INSOMNIA Nutritional Formula (Lactose Free) 120 ml 10/17/24 08:00 Ensure Plus High Protein 120 Ml Liquid PO TIDCM [facility] Ondansetron HCl 4 mg 10/16/24 23:25 Ondansetron 4 Mg/2 Ml Vial IV Q8H PRN PRN NAUSEA/VOMITING Oxycodone HCl 5 mg 10/16/24 23:25 10/17/24 00:40 Oxycodone 5 Mg Tablet PO 5 mg Q6H PRN PRN Administration pain 1-10 Pantoprazole Sodium 40 mg 10/17/24 10:00 Pantoprazole Sodium 40 Mg Tablet PO DAILY [facility] Paroxetine HCl 40 mg 10/17/24 10:00 Paroxetine 20 Mg Tablet PO DAILY [facility] Prochlorperazine Edisylate 5 mg 10/16/24 23:25 Prochlorperazine 10 Mg/2 Ml Vial IV Q4H PRN PRN Breakthrough Nausea/Vomiting Sodium Chloride 10 - 40 ml 10/17/24 00:11 0.9 % Nacl (Sterile) Posiflush 10 Ml IV UD PRN Port access or dressing change Sodium Chloride 10 - 40 ml 10/17/24 00:11 0.9% Saline Lock 10 Ml Syringe IV UD PRN Multilumen/Workman Flush Sodium Chloride 10 - 40 ml 10/17/24 00:11 0.9% Saline Lock 10 Ml Syringe IV UD PRN SALINE FLUSH NIHSS NIHSS Nursing Documentation NIHSS Nursing Documentation: NIHSS: Ischemic Stroke/TIA Start: 10/16/24 23:25 Text: For PCU Patients: NIH and Neuro Check every 4 Status: Active hours, PRN and with change in RN caregiver. Freq: [id number] Protocol: Activity Type Activity Date Activity User E-sign Co-sign Detail Recorded Client Recorded Date Recorded By Document 10/17/24 05:15 ADR [id number] 10/17/24 06:12 ADR 10/17/24 05:15 NIH Stroke Scale [NIHSS] A score of 0 is normal or asymptomatic . Total possible score is 42. Inpatient: RN or Physician to activate a stroke alert for onset of new stroke symptoms or with NIHSS increase >/= 3 points. Following change in neurological status, NIHSS will be performed per physician order or more frequently PRN. -1a. Level of Consciousness 0 - Alert; keenly responsive -1b. LOC Questions 0 - Answers BOTH questions correctly -1c. LOC Commands 0 - Performs BOTH tasks correctly -2. Best Gaze 0 - Normal -3. Visual 0 - No visual loss -4. Facial Palsy 0 - Normal symmetrical movements -5a. Left Arm 0 - No drift; arm holds 90 ( or 45) degrees for full 10 seconds -5b. Right Arm 0 - No drift; arm holds 90 ( or 45) degrees for full 10 seconds -6a. Left Leg 0 - No drift; leg holds 30- degree position for full 5 seconds -6b. Right Leg 0 - No drift; leg holds 30- degree position for full 5 seconds -7. Limb Ataxia 0 - Absent -8. Sensory 0 - Normal; no sensory loss -9. Best Language 0 - No aphasia; normal -10. Dysarthria 0 - Normal -11. Extinction and Inattention 0 - No abnormality -Total 0 Query Text:A score of 0 is normal or asymptomatic. Total possible score is 42 . ED: Notify Physician for NIHSS increase by > / = 3 points. Inpatient: RN or Physician to activate a stroke alert for NIHSS increase of > / = 3 points. Coma Scale [Assess] -Eye Opening Spontaneous -Motor Obeys Commands -Verbal Oriented [Total] -Coma Scale Total 15
--- NOTE | 2024-10-17 08:30 | MRI_ITS ---
PROCEDURE: BRAIN WITHOUT CONTRAST 10/17/2024 REASON FOR EXAM: TIA TECHNIQUE: Noncontrast brain MRI. Multiplanar and multisequence images were obtained. COMPARISON: CT head without contrast, CTA head and neck, 10/16/2024. FINDINGS: There is patchy periventricular and subcortical white matter signal abnormality in both cerebral hemispheres and within the eulogio, consistent with chronic ischemic white matter disease. There is a normal sulcal pattern and gyral configuration. There is no evidence of acute intracranial hemorrhage. The mckenzie-white differentiation is well preserved. There is no evidence of restricted diffusion. The ventricles and basilar cisterns are normal. There are normal flow voids demonstrated in the recognized intracranial vessels. There is an apparent small area of restricted diffusion in the left side of the eulogio near the midline. The cerebellum is unremarkable. The cerebellar pontine angles are normal. The craniovertebral junction is normal. The sella and suprasellar regions are normal. The orbits and retro-orbital regions are unremarkable. There is nasal septal deviation to the right. There is a right-sided nasal spur. The paranasal sinuses are clear. The mastoid air cells are clear. There is normal bone marrow signal in the skull base and calvarium. MRI/Brain without Contrast IMPRESSION: 1. Apparent small acute left-sided pontine infarction. 2. Other findings as noted. Findings were called to the [facility] PCU on 10/17/2024 at 9:50 a.m.. Reading Location: [id number]
[2024-10-17 09:52] LABS: Bedside Glucose 164 mg/dL (74-106)
[2024-10-17] MEDS: Insulin Lispro 100 UNIT/ML INSULN.PEN SC ×2 (10:06→12:30)
[2024-10-17] MEDS: Insulin Lispro 100 UNIT/ML INSULN.PEN 8 UNIT SC ×2 (10:12→12:30)
[2024-10-17] MEDS: Pantoprazole Sodium 40 MG Tablet PO (10:14)
[2024-10-17] MEDS: Aspirin 81 MG TAB.CHEW PO (10:15)
[2024-10-17] MEDS: Paroxetine 20 MG Tablet 40 MG PO (10:15)
[2024-10-17] MEDS: Lactobacillis Acidophilus 1 CAP PO (10:15)
[2024-10-17] MEDS: Allopurinol 300 MG Tablet PO (10:15)
[2024-10-17] MEDS: Enoxaparin 40 MG/0.4 ML Syringe SC (10:18)
[2024-10-17] MEDS: Ensure Plus High Protein 120 ML LIQUID PO ×2 (10:25→12:33)
[2024-10-17 12:13] LABS: Bedside Glucose 222 mg/dL (74-106)
--- NOTE | 2024-10-17 13:54 | PCM.DC ---
Discharge Instructions Diet Discharge Diet: Carb Control Diet DC O2, CPAP, BIPAP needs Home O2 Discharge instructions: No Dressing / Incision Discharge Activity: Return to Normal Activity Dressing / Incision Call your doctor if you observe: Fever of 101 or Higher, Shortness of breath, Dizziness, Fainting spells, Swelling in the ankles, Chest pain and Increased palpitations (irregular heartbeat) Follow Up Care Test Results: Test results from this visit will be discussed in further detail at your follow-up appointment, if applicable. Discharge Plan Admission Admit Date/Time: 10/16/24 22:21 Attending Provider: Sher Delgado Primary Care Provider: Christopher Luis Consulting Providers: Mika Franklin; Adriana Mendez; Faye Saxena; Usah Carrillo; Lesli Dimas; Preston Benoit; Trinh Diaz; Abhinav Lama; Gustavo Bhatia; Solitario Mayo; Marjorie Valdivia; Odilon Vallejo; Anamika Rios; Fabiano Benton; Nam Goodson; Isaiah Quinones; Junaid Olmstead; Bam Gunderson; Marleny Saldana; Emilio Sandoval; Batool Tapia Discharge Orders/Prescriptions Prescriptions: New cefdinir 300 mg capsule 300 mg PO BID Qty: 10 0RF Continued aspirin 81 MG tablet,chewable 81 mg PO DAILY@0800 Patient Comments: [facility] metoprolol succinate 25 MG tablet extended release 24 hr 25 mg PO DAILY levothyroxine 150 MCG tablet 150 mcg PO DAILY@0600 trazodone 50 mg tablet 50 - 100 mg PO QHS PRN PRN (Reason: insomnia) amlodipine 5 mg tablet 5 mg PO DAILY paroxetine HCl 20 mg tablet 40 mg PO DAILY Patient Comments: [NO ORIGINAL SIG] pantoprazole 40 mg tablet,delayed release (DR/EC) 40 mg PO DAILY docusate sodium 100 mg capsule 100 mg PO BID allopurinol 300 mg tablet 300 mg PO DAILY oxycodone 5 mg tablet 5 mg PO Q6H PRN PRN (Reason: pain) acyclovir 400 mg tablet 400 mg PO BID gabapentin 100 mg capsule 100 mg PO DAILY insulin lispro [facility]] 100 unit/mL insulin pen 8 unit subcut TID insulin glargine [Lantus Solostar U-100 Insulin] 100 unit/mL (3 mL) insulin pen 18 unit subcut QHS oxycodone 10 mg tablet 10 mg PO Q6H PRN PRN (Reason: pain) semaglutide [Ozempic] 150 mg subcut .weekly Patient Comments: Take every sunday. Pt unsure of dose Acidophilus Capsule 10 mg PO DAILY Referrals / Follow Up: Christopher Luis MD [Primary Care Provider] - Within 1 Week Disposition Disposition (needs filled in before D/C Order can be placed): Home, Self Care
[2024-10-17 14:06] LABS: Free T3 2.5 pg/mL (2.18-3.98)
--- NOTE | 2024-10-17 14:31 | CASEMGMT ---
Patient has order for discharge. PT and ST recommending therapy at discharge. BEN CM in to discuss needs at discharge, at bedside. Patient states she is active with [facility] for nursing and aides. Patient and agreeable to add PT/ST to services. Patient and had no further questions or concerns. BEN WELCH updated DC director of financial planning to send resumption order and discharge information to [facility]. BEN WELCH updated discharge plan.
--- NOTE | 2024-10-17 14:32 | CASEMGMT ---
SW completed a PHQ9 with patient as she may have had a Stroke. Patient scored a 3 which indicates minimal depression. Patient denied any need for counseling resources. Syeda CRAIG
--- NOTE | 2024-10-17 14:38 | CASEMGMT ---
Addendum entered by Deysi Kimball 10/17/24 14:52: Pt is active with [facility] ([phone]). [facility] WILBERTO referral faxed ([phone]). Deysi Kimball DC Planning Asst. Original Note: Discharge Planning WILBERTO referral sent to [facility]. Deysi Kimball DC Planning Asst.
--- NOTE | 2024-10-17 18:02 | PCM.DC.SUM ---
Providers Date of Admission: 10/16/24 Primary Care Physician: Dr. Priti Luis MD Consultations 10/16/24 23:25 Consult: Tele-Neurology Routine Consulting Provider: [facility] Reason for Consult: Acute Ischemic Stroke/TIA EMERGENT Consult: No MD Notified: Yes Date Notified: 10/16/24 Time Notified: 23:52 Method of Notification: Answering Service Nursing Unit Staff Notify [facility] of Tele-Neurology Consult: Yes Reason For Visit: ? UTI, TIA Diagnosis Discharge Diagnosis (1) Acute UTI: Status: Acute Code(s): N39.0 - Urinary tract infection, site not specified (2) TIA (transient ischemic attack): Status: Acute Code(s): G45.9 - Transient cerebral ischemic attack, unspecified Medications at Discharge Home Medications aspirin 81 mg chewable tablet 81 mg PO DAILY@0800 heart health 08/30/13 metoprolol succinate 25 mg tablet,extended release 24 hr 25 mg PO DAILY blood pressure 10/16/18 levothyroxine 150 mcg tablet 150 mcg PO DAILY@0600 thyroid 11/29/20 allopurinol 300 mg tablet 300 mg PO DAILY gout 06/09/24 amlodipine 5 mg tablet 5 mg PO DAILY blood pressure 06/09/24 docusate sodium 100 mg capsule 100 mg PO BID stool softner 06/09/24 oxycodone 5 mg tablet 5 mg PO Q6H PRN PRN pain 06/09/24 pantoprazole 40 mg tablet,delayed release 40 mg PO DAILY 06/09/24 paroxetine HCl 20 mg tablet 40 mg PO DAILY mental health 06/09/24 trazodone 50 mg tablet 50 - 100 mg PO QHS PRN PRN insomnia 06/09/24 Lactobacillus acidophilus (Acidophilus capsule) 10 mg PO DAILY supplement 10/16/24 acyclovir 400 mg tablet 400 mg PO BID virus 10/16/24 gabapentin 100 mg capsule 100 mg PO DAILY nerve pain 10/16/24 insulin glargine 100 unit/mL (3 mL) subcutaneous pen (Lantus Solostar U-100 Insulin) 18 unit subcut QHS diabetes 10/16/24 insulin lispro 100 unit/mL subcutaneous pen (Admelog SoloStar U-100 Insulin lispro) 8 unit subcut TID diabetes 10/16/24 oxycodone 10 mg tablet 10 mg PO Q6H PRN PRN pain 10/16/24 semaglutide 150 mg subcut .weekly diabetes 10/16/24 cefdinir 300 mg capsule 300 mg PO BID #10 caps 10/17/24 Hospital Course Operations None Procedures 2-D Echocardiogram Summary of Care Provided Minutes Spent on Discharge: 33 Hospital Course: Per HPI: The patient is a 79 y/o F w/ PMHx: Non-Hodgkin's lymphoma previously on chemotherapy currently considered in remission, Hx of breast cancer unclear type status post bilateral mastectomy currently considered remission, Anxiety and Depression, GERD, Gout, Hypothyroidism, Diabetes mellitus type II, Chronic pain syndrome, HTN, HLD, Hx TIA who presents to the [facility] ED on 10/16/24 with history of general malaise, being off balance starting on day of presentation lasting several hours noted to be waxing and waning require 's help as she nearly fell over but did not hurt herself and there is any trauma with no recent specific reported illness nor any recent fevers, chills, nausea, emesis, abdominal pain but given this presentation and history of previous TIA prompted ED evaluation. Patient had her Ashby catheter changed approximately 2 to 3 weeks previously she notes and does follow with urology. She denies any resistance pattern history as far as antibiotic therapy. She does report an allergy to Bactrim. Patient does report that the cloudy appearing urine/sediment is new and she has not had that previously. Workup in the ED included T97.8, heart 87, BP 107/64, respiratory rate 18, 100% on room air, orthostatics with notable blood pressure and heart rate change with position, most recent repeat vitals T97.8, heart rate 87, BP 140/86, respiratory rate 16, 96% on room air, CBC with WBC 7.0, hemoglobin 9.0, MCV 98.6, platelet 111 without marked shift, unremarkable coags, BMP not marked appearing aside glucose 109, troponin initial 43 with delta repeat 45, urinalysis cloudy with notable sediment which is new per patient report and started over the last 2 weeks with last Ashby catheter changed approximately 3 weeks prior, specific roughly 1.010, protein 30, occult blood 25, nitrite positive, leukocyte Estrace 500 with greater than 100 urine WBCs with 2+ urine bacteria, urine culture pending per ED, CT of the brain with senescent changes with no acute intracranial findings, CTA head and neck with nondiagnostic evaluation of proximal right ICA secondary to motion artifact, no significant carotid artery stenosis visualized, severely diminutive with right vertebral artery with proximal segmental occlusion, dominant left vertebral artery without significant stenosis with no large vessel occlusion or high-grade stenosis or aneurysm of the [place], chest x-ray with no acute cardiopulmonary findings with mild blunting of left costophrenic angle possibly atelectasis versus scarring or trace pleural effusion, EKG with sinus rhythm with no acute evidence of ischemia. Hospital Course: 1. Debility and imbalance secondary to UTI?79-year-old female with a history of recurrent lymphoma presents to the hospital with debility and balance issues. This was a transient episode however given her concern she presented to the ER. In the ER she did have a urine analysis which was obtained appropriately to evaluate for possible infectious source given her age and immunocompromise status, it was positive and a urine culture was obtained. MRI was also obtained and working up for possible stroke and initially the radiologist did read it as a stroke however [facility] evaluated the MRI with one of their neuroradiologist who felt that there was no stroke. I discussed this with the patient and they have had TIAs in the past but feel like this was little bit of a different episode than what they normally had. She is already on aspirin and given the lack of stroke I elected to not proceed with statin. She did have an echocardiogram which demonstrated an EF of 70% but they could not assess diastolic function. I discussed with her the fact that sending her home today could lead to needing a new antibiotic prescription as we do not have culture data yet however she would like to go home. She expressed understanding of the risk benefits of going home and would still like to proceed with discharge. Slight troponin elevation on admission were insignificant. 2. Essential hypertension, hyperlipidemia, chronic pain, type 2 diabetes, anxiety, depression, hypothyroidism, gout, GERD, recurrent non-Hodgkin's lymphoma are all chronic medical conditions which complicate her care. Her home medications were continued where appropriate Physical Exam Narrative General: Alert, Oriented x3, Cooperative, No apparent distress HEENT: Atraumatic, PERRLA, EOMI, Normocephalic Oral: Moist Mucosa Neck: Supple, No JVD Lungs: Diminished, Normal air movement, No rhonchi, No wheeze, No rales, port in right chest Cardiovascular: Regular rate, Regular Rhythm, Normal S1, Normal S2, No murmurs Abdomen: Soft, Non Tender, Non-Distended, No Hepato-splenomegaly Extremities: No edema, Capillary Refill Less than 3 Seconds Skin: No rashes, No breakdown Musculoskeletal: No Tenderness to Palpation of Joints or Extremities Neurological: No focal neurological deficits, Motor Exam 5/5 strength throughout, Sensory exam intact to light touch and pain Psych/Mental Status: Normal Affect, Appropriate Weight / BMI Weight Weight: 135 lb 2.294 oz Body Mass Index (BMI) 21.8 ABG / Lab / Microbiology Data 10/17/24 05:45 10/17/24 05:45 Laboratory: Laboratory Results - last 24 hr 10/16/24 18:40: WBC 7.0, RBC 2.77 L, Hgb 9.0 L, Hct 27.3 L, MCV 98.6, MCH 32.5 H, MCHC 33.0, RDW Std Deviation 58.4 H, RDW Coeff of Hitesh 16.3 H, Plt Count 111 L, MPV 10.6, Neut % (Auto) Not Reportable, Absolute Neuts (auto) 4.4, Absolute Lymphs (auto) 1.47, Total Counted 100, Neutrophils % (Manual) 63, Band Neutrophils % 2, Lymphocytes % (Manual) 21, Monocytes % (Manual) 7, Eosinophils % (Manual) 1, Metamyelocytes % 6 H, Diff Path Review September, Platelet Estimate ADEQUATE, Anisocytosis 1+, PT 12.8, INR 1.0, APTT 27.4, Sodium 136, Potassium 4.3, Chloride 102, Carbon Dioxide 24.4, Anion Gap 10, BUN 10, Creatinine 0.72, Estim Creat Clear Calc 54.26, Est GFR (MDRD) Non-Af 86, BUN/Creatinine Ratio 13.6, Glucose 109 H, Calcium 9.0, Troponin T High Sens 43 H 10/16/24 19:20: POC Glucose 180 H 10/16/24 19:40: Urine Color Straw, Urine Clarity Sl. Cloudy, Urine pH 6.5, Ur Specific [place] 1.010, Urine Protein 30 H, Urine Glucose (UA) Normal, Urine Ketones Negative, Urine Occult Blood 25 H, Urine Nitrite Positive H, Urine Bilirubin Negative, Urine Urobilinogen Normal, Ur Leukocyte Esterase 500 H, Urine RBC 0 SEEN, Urine WBC >100 SEEN, Ur Squamous Epith Cells 0 SEEN, Urine Bacteria 2+, Urine Mucus 0 SEEN 10/16/24 20:50: Magnesium 1.5, Troponin T Hi Sens 2 Hr 45 H 10/17/24 00:49: POC Glucose 187 H 10/17/24 05:45: WBC 5.2, RBC 2.78 L, Hgb 8.9 L, Hct 27.0 L, MCV 97.1, MCH 32.0, MCHC 33.0, RDW Std Deviation 55.8 H, RDW Coeff of Hitesh 15.9 H, Plt Count 107 L, MPV 10.8, Neut % (Auto) Not Reportable, Absolute Neuts (auto) 4.2, Absolute Lymphs (auto) 0.31 L, Total Counted 100, Neutrophils % (Manual) 69, Band Neutrophils % 11 H, Lymphocytes % (Manual) 6 L, Monocytes % (Manual) 2, Metamyelocytes % 9 H, Myelocytes % 3 H, Diff Path Review September, Platelet Estimate SLT DEC, RBC Morphology NORM C+C, Sodium 139, Potassium 4.1, Chloride 106, Carbon Dioxide 25.9, Anion Gap 8, BUN 8, Creatinine 0.56 L, Estim Creat Clear Calc 54.26, Est GFR (MDRD) Non-Af 93, BUN/Creatinine Ratio 13.8, Glucose 140 H, Hemoglobin A1c 6.9 H, Calcium 9.3, Total Bilirubin 0.20, AST 18, ALT 10, Alkaline Phosphatase 82, Total Protein 5.2 L, Albumin 3.3 L, Globulin 1.9 L, Albumin/Globulin Ratio 1.7, Triglycerides 173, Cholesterol 144, LDL Cholesterol, Calc 83, VLDL Cholesterol 35, HDL Cholesterol 26 L, Cholesterol/HDL Ratio 5.50, TSH 0.296 L, Free T4 1.70 H, Free T3 pg/dL 2.5 10/17/24 09:30: POC Glucose 164 H 10/17/24 11:37: POC Glucose 222 H Microbiology: Microbiology 10/16/24 19:40 Urine, Clean Catch Urine 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 Consider MRI if there is persistent concern for acute ischemia. Impression in this case discussed by phone with Dr. Sebastián Betts on 10/16/2024 at 7:25pm. Reading Location: [id number] Head/Neck CTA 10/16/24 18:15 IMPRESSION: 1. Nondiagnostic evaluation of the proximal right ICA due to motion artifact. Otherwise, no significant carotid artery stenosis as visualized. 2. 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 Dominant left vertebral artery without significant stenosis. 3. No large vessel occlusion, high-grade stenosis or aneurysm of the [id number]. Reading [facility] Chest X-Ray 10/16/24 19:05 IMPRESSION: No focal consolidation. Mild blunting of the left costophrenic angle could be the result of atelectasis/scarring or a trace pleural effusion. Reading Location: [id number] Echocardiogram 10/16/24 23:25 Interpretation Summary The estimated ejection fraction is 70 %. Unable to assess diastolic dysfunction. The left atrium is mildly enlarged. Mild mitral valve stenosis. Mild aortic stenosis. Ordering Physician: Batool Tapia Referring Physician: PRITI LUIS Performed By: Joceline Robison RCS Brain MRI 10/17/24 08:30 IMPRESSION: 1. Apparent small acute left-sided pontine infarction. 2. Other findings as noted. Findings were called to the [facility] PCU on 10/17/2024 at 9:50 a.m.. Reading Location: [id number] D/C Instructions Discharge Diet: Carb Control Diet Call your doctor if you observe: Fever of 101 or Higher, Shortness of breath, Dizziness, Fainting spells, Swelling in the ankles, Chest pain and Increased palpitations (irregular heartbeat) DC O2, CPAP, BIPAP Needs Home O2 Discharge instructions: No Meaningful Use Info Meaningful Use Meaningful Use Diagnoses (Choose all that apply): None applicable Ischemic Stroke Statin Dosing Therapy Reference: STATIN DOSE THERAPY REFERENCE: * Patients > 75 years receive moderate or high dose statin therapy. * Patients 75 years or YOUNGER should receive HIGH intensity statin dose unless contraindicated. You will be required to document reason for non-treatment if statin daily dose does not meet guidelines. HIGH DOSE STATIN THERAPY DAILY Atorvastatin > than or = to 40 mg Rosuvastatin > than or = to 20 mg Amlodipine + Atorvastatin > than or = to 2.5/40 mg Ezetimibe + Simvastatin 10/80 mg Simvastatin 80mg Discharge Plan Admission Admit Date/Time: 10/16/24 22:21 Attending Provider: Sher Delgado Primary Care Provider: Priti Luis Consulting Providers: Mika Franklin; Adriana Mendez; Faye Saxena; Usha Carrillo; Lesli Dimas; Preston Benoit; Trinh Diaz; Abhinav aLma; Gustavo Bhatia; Solitario Mayo; Marjorie Valdivia; Odilon Vallejo; Anamika Rios; Fabiano Benton; Nam Goodson; Isaiah Quinones; Junaid Olmstead; Bam Gunderson; Marleny Saldana; Emilio Sandoval; Batool Tapia Discharge Orders/Prescriptions Prescriptions: New cefdinir 300 mg capsule 300 mg PO BID Qty: 10 0RF Continued aspirin 81 MG tablet,chewable 81 mg PO DAILY@0800 Patient Comments: [facility] Health metoprolol succinate 25 MG tablet extended release 24 hr 25 mg PO DAILY levothyroxine 150 MCG tablet 150 mcg PO DAILY@0600 trazodone 50 mg tablet 50 - 100 mg PO QHS PRN PRN (Reason: insomnia) amlodipine 5 mg tablet 5 mg PO DAILY paroxetine HCl 20 mg tablet 40 mg PO DAILY Patient Comments: [NO ORIGINAL SIG] pantoprazole 40 mg tablet,delayed release (DR/EC) 40 mg PO DAILY docusate sodium 100 mg capsule 100 mg PO BID allopurinol 300 mg tablet 300 mg PO DAILY oxycodone 5 mg tablet 5 mg PO Q6H PRN PRN (Reason: pain) acyclovir 400 mg tablet 400 mg PO BID gabapentin 100 mg capsule 100 mg PO DAILY insulin lispro [Admelog SoloStar U-100 Insulin] 100 unit/mL insulin pen 8 unit subcut TID insulin glargine [Lantus Solostar U-100 Insulin] 100 unit/mL (3 mL) insulin pen 18 unit subcut QHS oxycodone 10 mg tablet 10 mg PO Q6H PRN PRN (Reason: pain) semaglutide [Ozempic] 150 mg subcut .weekly Patient Comments: Take every sunday. Pt unsure of dose Acidophilus Capsule 10 mg PO DAILY Referrals / Follow Up: Priti Luis MD [Primary Care Provider] - 10/23/24 12:30 am Disposition Disposition (needs filled in before D/C Order can be placed): Home Health Service Charges/Coding Visit Charges Inpatient E&M: 74220 Disch Hosp >30min
[2024-10-23 15:49] LABS: Pathologist Review Reviewed
[2024-10-23 15:49] LABS: Pathologist Review Reviewed
== END 2024-10-17 15:34 | disposition home health service (06) ==
LOC: ED 22:32 → PCU 22:40
PROVIDERS: Admitting Provider Family Medicine; Emergency Provider Emergency Medicine; PCP Family Medicine; Visit Provider Family Medicine
DX: T83.511A Infection and inflammatory reaction due to indwelling urethral catheter, initial encounter (principal); C85.90 Non-Hodgkin lymphoma, unspecified, unspecified site; E11.9 Type 2 diabetes mellitus without complications; Z79.4 Long term (current) use of insulin; K21.9 Gastro-esophageal reflux disease without esophagitis; M10.9 Gout, unspecified; G45.9 Transient cerebral ischemic attack, unspecified; E78.5 Hyperlipidemia, unspecified; E03.9 Hypothyroidism, unspecified; Z79.890 Hormone replacement therapy; D64.9 Anemia, unspecified; I10 Essential (primary) hypertension; F41.9 Anxiety disorder, unspecified; G89.4 Chronic pain syndrome; Z79.899 Other long term (current) drug therapy; Z79.82 Long term (current) use of aspirin; Z79.84 Long term (current) use of oral hypoglycemic drugs; N31.9 Neuromuscular dysfunction of bladder, unspecified; Y73.1 Therapeutic (nonsurgical) and rehabilitative gastroenterology and urology devices associated with adverse incidents; N39.0 Urinary tract infection, site not specified
CPT/HCPCS: 36591; 51702; 70450; 70496; 70498; 70551; 71045; 80048; 80053; 80061; 81001; 82962; 83036; 83735; 84439; 84443; 84481; 84484; 85025; 85610; 85730; 87077; 87086; 87088; 87186; 92610; 93005; 93306; 94762; 96360; 96361; 96372; 97162; 97166; 97802; 99221; 99285; Q9967; A4216; G0378

== ENCOUNTER 2024-12-14 19:47 | Inpatient (IN) | payer MEDICARE, OTHER, SELFPAY ==
[2024-12-14] VITALS (8 sets, daily range): BP systolic 125–154; BP diastolic 63–116; PULSE 91–107; RESP 15–28; TEMP 37.2–38.8; O2SAT 95–100; BMI 21.4
--- NOTE | 2024-12-14 19:53 | EX.ED.DYSGE1 ---
HPI <LOPEZ Arzate - Last Filed: 12/14/24 21:56> History of Present Illness Chief Complaint: Confusion Narrative Narrative: 79-year-old female with past medical history of non-Hodgkin's lymphoma, history of breast cancer in remission, HTN, HLD, DM2, multiple TIAs, chronic indwelling Ashby catheter presents from home with altered mental status. Patient cannot provide history but denies pain. arrives and states this afternoon she states she felt tired. He went to a birthday republic[employer] and was gone for about 3 hours and when he got home she had chills, shaking, and vomited. He also reports she had a suprapubic catheter placed at [facility] about 3 weeks ago because she could not tolerate the chronic indwelling Ashby catheter. She developed some redness and drainage around the suprapubic catheter insertion site and they called the urologist and he prescribed Keflex about 3 days ago which she is taking and the redness has decreased. [facility] <LOPEZ Arzate - Last Filed: 12/14/24 21:56> [facility] Medical History Non-Hodgkin lymphoma Heart murmur Hyperlipemia Insomnia Vertigo Hodgkin lymphoma TIA (transient ischemic attack) HTN (hypertension) Breast cancer Hypothyroid Diabetes mellitus Home Medications ?Medication ?Instructions ?Recorded ?Last Taken ?Type aspirin 81 mg chewable tablet 81 mg PO DAILY@0800 heart health 08/30/13 12/14/24 History metoprolol succinate 25 mg 25 mg PO DAILY blood pressure 10/16/18 12/13/24 History tablet,extended release 24 hr levothyroxine 150 mcg tablet 150 mcg PO DAILY@0600 thyroid 11/29/20 12/13/24 History amlodipine 5 mg tablet 5 mg PO DAILY blood pressure 06/09/24 10/16/24 08:24 History Held on 12/14/24. Instructions: doesnt take this anymore docusate sodium 100 mg capsule 100 mg PO BID stool softner 06/09/24 12/14/24 History oxycodone 5 mg tablet 5 mg PO Q6H PRN PRN pain 06/09/24 10/16/24 History Held on 12/14/24. Instructions: doesn't take currentlyl pantoprazole 40 mg tablet,delayed 40 mg PO DAILY 06/09/24 12/14/24 History release paroxetine HCl 20 mg tablet 40 mg PO DAILY mental health 06/09/24 12/14/24 History trazodone 50 mg tablet 50 - 100 mg PO QHS PRN PRN insomnia 06/09/24 12/13/24 History Lactobacillus acidophilus 10 mg PO DAILY supplement 10/16/24 10/16/24 08:24 History (Acidophilus capsule) Held on 12/14/24. Instructions: doesn't take anymore acyclovir 400 mg tablet 400 mg PO BID virus 10/16/24 12/14/24 History gabapentin 100 mg capsule 100 mg PO DAILY nerve pain 10/16/24 12/13/24 History insulin glargine 100 unit/mL (3 18 unit subcut QHS diabetes 10/16/24 12/13/24 History mL) subcutaneous pen (Lantus Solostar U-100 Insulin) insulin lispro 100 unit/mL 8 unit subcut TID diabetes 10/16/24 12/13/24 History subcutaneous pen (Admelog SoloStar U-100 Insulin lispro) oxycodone 10 mg tablet 10 mg PO Q6H PRN PRN pain 10/16/24 12/13/24 History semaglutide 150 mg subcut .weekly diabetes 10/16/24 12/07/24 History Allergy/AdvReac Type Severity Reaction Status Date / Time lisinopril Allergy Unknown Verified 10/16/24 18:08 phenazopyridine HCl (From Allergy Unknown Verified 10/16/24 18:08 Pyridium) Sulfa (Sulfonamide Allergy Unknown Verified 10/16/24 18:08 Antibiotics) Family History Mother Metastatic cancer Father Heart disease Required AICD but uncertain reason. Surgical History Hx of bilateral mastectomy History of lumpectomy of left breast Social History household members: spouse Smoking Status: Never smoker alcohol intake: current alcohol intake frequency: holidays/special occasions only substance use type: does not use ROS <LOPEZ Arzate - Last Filed: 12/14/24 21:56> ROS ED ROS Narrative Unable to obtain due to her altered mental status EXAM <LOPEZ Arzate - Last Filed: 12/14/24 21:56> Physical Exam Narrative Exam Narrative: CONST: Patient sitting in no acute distress. EYES: Normal inspection. NECK: Normal inspection. RESP: No respiratory distress, CTAB. CVS: Mildly tachycardic with regular rhythm, no murmur, no gallop. ABD: Soft and nontender, no guarding or rebound, nondistended. : Suprapubic catheter with clean overlying bandage, around the skin opening there is slight redness, no fluctuance or crepitus. SKIN: Color normal, no rash. EXTREMITIES: Normal appearance, no pedal edema. NEURO: Alert to self only. Face symmetric, follows commands, moving all extremities. PSYCH: Normal affect. Const Vital Signs: 12/14/24 19:52 12/14/24 19:56 12/14/24 20:02 Temperature 102 F H 102 F H Temperature Source Oral Oral Pulse Rate 107 H 107 H Respiratory Rate 22 H 21 H Blood Pressure 152/92 H 152/92 H Blood Pressure Mean 112 112 Pulse Ox 95 95 100 Oxygen Delivery Method Nasal Cannula Nasal Cannula Nasal Cannula Oxygen Flow Rate (L/min) 2 2 2 12/14/24 20:56 12/14/24 21:00 12/14/24 22:00 Temperature 99.1 F 99.1 F 99 F Temperature Source Temporal Oral Oral Pulse Rate 97 99 97 Respiratory Rate 28 H 16 18 Blood Pressure 154/116 H 154/116 H 132/70 H Blood Pressure Mean 128 128 90 Pulse Ox 98 98 97 Oxygen Delivery Method Nasal Cannula Nasal Cannula Oxygen Flow Rate (L/min) 2 2 12/14/24 23:00 Temperature 99.6 F H Temperature Source Oral Pulse Rate 96 Respiratory Rate 15 Blood Pressure 125/63 H Blood Pressure Mean 83 Pulse Ox 95 Oxygen Delivery Method Nasal Cannula Oxygen Flow Rate (L/min) 2 <Jimmy Vallejo MD - Last Filed: 12/14/24 23:43> Physical Exam Const Vital Signs: 12/14/24 19:52 12/14/24 19:56 12/14/24 20:02 Temperature 102 F H 102 F H Temperature Source Oral Oral Pulse Rate 107 H 107 H Respiratory Rate 22 H 21 H Blood Pressure 152/92 H 152/92 H Blood Pressure Mean 112 112 Pulse Ox 95 95 100 Oxygen Delivery Method Nasal Cannula Nasal Cannula Nasal Cannula Oxygen Flow Rate (L/min) 2 2 2 12/14/24 20:56 12/14/24 21:00 12/14/24 22:00 Temperature 99.1 F 99.1 F 99 F Temperature Source Temporal Oral Oral Pulse Rate 97 99 97 Respiratory Rate 28 H 16 18 Blood Pressure 154/116 H 154/116 H 132/70 H Blood Pressure Mean 128 128 90 Pulse Ox 98 98 97 Oxygen Delivery Method Nasal Cannula Nasal Cannula Oxygen Flow Rate (L/min) 2 2 12/14/24 23:00 Temperature 99.6 F H Temperature Source Oral Pulse Rate 96 Respiratory Rate 15 Blood Pressure 125/63 H Blood Pressure Mean 83 Pulse Ox 95 Oxygen Delivery Method Nasal Cannula Oxygen Flow Rate (L/min) 2 [facility] <LOPEZ Arzate - Last Filed: 12/14/24 21:56> [facility] Narrative Medical decision making narrative: History other from: Patient and her Differential includes but not limited to UTI, pneumonia, cellulitis, intra-abdominal process 79-year-old female presents with altered mental status. She has a history of non-Hodgkin's and breast cancer both in remission, not currently on chemotherapy. She is awake and alert alert to self only but in no distress. She has mild focal neurological deficits. She is febrile at 102 ?F, BP 152/92, HR 107, RR 22, 95% on 2 L NC. Heart is slightly fast but regular and lungs are clear. Abdomen soft, nontender. She has a suprapubic catheter with minimal redness around the opening which states has been improving on Keflex. The urine appears dark yellow/brown. Sepsis workup was initiated and she was given fluids and Tylenol. Labs show leukopenia at 2.7, Hgb 11.1, platelets normal at 154. Electrolytes and renal function are normal. Glucose 191 with normal CO2 and gap. Normal liver enzymes and INR. Lactic is less than 1.0. Chest x-ray shows no acute process. Urine appears infected, I think this is most likely the source although she may be colonized but I sent a culture and treated with Rocephin. Since she had a more recently placed suprapubic catheter I ordered a CT to rule out any other intra-abdominal process. Results are pending but she will require admission due to altered mental status and UTI. External records reviewed: Last urine culture from 10/16/2024 showed multiple organisms including Klebsiella pneumonia, Enterococcus faecalis, Raoultella planticola. It was sensitive to most antibiotics except for tetracycline and ampicillin. History & Record Review Discussion w/independent historian: Patient and Family Additional record(s) reviewed:: Prior inpatient record and Prior labs Lab Data Attestation: I reviewed the patient's lab results. Labs: Laboratory Results - last 24 hr 12/14/24 12/14/24 20:26 20:30 WBC 2.7 L RBC 3.59 L Hgb 11.1 L Hct 32.5 L MCV 90.5 MCH 30.9 MCHC 34.2 RDW Std Deviation 46.4 H RDW Coeff of Hitesh 13.9 Plt Count 154 MPV 10.7 Immature Gran % (Auto) 0.700 Neut % (Auto) 67.8 Lymph % (Auto) 16.8 L [place] % (Auto) 13.2 H Eos % (Auto) 1.1 Baso % (Auto) 0.4 Absolute Neuts (auto) 1.9 L Absolute Lymphs (auto) 0.46 L Nucleated RBC % 0 Differential Comment SCANNED Platelet Estimate ADEQUATE PT 13.7 INR 1.0 APTT 29.0 Sodium 133 Potassium 4.5 Chloride 97 L Carbon Dioxide 24.8 Anion Gap 11 BUN 16 Creatinine 0.56 L Estim Creat Clear Calc 54.26 Est GFR (MDRD) Non-Af 94 BUN/Creatinine Ratio 29.5 H Glucose 191 H Lactic Acid < 1.0 Calcium 9.3 Total Bilirubin 0.31 AST 16 ALT 6 Alkaline Phosphatase 76 Total Protein 6.1 Albumin 3.7 Globulin 2.4 Albumin/Globulin Ratio 1.6 Urine Color Yellow Urine Clarity Cloudy Urine pH 6.5 Ur Specific [place] 1.020 Urine Protein 500 H Urine Glucose (UA) Normal Urine Ketones Negative Urine Occult Blood 250 H Urine Nitrite Positive H Urine Bilirubin Negative Urine Urobilinogen 1 H Ur Leukocyte Esterase 100 H Urine RBC 50-100 SEEN Urine WBC 50-100 SEEN Ur Squamous Epith Cells 0 SEEN Urine Bacteria 2+ Urine Mucus 0 SEEN Radiography Diagnostic Testing: Clinical Impression(s) from Imaging Studies Chest X-Ray 12/14/24 20:50 IMPRESSION: No acute findings [facility]Pelvis CT 12/14/24 21:19 IMPRESSION: Possible cystitis. Bone metastatic disease. Reading Location: [place] [address] ED attending interpretation 1 view chest x-ray shows limited film but normal heart size, no acute infiltrate. EKG Initial EKG: Attestation: I personally reviewed and interpreted this EKG as follows: Interpretation: No Acute Injury Pattern and Sinus Tachycardia Comments: Sinus tachycardia at 104 bpm Normal intervals, no acute ischemic changes <Jimmy Vallejo MD - Last Filed: 12/14/24 23:43> MDM MDM Narrative Medical decision making narrative: History other from: Patient and her Differential includes but not limited to UTI, pneumonia, cellulitis, intra-abdominal process 79-year-old female presents with altered mental status. She has a history of non-Hodgkin's and breast cancer both in remission, not currently on chemotherapy. She is awake and alert alert to self only but in no distress. She has mild focal neurological deficits. She is febrile at 102 ?F, BP 152/92, HR 107, RR 22, 95% on 2 L NC. Heart is slightly fast but regular and lungs are clear. Abdomen soft, nontender. She has a suprapubic catheter with minimal redness around the opening which states has been improving on Keflex. The urine appears dark yellow/brown. Sepsis workup was initiated and she was given fluids and Tylenol. Labs show leukopenia at 2.7, Hgb 11.1, platelets normal at 154. Electrolytes and renal function are normal. Glucose 191 with normal CO2 and gap. Normal liver enzymes and INR. Lactic is less than 1.0. Chest x-ray shows no acute process. Urine appears infected, I think this is most likely the source although she may be colonized but I sent a culture and treated with Rocephin. Since she had a more recently placed suprapubic catheter I ordered a CT to rule out any other intra-abdominal process. Results are pending but she will require admission due to altered mental status and UTI. Dr. Vallejo: See my note below. CT of the abdomen pelvis shows no acute process with exception of thickened bladder wall for possible cystitis. Clinical correlation with her UA makes is positive. There is bony metastatic disease noted in the spine. Repeat examination at approximately 2250 shows her to be resting comfortably, no acute distress. External records reviewed: Last urine culture from 10/16/2024 showed multiple organisms including Klebsiella pneumonia, Enterococcus faecalis, Raoultella planticola. It was sensitive to most antibiotics except for tetracycline and ampicillin. Lab Data Labs: Laboratory Results - last 24 hr 12/14/24 12/14/24 20:26 20:30 WBC 2.7 L RBC 3.59 L Hgb 11.1 L Hct 32.5 L MCV 90.5 MCH 30.9 MCHC 34.2 RDW Std Deviation 46.4 H RDW Coeff of Hitesh 13.9 Plt Count 154 MPV 10.7 Immature Gran % (Auto) 0.700 Neut % (Auto) 67.8 Lymph % (Auto) 16.8 L [place] % (Auto) 13.2 H Eos % (Auto) 1.1 Baso % (Auto) 0.4 Absolute Neuts (auto) 1.9 L Absolute Lymphs (auto) 0.46 L Nucleated RBC % 0 Differential Comment SCANNED Platelet Estimate ADEQUATE PT 13.7 INR 1.0 APTT 29.0 Sodium 133 Potassium 4.5 Chloride 97 L Carbon Dioxide 24.8 Anion Gap 11 BUN 16 Creatinine 0.56 L Estim Creat Clear Calc 54.26 Est GFR (MDRD) Non-Af 94 BUN/Creatinine Ratio 29.5 H Glucose 191 H Lactic Acid < 1.0 Calcium 9.3 Total Bilirubin 0.31 AST 16 ALT 6 Alkaline Phosphatase 76 Total Protein 6.1 Albumin 3.7 Globulin 2.4 Albumin/Globulin Ratio 1.6 Urine Color Yellow Urine Clarity Cloudy Urine pH 6.5 Ur Specific [place] 1.020 Urine Protein 500 H Urine Glucose (UA) Normal Urine Ketones Negative Urine Occult Blood 250 H Urine Nitrite Positive H Urine Bilirubin Negative Urine Urobilinogen 1 H Ur Leukocyte Esterase 100 H Urine RBC 50-100 SEEN Urine WBC 50-100 SEEN Ur Squamous Epith Cells 0 SEEN Urine Bacteria 2+ Urine Mucus 0 SEEN Radiography Chest X-Ray - ED: 1 View, Read by ED Physician, Read by Radiologist and No Acute Disease Diagnostic Testing: Clinical Impression(s) from Imaging Studies Chest X-Ray 12/14/24 20:50 IMPRESSION: No acute findings Reading Location: [facility] Abdomen/Pelvis CT 08/03/25 21:19 IMPRESSION: Possible cystitis. Bone metastatic disease. Reading Location: [place] [address] Management Discussion w/another healthcare provider: Hospitalist (Dr. Schumacher) Treatment and Re-Evaluation :: Dr. Vallejo: I have personally performed a face to face assessment of the patient and have reviewed the POLLY Note. I performed a substantive portion of the visit including all aspects of the following. My morejon findings include: History is non-Hodgkin's lymphoma, recent change from chronic indwelling Ashby catheter to suprapubic. Positive mental status change. Confusion. Exam is positive for fever. Initial tachycardia on cardiovascular examination. Lungs clear to auscultation bilaterally. Abdomen soft nontender without guarding or rebound. Positive bowel sounds. Awake, alert, denies pain symptoms. Medical Decision Making: Concern is for UTI with sepsis as suprapubic catheter draining cloudy urine. She is meeting SIRS criteria with elevated temperature and tachycardia. She is not hypotensive. Comprehensive workup was pursued/sepsis workup. She does have a urinary tract infection on review of her urinalysis. Additionally, she is neutropenic. Chest x-ray interpreted by myself independently shows no evidence of an acute process, no pneumonia or pneumothorax. I reviewed the radiology report of the CT of the abdomen and pelvis and there is no acute process. There is bony metastatic disease. She was given Rocephin 2 g intravenously, cultures obtained, I will discuss patient with Dr. Schumacher for admission. She is in stable condition. Other additions or changes: [None] Discharge Plan Dx/Rx/DC Orders Clinical Impression: Altered mental status, Complicated UTI (urinary tract infection), Sepsis, Chronic suprapubic catheter Disposition Disposition: Acute Care [facility]
--- NOTE | 2024-12-14 20:02 | EKG12_ITS ---
Test Reason : CONFUSION Blood Pressure : */* mmHG Vent. Rate : 104 BPM Atrial Rate : 104 BPM P-R Int : 152 ms QRS Dur : 70 ms QT Int : 312 ms P-R-T Axes : -2 7 15 degrees QTcB Int : 410 ms Sinus tachycardia Otherwise normal ECG Confirmed by ALLISON PÉREZ, ROSALINA ([id number]), news videotape editor SANA VALENTINO ([id number]) on 12/15/2024 9:49:37 AM Referred By: Confirmed By: ROSALINA COOPER MD
[2024-12-14 20:37] LABS: Mucous, Urine 0 SEEN /hpf (<or=2+); Squamous Epithelial Cells - UA 0 SEEN /hpf (5-10)
[2024-12-14 20:39] LABS: Hematocrit 32.5 % (37-47); Hemoglobin 11.1 g/dL (12.0-15.0); Immature Granulocytes Count 0.020 X10^3/uL (0.0-0.0); Mean Corp Hgb Conc 34.2 g/dL (32-36); Mean Corpuscular Volume 90.5 fL (81-99); Mean Platelet Vol. 10.7 fl (6.2-12.0); NRBC Flagged by Analyzer 0 % (0-5); POSITIVE DIFFERENTIAL YES; Platelet Count 154 K/mm3 (150-450); RBC Distribution Width CV 13.9 % (11.6-14.6); RBC Distribution Width SD 46.4 fl (35.1-43.9); Red Blood Count 3.59 M/mm3 (4.2-5.4); White Blood Count 2.7 K/mm3 (4.4-11.0)
[2024-12-14] MEDS: 0.9% Normal Saline (1000mL) 1,000 ML 999 ML IV (20:47)
--- NOTE | 2024-12-14 20:50 | RAD_ITS ---
PROCEDURE: CHEST 1 VIEW (PORTABLE) 12/14/2024 REASON FOR EXAM: FEVER TECHNIQUE: Frontal view of the chest. COMPARISON: 10/16/2024 FINDINGS: Heart size is within normal limits. Unremarkable port. Under aerated lungs. Lordotic positioning. No consolidation, effusion or pneumothorax. RAD/Chest 1 View (Portable) IMPRESSION: No acute findings Reading Location: [place] [address]
[2024-12-14 20:53] LABS: Differential Indicated SCAN CRITERIA MET
[2024-12-14 21:03] LABS: AST(SGOT) 16 U/L (<=31); Alanine Aminotransfer ALT/SGPT 6 U/L (<=34); Albumin, Serum 3.7 g/dL (3.4-4.8); Alkaline Phosphatase 76 U/L (35-104); Anion Gap 11 (5-15); BUN 16 mg/dL (4-19); BUN/Creat Ratio 29.5 RATIO (10-20); Calcium,Total 9.3 mg/dL (7.6-11.0); Carbon Dioxide 24.8 mmol/L (21.0-32.0); Chloride 97 mmol/L (98-108); Estimated Creatinine Clearance 54.26 ml/min (50-250); Globulin 2.4 g/dL (2.2-4.2); Glucose 191 mg/dL (70-99); Potassium 4.5 mmol/L (3.3-5.1)
[2024-12-14 21:06] LABS: Color, Urine Yellow (Yellow); Glucose, Dipstick Normal (Normal); Ketone-Dipstick Negative (Negative); Leukocyte Esterase-Dipstick 100 /ul (Negative); Nitrite-Dipstick Positive (Negative); Occult Blood-Urine 250 /ul (Negative); Protein-Dipstick 500 mg/dl (Negative); Specific Gravity, Urine 1.020 (1.002-1.030); Urine Bilirubin Dipstick Negative (Negative)
--- NOTE | 2024-12-14 21:19 | CT_ITS ---
PROCEDURE: ABDOMEN/PELVIS W IV CONT ONLY 12/14/2024 REASON FOR EXAM: ABDOMINAL PAIN TECHNIQUE: ABDOMEN/PELVIS W IV CONT ONLY Coronal and Sagittal reconstruction series were provided. CONTRAST: Isovue 370 VOLUME: 15 mL One or more dose reduction techniques were used (e.g., Automated exposure control, adjustment of the mA and/or kV according to patient size, use of iterative reconstruction technique. RADIATION DOSE SUMMARY: CTDlvol: 23 mGy DLP: 534 mGycm COMPARISON: No FINDINGS: Under aerated lung bases. Upper limits of normal heart size. Diffuse hepatic steatosis. Unremarkable gallbladder,, spleen, adrenal glands, kidneys. No hydronephrosis. Suprapubic catheter tip in bladder lumen. Incomplete bladder lumen distention limits assessment. There is wall thickening and mild enhancement, possible cystitis. Status post hysterectomy. No retroperitoneal or pelvic adenopathy. Nondistended bowel. Normal appendix. No acute large bowel findings. Lumbar spine scoliosis and degeneration. Old pelvic fractures. Status post bilateral mastectomy and breast reconstruction. Old rib fractures. Multifocal areas of mixed lytic/sclerotic lesions consistent with bone metastatic disease. Pathologic fractures of T12, L1, and L3 vertebral bodies, with underlying metastatic disease. CT/Abdomen/Pelvis W IV Cont ONLY IMPRESSION: Possible cystitis. Bone metastatic disease. [facility]
[2024-12-14 21:27] LABS: Prothrombin Time (Protime)PT. 13.7 SECONDS (11.7-14.9)
[2024-12-14 21:28] LABS: Partial Thromboplast Time 29.0 Seconds (24.1-36.2)
[2024-12-14 21:42] LABS: Red Blood Cells-Urine 50-100 SEEN /hpf (0-5)
[2024-12-14 22:13] LABS: Differential Comment SCANNED
[2024-12-14] MEDS: Ceftriaxone 2 GM in 0.9% Normal Saline (50mL MB+) 50 ML IV (22:37)
--- NOTE | 2024-12-14 23:41 | HP.PCM.HOS_ITS ---
[facility] - General General Date of Admission: 12/15/24 Date of Service: 12/14/24 Chief Complaint: Fever and Confusion. [facility] Narrative LANCE CHINO, is a 79 F with a past medical history of essential hypertension; on amlodipine and metoprolol, hypothyroidism; on levothyroxine, history of non- Hodgkin's lymphoma, history of breast cancer; allegedly in remission, DM-2; of unknown control on insulin glargine 18 units SQ at bedtime, insulin lispro 8 units 3 times daily plus semaglutide, diabetic neuropathy; on gabapentin, history of multiple TIAs, history of shingles; on acyclovir twice daily, depression; on paroxetine and trazodone, GERD; on pantoprazole, chronic pain; on oxycodone every 6 hours as needed, OA and history of urinary retention; with previous chronic indwelling Ashby with recent placement of suprapubic catheter at [facility] ~3 weeks ago because she could not tolerate chronic indwelling Ashby catheter with subsequent redness and drainage around the suprapubic catheter insertion site prompting them to contact the urologist who prescribed cephalexin 3 days ago with subsequent improvement in redness and swelling who presents to [facility] complaining of fever and confusion. Mrs. Chino is not a fully-reliable historian at this time so information was gathered from chart, medical staff and computer. According to the records the patient's went to a birthday democrat earlier today causing him to be gone for 2 to 3 hours and when he got home he noted she had fever, chills, shaking and nausea with vomiting so he decided to bring her here for further evaluation and treatment. The patient denies significant pain but is obviously confused. In the ER she was noted to have a UA positive for Acute Cystitis; with microscopic hematuria with Leukopenia of 2.7K present on admission with a corresponding CT scan of the abdomen and pelvis that revealed diffuse hepatic steatosis with suprapubic catheter tip in bladder lumen with wall thickening and mild enhancement in addition to evidence of previous hysterectomy and bilateral mastectomy with breast reconstruction and multifocal areas of mixed lytic/sclerotic lesions consistent with metastatic bone disease with pathologic fractures of T12, L1 and L3 vertebral bodies with underlying metastatic disease complicated by clinical evidence of Metabolic Encephalopathy in the setting of recent suprapubic catheter placement with subsequent leakage and infection of insertion site that is now improved. She was then admitted to the general medical floor with telemetric monitoring for ongoing care for state that is expected to extend beyond 2 midnights. [facility] Medical History Non-Hodgkin lymphoma Heart murmur Hyperlipemia Insomnia Vertigo Hodgkin lymphoma TIA (transient ischemic attack) HTN (hypertension) Breast cancer Hypothyroid Diabetes mellitus Home Medications ?Medication ?Instructions ?Recorded ?Last Taken ?Type aspirin 81 mg chewable tablet 81 mg PO DAILY@0800 hear t health 08/30/13 12/14/24 History metoprolol succinate 25 mg 25 mg PO DAILY blood pressu re 10/16/18 12/13/24 History tablet,extended release 24 hr levothyroxine 150 mcg tablet 150 mcg PO DAILY@0600 thy roid 11/29/20 12/13/24 History amlodipine 5 mg tablet 5 mg PO DAILY blood pressure 06/09/24 10/16/24 08:24 History Held on 12/14/24. Instructions: doesnt take this anymore docusate sodium 100 mg capsule 100 mg PO BID stool sof tner 06/09/24 12/14/24 History oxycodone 5 mg tablet 5 mg PO Q6H PRN PRN pain 10/16/24 History Held on 12/14/24. Instructions: doesn't take currentlyl pantoprazole 40 mg tablet,delayed 40 mg PO DAILY 06/0912/14/24 History release paroxetine HCl 20 mg tablet 40 mg PO DAILY mental heal th 06/09/24 12/14/24 History trazodone 50 mg tablet 50 - 100 mg PO QHS PRN PRN i nsomnia 06/09/24 12/13/24 History Lactobacillus acidophilus 10 mg PO DAILY supplement 10/16/24 08:24 History (Acidophilus capsule) Held on 12/14/24. Instructions: doesn't take anymore acyclovir 400 mg tablet 400 mg PO BID virus 10/16/24 12/14/24 History gabapentin 100 mg capsule 100 mg PO DAILY nerve pain 0 10/16/24 12/13/24 History insulin glargine 100 unit/mL (3 18 unit subcut QHS daniela betes 10/16/24 12/13/24 History mL) subcutaneous pen (Lantus Solostar U-100 Insulin) insulin lispro 100 unit/mL 8 unit subcut TID diabetes 10/16/24 12/13/24 History subcutaneous pen (Admelog SoloStar U-100 Insulin lispro) oxycodone 10 mg tablet 10 mg PO Q6H PRN PRN pain 12/13/24 History semaglutide 150 mg subcut .weekly diabet es 10/16/24 12/07/24 History Allergy/AdvReac Type Severity Reaction Status Date / Time lisinopril Allergy Unknown Verified 10/16/24 18:08 phenazopyridine HCl (From Allergy Unknown Verified 10/16/24 18:08 Pyridium) Sulfa (Sulfonamide Allergy Unknown Verified 10/16/24 18:08 Antibiotics) Family History Mother Metastatic cancer Father Heart disease Required AICD but uncertain reason. Surgical History Hx of bilateral mastectomy History of lumpectomy of left breast Social History household members: spouse Smoking Status: Never smoker alcohol intake: current alcohol intake frequency: holidays/special occasions only substance use type: does not use ROS ROS Narrative Full review of systems was not possible due to patient's confusion. Vital Signs Vital Signs Vital Signs: 12/14/24 19:52 12/14/24 19:56 12/14/24 20:02 Temperature 102 F H 102 F H Temperature Source Oral Oral Pulse Rate 107 H 107 H Respiratory Rate 22 H 21 H Blood Pressure 152/92 H 152/92 H Blood Pressure Mean 112 112 Pulse Ox 95 95 100 Oxygen Delivery Method Nasal Cannula Nasal Cannula Nasal Cannula Oxygen Flow Rate (L/min) 2 2 2 12/14/24 20:56 12/14/24 21:00 12/14/24 22:00 Temperature 99.1 F 99.1 F 99 F Temperature Source Temporal Oral Oral Pulse Rate 97 99 97 Respiratory Rate 28 H 16 18 Blood Pressure 154/116 H 154/116 H 132/70 H Blood Pressure Mean 128 128 90 Pulse Ox 98 98 97 Oxygen Delivery Method Nasal Cannula Nasal Cannula Oxygen Flow Rate (L/min) 2 2 12/14/24 23:00 Temperature 99.6 F H Temperature Source Oral Pulse Rate 96 Respiratory Rate 15 Blood Pressure 125/63 H Blood Pressure Mean 83 Pulse Ox 95 Oxygen Delivery Method Nasal Cannula Oxygen Flow Rate (L/min) 2 Weight Weight: 132 lb 7.965 oz Body Mass Index (BMI) 21.4 Physical Exam Const alert and no apparent distress General Appearance: cooperative Orientation / Consciousness: confused HEENT normocephalic, head/scalp atraumatic, hearing grossly normal bilaterally and moist oral mucous membranes Eyes PERRL, EOMs intact bilaterally and conjunctivae normal Neck no lymphadenopathy, supple and no JVD Resp normal respiratory effort, no retractions, no use of accessory muscles and clear to auscultation bilaterally Cardio regular rate and regular rhythm GI normal to inspection, nondistended, normoactive bowel sounds, soft to palpation, non-tender and non-distended Extremity normal to inspection, full ROM and no clubbing, cyanosis or edema Skin Skin Narrative: Slight redness over suprapubic catheter insertion site with clean overlying bandage. Neuro CN's II-XII intact bilaterally and moves all extremities Neuro Narrative: Patient is confused and alert to self only. Her face is asymmetric but she follows all commands and moves all extremities. Sensorium / Orientation: awake, alert and oriented to person Speech: speech normal Psych affect normal Results Medical Records Data Attestation: I reviewed the patient's medical records Lab / Micro Data Attestation: I reviewed the patient's lab results. 12/14/24 20:26 12/14/24 20:26 Labs: Laboratory Results - last 24 hr 12/14/24 20:26: WBC 2.7 L, RBC 3.59 L, Hgb 11.1 L, Hct 32.5 L, MCV 90.5, MCH 30.9, MCHC 34.2, RDW Std Deviation 46.4 H, RDW Coeff of Hitesh 13.9, Plt Count 154, MPV 10.7, Immature Gran % (Auto) 0.700, Neut % (Auto) 67.8, Lymph % (Auto) 16.8 L, Walsh % (Auto) 13.2 H, Eos % (Auto) 1.1, Baso % (Auto) 0.4, Absolute Neuts (auto) 1.9 L, Absolute Lymphs (auto) 0.46 L, Nucleated RBC % 0, Differential Comment SCANNED, Platelet Estimate ADEQUATE, PT 13.7, INR 1.0, APTT 29.0, Sodium 133, Potassium 4.5, Chloride 97 L, Carbon Dioxide 24.8, Anion Gap 11, BUN 16, C reatinine 0.56 L, Estim Creat Clear Calc 54.26, Est GFR (MDRD) Non-Af 94, B UN/Creatinine Ratio 29.5 H, Glucose 191 H, Lactic Acid < 1.0, Calcium 9.3, Total Bilirubin 0.31, AST 16, ALT 6, Alkaline Phosphatase 76, Total Protein 6.1, Albumin 3.7, Globulin 2.4, Albumin/Globulin Ratio 1.6 12/14/24 20:30: Urine Color Yellow, Urine Clarity Cloudy, Urine pH 6.5, Ur Specific [place] 1.020, Urine Protein 500 H, Urine Glucose (UA) Normal, Urine Ketones Negative, Urine Occult Blood 250 H, Urine Nitrite Positive H, Urine Bilirubin Negative, Urine Urobilinogen 1 H, Ur Leukocyte Esterase 100 H, Urine RBC 50-100 SEEN, Urine WBC 50-100 SEEN, Ur Squamous Epith Cells 0 SEEN, Urine Bacteria 2+, Urine Mucus 0 SEEN Imaging Radiology Impression Chest X-Ray 12/14/24 20:50 IMPRESSION: No acute findings Reading Location: [place] [address] Abdomen/Pelvis CT 12/14/24 21:19 IMPRESSION: Possible cystitis. Bone metastatic disease. Reading Location: [place] [address] Assessment & Plan Assessment/Plan (1) Acute cystitis with hematuria: (2) Fever: QUALIFIERS: Fever type: unspecified Qualified Code(s): R50.9 - Fever, unspecified (3) Leukopenia: QUALIFIERS: Leukopenia type: unspecified Qualified Code(s): D 72.819 - Decreased white blood cell count, unspecified (4) Non-Hodgkin lymphoma: QUALIFIERS: Lymphoma site: multiple regions Non-Hodgkin lymphoma type: unspecified type Qualified Code(s): C85.98 - Non-Hodgkin lymphoma, unspecified, lymph nodes of multiple sites (5) History of metastatic neoplastic disease: (6) Metabolic encephalopathy: (7) Chronic suprapubic catheter: PLAN: Plan 1. UA positive for Acute Cystitis; with microscopic hematuria with Fever of 102 ?F and Leukopenia of 2.7K present on admission - Admit to general medical floor with telemetric monitoring. Continue IV ceftriaxone begun in the ER and await culture & sensitivity data. Give ondansetron IV prn for nausea and vomiting. Give acetaminophen prn for pain or fever. Sepsis alert was not called in ER due to lack of organ dysfunction. 2. CT scan of the abdomen and pelvis that revealed diffuse hepatic steatosis with suprapubic catheter tip in bladder lumen with wall thickening and mild enhancement in addition to evidence of previous hysterectomy and bilateral mastectomy with breast reconstruction and multifocal areas of mixed lytic/sclerotic lesions consistent with metastatic bone disease with pathologic fractures of T12, L1 and L3 vertebral bodies with underlying metastatic disease in the setting of known non-Hodgkin's lymphoma with patient still apparently Full Code complicating #1 - Noted with patient likely needing palliative care consultation if patient and are agreeable once her confusion resolves. 3. Metabolic Encephalopathy likely due to #1 - Check TSH, B12, Folate, Lipid Profile, ARIA and UDS to screen for reversible causes of confusion. 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 Otherwise, continue care plan as outlined and monitor for improvement. 4. History of urinary retention; with previous chronic indwelling Ashby with recent placement of suprapubic catheter at [facility] ~3 weeks ago because she could not tolerate chronic indwelling Ashby catheter with subsequent redness and drainage around the suprapubic catheter insertion site prompting them to contact the urologist who prescribed cephalexin 3 days ago with subsequent improvement in redness and swelling adding to the medical complexity of #1 - #3 - Noted with no signs of acute complications on CT. 5. DM-2; of unknown control on insulin glargine 18 units SQ at bedtime, insulin lispro 8 units 3 times daily plus semaglutide plus diabetic neuropathy; on gabapentin - ADA diet. FSBS q. AC/HS plus continue home regimen of long and short acting insulins at ~60% of previous dose to prevent hypoglycemia. 6. Essential hypertension; on amlodipine and metoprolol - Maintain home regimen for now. 7. Hypothyroidism; on levothyroxine - Resume levothyroxine as previous and check TSH. 8. History of breast cancer; allegedly in remission - Noted. 9. History of multiple TIAs - Noted. 10. History of shingles; on acyclovir twice daily - Present treatment to be continued as before. 11. Depression; on paroxetine and trazodone - Maintain current therapy. 12. GERD; on pantoprazole - Resume PPI. 13. Chronic pain; on oxycodone every 6 hours as needed - Hold oxycodone in light of #2 in an effort to allow sensorium to clear. 14. OA - Stable. 15. DVT prophylaxis - Heparin 5,000U sq BID plus SCD's. Total time: Approximately (but not less than) 75 minutes. Charges/Coding Visit Charges Inpatient E&M: 20224 Init Hosp L3
[2024-12-15] VITALS (14 sets, daily range): BP systolic 119–158; BP diastolic 61–94; PULSE 82–105; RESP 16–18; TEMP 36.7–37.1; O2SAT 92–96; BMI 20.2; BMI 20.3
[2024-12-15 00:34] LABS: Magnesium 1.6 mg/dL (1.5-2.2)
[2024-12-15] MEDS: 0.9% Normal Saline (1000mL) 1,000 ML 125 ML IV ×2 (00:55→08:12)
[2024-12-15 01:35] LABS: Alcohol, Blood (Medical)-Serum < 10.1 mg/dL (<=10.0)
[2024-12-15] MEDS: 0.9% Saline Lock 10 ML Syringe IV (01:59)
[2024-12-15 02:15] LABS: Vitamin B12 3038 pg/mL (180-914)
[2024-12-15 03:06] LABS: Barbiturate Urine NEGATIVE (< 200 ng/mL); Benzodiazepine Urine NEGATIVE (< 200 ng/mL); PCP Urine NEGATIVE (< 25 ng/mL); THC Urine NEGATIVE (< 50 ng/mL)
[2024-12-15 03:15] LABS: Free T3 2.0 pg/mL (2.18-3.98)
[2024-12-15 07:05] LABS: Hematocrit 29.0 % (37-47); Hemoglobin 9.8 g/dL (12.0-15.0); Immature Granulocytes Count 0.010 X10^3/uL (0.0-0.0); Mean Corp Hgb Conc 33.8 g/dL (32-36); Mean Corpuscular Volume 91.2 fL (81-99); Mean Platelet Vol. 10.7 fl (6.2-12.0); NRBC Flagged by Analyzer 0 % (0-5); POSITIVE DIFFERENTIAL YES; POSITIVE MORPHOLOGY YES; Platelet Count 142 K/mm3 (150-450); RBC Distribution Width CV 13.9 % (11.6-14.6); RBC Distribution Width SD 47.0 fl (35.1-43.9); Red Blood Count 3.18 M/mm3 (4.2-5.4); White Blood Count 2.5 K/mm3 (4.4-11.0)
[2024-12-15 07:09] LABS: Differential Indicated SCAN CRITERIA MET
--- NOTE | 2024-12-15 07:29 | PN.HOSP_ITS ---
Reason for Visit Chief Complaint: Fever and Confusion. Subjective Subjective Patient states she is feeling much better overall. No fevers today. Confusion has resolved. Patient states she has been getting recurrent UTIs with a recent hospitalization for 8 days. States she has not followed up with urology since August when the suprapubic catheter was placed however she does have follow-up this week. I stated that was importance that she is having recurrent infections. Objective Data Objective Data Vital Signs: Vital Signs Temp Pulse Resp BP Pulse Ox O2 Del Method O2 Flow Rate 98.2 F 89 16 134/73 H 93 Room Air 2 12/15/24 04:47 12/15/24 04:47 12/15/24 04:47 12/15/24 04:47 12/15/24 04:47 12/15/24 04:47 12/14/24 23:00 Oxygen Flow Rate (L/min) 2 Oxygen Delivery Method Room Air Weight: 57.5 kg Body Mass Index (BMI) 20.3 Intake & Output: Intake and Output for Last 24 Hours 12/13/24 12/14/24 12/15/24 23:59 23:59 23:59 Intake Total 1000 / 1000 50 / 50 Output Total 1475 / 1475 Balance 1000 / 1000 -1425 / -1425 Lab / Micro Data 12/15/24 06:55 12/15/24 06:55 Labs: Laboratory Results - last 24 hr 12/14/24 16:57: Urine Opiates Screen NEGATIVE, U Buprenorphine Qual NEGATIVE, Ur Oxycodone Screen PRESUMPTIVE POSITIVE, Urine Methadone Screen NEGATIVE, Urine Fentanyl Screen NEGATIVE, Ur Barbiturates Screen NEGATIVE, Ur Phencyclidine Scrn NEGATIVE, Ur Amphetamines Screen NEGATIVE, U Benzodiazepines Scrn NEGATIVE, Urine Cocaine Screen NEGATIVE, U Cannabinoids Screen NEGATIVE 12/14/24 20:26: WBC 2.7 L, RBC 3.59 L, Hgb 11.1 L, Hct 32.5 L, MCV 90.5, MCH 30.9, MCHC 34.2, RDW Std Deviation 46.4 H, RDW Coeff of Hitesh 13.9, Plt Count 154, MPV 10.7, Immature Gran % (Auto) 0.700, Neut % (Auto) 67.8, Lymph % (Auto) 16.8 L, [place] % (Auto) 13.2 H, Eos % (Auto) 1.1, Baso % (Auto) 0.4, Absolute Neuts (auto) 1.9 L, Absolute Lymphs (auto) 0.46 L, Nucleated RBC % 0, Differential Comment SCANNED, Platelet Estimate ADEQUATE, PT 13.7, INR 1.0, APTT 29.0, Sodium 133, Potassium 4.5, Chloride 97 L, Carbon Dioxide 24.8, Anion Gap 11, BUN 16, C reatinine 0.56 L, Estim Creat Clear Calc 54.26, Est GFR (MDRD) Non-Af 94, B UN/Creatinine Ratio 29.5 H, Glucose 191 H, Lactic Acid < 1.0, Calcium 9.3, Magnesium 1.6, Total Bilirubin 0.31, AST 16, ALT 6, Alkaline Phosphatase 76, Total Protein 6.1, Albumin 3.7, Globulin 2.4, Albumin/Globulin Ratio 1.6, V itamin B12 3038 H, TSH 0.062 L, Free T4 1.60 H, Free T3 pg/dL 2.0 L, Ethyl Alcohol < 10.1 12/14/24 20:30: Urine Color Yellow, Urine Clarity Cloudy, Urine pH 6.5, Ur Specific [place] 1.020, Urine Protein 500 H, Urine Glucose (UA) Normal, Urine Ketones Negative, Urine Occult Blood 250 H, Urine Nitrite Positive H, Urine Bilirubin Negative, Urine Urobilinogen 1 H, Ur Leukocyte Esterase 100 H, Urine RBC 50-100 SEEN, Urine WBC 50-100 SEEN, Ur Squamous Epith Cells 0 SEEN, Urine Bacteria 2+, Urine Mucus 0 SEEN 12/15/24 06:55: WBC 2.5 L, RBC 3.18 L, Hgb 9.8 L, Hct 29.0 L, MCV 91.2, MCH 30.8, MCHC 33.8, RDW Std Deviation 47.0 H, RDW Coeff of Hitesh 13.9, Plt Count 142 L, MPV 10.7, Immature Gran % (Auto) 0.400, Neut % (Auto) 39.0 L, Lymph % (Auto) 23.1, [place] % (Auto) 35.5 H, Eos % (Auto) 1.6, Baso % (Auto) 0.4, Absolute Neuts (auto) 1.0 L, Absolute Lymphs (auto) 0.58 L, Nucleated RBC % 0 Radiography Diagnostic Testing: Radiology Impression Chest X-Ray 12/14/24 20:50 IMPRESSION: No acute findings Reading Location: [place] [address] Abdomen/Pelvis CT 12/14/24 21:19 IMPRESSION: Possible cystitis. Bone metastatic disease. Reading Location: [place] [address] Physical Exam Const alert and no apparent distress; Negative for healthy appearing or well nourished Constitutional Narrative: Older, white female, thin, pleasant, sitting up in bed, appears comfortable, does not appear toxic HEENT head/scalp atraumatic and moist oral mucous membranes HEENT Narrative: Mallampati 2, no thrush Head and Scalp: normocephalic Resp normal respiratory effort, no retractions, no use of accessory muscles and clear to auscultation bilaterally Auscultation: Negative for rales, rhonchi or wheezes Cardio regular rate, regular rhythm, S1 normal heart sound, S2 normal heart sound, no murmurs, no rub, no gallops and no clicks GI normal to inspection, nondistended, normoactive bowel sounds, soft to palpation and non-tender GI Narrative: Suprapubic catheter in place Extremity no clubbing, cyanosis or edema Extremity Narrative: 2+ pedal pulses, 2+ radial pulses, decreased lean muscle mass Neuro oriented x3, moves all extremities and no focal motor deficits Speech: speech normal Psych affect normal Psych Narrative: Very pleasant, interacts appropriately Assessment & Plan Assessment/Plan (1) Fever: QUALIFIERS: Fever type: unspecified Qualified Code(s): R50.9 - Fever, unspecified (2) Leukopenia: QUALIFIERS: Leukopenia type: unspecified Qualified Code(s): D 72.819 - Decreased white blood cell count, unspecified (3) Metabolic encephalopathy: (4) Acute cystitis with hematuria: PLAN: Plan Complicated acute gram-negative urinary tract infection related to suprapubic catheter - Catheter has been replaced - Patient needs close follow-up with urology and has an appointment this week - Continue ceftriaxone - Patient is clinically improving - Await culture results and likely discharge tomorrow with oral antibiotics and treat for total of 10 days with oral antibiotics - Culture results from her last hospitalization are not here however her last culture here is from 10/16/2024 at which time she grew 3 organisms. Currently only 1 gram-negative fátima is growing - Patient has chronic suprapubic catheter due to urinary retention Fever - Secondary above - Seems to be resolving -Patient is not neutropenic Toxic/metabolic encephalopathy - Resolved Leukopenia-chronic - Likely related to NHL Hypothyroidism - TSH and free T4 are both abnormal with TSH being low and free T4 being high - Will reduce levothyroxine from 150 mcg daily to 125 mcg daily and recommend repeat TSH in 6 weeks Essential hypertension -Continue home antihypertensives Non-Hodgkin's lymphoma - Ongoing outpatient follow-up per previous recommendations Recent shingles - Continue home acyclovir DM-2 - Continue home insulin regimen - Accu-Cheks as ordered - Cardiac/carb controlled diet - Hold Ozempic while hospitalized - SSI as ordered History of TIAs -continue home aspirin GERD Continue PPI Chronic pain - Restart home oxycodone at discharge - Continue home gabapentin Depression -continue home paroxetine DVT prophylaxis To continue subcu heparin CODE STATUS - Full code as verified at the time of admission Charges/Coding Visit Charges Inpatient E&M: 33640 Subs Hosp L2
[2024-12-15 08:07] LABS: AST(SGOT) 13 U/L (<=31); Alanine Aminotransfer ALT/SGPT 6 U/L (<=34); Albumin, Serum 3.2 g/dL (3.4-4.8); Alkaline Phosphatase 64 U/L (35-104); Anion Gap 10 (5-15); BUN 12 mg/dL (4-19); BUN/Creat Ratio 24.1 RATIO (10-20); Calcium,Total 9.0 mg/dL (7.6-11.0); Carbon Dioxide 24.0 mmol/L (21.0-32.0); Chloride 104 mmol/L (98-108); Cholesterol 141 mg/dL (<=200); Estimated Creatinine Clearance 52.61 ml/min (50-250); Globulin 2.1 g/dL (2.2-4.2); Glucose 156 mg/dL (70-99); Low Density Lipoprotein Calc. 86 mg/dL; Potassium 3.9 mmol/L (3.3-5.1); Triglycerides 138 mg/dL; Very Low Density Lipoprotein 28 mg/dL (5-40); cholesterol:hdl ratio screen 5.15
[2024-12-15] MEDS: Metoprolol(XL)Succ 25 MG Tablet PO (08:10)
[2024-12-15] MEDS: Lactobacillis Acidophilus 1 CAP PO (08:14)
[2024-12-15 08:21] LABS: FOLATES,SERUM (FOLIC ACID) 12.60 ng/mL (4.60-34.80)
[2024-12-15] MEDS: Heparin Injection (Vial) 5,000 UNIT/ML VIAL 5000 UNIT SC ×2 (10:57→20:47)
--- NOTE | 2024-12-15 12:22 | CASEMGMT ---
BEN WELCH Assessment Face to Face with patient for initial transition planning/care coordination assessment. BEN WELCH introduced self and role at [facility], pt voices understanding. Pt is A&Ox4 and is resting comfortably in bed and is calm. Care providers, pharmacy, and demographics verified. Admitting dx: UTI, AMS, NHL LACE Strata: 3 PCP: Chrsitopher Luis Specialists: Urology [facility] (Cannot recall name), Dr Adam Fan ([facility]) Preferred Pharmacy: [facility] Insurance: [facility] A/B, MMO Prescription Benefit: Yes LNOK: Sandro (H), Bridgett (Daughter) Living Arrangements: Pt lives with her in a 2 story home with a FFSU and 3 steps to enter ADLs/IADLs: Indep. 6-Click score is 24. PT is not recommending any additional therapy Transportation: . Denies concerns DME: History of home oxygen use through [facility]. CM to follow for needs. Pt reports that she has a pulse ox, rollator, FWW, cane, functioning BGM with sufficient supplies including lancets, test strips, EtOH swabs, and pen needles for insulin shots. Pt states that she has supplies for her chronic suprapubic catheter and that herself, her , and the [place] help care for this. HHC/SNF: Pt reports that she is active with [facility] (PT, SN, Aid, ST) and wishes to continue their services. Pt states that she has a history at [facility]. Pt?s goal: Home Plan: Anticipate Home with [facility] once medically ready. Follow for any oxygen needs. Pt states that she feels safe with this plan and denies further questions, concerns, or needs at this time. CM to follow. Lul Quintana RN, CM
--- NOTE | 2024-12-15 12:23 | CASEMGMT ---
Social Work Advanced Directives- Pt reports spouse Sebastián as HCPOA. Documents requested for scan into chart. TIFFANIE Clinton
--- NOTE | 2024-12-15 13:41 | CASEMGMT ---
[facility] and receives SN/INSPECTOR MATERIAL DISPOSITION/PT. RN CM updated. Deysi Kimball DC Planning Asst.
--- NOTE | 2024-12-15 15:13 | CHAPLAIN ---
Type of Pastoral Visit _x__ Initial Visit ___ Follow-up Visit ___ On-call Visit ___ General Patient Visit ___ Spiritual Assessment ___ Family Conference ___ Bereavement ___ Rapid Response ___ Code Blue ___ Other (describe below) Pastoral Care Referral From _x__ Patient ___ Family ___ Nurse ___ Physician ___ Adult Basic Education Teacher ___ Telephone Station Repairer ___ Other (describe below) Sacrament/Intervention _x__ Active listening ___ Anointing ___ Sikh ___ Bereavement ___ Communion ___ Jojo exploration ___ _x__ Life review _x__ Prayer ___ Reconciliation ___ Sacrament of Sick _x__ Supportive presence ___ Wedding ___ Other (describe below) Pastoral Comments patient smiles and presents self in a positive attitude; pt speaks highly of her who does it all at home and takes care of all my needs; pt has goals of improved health and of traveling one day when she is doing better; pt has had some health challenges recently but speaks hopefully; pt says that a prayer would be appreciated; pt indicates that she has no further needs
[2024-12-15] MEDS: Sodium Phosphate/Na Biphos 30 MMOL in 0.9% Normal Saline (250mL Bag) 250 ML 62.5 MMOL IV (19:45)
[2024-12-15] MEDS: Insulin Glargine-YFGN 100 UNIT/ML Pen 10 UNIT SC (20:48)
[2024-12-16 03:45] VITALS: BMI 20.5
[2024-12-16 04:20] VITALS: PULSE 94
[2024-12-16 05:06] VITALS: BP 156/84; PULSE 97; RESP 15; TEMP 37; O2SAT 97
[2024-12-16 07:40] LABS: Hematocrit 30.4 % (37-47); Hemoglobin 10.2 g/dL (12.0-15.0); Mean Corp Hgb Conc 33.6 g/dL (32-36); Mean Corpuscular Volume 90.5 fL (81-99); Mean Platelet Vol. 11.1 fl (6.2-12.0); Platelet Count 157 K/mm3 (150-450); RBC Distribution Width CV 13.7 % (11.6-14.6); RBC Distribution Width SD 44.9 fl (35.1-43.9); Red Blood Count 3.36 M/mm3 (4.2-5.4); White Blood Count 2.8 K/mm3 (4.4-11.0)
[2024-12-16 08:00] VITALS: BP 141/82; PULSE 98; RESP 16; TEMP 37; O2SAT 98
[2024-12-16 08:46] VITALS: BP 141/82; PULSE 93
[2024-12-16] MEDS: Metoprolol(XL)Succ 25 MG Tablet PO (08:46)
[2024-12-16] MEDS: Lactobacillis Acidophilus 1 CAP PO (08:46)
[2024-12-16] MEDS: Heparin Injection (Vial) 5,000 UNIT/ML VIAL 5000 UNIT SC (08:47)
--- NOTE | 2024-12-16 10:02 | WOUNDNOTE ---
wound photo: mid lower abdomen (suprapubic cath site)
--- NOTE | 2024-12-16 11:38 | DS.PCM_ITS ---
Providers Date of Admission: 12/15/24 Date of Discharge: 12/16/24 Primary Care Physician: Dr. 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 Routine Comment: Reason for Consult:: subrapubic catheter wound site Reason For Visit: UTI, AMS, NHL WITH METS TO SPINE AND Diagnosis Discharge Diagnosis (1) Fever: Status: Acute Code(s): R50.9 - Fever, unspecified Qualifiers: Fever type: unspecified Qualified Code(s): R50.9 - Fever, unspecified (2) Leukopenia: Status: Acute Code(s): D72.819 - Decreased white blood cell count, unspecified Qualifiers: Leukopenia type: unspecified Qualified Code(s): D72.819 - Decreased white blood cell count, unspecified (3) Metabolic encephalopathy: Status: Acute Code(s): G93.41 - Metabolic encephalopathy (4) Acute cystitis with hematuria: Status: Acute Code(s): N30.01 - Acute cystitis with hematuria Medications at Discharge Home Medications aspirin 81 mg chewable tablet 81 mg PO DAILY@0800 heart health 08/30/13 metoprolol succinate 25 mg tablet,extended release 24 hr 25 mg PO DAILY blood pressure 10/16/18 levothyroxine 150 mcg tablet 150 mcg PO DAILY@0600 thyroid 11/29/20 docusate sodium 100 mg capsule 100 mg PO BID stool softner 06/09/24 oxycodone 5 mg tablet 5 mg PO Q6H PRN PRN pain 06/09/24 pantoprazole 40 mg tablet,delayed release 40 mg PO DAILY 06/09/24 paroxetine HCl 20 mg tablet 40 mg PO DAILY mental health 06/09/24 trazodone 50 mg tablet 50 - 100 mg PO QHS PRN PRN insomnia 06/09/24 Lactobacillus acidophilus (Acidophilus capsule) 10 mg PO DAILY supplement 10/16/24 acyclovir 400 mg tablet 400 mg PO BID virus 10/16/24 gabapentin 100 mg capsule 100 mg PO DAILY nerve pain 10/16/24 insulin glargine 100 unit/mL (3 mL) subcutaneous pen (Lantus Solostar U-100 Insulin) 18 unit subcut QHS diabetes 10/16/24 insulin lispro 100 unit/mL subcutaneous pen (Admelog SoloStar U-100 Insulin lispro) 8 unit subcut TID diabetes 10/16/24 oxycodone 10 mg tablet 10 mg PO Q6H PRN PRN pain 10/16/24 semaglutide 150 mg subcut .weekly diabetes 10/16/24 ciprofloxacin HCl 500 mg tablet 500 mg PO BID #16 tabs 12/16/24 Hospital Course Operations None Procedures - (Chest x-ray/CT abdomen and pelvis) Summary of Care Provided Minutes Spent on Discharge: 36 Hospital Course: Patient is a 79-year-old white female who presents emergency department [facility] on 12/15/2019 for with a chief complaint of fever and confusion. She was not able to provide much history on presentation however stated that he had gone to a birthday constitution party earlier in the day which caused him to be gone for 2 to 3 hours and when he returned home he noted the patient had a fever, chills, rigors, nausea and vomiting so he brought her to the emergency department for further evaluation. She has a history of non- Hodgkin's lymphoma. She has a suprapubic catheter that was placed in August for urinary retention and has had frequent urinary tract infections since it was placed. She has not yet followed up with urology but has an appointment this week. Vital signs on presentation showed temperature of 102, heart rate 107, respiratory was 22, blood pressure was 152/92 and pulse ox was 95% on room air. CBC on presentation was consistent with leukopenia which appears to be chronic, mild chronic anemia and no left shift. Chemistry panel was overtly unremarkable. She has a history of diabetes and her blood sugar on presentation was 191 nonfasting. Her UA was consistent with infection showing protein, occult blood, nitrates, leuk esterase, WBCs and 2+ bacteria. Given her fever, confusion, and suspected UTI. She was admitted to the medical floor and placed on IV antibiotics initially with ceftriaxone. Her suprapubic catheter was exchanged. Within 24 hours of admission she indicated she was feeling much better. Her fevers have resolved and she had returned back to her baseline. She indicated she had a platelet Sunday with her urologist and I encouraged her to discuss her frequent UTIs with him. She states she has had several with the most recent 1 prior to this admission resulting in an 4-lsm-wlke-old sepsis related hospitalization in [place]. Urine culture showed Enterobacter cloacae complex and another gram-positive organism. [place] counts were insignificant for the other gram-positive but 80-100,000 for the Enterobacter. It was sensitive to ciprofloxacin so she was discharged on 8 more days of Cipro 500 mg p.o. twice daily for complicated UTI. She has follow-up tomorrow with the urologist and was encouraged to keep this appointment. She was asked to follow- up with her primary care physician in 1 week. No other medications were altered at the time of hospitalization. Patient was able to be discharged home in stable condition on 12/16/2024 Discharge diagnoses: Complicated acute Enterobacter UTI secondary to suprapubic catheter Urinary tension Fever Toxic/metabolic encephalopathy Chronic leukopenia Hypothyroidism Essential hypertension Non-Hodgkin's lymphoma Recent shingles DM-2 History of TIAs GERD Chronic pain Depression Patient improved more quickly than clinically expected at the time of admission and overall hospitalization was less than 2 midnights. Physical Exam Const alert, oriented x3, no apparent distress, average body habitus and no limitations; Negative for healthy appearing or well nourished Constitutional Narrative: Older, white female, thin, pleasant, sitting up in bed, appears comfortable, does not appear toxic General Appearance: cooperative, comfortable, well kempt and well developed Exam Limitations: no limitations Nutritional Appearance: thin HEENT normocephalic, head/scalp atraumatic, hearing grossly normal bilaterally and moist oral mucous membranes HEENT Narrative: Mallampati 2, no thrush Eyes conjunctivae normal Eyes Narrative: No scleral icterus Neck supple Neck Narrative: Trachea midline Resp normal respiratory effort, no retractions, no use of accessory muscles and clear to auscultation bilaterally Auscultation: Negative for rales, rhonchi or wheezes Cardio regular rate, regular rhythm, S1 normal heart sound, S2 normal heart sound, no murmurs, no rub, no gallops and no clicks GI normal to inspection, nondistended, normoactive bowel sounds, soft to palpation and non-tender GI Narrative: Suprapubic catheter in place Extremity no clubbing, cyanosis or edema Extremity Narrative: 2+ pedal pulses, 2+ radial pulses, decreased lean muscle mass Skin skin turgor normal, no jaundice, no petechiae and no mottling Neuro moves all extremities and no focal motor deficits Sensorium / Orientation: awake, alert, oriented to person, oriented to place and oriented to time Speech: speech normal Psych affect normal Psych Narrative: Very pleasant, interacts appropriately Weight / BMI Weight Weight: 57.5 kg Body Mass Index (BMI) 20.5 ABG / Lab / Microbiology Data 12/16/24 06:36 12/15/24 06:55 Laboratory: Laboratory Results - last 24 hr 12/15/24 16:32: POC Glucose 176 H 12/15/24 20:42: POC Glucose 174 H 12/16/24 06:36: WBC 2.8 L, RBC 3.36 L, Hgb 10.2 L, Hct 30.4 L, MCV 90.5, MCH 30.4, MCHC 33.6, RDW Std Deviation 44.9 H, RDW Coeff of Hitesh 13.7, Plt Count 157, MPV 11.1, Phosphorus 2.5 L 12/16/24 08:42: POC Glucose 224 H Microbiology: Microbiology 12/14/24 20:30 Urine, Catheterized Urine Culture - Preliminary Enterobacter cloacae complex Gram positive organism D/C Instructions Discharge Activity: Return to Normal Activity DC O2, CPAP, BIPAP Needs Home O2 Discharge instructions: No Meaningful Use Info Meaningful Use Meaningful Use Diagnoses (Choose all that apply): None applicable Discharge Plan Admission Admit Date/Time: 12/15/24 00:05 Primary Reason for Your Visit: Fever/confusion Attending Provider: Camila Saldana Primary Care Provider: Christopher Luis Consulting Providers: Kevin Harry Instructions Additional Instructions / Restrictions: 1. Please follow-up with urologist tomorrow Discharge Orders/Prescriptions Prescriptions: New ciprofloxacin HCl 500 mg tablet 500 mg PO BID Qty: 16 0RF Continued aspirin 81 MG tablet,chewable 81 mg PO DAILY@0800 Patient Comments: Heart Health metoprolol succinate 25 MG tablet extended release 24 hr 25 mg PO DAILY levothyroxine 150 MCG tablet 150 mcg PO DAILY@0600 trazodone 50 mg tablet 50 - 100 mg PO QHS PRN PRN (Reason: insomnia) paroxetine HCl 20 mg tablet 40 mg PO DAILY Patient Comments: [NO ORIGINAL SIG] pantoprazole 40 mg tablet,delayed release (DR/EC) 40 mg PO DAILY docusate sodium 100 mg capsule 100 mg PO BID oxycodone 5 mg tablet 5 mg PO Q6H PRN PRN (Reason: pain) acyclovir 400 mg tablet 400 mg PO BID gabapentin 100 mg capsule 100 mg PO DAILY insulin lispro [Admelog SoloStar U-100 Insulin] 100 unit/mL insulin pen 8 unit subcut TID insulin glargine [Lantus Solostar U-100 Insulin] 100 unit/mL (3 mL) insulin pen 18 unit subcut QHS oxycodone 10 mg tablet 10 mg PO Q6H PRN PRN (Reason: pain) semaglutide [Ozempic] 150 mg subcut .weekly Patient Comments: Take every sunday. Pt unsure of dose Acidophilus Capsule 10 mg PO DAILY Discontinued amlodipine 5 mg tablet 5 mg PO DAILY Referrals / Follow Up: Christopher Luis MD [Primary Care Provider] - In 1 Week Disposition Disposition (needs filled in before D/C Order can be placed): Home Health Service Charges/Coding Visit Charges Inpatient E&M: 97543 Disch Hosp >30min
--- NOTE | 2024-12-16 12:00 | CASEMGMT ---
Addendum entered by Marco Quintana 12/16/24 12:08: DC Summary faxed to [facility] @ [phone]. Original Note: Dr Saldana placed an order for DC. TC to [facility] @ [phone]. The [facility] states that they do not require a WILBERTO order and that they are able to resume care tomorrow. CM to fax DC Summary once signed. RN CM to the pt room at this time. Updated that [facility] will resume tomorrow. Pt states that she feels safe returning home today with the help of her . Pt states that she would like to talk to a electronics technology department chair prior to DC. Pt declines further questions, concerns, or needs at this time. Pt's RN updated and plans to consult dietary prior to pt DC.
--- NOTE | 2024-12-16 12:36 | NS ---
Received call from BEN Fletcher requesting diet education for patient. Pt is concerned about need to gain weight and adding calories/protein to diet. Pt eating better now and has not been actively losing weight. Discussed need for ONS, likes chocolate flavor Ensure and Glucerna Shake. Provided samples for home going in addition to coupons and printed information from [facility] on High Daniele/Pro nutrition therapy and High Daniele/Pro recipes. Encouraged increased intake of high protein at meals and snacks; limiting extra simple carbohydrates given elevated blood glucose level. Encouraged to call RD as needed, contact information provided. Nasrin Cabrera, MS, RD, LD
--- NOTE | 2024-12-16 14:28 | PHA.DC_ITS ---
Pharmacy [facility] Counseling Pharmacy Service has performed discharge medication reconciliation and counseling for this patient. 1. CIPROFLOXACIN 500MG PO BID X 8 DAYS 2. STOP AMLODIPINE The patient's discharge medication list was reviewed for discrepancies and discrepancies were resolved. The patient was counseled on the following discharge medications and changes in medications for homegoing were reviewed. The Reason for Use, instructions for use, and potential side effects were reviewed for all new medications. The patient's questions regarding all of their medications were answered. The patient was able to verbally demonstrate an understanding of their discharge medications. Medications at Discharge Home Medications aspirin 81 mg chewable tablet 81 mg PO DAILY@0800 heart health 08/30/13 metoprolol succinate 25 mg tablet,extended release 24 hr 25 mg PO DAILY blood pressure 10/16/18 levothyroxine 150 mcg tablet 150 mcg PO DAILY@0600 thyroid 11/29/20 docusate sodium 100 mg capsule 100 mg PO BID stool softner 06/09/24 oxycodone 5 mg tablet 5 mg PO Q6H PRN PRN pain 06/09/24 pantoprazole 40 mg tablet,delayed release 40 mg PO DAILY 06/09/24 paroxetine HCl 20 mg tablet 40 mg PO DAILY mental health 06/09/24 trazodone 50 mg tablet 50 - 100 mg PO QHS PRN PRN insomnia 06/09/24 Lactobacillus acidophilus (Acidophilus capsule) 10 mg PO DAILY supplement 10/16/24 acyclovir 400 mg tablet 400 mg PO BID virus 10/16/24 gabapentin 100 mg capsule 100 mg PO DAILY nerve pain 10/16/24 insulin glargine 100 unit/mL (3 mL) subcutaneous pen (Lantus Solostar U-100 Insulin) 18 unit subcut QHS diabetes 10/16/24 insulin lispro 100 unit/mL subcutaneous pen (Admelog SoloStar U-100 Insulin lispro) 8 unit subcut TID diabetes 10/16/24 oxycodone 10 mg tablet 10 mg PO Q6H PRN PRN pain 10/16/24 semaglutide 150 mg subcut .weekly diabetes 10/16/24 ciprofloxacin HCl 500 mg tablet 500 mg PO BID #16 tabs 12/16/24
[2024-12-16 14:41] VITALS: BP 141/82; PULSE 87; RESP 18; TEMP 37.1
== END 2024-12-16 14:46 | disposition home health service (06) | DRG 698 ==
LOC: ED 22:52 → MS3 12-15 01:59
PROVIDERS: Physician Assistant; Admitting Provider Internal Medicine; Emergency Provider Emergency Medicine; PCP Family Medicine; Visit Provider Internal Medicine
DX: T83.518A Infection and inflammatory reaction due to other urinary catheter, initial encounter (principal); A41.81 Sepsis due to Enterococcus; G92.8 Other toxic encephalopathy; N30.01 Acute cystitis with hematuria; E11.40 Type 2 diabetes mellitus with diabetic neuropathy, unspecified; E03.9 Hypothyroidism, unspecified; I10 Essential (primary) hypertension; F32.A Depression, unspecified; K21.9 Gastro-esophageal reflux disease without esophagitis; E78.5 Hyperlipidemia, unspecified; Z79.4 Long term (current) use of insulin; X58.XXXA Exposure to other specified factors, initial encounter; G89.29 Other chronic pain; Z90.13 Acquired absence of bilateral breasts and nipples; Z79.01 Long term (current) use of anticoagulants; Z79.890 Hormone replacement therapy; Z79.899 Other long term (current) drug therapy; Z85.3 Personal history of malignant neoplasm of breast; Z85.72 Personal history of non-Hodgkin lymphomas; Z86.19 Personal history of other infectious and parasitic diseases; Z86.73 Personal history of transient ischemic attack (TIA), and cerebral infarction without residual deficits
CPT/HCPCS: 36415; 36591; 71045; 74177; 80053; 80061; 80307; 81001; 82077; 82607; 82746; 82962; 83605; 83735; 84100; 84439; 84443; 84481; 85025; 85027; 85610; 85730; 87040; 87077; 87086; 87088; 87186; 93005; 94668; 97161; 97166; 99285; Q9967; A4216; J0696; J2405

== ENCOUNTER 2025-01-08 20:28 | Emergency (ER) | payer MEDICARE, OTHER, SELFPAY ==
[2025-01-08 20:33] VITALS: BP 168/92; PULSE 97; RESP 24; TEMP 37.7; O2SAT 91; BMI 21.1
[2025-01-08 20:38] VITALS: BP 168/92; PULSE 97; RESP 24; TEMP 37.7; O2SAT 91
[2025-01-08] MEDS: 0.9% Normal Saline (1000mL) 1,000 ML 999 ML IV (20:39)
[2025-01-08 21:24] VITALS: O2SAT 95
--- NOTE | 2025-01-08 21:24 | EKG12_ITS ---
Test Reason : DYSRHYTHMIA Blood Pressure : */* mmHG Vent. Rate : 92 BPM Atrial Rate : 92 BPM P-R Int : 148 ms QRS Dur : 66 ms QT Int : 350 ms P-R-T Axes : 3 14 26 degrees QTcB Int : 432 ms Normal sinus rhythm Normal ECG Confirmed by PAULETTE BRAGG ([id number]), sound editor SANA VALENTINO ([id number]) on 01/13/2025 6:26:17 AM Referred By: Confirmed By: PAULETTE BRAGG
[2025-01-08 21:34] LABS: Mucous, Urine 0 SEEN /hpf (<or=2+); Red Blood Cells-Urine 0 SEEN /hpf (0-5); Squamous Epithelial Cells - UA 0 SEEN /hpf (5-10)
[2025-01-08 21:50] VITALS: BP 173/113; PULSE 95; RESP 20; TEMP 37.7; O2SAT 97
--- NOTE | 2025-01-08 21:50 | EDS_ITS ---
HPI <LOPEZ Llanos - Last Filed: 01/08/25 22:01> History of Present Illness Chief Complaint: Confusion Narrative Narrative: Patient presenting today with her due to concerns for an episode of confusion that occurred earlier this evening and shortness of breath that started this morning. She has a PMH of non-Hodgkin's lymphoma, history of breast cancer in remission, HTN, HLD, DM2, multiple TIAs, chronic indwelling [place] catheter. She was recently admitted at the beginning of the month due to altered mental status and a UTI. The home health nurse came out 2 days ago and obtained a urine specimen after changing the catheter and according to her MyChart these results show nitrites, bacteria, and leukocytes. reports that she was confused earlier this evening. She is not currently confused. She reports that she uses supplemental O2 at home as needed but cannot tell me why she has oxygen at home. She has required it today. She denies cough, chest pain, history of blood clots, recent surgery/travel/immobilization. She denies fevers at home, abdominal pain, nausea, and vomiting. PFSH <LOPEZ Llanos - Last Filed: 01/08/25 22:01> [facility] Medical History History of metastatic neoplastic disease Non-Hodgkin lymphoma Heart murmur Hyperlipemia Insomnia Vertigo Hodgkin lymphoma TIA (transient ischemic attack) HTN (hypertension) Breast cancer Hypothyroid Diabetes mellitus Home Medications ?Medication ?Instructions ?Recorded ?Last Taken ?Type aspirin 81 mg chewable tablet 81 mg PO DAILY@0800 hear t health 08/30/13 12/14/24 History metoprolol succinate 25 mg 25 mg PO DAILY blood pressu re 10/16/18 12/13/24 History tablet,extended release 24 hr levothyroxine 150 mcg tablet 150 mcg PO DAILY@0600 thy roid 11/29/20 12/13/24 History docusate sodium 100 mg capsule 100 mg PO BID stool sof tner 06/09/24 12/14/24 History oxycodone 5 mg tablet 5 mg PO Q6H PRN PRN pain 10/16/24 History pantoprazole 40 mg tablet,delayed 40 mg PO DAILY 06/0912/14/24 History release paroxetine HCl 20 mg tablet 40 mg PO DAILY mental heal th 06/09/24 12/14/24 History trazodone 50 mg tablet 50 - 100 mg PO QHS PRN PRN i nsomnia 06/09/24 12/13/24 History Lactobacillus acidophilus 10 mg PO DAILY supplement 10/16/24 08:24 History (Acidophilus capsule) acyclovir 400 mg tablet 400 mg PO BID virus 10/16/24 12/14/24 History gabapentin 100 mg capsule 100 mg PO DAILY nerve pain 0 10/16/24 12/13/24 History insulin glargine 100 unit/mL (3 18 unit subcut QHS daniela betes 10/16/24 12/13/24 History mL) subcutaneous pen (Lantus Solostar U-100 Insulin) insulin lispro 100 unit/mL 8 unit subcut TID diabetes 10/16/24 12/13/24 History subcutaneous pen (Admelog SoloStar U-100 Insulin lispro) oxycodone 10 mg tablet 10 mg PO Q6H PRN PRN pain 12/13/24 History semaglutide 150 mg subcut .weekly diabet es 10/16/24 12/07/24 History ciprofloxacin HCl 500 mg tablet 500 mg PO BID #16 tabs 12/16/24 Unknown Rx Allergy/AdvReac Type Severity Reaction Status Date / Time lisinopril Allergy Unknown Verified 10/16/24 18:08 phenazopyridine HCl (From Allergy Unknown Verified 10/16/24 18:08 Pyridium) Sulfa (Sulfonamide Allergy Unknown Verified 10/16/24 18:08 Antibiotics) Family History Mother Metastatic cancer Father Heart disease Required AICD but uncertain reason. Surgical History Hx of bilateral mastectomy History of lumpectomy of left breast Social History household members: spouse Smoking Status: Never smoker alcohol intake: current alcohol intake frequency: holidays/special occasions only substance use type: does not use ROS <LOPEZ Llanos - Last Filed: 01/08/25 22:01> ROS ED Constitutional Constitutional ED: Reports fever(s) Cardiovascular Cardiovascular: Denies chest pain Respiratory/Chest Respiratory/Chest: Reports dyspnea; Denies cough or wheezing Gastrointestinal Gastrointestinal: Denies abdominal pain, nausea or vomiting Genitourinary Genitourinary ED: Denies hematuria Musculoskeletal Musculoskeletal: Denies arthralgias or myalgias Integumentary Denies rash Neurologic Neurologic: Denies weakness EXAM <LOPEZ Llanos - Last Filed: 01/08/25 22:01> Physical Exam Const Vital Signs: 01/08/25 20:33 01/08/25 20:38 01/08/25 21:24 Temperature 100 F H 100 F H Temperature Source Oral Oral Pulse Rate 97 97 Respiratory Rate 24 H 24 H Blood Pressure 168/92 H 168/92 H Blood Pressure Mean 117 117 Pulse Ox 91 91 95 Oxygen Delivery Method Room Air Room Air Nasal Cannula Oxygen Flow Rate (L/min) 2 01/08/25 21:50 01/08/25 22:38 Temperature 99.9 F H 99 F Temperature Source Oral Oral Pulse Rate 95 90 Respiratory Rate 20 H 18 Blood Pressure 173/113 H 118/70 Blood Pressure Mean 133 86 Pulse Ox 97 94 Oxygen Delivery Method Nasal Cannula Nasal Cannula Oxygen Flow Rate (L/min) 2 2 Positive well nourished, well developed and no apparent distress General Appearance ED: well developed HEENT Reports normocephalic and head/scalp atraumatic Mouth ED: Yes moist mucous membranes normal Eyes PERRL and EOMs intact bilaterally Neck full ROM and supple Chest Wall inspection of chest normal Resp normal respiratory effort and clear to auscultation bilaterally Cardio regular rate and regular rhythm GI soft to palpation, non-tender, non-distended and no masses Back/Spine normal ROM and normal to inspection Extremity normal to inspection and full ROM Neuro oriented x3, CN's II-XII intact bilaterally, moves all extremities, no focal motor deficits and no sensory deficits noted Sensorium / Orientation: awake and alert Psych mental status grossly normal and thought process normal Skin no rashes or lesions noted and no wounds <Jimmy Vallejo MD - Last Filed: 01/09/25 00:08> Physical Exam Const Vital Signs: 01/08/25 20:33 01/08/25 20:38 01/08/25 21:24 Temperature 100 F H 100 F H Temperature Source Oral Oral Pulse Rate 97 97 Respiratory Rate 24 H 24 H Blood Pressure 168/92 H 168/92 H Blood Pressure Mean 117 117 Pulse Ox 91 91 95 Oxygen Delivery Method Room Air Room Air Nasal Cannula Oxygen Flow Rate (L/min) 2 01/08/25 21:50 01/08/25 22:38 Temperature 99.9 F H 99 F Temperature Source Oral Oral Pulse Rate 95 90 Respiratory Rate 20 H 18 Blood Pressure 173/113 H 118/70 Blood Pressure Mean 133 86 Pulse Ox 97 94 Oxygen Delivery Method Nasal Cannula Nasal Cannula Oxygen Flow Rate (L/min) 2 2 [facility] <LOPEZ Llanos - Last Filed: 01/08/25 22:01> [facility] Narrative Medical decision making narrative: Patient presenting today due to concerns for an episode of confusion that occurred this evening and shortness of breath. reports that she does at times struggle with confusion, she seem more confused than usual this evening prompting him to call EMS. She also reports that she occasionally uses supplemental O2 at home as needed but cannot tell me why she has it at home. Today she has required it due to feeling short of breath. She is tachypneic and tachycardic here, her oxygen levels are remaining around 95% on 2 L. Sepsis workup initiated. I did review her previous inpatient labs where she was here from 12/14 through 12/16 with a complicated UTI and altered mental status. She has a suprapubic catheter and has chronic colonization with frequent UTIs. Broad workup will be initiated. Workup pended up to the attending physician. Lab Data Labs: Laboratory Results - last 24 hr 01/08/25 01/08/25 20:50 21:36 WBC 5.1 RBC 3.62 L Hgb 11.3 L Hct 32.9 L MCV 90.9 MCH 31.2 MCHC 34.3 RDW Std Deviation 46.9 H RDW Coeff of Hitesh 14.0 Plt Count 85 L MPV 11.9 Immature Gran % (Auto) 1.400 H Neut % (Auto) 66.2 Lymph % (Auto) 15.0 L [place] % (Auto) 9.3 Eos % (Auto) 7.7 H Baso % (Auto) 0.4 Absolute Neuts (auto) 3.4 Absolute Lymphs (auto) 0.76 L Nucleated RBC % 0 Differential Comment Platelet Estimate ADEQUATE Plt Morphology Comment LARGE PT 14.6 INR 1.1 APTT 29.5 Sodium 132 L Potassium 4.3 Chloride 97 L Carbon Dioxide 25.2 Anion Gap 10 BUN 9 Creatinine 0.48 L Estim Creat Clear Calc 54.26 Est GFR (MDRD) Non-Af 97 BUN/Creatinine Ratio 18.8 Glucose 139 H Lactic Acid < 1.0 Calcium 9.0 Total Bilirubin 0.33 AST 21 ALT 10 Alkaline Phosphatase 77 Troponin T High Sens 29 H D Total Protein 5.8 L Albumin 3.6 Globulin 2.2 Albumin/Globulin Ratio 1.6 Urine Color Yellow Urine Clarity Clear Urine pH 7.0 Ur Specific [place] 1.010 Urine Protein 100 H Urine Glucose (UA) Normal Urine Ketones Negative Urine Occult Blood 10 H Urine Nitrite Positive H Urine Bilirubin Negative Urine Urobilinogen Normal Ur Leukocyte Esterase Negative Urine RBC 0 SEEN Urine WBC 0-5 SEEN Ur Squamous Epith Cells 0 SEEN Urine Bacteria 0 SEEN Urine Mucus 0 SEEN Radiography Diagnostic Testing: Clinical Impression(s) from Imaging Studies Chest X-Ray 01/08/25 21:54 IMPRESSION: NO ACUTE FINDINGS. Reading [facility] <Jimmy Vallejo MD - Last Filed: 01/09/25 00:08> [facility] MDM Narrative Medical decision making narrative: Patient presenting today due to concerns for an episode of confusion that occurred this evening and shortness of breath. reports that she does at times struggle with confusion, she seem more confused than usual this evening prompting him to call EMS. She also reports that she occasionally uses supplemental O2 at home as needed but cannot tell me why she has it at home. Today she has required it due to feeling short of breath. She is tachypneic and tachycardic here, her oxygen levels are remaining around 95% on 2 L. Sepsis workup initiated. I did review her previous inpatient labs where she was here from 12/14 through 12/16 with a complicated UTI and altered mental status. She has a suprapubic catheter and has chronic colonization with frequent UTIs. Broad workup will be initiated. Workup pended up to the attending physician. Dr. Vallejo: I reviewed her laboratory work and she has a normal white count of 5.1 with hemoglobin 11.3, hematocrit 32.9, platelet count low at 85. She has had thrombocytopenia when compared to prior labs. I do not feel she requires platelet transfusion currently. Part of the sepsis workup shows that her coagulation studies were negative. Lactic acid is less than 1.0. CMP shows low sodium of 132 and chloride 97 which can be more dehydration. BUN of 9 and c reatinine 0.48. Patient improved after IV fluids. Her high-sensitivity troponin is elevated at 29 but when compared to prior was higher. I do not feel that she was having chest pain that requires a repeat troponin. While urinalysis is positive for nitrites, she has 0-5 white cells. I do not feel she has a UTI which requires antibiotics. Chest x-ray interpreted by myself independently shows no evidence of pneumonia or pneumothorax. I reviewed the radiology report which confirms my independent interpretation. At this point in time, her altered mental status has resolved. I feel she can be discharged to follow-up. Return instructions to the emergency department were reviewed. Disposition is discharged home in stable condition. History & Record Review Discussion w/independent historian: Patient Additional record(s) reviewed:: Prior labs Lab Data Attestation: I reviewed the patient's lab results. Labs: Laboratory Results - last 24 hr 01/08/25 01/08/25 20:50 21:36 WBC 5.1 RBC 3.62 L Hgb 11.3 L Hct 32.9 L MCV 90.9 MCH 31.2 MCHC 34.3 RDW Std Deviation 46.9 H RDW Coeff of Hitesh 14.0 Plt Count 85 L MPV 11.9 Immature Gran % (Auto) 1.400 H Neut % (Auto) 66.2 Lymph % (Auto) 15.0 L [place] % (Auto) 9.3 Eos % (Auto) 7.7 H Baso % (Auto) 0.4 Absolute Neuts (auto) 3.4 Absolute Lymphs (auto) 0.76 L Nucleated RBC % 0 Differential Comment Platelet Estimate ADEQUATE Plt Morphology Comment LARGE PT 14.6 INR 1.1 APTT 29.5 Sodium 132 L Potassium 4.3 Chloride 97 L Carbon Dioxide 25.2 Anion Gap 10 BUN 9 Creatinine 0.48 L Estim Creat Clear Calc 54.26 Est GFR (MDRD) Non-Af 97 BUN/Creatinine Ratio 18.8 Glucose 139 H Lactic Acid < 1.0 Calcium 9.0 Total Bilirubin 0.33 AST 21 ALT 10 Alkaline Phosphatase 77 Troponin T High Sens 29 H D Total Protein 5.8 L Albumin 3.6 Globulin 2.2 Albumin/Globulin Ratio 1.6 Urine Color Yellow Urine Clarity Clear Urine pH 7.0 Ur Specific [place] 1.010 Urine Protein 100 H Urine Glucose (UA) Normal Urine Ketones Negative Urine Occult Blood 10 H Urine Nitrite Positive H Urine Bilirubin Negative Urine Urobilinogen Normal Ur Leukocyte Esterase Negative Urine RBC 0 SEEN Urine WBC 0-5 SEEN Ur Squamous Epith Cells 0 SEEN Urine Bacteria 0 SEEN Urine Mucus 0 SEEN Radiography Diagnostic Testing: Clinical Impression(s) from Imaging Studies Chest X-Ray 01/08/25 21:54 IMPRESSION: NO ACUTE FINDINGS. Reading Location: [facility] Discharge Plan Triage Chief Complaint: Confusion ED Midlevel Provider: Rosario Hough ED Provider: Jimmy Vallejo Dx/Rx/DC Orders Clinical Impression: Mental status change resolved, Chronic suprapubic catheter, Hyponatremia Instructions: ED Confusion, ED Hyponatremia Prescriptions: No Action aspirin 81 MG tablet,chewable 81 mg PO DAILY@0800 Patient Comments: [facility] metoprolol succinate 25 MG tablet extended release 24 hr 25 mg PO DAILY levothyroxine 150 MCG tablet 150 mcg PO DAILY@0600 trazodone 50 mg tablet 50 - 100 mg PO QHS PRN PRN (Reason: insomnia) paroxetine HCl 20 mg tablet 40 mg PO DAILY Patient Comments: [NO ORIGINAL SIG] pantoprazole 40 mg tablet,delayed release (DR/EC) 40 mg PO DAILY docusate sodium 100 mg capsule 100 mg PO BID oxycodone 5 mg tablet 5 mg PO Q6H PRN PRN (Reason: pain) acyclovir 400 mg tablet 400 mg PO BID gabapentin 100 mg capsule 100 mg PO DAILY insulin lispro [Admelog SoloStar U-100 Insulin] 100 unit/mL insulin pen 8 unit subcut TID insulin glargine [Lantus Solostar U-100 Insulin] 100 unit/mL (3 mL) insulin p en 18 unit subcut QHS oxycodone 10 mg tablet 10 mg PO Q6H PRN PRN (Reason: pain) semaglutide [Ozempic] 150 mg subcut .weekly Patient Comments: Take every sunday. Pt unsure of dose Acidophilus Capsule 10 mg PO DAILY ciprofloxacin HCl 500 mg tablet 500 mg PO BID Qty: 16 0RF Primary Care Provider: Christopher Luis Referrals: Christopher Luis MD [Primary Care Provider] - 3-5 Days if not improving Activity Restrictions/Additional Instructions: Return to the emergency department with new or worsening symptoms. Follow-up with your primary care provider. Print Language: Uzbek Disposition Disposition: Home, Self Care
[2025-01-08 21:54] LABS: Glucose, Dipstick Normal (Normal); Ketone-Dipstick Negative (Negative); Leukocyte Esterase-Dipstick Negative /ul (Negative); Nitrite-Dipstick Positive (Negative); Occult Blood-Urine 10 /ul (Negative); Protein-Dipstick 100 mg/dl (Negative); Specific Gravity, Urine 1.010 (1.002-1.030); Urine Bilirubin Dipstick Negative (Negative)
--- NOTE | 2025-01-08 21:54 | RAD_ITS ---
PROCEDURE: CHEST PA AND LATERAL 01/08/2025 REASON FOR EXAM: SOB TECHNIQUE: CHEST PA AND LATERAL COMPARISON: 12/14/2024 chest x-ray FINDINGS: Hardware: Right-sided MediPort unchanged. Heart: The heart size is normal. Mediastinum: The mediastinal contour is unremarkable. Lungs: The lungs are clear. Bones: The bones are unremarkable. RAD/Chest PA and Lateral IMPRESSION: NO ACUTE FINDINGS. Reading Location: [facility]
[2025-01-08 21:55] LABS: Color, Urine Yellow (Yellow)
[2025-01-08 22:11] LABS: Hematocrit 32.9 % (37-47); Hemoglobin 11.3 g/dL (12.0-15.0); Immature Granulocytes Count 0.070 X10^3/uL (0.0-0.0); Mean Corp Hgb Conc 34.3 g/dL (32-36); Mean Corpuscular Volume 90.9 fL (81-99); Mean Platelet Vol. 11.9 fl (6.2-12.0); NRBC Flagged by Analyzer 0 % (0-5); POSITIVE COUNT YES; Platelet Count 85 K/mm3 (150-450); RBC Distribution Width CV 14.0 % (11.6-14.6); RBC Distribution Width SD 46.9 fl (35.1-43.9); Red Blood Count 3.62 M/mm3 (4.2-5.4); White Blood Count 5.1 K/mm3 (4.4-11.0)
[2025-01-08 22:26] LABS: AST(SGOT) 21 U/L (<=31); Alanine Aminotransfer ALT/SGPT 10 U/L (<=34); Albumin, Serum 3.6 g/dL (3.4-4.8); Alkaline Phosphatase 77 U/L (35-104); Anion Gap 10 (5-15); BUN 9 mg/dL (4-19); BUN/Creat Ratio 18.8 RATIO (10-20); Calcium,Total 9.0 mg/dL (7.6-11.0); Carbon Dioxide 25.2 mmol/L (21.0-32.0); Chloride 97 mmol/L (98-108); Estimated Creatinine Clearance 54.26 ml/min (50-250); Globulin 2.2 g/dL (2.2-4.2); Glucose 139 mg/dL (70-99); Potassium 4.3 mmol/L (3.3-5.1)
[2025-01-08 22:38] VITALS: BP 118/70; PULSE 90; RESP 18; TEMP 37.2; O2SAT 94
[2025-01-08 22:40] LABS: Troponin T High Sensitivity 29 ng/L (<=14)
[2025-01-08 23:02] LABS: Differential Indicated SCAN CRITERIA MET
[2025-01-08 23:12] LABS: Partial Thromboplast Time 29.5 Seconds (24.1-36.2)
[2025-01-08 23:38] LABS: Prothrombin Time (Protime)PT. 14.6 SECONDS (11.7-14.9)
[2025-01-09 00:02] VITALS: BP 116/70; PULSE 82; RESP 18; TEMP 37.2; O2SAT 90
== END 2025-01-09 00:19 | disposition home or self-care (01) ==
PROVIDERS: Physician Assistant; Emergency Provider Emergency Medicine; PCP Family Medicine; Visit Provider Emergency Medicine
DX: R41.0 Disorientation, unspecified (principal); E11.9 Type 2 diabetes mellitus without complications; Z79.4 Long term (current) use of insulin; E87.1 Hypo-osmolality and hyponatremia; I10 Essential (primary) hypertension; E78.5 Hyperlipidemia, unspecified; Z85.3 Personal history of malignant neoplasm of breast; Z86.73 Personal history of transient ischemic attack (TIA), and cerebral infarction without residual deficits; E03.9 Hypothyroidism, unspecified; Z79.899 Other long term (current) drug therapy; Z79.890 Hormone replacement therapy; G47.00 Insomnia, unspecified; Z79.85 Long-term (current) use of injectable non-insulin antidiabetic drugs; Z90.13 Acquired absence of bilateral breasts and nipples; Z99.81 Dependence on supplemental oxygen; Z96.0 Presence of urogenital implants; R06.02 Shortness of breath
CPT/HCPCS: 71046; 80053; 81001; 83605; 84484; 85025; 85610; 85730; 87040; 87077; 87086; 87088; 87186; 93005; 96360; 99285; A4216